=== PATIENT | male | born 1930 | race Caucasian/White ===

== ENCOUNTER 2018-07-13 12:36 | Inpatient (IN) ==
--- NOTE | 2018-07-13 13:11 | ED ---
HPI General Chief Complaint: Fall Stated Complaint: Fall Time Seen by Provider: 07/13/18 12:59 Source: patient Mode of arrival: EMS Limitations: no limitations History of Present Illness HPI Narrative: 87-year-old male with a history of CAD on Plavix, HTN, and essential tremor presents to the emergency department for evaluation of epistaxis after a fall that occurred just prior to arrival. He states that he was at the [facility] when his foot got caught and he fell onto his right knee, right hand, and nose. He denies loss of consciousness, headache, neck pain, back pain. He says that he is here in the emergency department because he was unable to control the nosebleed at the [facility]. He states that this point, the bleeding is controlled and would like to go home. He says his right fifth finger was angulated but he was able to reduce his finger on his own. He denies pain to his right knee but upon quick evaluation, the right knee is swollen and he states he may have fallen on his knee as well. 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 MD complaint: Reports fall Onset (ago): minute(s) Fall from: standing Fall witnessed: yes, by bystander Place fall occurred: other ([place] [facility]) Loss of consciousness: none Prolonged down time: no Symptoms prior to fall: Reports none Context: Reports tripped/slipped Related Data Home Medications Medication Instructions Recorded Confirmed aspirin [Aspirin Low Dose] 81 mg PO DAILY 07/13/18 07/13/18 atorvastatin 40 mg PO DAILY 07/13/18 07/13/18 baclofen 10 mg PO DAILY 07/13/18 07/13/18 carvedilol 3.125 mg PO BID 07/13/18 07/13/18 cinnamon bark [Cinnamon] 500 mg PO DAILY 07/13/18 07/13/18 clopidogrel 75 mg PO DAILY 07/13/18 07/13/18 losartan 25 mg PO DAILY 07/13/18 07/13/18 nitroglycerin 0.4 mg SUBLINGUAL Q5-15M PRN 07/13/18 07/13/18 temazepam 30 mg PO HS 07/13/18 07/13/18 terazosin 4 mg PO HS 07/13/18 07/13/18 tizanidine 4 mg PO HS 07/13/18 07/13/18 Allergies Allergy/AdvReac Type Severity Reaction Status Date / Time No Known Allergies Allergy Verified 07/13/18 13:26 Review of Systems ROS: all other systems reviewed are negative PMFSH History History Provided By: Patient Medical History Medical History Hypertension (Acute) CAD (coronary artery disease) (Chronic) Surgical History Surgical History Hx of cardiac cath (Acute) Social History Social History Substance History: No History of Abuse Smoking Status: Never smoker How Often Do You Have a Drink Containing Alcohol: Monthly or less Recent Travel in [facility] within the Last 8 Weeks: No Recent Out of Country Travel within the Last 8 Weeks: No Exam Narrative Exam Narrative: GENERAL: Well-developed, well-nourished in no apparent distress , resting tremor present SKIN: Focused skin assessment warm/dry. HEAD: Normocephalic. nasal bridge- superficial laceration/ abrasion, bleeding controlled, mild ecchymosis immediately surrounding the area. EYES: Pupils equal and round. No scleral icterus. No injection or drainage. PERRLA ENT: No active nasal bleeding. Dried blood around left nare. Mucous membranes pink and moist. NECK: Trachea midline. No JVD. No midline TTP. CARDIOVASCULAR: Regular rate and rhythm. No murmur appreciated. RESPIRATORY: No accessory muscle use. Clear to auscultation. Breath sounds equal bilaterally. GASTROINTESTINAL: Abdomen soft, non-tender, nondistended. Hepatic and splenic margins not palpable. MUSCULOSKELETAL: No obvious deformities. No clubbing. No cyanosis. No edema. NEUROLOGICAL: Awake and alert. No obvious cranial nerve deficits. Motor grossly within normal limits. Normal speech. Resting tremor present that ceases with intention. PSYCHIATRIC: Appropriate mood and affect; insight and judgment normal. Course Initial Documented Vital Signs Temperature 98.2 F 07/13/18 13:01 Pulse Rate 96 H 07/13/18 13:01 Respiratory Rate 18 07/13/18 13:01 Pulse Oximetry 99 07/13/18 13:01 Last Documented Vital Signs Temperature 98.2 F 07/13/18 13:01 Pulse Rate 108 H 07/13/18 20:08 Respiratory Rate 16 07/13/18 20:08 Blood Pressure 163/74 H 07/13/18 20:08 Pulse Oximetry 98 07/13/18 20:08 Medical Decision Making MDM Narrative Medical decision making narrative: 87-year-old male with a history of CAD on Plavix CKD III, and essential tremor presents to the emergency department via [facility] for evaluation of a bloody nose after mechanical fall that occurred just prior to arrival. He states he had images of his nose and finger but wanted to come in today for evaluation of uncontrolled epistaxis. He denies loss consciousness or headache. Denies weakness. Patient stated "he lost a lot of blood". Ordered labs for evaluation in addition to imaging studies. Patient required a dose of Ativan and Versed to reduce his tremors. Once the medication was effective, obtain CT head which demonstrated a large subdural hematoma. Placed call to neurosurgery. Labs appear stable. Chronic CKD III appears stable. CBC stable. Coags within normal limits. I discussed the findings with the patient and he had no additional complaints or concerns. @1815 I called his son who is listed on his NOK. No answer and unable to leave a message. Vital signs remain stable. BP 160/82, HR 80-90 BPM, SaO2 96%. @[address] Rodriguez who recommended admission to document preparation specialist vs trauma. No new orders for now. I spoke with Dr. Kothari who agreed to the admission. Medical Screen Exam Complete: Yes Emergency Medical Condition: Yes Differential Diagnosis Differential Diagnosis: nasal bone fracture, epistaxis, right knee fracture, right 5th finger fracture Medical Records Medical records reviewed: Yes I reviewed the patient's medical records. Pt last visit here was in 2015 for STEMI Lab Data Result diagrams: 07/13/18 13:27 07/13/18 13:27 Lab Results 07/13/18 07/13/18 07/13/18 Range/Units 13:27 13:27 13:27 WBC 10.7 (4.0-11.0) th/mm3 RBC 4.17 L (4.50-5.90) mil/mm3 Hgb 14.5 (13.0-17.0) gm/dL Hct 43.7 (39.0-51.0) % MCV 104.8 H (80.0-100.0) fL MCH 34.9 H (27.0-34.0) pg MCHC 33.3 (32.0-36.0) % RDW 14.9 (11.6-17.2) % Plt Count 173 (150-450) th/mm3 MPV 7.2 (7.0-11.0) fL Neut % (Auto) 72.4 H (16.0-70.0) % Lymph % (Auto) 18.5 (9.0-44.0) % [place] % (Auto) 6.4 (0.0-8.0) % Eos % (Auto) 2.4 (0.0-4.0) % Baso % (Auto) 0.3 (0.0-2.0) % Neut # (Auto) 7.7 (1.8-7.7) th/mm3 Lymph # (Auto) 2.0 (1.0-4.8) th/mm3 [place] # (Auto) 0.7 (0.0-0.9) th/mm3 Eos # (Auto) 0.3 (0.0-0.4) th/mm3 Baso # (Auto) 0.0 (0.0-0.2) th/mm3 WBC Differential . Differential Comment Auto diff final PT 11.2 (9.8-11.6) sec INR 1.1 Ratio APTT 25.0 (24.3-30.1) sec Sodium 141 (136-145) meq/L Potassium 4.7 (3.5-5.1) meq/L Chloride 109 H (98-107) meq/L Carbon Dioxide 27.5 (21.0-32.0) meq/L Anion Gap 5 (5-15) meq/L BUN 30 H (7-18) mg/dL Creatinine 1.45 H (0.60-1.30) mg/dL Estimated GFR 46 L (>89) mL/min Random Glucose 118 H (74-106) mg/dL Calcium 8.7 (8.5-10.1) mg/dL Imaging Data Radiologist's impression: Cervical Spine CT 07/13/18 13:08 CONCLUSION: 1. No acute fracture. 2. Mild grade 1 anterior spondylolisthesis of C4 on C5 of approximately 3 mm. 3. Degenerative disc and degenerative joint changes. Face CT 07/13/18 13:08 CONCLUSION: 1. Negative for facial bone fracture 2. Large parafalcine subdural hematoma described on CT scan of the head. 3. Subacute right subdural hematoma. Head CT 07/13/18 13:08 CONCLUSION: 1. Large acute parafalcine subdural hematoma 2. Subacute 5 mm right subdural hematoma. 3. Marked central and cortical atrophy. . Hand X-Ray 07/13/18 13:11 CONCLUSION: 1. Soft tissue swelling over the fifth digit with no acute fracture or malalignment. 2. Osteopenia and osteoarthritic change. Knee X-Ray 07/13/18 13:11 CONCLUSION: Soft tissue swelling with no acute fracture or malalignment. Discharge Plan Discharge Disposition Patient Disposition: 30 Still Patient Discharge Condition Condition: Stable Discharge Details Diagnosis: Acute subdural hematoma, Contusion of knee, right, Contusion of finger, right, Contusion of face Physicians Team ED Provider: Rodney Martel ED Midlevel Provider: Bindu Ely Primary Care Provider: Primary Care Blanca Hale Attending Provider: Sil Turner Status ED Status: Admitted Patient
--- NOTE | 2018-07-13 14:09 | XR ---
EXAM DATE: 07/13/2018 1:48 PM EDT AGE/SEX: 87 years / Male INDICATIONS: Right anterior knee pain after fall. CLINICAL DATA: This is the patient's initial encounter. Patient reports that signs and symptoms have been present for 1 day and indicates a pain score of 2/10. MEDICAL/SURGICAL HISTORY: None. None. COMPARISON: No prior exams available for comparison. FINDINGS: Bony structures are intact and in normal alignment. Joints are intact without dislocation or signifi cant arthropathy. Osseous density is normal. There is soft tissue swelling over the patella. No radi opaque foreign bodies seen. There are vascular calcifications. CONCLUSION: Soft tissue swelling with no acute fracture or malalignment. Electronically signed by: Jan Cadet MD 07/13/2018 2:08 PM EDT
--- NOTE | 2018-07-13 14:10 | XR ---
EXAM DATE: 07/13/2018 1:49 PM EDT AGE/SEX: 87 years / Male INDICATIONS: Right hand, 5th digit pain after fall. CLINICAL DATA: This is the patient's initial encounter. Patient reports that signs and symptoms have been present for 1 day and indicates a pain score of 9/10. MEDICAL/SURGICAL HISTORY: None. None. COMPARISON: No prior exams available for comparison. FINDINGS: Multiple views of the hand were obtained and demonstrate diffuse osteopenia. There are degenerative j oint changes present with sclerosis and joint space narrowing. There is no acute fracture or malalign ment. There is soft tissue swelling along the proximal fifth digit. CONCLUSION: 1. Soft tissue swelling over the fifth digit with no acute fracture or malalignment. 2. Osteopenia and osteoarthritic change. Electronically signed by: Jan Cadet MD 07/13/2018 2:09 PM EDT
[2018-07-13] MEDS ORDERED: Acetaminophen 325 MG Tablet PO ONE (14:14)
[2018-07-13 15:29] LABS: Baso % (Auto) 0.3 % (0.0-2.0); Eos # (Auto) 0.3 th/mm3 (0.0-0.4); Eos % (Auto) 2.4 % (0.0-4.0); Hematocrit 43.7 % (39.0-51.0); Hemoglobin 14.5 gm/dL (13.0-17.0); Lymph % (Auto) 18.5 % (9.0-44.0); Mean Corpuscular HGB Conc 33.3 % (32.0-36.0); Mean Corpuscular Hemoglobin 34.9 pg (27.0-34.0); Mean Corpuscular Volume 104.8 fL (80.0-100.0); Mean Platelet Volume 7.2 fL (7.0-11.0); Mono # (Auto) 0.7 th/mm3 (0.0-0.9); Mono % (Auto) 6.4 % (0.0-8.0); Neut # (Auto) 7.7 th/mm3 (1.8-7.7); Neut % (Auto) 72.4 % (16.0-70.0); Platelet Count 173 th/mm3 (150-450); Red Blood Count 4.17 mil/mm3 (4.50-5.90); Red Cell Distribution Width 14.9 % (11.6-17.2); White Blood Count 10.7 th/mm3 (4.0-11.0)
--- NOTE | 2018-07-13 15:44 | CT ---
EXAM DATE: 07/13/2018 3:40 PM EDT AGE/SEX: 87 years / Male INDICATIONS: Slip and fall. Hit nose on the ground. CLINICAL DATA: This is the patient's initial encounter. Patient reports that signs and symptoms have been present for 1 day and indicates a pain score of 0/10. MEDICAL/SURGICAL HISTORY: . Unobtainable. . Unobtainable. RADIATION DOSE: 66.34 CTDI (mGy) COMPARISON: No prior exams available for comparison. TECHNIQUE: CT of the head without contrast. Using automated exposure control and adjustment of the mA and/or kV according to patient size, radiation dose was kept as low as reasonably achievable to ob tain optimal diagnostic quality images. DICOM format image data is available electronically for revi ew and comparison. FINDINGS: There is a large parafalcine subdural hematoma causing effacement of the central cortical sulci. This measures 1.8 cm in its largest dimension. Blood is seen layering along the right tentorium. This is associated with moderate central and cortical atrophy. In addition there is a small subacute subdural hematoma layering over the right convexity causing minimal mass effect. Posterior fossa is unremarkable. Review of bone windows reveals no evidence for a fracture. CONCLUSION: 1. Large acute parafalcine subdural hematoma 2. Subacute 5 mm right subdural hematoma. 3. Marked central and cortical atrophy. . Electronically signed by: Jose Ferrell MD 07/13/2018 3:43 PM EDT
[2018-07-13 15:49] LABS: INR 1.1 Ratio; Prothrombin Time 11.2 sec (9.8-11.6)
--- NOTE | 2018-07-13 15:56 | CT ---
EXAM DATE: 07/13/2018 3:53 PM EDT AGE/SEX: 87 years / Male INDICATIONS: Slip and fall. Hit nose on ground. CLINICAL DATA: This is the patient's initial encounter. Patient reports that signs and symptoms have been present for 1 day and indicates a pain score of 0/10. MEDICAL/SURGICAL HISTORY: . Unobtainable. . Unobtainable. RADIATION DOSE: 21.96 CTDI (mGy) COMPARISON: No prior exams available for comparison. TECHNIQUE: Contiguous images in the axial and coronal planes were obtained using helical multirow de tector technique. Using automated exposure control and adjustment of the mA and/or kV according to p atient size, radiation dose was kept as low as reasonably achievable to obtain optimal diagnostic arturo lity images. DICOM format image data is available electronically for review and comparison. FINDINGS: Again seen is a large parafalcine subdural hematoma is smaller right subacute subdural hematoma. There is soft tissue swelling over the frontal bone bilaterally. Fracture is not appreciated. CONCLUSION: 1. Negative for facial bone fracture 2. Large parafalcine subdural hematoma described on CT scan of the head. 3. Subacute right subdural hematoma. Electronically signed by: Jose Ferrell MD 07/13/2018 3:55 PM EDT
--- NOTE | 2018-07-13 15:56 | CT ---
EXAM DATE: 07/13/2018 3:52 PM EDT AGE/SEX: 87 years / Male INDICATIONS: Slip and fall. Hit nose on ground. CLINICAL DATA: This is the patient's initial encounter. Patient reports that signs and symptoms have been present for 1 day and indicates a pain score of 0/10. MEDICAL/SURGICAL HISTORY: . Unobtainable. . Unobtainable. RADIATION DOSE: 21.10 CTDI (mGy) COMPARISON: No prior exams available for comparison. TECHNIQUE: Contiguous axial images were obtained using helical multirow detector technique. The vol umetric data was post-processed with multiplanar reconstruction in oblique axial, sagittal, and coron al planes. Using automated exposure control and adjustment of the mA and/or kV according to patient s ize, radiation dose was kept as low as reasonably achievable to obtain optimal diagnostic quality florencia ges. DICOM format image data is available electronically for review and comparison. FINDINGS: Vertebrae: Normal vertebral body height. Discs: Degenerative disc changes are present with mild disc space narrowing and hypertrophic change. Alignment: There is a mild grade 1 anterior spondylolisthesis of C4 on C5 approximately 3 mm. The axial images demonstrate that the vertebral bodies and posterior elements are intact with no evid ence of fracture. Extensive degenerative changes are noted involving the facet joints. Prevertebral s oft tissues are within normal limits. No disc protrusion is identified. CONCLUSION: 1. No acute fracture. 2. Mild grade 1 anterior spondylolisthesis of C4 on C5 of approximately 3 mm. 3. Degenerative disc and degenerative joint changes. Electronically signed by: Jan Cadet MD 07/13/2018 3:55 PM EDT
[2018-07-13 15:58] LABS: Calcium 8.7 mg/dL (8.5-10.1); Carbon Dioxide 27.5 meq/L (21.0-32.0); Potassium 4.7 meq/L (3.5-5.1)
[2018-07-13] MEDS ORDERED: Nitroglycerin SL (Override) 0.4 MG Tab SL PRN (19:39)
[2018-07-13] MEDS ORDERED: Aluminum/Magnesium/Simethacone Susp 30 ML UDC PO PRN (19:42)
[2018-07-13] MEDS ORDERED: Magnesium Sulfate Inj 2 GM in Sodium Chlor 0.9% Inj 96 ML IV.SIG PRN (19:42)
[2018-07-13] MEDS ORDERED: Bisacodyl 10 MG Supp RECTAL PRN (19:42)
[2018-07-13] MEDS ORDERED: Labetalol HCl Inj 100 MG/20 ML Vial IV.PUSH PRN (19:42)
[2018-07-13] MEDS ORDERED: Potassium Chlor 20 mEq Premix 20 MEQ/100 ML PIGGYBACK IV.SIG PRN (19:42)
[2018-07-13] MEDS ORDERED: Calcium Gluconate Inj 1 GM in Sodium Chlor 0.9% Inj 100 ML IV.SIG PRN (19:42)
--- NOTE | 2018-07-13 19:54 | P.CONNS ---
History of Present Illness Service: Neurosurgery Consult date: 07/13/18 Requesting Physician: Sil Turner (Trauma surgery) Reason for Consult: Acute subdural hemorrhage Primary Care Provider: No Primary Care Physician History of Present Illness: 87-year-old male who was at the [place] [facility] to get a new eyeglasses this afternoon when he tripped and fell and hit his head although denies loss of consciousness. He is on chronic aspirin and Plavix therapy for history of coronary stents and had bleeding from his nose which prompted him to come to the emergency room. CT scan of the head obtained reveals an acute interhemispheric subdural hemorrhage extending from the frontal to the occipital aspect with a maximal thickness about 17 mm. There is also a small right convexity subacute subdural hemorrhage measuring about 5 mm in thickness. No cervical spine fractures and relates chronic history of neck pain which is not new. Denies any numbness or paresthesias in the upper lower extremities. Denies any nausea or vomiting. [facility] - History History Provided By: Patient - Medical History Medical History: Medical History (Last Updated 07/13/18 @ 19:48 by Gold Rodriguez MD) Hypertension CAD (coronary artery disease) - Surgical History Surgical History: Surgical History (Last Updated 07/13/18 @ 19:48 by Gold Rodriguez MD) Hx of cardiac cath - Tobacco History Smoking Status: Never smoker - Alcohol History How Often Do You Have a Drink Containing Alcohol: Monthly or less - Substance Use History Substance History: No History of Abuse - Travel History Recent Travel in the [place] Within the Last 8 Weeks: No Recent Travel Out of the Country Within the Last 8 Weeks: No - Immunization History Tetanus Immunization: <5 Years Medications and Allergies Allergies Allergy/AdvReac Type Severity Reaction Status Date / Time No Known Allergies Allergy Verified 07/13/18 13:26 Home Medications Medication Instructions Recorded Confirmed Type aspirin [Aspirin Low Dose] 81 mg PO DAILY 07/13/18 07/13/18 History atorvastatin 40 mg PO DAILY 07/13/18 07/13/18 History baclofen 10 mg PO DAILY 07/13/18 07/13/18 History carvedilol 3.125 mg PO BID 07/13/18 07/13/18 History cinnamon bark [Cinnamon] 500 mg PO DAILY 07/13/18 07/13/18 History clopidogrel 75 mg PO DAILY 07/13/18 07/13/18 History losartan 25 mg PO DAILY 07/13/18 07/13/18 History nitroglycerin 0.4 mg SUBLINGUAL Q5-15M PRN 07/13/18 07/13/18 History temazepam 30 mg PO HS 07/13/18 07/13/18 History terazosin 4 mg PO HS 07/13/18 07/13/18 History tizanidine 4 mg PO HS 07/13/18 07/13/18 History Exam Vital signs: Vital Signs 07/13/18 13:01 07/13/18 13:06 07/13/18 15:00 Temperature 98.2 F Pulse Rate 96 H 58 L 98 H Respiratory Rate 18 28 H 29 H Blood Pressure 168/71 H 178/86 H Pulse Oximetry 99 98 100 07/13/18 15:44 07/13/18 16:05 07/13/18 17:00 Temperature Pulse Rate 96 H 100 H Respiratory Rate 19 23 24 Blood Pressure 160/82 H 162/79 H Pulse Oximetry 96 100 07/13/18 18:00 07/13/18 19:00 Temperature Pulse Rate 100 H 104 H Respiratory Rate 21 16 Blood Pressure 169/79 H 177/86 H Pulse Oximetry 97 98 - Constitutional no acute distress - Routine HEENT Exam Head: Present: abrasion, laceration, facial swelling Eye: Present: EOMI, PERRL ENT: Present: mucous membranes moist, oropharynx clear, nares patent, external ear normal - Routine Neck Exam Present: supple, full ROM - Routine Respiratory Exam Present: CTA bilaterally - Routine Cardiovascular Exam Present: RRR, S1, S2 - Routine Abdominal Exam Present: soft, normoactive bowel sounds - Routine Extremities Exam Present: full ROM, pulses intact - Routine Skin Exam Present: ecchymosis - Routine Neurological Exam Present: oriented X3, CN II-XII intact, plantar reflex, moving all extremities, normal speech - Detailed Neurological Exam: Coma Scale Eye Opening: Spontaneous Verbal Response: Oriented Motor Response: [place] commands [place] Coma Scale Total: 15 - Routine Psychiatric Exam Present: normal affect, normal thought process, cooperative, good insight, good judgment Results - Laboratory Findings CBC and BMP: 07/13/18 13:27 07/13/18 13:27 Abnormal lab findings: Abnormal Labs 07/13/18 07/13/18 13:27 13:27 RBC 4.17 L MCV 104.8 H MCH 34.9 H Neut % (Auto) 72.4 H Chloride 109 H BUN 30 H Creatinine 1.45 H Estimated GFR 46 L Random Glucose 118 H - Diagnostic Findings Additional findings: Impressions Cervical Spine CT 07/13/18 13:08 CONCLUSION: 1. No acute fracture. 2. Mild grade 1 anterior spondylolisthesis of C4 on C5 of approximately 3 mm. 3. Degenerative disc and degenerative joint changes. Face CT 07/13/18 13:08 CONCLUSION: 1. Negative for facial bone fracture 2. Large parafalcine subdural hematoma described on CT scan of the head. 3. Subacute right subdural hematoma. Head CT 07/13/18 13:08 CONCLUSION: 1. Large acute parafalcine subdural hematoma 2. Subacute 5 mm right subdural hematoma. 3. Marked central and cortical atrophy. . Hand X-Ray 07/13/18 13:11 CONCLUSION: 1. Soft tissue swelling over the fifth digit with no acute fracture or malalignment. 2. Osteopenia and osteoarthritic change. Knee X-Ray 07/13/18 13:11 CONCLUSION: Soft tissue swelling with no acute fracture or malalignment. Assessment and Plan - Assessment (1) Acute subdural hematoma Code(s): S06.5X9A - Traumatic subdural hemorrhage with loss of consciousness of unspecified duration, initial encounter Status: Acute (2) Hypertension Code(s): I10 - Essential (primary) hypertension Status: Chronic - Plan 87-year-old gentleman with an acute interhemispheric subdural hemorrhage which extends into the right tentorium with a subacute small right convexity subdural hemorrhage. 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 He is on aspirin and Plavix therapy and increasing the risk for bleeding. His hypertension will be regulated and he will be monitored closely in the surgical intensive care unit. Follow-up CT scan of the head tomorrow morning to rule out any progression of these subdural hemorrhages. Gastrointestinal stress ulcer prophylaxis and mechanical DVT prophylaxis. Increase diet and activity status as tolerated with physical therapy safety evaluation. (2) Hypertension Qualifiers: Hypertension type: essential hypertension Qualified Code(s): I10 - Essential (primary) hypertension
[2018-07-13] MEDS ORDERED: Docusate Sodium 100 MG Capsule PO SCH (21:00)
[2018-07-13] MEDS ORDERED: Senna/Docusate Sodium 8.6/50 MG Tablet PO SCH (21:00)
--- NOTE | 2018-07-13 21:16 | P.HPCC ---
History of Present Illness Primary Care Physician: No Primary Care Physician History of Present Illness: 87y.o male with with history of CAD,tremor ,chronic back and neck pain-tripped and fell,sustained a TBI -a large parafalcine SDH,GCS 15,HD normal,neuro intact, no headache Inpatient Certification: I certify that the inpatient services were ordered in accordance with Medicare regulations governing the order. This includes certification that hospital inpatient services are reasonable and necessary and in the case of services not specified as inpatient-only under 42 CFR 419.22(n), that they are appropriately provided as inpatient services in accordance to with the 2-midnight benchmark under 43 CFR 412.3(e) Estimated Total Length of Stay (Days): 5 Plans for Post Hospital Care: Home Review of Systems All other systems reviewed negative except as stated in HPI [facility] - History History Provided By: Patient - Medical History Medical History: Medical History (Last Updated 07/13/18 @ 19:48 by Gold Rodriguez MD) Hypertension CAD (coronary artery disease) - Surgical History Surgical History: Surgical History (Last Updated 07/13/18 @ 19:48 by Gold Rodriguez MD) Hx of cardiac cath - Tobacco History Smoking Status: Never smoker - Alcohol History How Often Do You Have a Drink Containing Alcohol: Monthly or less - Substance Use History Substance History: No History of Abuse - Travel History Recent Travel in the [place] Within the Last 8 Weeks: No Recent Travel Out of the Country Within the Last 8 Weeks: No - Immunization History Tetanus Immunization: <5 Years Medications and Allergies Active Medications: Active Medications Atorvastatin Calcium (Lipitor) 40 mg PO DAILY SRIDHAR Bacitracin (Baciguent Oint) 1 applicatio TOPICAL BID [facility]AR Baclofen (Lioresal) 10 mg PO DAILY [facility] Carvedilol (Coreg) 3.125 mg PO BID SRIDHAR Chlorhexidine Gluconate (Chlorhexidine 2% Cloth) 3 pack TOPICAL DAILY@0400 SRID[facility]AR Stop: 07/19/18 03:59 Chlorhexidine Gluconate (Chlorhexidine 2% Cloth) 3 pack TOPICAL DAILY@0400 PRN PRN Reason: Extra cloth needed Stop: 07/19/18 03:59 Docusate Sodium (Colace) 100 mg PO BID SRIDHAR Calcium Gluconate 1 gm/ Sodium (Chloride) 110 mls @ 110 mls/hr IV.SIG UNSCH PRN PRN Reason: SEE LABEL COMMENTS Magnesium Sulfate 2 gm/ Sodium (Chloride) 100 mls @ 100 mls/hr IV.SIG UNSCH PRN PRN Reason: MAGNESIUM LESS THAN 2 Potassium Chloride (Kcl 20 Meq Premix Inj) 20 meq in 100 mls @ 50 mls/hr IV.SIG UNSCH PRN PRN Reason: POTASSIUM LESS THAN 4 Sodium Chloride (Ns Inj) 1,000 mls @ 75 mls/hr IV.CONT .[id number] SRIDHAR Acetaminophen (Ofirmev Inj) 1,000 mg in 100 mls @ 400 mls/hr IV.SIG Q6H PRN PRN Reason: PAIN SCALE 1 TO 10 Levetiracetam 500 mg/ Sodium (Chloride) 105 mls @ 400 mls/hr IV.SIG Q12H SRIDHAR Losartan Potassium (Cozaar) 25 mg PO DAILY SRIDHAR Morphine Sulfate (Morphine Inj) 2 mg IV.PUSH Q3H PRN PRN Reason: Break through pain Nitroglycerin (Nitrostat Sl (Override)) 0.4 mg SL Q5M PRN PRN Reason: Chest Pain Ondansetron HCl (Zofran Inj) 4 mg IV.PUSH Q6H PRN PRN Reason: NAUSEA OR VOMITING Ondansetron HCl (Zofran Inj) 4 mg IV.PUSH Q6H PRN PRN Reason: NAUSEA OR VOMITING Pantoprazole Sodium (Protonix) 40 mg PO DAILY [facility] Sennosides (Senokot) 17.2 mg PO Q12H PRN PRN Reason: Moderate Constipation Terazosin HCl (Hytrin) 4 mg PO HS [facility]ID[facility]AR Tizanidine HCl (Zanaflex) 4 mg PO HS [facility] Allergies Allergy/AdvReac Type Severity Reaction Status Date / Time No Known Allergies Allergy Verified 07/13/18 13:26 Home Medications Medication Instructions Recorded Confirmed Type aspirin [Aspirin Low Dose] 81 mg PO DAILY 07/13/18 07/13/18 History atorvastatin 40 mg PO DAILY 07/13/18 07/13/18 History baclofen 10 mg PO DAILY 07/13/18 07/13/18 History carvedilol 3.125 mg PO BID 07/13/18 07/13/18 History cinnamon bark [Cinnamon] 500 mg PO DAILY 07/13/18 07/13/18 History clopidogrel 75 mg PO DAILY 07/13/18 07/13/18 History losartan 25 mg PO DAILY 07/13/18 07/13/18 History nitroglycerin 0.4 mg SUBLINGUAL Q5-15M PRN 07/13/18 07/13/18 History temazepam 30 mg PO HS 07/13/18 07/13/18 History terazosin 4 mg PO HS 07/13/18 07/13/18 History tizanidine 4 mg PO HS 07/13/18 07/13/18 History Results - Labs CBC & Chem 7: 07/13/18 13:27 07/13/18 13:27 Labs: Short CBC 07/13/18 Range/Units 13:27 WBC 10.7 (4.0-11.0) th/mm3 Hgb 14.5 (13.0-17.0) gm/dL Hct 43.7 (39.0-51.0) % Plt Count 173 (150-450) th/mm3 BMP 07/13/18 13:27 Sodium 141 Potassium 4.7 Chloride 109 H Carbon Dioxide 27.5 BUN 30 H Creatinine 1.45 H Calcium 8.7 - Imaging Impressions Cervical Spine CT 07/13/18 13:08 CONCLUSION: 1. No acute fracture. 2. Mild grade 1 anterior spondylolisthesis of C4 on C5 of approximately 3 mm. 3. Degenerative disc and degenerative joint changes. Face CT 07/13/18 13:08 CONCLUSION: 1. Negative for facial bone fracture 2. Large parafalcine subdural hematoma described on CT scan of the head. 3. Subacute right subdural hematoma. Head CT 07/13/18 13:08 CONCLUSION: 1. Large acute parafalcine subdural hematoma 2. Subacute 5 mm right subdural hematoma. 3. Marked central and cortical atrophy. . Hand X-Ray 07/13/18 13:11 CONCLUSION: 1. Soft tissue swelling over the fifth digit with no acute fracture or malalignment. 2. Osteopenia and osteoarthritic change. Knee X-Ray 07/13/18 13:11 CONCLUSION: Soft tissue swelling with no acute fracture or malalignment. Exam Vital signs: Vital Signs 07/13/18 13:01 07/13/18 13:06 07/13/18 15:00 Temperature 98.2 F Pulse Rate 96 H 58 L 98 H Respiratory Rate 18 28 H 29 H Blood Pressure 168/71 H 178/86 H Pulse Oximetry 99 98 100 07/13/18 15:44 07/13/18 16:05 07/13/18 17:00 Temperature Pulse Rate 96 H 100 H Respiratory Rate 19 23 24 Blood Pressure 160/82 H 162/79 H Pulse Oximetry 96 100 07/13/18 18:00 07/13/18 19:00 07/13/18 20:08 Temperature Pulse Rate 100 H 104 H 108 H Respiratory Rate 21 16 16 Blood Pressure 169/79 H 177/86 H 163/74 H Pulse Oximetry 97 98 98 - Constitutional no acute distress, average body habitus, cooperative - Routine HEENT Exam Head: Present: normocephalic (abrasion face) Eye: Present: EOMI, PERRL ENT: Present: mucous membranes moist, oropharynx clear - Routine Neck Exam Present: supple, full ROM, trachea midline - Routine Respiratory Exam Present: CTA bilaterally - Routine Cardiovascular Exam Present: RRR - Routine Abdominal Exam Present: soft, normoactive bowel sounds - Routine Extremities Exam Present: full ROM, pulses intact, normal capillary refill - Routine Neurological Exam Present: alert, oriented X3, normal speech, tremors Caprini VTE Risk Assessment Caprini VTE Risk Assessment: Moderate/High Risk (score >= 2) (trauma) VTE Pharmacological Exception Reason: High risk for bleeding Caprini Risk Assessment Model: Point Value = 1 Point Value = 2 Point Value = 3 Point Value = 5 Age 41-60 Minor surgery BMI > 25 kg/m2 Swollen legs Varicose veins or History of unexplained or recurrent spontaneous Oral contraceptives or hormone replacement Sepsis (< 1 month) Serious lung disease, including pneumonia (< 1 month) Abnormal pulmonary function Acute myocardial infarction Congestive heart failure (< 1 month) History of inflammatory bowel disease Medical patient at bed rest Age 61-74 Arthroscopic surgery Major open surgery (> 45 min) Laparoscopic surgery (> 45 min) Malignancy Confined to bed (> 72 hours) Immobilizing plaster cast Central venous access Age >= 75 History of VTE Family history of VTE Factor V Leiden Prothrombin [id number] Lupus anticoagulant Anticardiolipin antibodies Elevated serum homocysteine Heparin-induced thrombocytopenia Other congenital or acquired thrombophilia Stroke (< 1 month) Elective arthroplasty Hip, pelvis, or leg fracture Acute spinal cord injury (< 1 month) Prophylaxis Regimen: Total Risk Factor Score Risk Level Prophylaxis Regimen 0-1 Low Early ambulation 2 Moderate Order ONE of the following: *Sequential Compression Device (SCD) *Heparin 5000 units SQ BID 3-4 Higher Order ONE of the following medications: *Heparin 5000 units SQ TID *Enoxaparin/Lovenox 40 mg SQ daily (WT < 150 kg, CrCl > 30 mL/min) *Enoxaparin/Lovenox 30 mg SQ daily (WT < 150 kg, CrCl > 10-29 mL/min) *Enoxaparin/Lovenox 30 mg SQ BID (WT < 150 kg, CrCl > 30 mL/min) AND/OR *Sequential Compression Device (SCD) 5 or more Highest Order ONE of the following medications: *Heparin 5000 units SQ TID (Preferred with Epidurals) *Enoxaparin/Lovenox 40 mg SQ daily (WT < 150 kg, CrCl > 30 mL/min) *Enoxaparin/Lovenox 30 mg SQ daily (WT < 150 kg, CrCl > 10-29 mL/min) *Enoxaparin/Lovenox 30 mg SQ BID (WT < 150 kg, CrCl > 30 mL/min) AND *Sequential Compression Device (SCD) Assessment and Plan - Assessment and Plan Plan: large parafalcine SDH GCS 15 admit ISC neuro checks pain control keep SBP< [address] head dw NS hold plavix
[2018-07-13] MEDS: Morphine Sulfate Inj 2 MG/ML Vial IV.PUSH PRN (21:18)
[2018-07-13] MEDS: Sod Chloride 0.9% Inj 1,000 ML IV.CONT SCH (21:18)
[2018-07-14] MEDS: Morphine Sulfate Inj 2 MG/ML Vial IV.PUSH PRN (00:48)
[2018-07-14] MEDS ORDERED: Chlorhexidine Gluconate 2% 1 Pack (2 Cloths) TOPICAL PRN (04:00)
[2018-07-14] MEDS: Chlorhexidine Gluconate 2% 1 Pack (2 Cloths) TOPICAL SCH (04:54)
[2018-07-14] MEDS ORDERED: Sodium Chloride 0.9% 2 ML Flush PRN IV.FLUSH (06:11)
[2018-07-14 07:38] LABS: Baso % (Auto) 0.3 % (0.0-2.0); Eos # (Auto) 0.2 th/mm3 (0.0-0.4); Hematocrit 38.6 % (39.0-51.0); INR 1.2 Ratio; Lymph # (Auto) 1.5 th/mm3 (1.0-4.8); Lymph % (Auto) 16.7 % (9.0-44.0); Mean Corpuscular HGB Conc 33.8 % (32.0-36.0); Mean Corpuscular Hemoglobin 34.6 pg (27.0-34.0); Mean Corpuscular Volume 102.4 fL (80.0-100.0); Mean Platelet Volume 6.9 fL (7.0-11.0); Mono # (Auto) 0.8 th/mm3 (0.0-0.9); Mono % (Auto) 8.9 % (0.0-8.0); Neut # (Auto) 6.5 th/mm3 (1.8-7.7); Neut % (Auto) 72.1 % (16.0-70.0); Platelet Count 155 th/mm3 (150-450); Prothrombin Time 12.4 sec (9.8-11.6); Red Blood Count 3.77 mil/mm3 (4.50-5.90); Red Cell Distribution Width 14.5 % (11.6-17.2)
[2018-07-14 08:04] LABS: Calcium 8.1 mg/dL (8.5-10.1); Magnesium 1.7 mg/dL (1.5-2.5); Potassium 4.1 meq/L (3.5-5.1)
[2018-07-14] MEDS: Baclofen 10 MG Tablet PO SCH (08:27)
[2018-07-14] MEDS: Senna/Docusate Sodium 8.6/50 MG Tablet PO SCH ×2 (08:27→20:05)
[2018-07-14] MEDS: Sodium Chloride 0.9% 2 ML Flush BID IV.FLUSH SCH ×2 (08:28→20:05)
--- NOTE | 2018-07-14 09:29 | P.PNNS ---
Subjective Interval history: Pt awake and alert. Denies headache. No n/v. Complains of chronic neck pain. No paresthesias in extremities. <Vignesh Miller - Last Filed: 07/14/18 09:23> Physical Exam Vital signs: Vital Signs 07/13/18 13:01 07/13/18 13:06 07/13/18 15:00 Temperature 98.2 F Pulse Rate 96 H 58 L 98 H Respiratory Rate 18 28 H 29 H Blood Pressure 168/71 H 178/86 H Pulse Oximetry 99 98 100 07/13/18 15:44 07/13/18 16:05 07/13/18 17:00 Temperature Pulse Rate 96 H 100 H Respiratory Rate 19 23 24 Blood Pressure 160/82 H 162/79 H Pulse Oximetry 96 100 07/13/18 18:00 07/13/18 19:00 07/13/18 20:08 Temperature Pulse Rate 100 H 104 H 108 H Respiratory Rate 21 16 16 Blood Pressure 169/79 H 177/86 H 163/74 H Pulse Oximetry 97 98 98 07/13/18 21:07 07/13/18 21:58 07/13/18 21:59 Temperature Pulse Rate 105 H 97 H 110 H Respiratory Rate 18 24 Blood Pressure 166/78 H 174/83 H Pulse Oximetry 07/13/18 22:00 07/13/18 22:02 07/13/18 23:00 Temperature Pulse Rate 107 H 112 H 95 H Respiratory Rate 27 H 36 H 25 H Blood Pressure 149/93 H 153/73 H Pulse Oximetry 97 97 96 07/14/18 00:00 07/14/18 00:04 07/14/18 01:00 Temperature Pulse Rate 79 90 85 Respiratory Rate 17 21 15 Blood Pressure 138/119 H 149/67 H 141/67 H Pulse Oximetry 95 97 94 L 07/14/18 02:00 07/14/18 03:00 07/14/18 03:01 Temperature 98.1 F Pulse Rate 80 95 H 95 H Respiratory Rate 31 H 34 H 29 H Blood Pressure 148/68 H 185/87 H 177/84 H Pulse Oximetry 95 97 97 07/14/18 04:00 07/14/18 05:00 07/14/18 06:00 Temperature 98.2 F Pulse Rate 76 90 88 Respiratory Rate 16 32 H 24 Blood Pressure 145/65 H 179/81 H 172/80 H Pulse Oximetry 96 98 95 Intake & Output 07/13/18 07/14/18 07/14/18 18:59 06:59 18:59 Intake Total 205 / 205 105 / 105 Output Total 150 / 150 Balance 55 / 55 105 / 105 Weight 74.2 kg Intake: IV 105 / 105 Ofirmev Inj 1,000 mg In 100 ml 100 / 100 @ 400 mls/hr IV.SIG Q6H PRN Rx# :[id number] Keppra Inj 500 MG In NS Inj 100 105 / 105 105 / 105 ML @ 400 mls/hr IV.SIG Q12H SRIDHAR Rx#:[id number] Output: Urine 150 / 150 Other: Weight On Admission 74.2 kg - Constitutional no acute distress - Routine HEENT Exam Head: Absent: atraumatic (Mild bruise on chin and slight on nose.) Eye: Present: PERRL (3mm bilaterally reactive bilaterally.). Absent: conjunctival icterus, periorbital ecchymosis - Routine Respiratory Exam Present: CTA bilaterally. Absent: respiratory distress, rhonchi, wheezes - Routine Cardiovascular Exam Present: RRR, S1, S2. Absent: murmur - Routine Abdominal Exam Present: soft, normoactive bowel sounds. Absent: distended, firm - Routine Extremities Exam Comments: Right 5th finger. - Routine Skin Exam Present: ecchymosis (Right 5th finger.). Absent: cyanosis, erythema - Routine Neurological Exam Present: alert, moving all extremities, normal speech. Absent: sensory deficit , motor deficit, altered mental status, facial asymmetry - Routine Psychiatric Exam Present: normal affect, cooperative. Absent: anxious, agitated <Vignesh Miller - Last Filed: 07/14/18 09:23> Vital signs: Vital Signs 07/13/18 13:01 07/13/18 13:06 07/13/18 15:00 Temperature 98.2 F Pulse Rate 96 H 58 L 98 H Respiratory Rate 18 28 H 29 H Blood Pressure 168/71 H 178/86 H Pulse Oximetry 99 98 100 07/13/18 15:44 07/13/18 16:05 07/13/18 17:00 Temperature Pulse Rate 96 H 100 H Respiratory Rate 19 23 24 Blood Pressure 160/82 H 162/79 H Pulse Oximetry 96 100 07/13/18 18:00 07/13/18 19:00 07/13/18 20:08 Temperature Pulse Rate 100 H 104 H 108 H Respiratory Rate 21 16 16 Blood Pressure 169/79 H 177/86 H 163/74 H Pulse Oximetry 97 98 98 07/13/18 21:07 07/13/18 21:58 07/13/18 21:59 Temperature Pulse Rate 105 H 97 H 110 H Respiratory Rate 18 24 Blood Pressure 166/78 H 174/83 H Pulse Oximetry 07/13/18 22:00 07/13/18 22:02 07/13/18 23:00 Temperature Pulse Rate 107 H 112 H 95 H Respiratory Rate 27 H 36 H 25 H Blood Pressure 149/93 H 153/73 H Pulse Oximetry 97 97 96 07/14/18 00:00 07/14/18 00:04 07/14/18 01:00 Temperature Pulse Rate 79 90 85 Respiratory Rate 17 21 15 Blood Pressure 138/119 H 149/67 H 141/67 H Pulse Oximetry 95 97 94 L 07/14/18 02:00 07/14/18 03:00 07/14/18 03:01 Temperature 98.1 F Pulse Rate 80 95 H 95 H Respiratory Rate 31 H 34 H 29 H Blood Pressure 148/68 H 185/87 H 177/84 H Pulse Oximetry 95 97 97 07/14/18 04:00 07/14/18 05:00 07/14/18 06:00 Temperature 98.2 F Pulse Rate 76 90 88 Respiratory Rate 16 32 H 24 Blood Pressure 145/65 H 179/81 H 172/80 H Pulse Oximetry 96 98 95 Intake & Output 07/13/18 07/14/18 07/14/18 18:59 06:59 18:59 Intake Total 205 / 205 105 / 105 Output Total 150 / 150 Balance 55 / 55 105 / 105 Weight 74.2 kg Intake: IV 205 / 205 105 / 105 Ofirmev Inj 1,000 mg In 100 ml 100 / 100 @ 400 mls/hr IV.SIG Q6H PRN Rx# :[id number] Keppra Inj 500 MG In NS Inj 100 105 / 105 105 / 105 ML @ 400 mls/hr IV.SIG Q12H SRIDHAR Rx#:[id number] Output: Urine 150 / 150 Other: Weight On Admission 74.2 kg - Additional findings Additional findings: Impressions Cervical Spine CT 07/13/18 13:08 CONCLUSION: 1. No acute fracture. 2. Mild grade 1 anterior spondylolisthesis of C4 on C5 of approximately 3 mm. 3. Degenerative disc and degenerative joint changes. Face CT 07/13/18 13:08 CONCLUSION: 1. Negative for facial bone fracture 2. Large parafalcine subdural hematoma described on CT scan of the head. 3. Subacute right subdural hematoma. Head CT 07/13/18 13:08 CONCLUSION: 1. Large acute parafalcine subdural hematoma 2. Subacute 5 mm right subdural hematoma. 3. Marked central and cortical atrophy. . Hand X-Ray 07/13/18 13:11 CONCLUSION: 1. Soft tissue swelling over the fifth digit with no acute fracture or malalignment. 2. Osteopenia and osteoarthritic change. Knee X-Ray 07/13/18 13:11 CONCLUSION: Soft tissue swelling with no acute fracture or malalignment. Head CT 07/14/18 08:00 CONCLUSION: 1. Right parafalcine subdural hemorrhage not definitely changed measuring 18 mm in dimension. 2. Minimal subarachnoid hemorrhage in the left parafalcine region. . <Gold Rodriguez - Last Filed: 07/14/18 11:34> Assessment and Plan - Assessment (1) Contusion of knee, right Code(s): S80.01XA - Contusion of right knee, initial encounter Status: Acute Qualifiers: Encounter type: initial encounter Qualified Code(s): S80.01XA - Contusion of right knee, initial encounter (2) Contusion of finger, right Code(s): S60.00XA - Contusion of unspecified finger without damage to nail, initial encounter Status: Acute Qualifiers: Encounter type: initial encounter Finger: little finger Damage to nail status: without damage Qualified Code(s): S60.051A - Contusion of right little finger without damage to nail, initial encounter (3) Acute subdural hematoma Code(s): S06.5X9A - Traumatic subdural hemorrhage with loss of consciousness of unspecified duration, initial encounter Status: Acute (4) Contusion of face Code(s): S00.83XA - Contusion of other part of head, initial encounter Status : Acute Qualifiers: Encounter type: initial encounter Qualified Code(s): S00.83XA - Contusion of other part of head, initial encounter (5) Hypertension Code(s): I10 - Essential (primary) hypertension Status: Chronic Qualifiers: Hypertension type: essential hypertension Qualified Code(s): I10 - Essential (primary) hypertension - Plan 87-year-old gentleman with an acute interhemispheric subdural hemorrhage which extends into the right tentorium with a subacute small right convexity subdural hemorrhage. 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 He is on aspirin and Plavix therapy and increasing the risk for bleeding. P: Continue to monitor closely in the surgical intensive care unit. Follow-up CT scan of the head ordered for this morning to rule out any progression of these subdural hemorrhages. Continue with gastrointestinal stress ulcer prophylaxis Continue with mechanical DVT prophylaxis. Increase activity status as tolerated with physical therapy safety evaluation. Discussed with RN. <Vignesh Miller - Last Filed: 07/14/18 09:23> - Assessment (1) Acute subdural hematoma Code(s): S06.5X9A - Traumatic subdural hemorrhage with loss of consciousness of unspecified duration, initial encounter Status: Acute (2) Hypertension Code(s): I10 - Essential (primary) hypertension Status: Chronic Qualifiers: Hypertension type: essential hypertension Qualified Code(s): I10 - Essential (primary) hypertension - Attending Attestation The exam, history, and the medical decision-making described in the above note were completed with the assistance of the mid-level provider. I reviewed and agree with the findings presented. I attest that I had a [id number] encounter with the patient on the same day, and personally performed and documented my assessment and findings in the medical record. Stable follow-up CT scan of the head and neurologic examination. Increase diet and activity status as tolerated. Transfer to floor once hypertension is regulated. <Gold Rodriguez - Last Filed: 07/14/18 11:34>
--- NOTE | 2018-07-14 10:09 | CT ---
EXAM DATE: 07/14/2018 10:03 AM EDT AGE/SEX: 87 years / Male INDICATIONS: Follow up intracerbral hemorrhage. CLINICAL DATA: This is the patient's subsequent encounter. Patient reports that signs and symptoms h ave been present for 2 days and indicates a pain score of Nonresponsive. MEDICAL/SURGICAL HISTORY: Hypertension. . Cardiac cath. RADIATION DOSE: 67.23 CTDI (mGy) [place] [facility] [place]13/[place]. . TECHNIQUE: CT of the head without contrast. Using automated exposure control and adjustment of the mA and/or kV according to patient size, radiation dose was kept as low as reasonably achievable to ob tain optimal diagnostic quality images. DICOM format image data is available electronically for revi ew and comparison. FINDINGS: Cerebrum: Large left parafalcine subdural hemorrhage again seen slightly changed in morphology but o therwise unchanged. This measures 18 mm in short axis is also some subarachnoid hemorrhage in the rig ht parafalcine region. The ventricles are normal for age. No evidence of midline shift, mass lesion, . No acute infarction. No extraaxial fluid collections are seen. Posterior Fossa: The cerebellum and brainstem are intact. The 4th ventricle is midline. The cerebe llopontine angle is unremarkable. Extracranial: The visualized portion of the orbits is intact. Skull: The calvaria is intact. No evidence of skull fracture. CONCLUSION: 1. Right parafalcine subdural hemorrhage not definitely changed measuring 18 mm in dimension. 2. Minimal subarachnoid hemorrhage in the left parafalcine region. . Electronically signed by: Vignesh Shepherd MD 07/14/2018 10:08 AM EDT
--- NOTE | 2018-07-14 12:02 | P.NPEVAL ---
Patient History - Record/History Review Reason for Referral: The patient is a 87 year old unknown handed male status post traumatic brain injury secondary to a fall sustained on 07/13/2018. This patient has a prior history of CAD and tremor. Head CT showed large parafalcine SDH with marked cortical and central atrophy. He is referred for baseline neurobehavioral status examination per trauma protocol to assess cognitive, behavioral and emotional aspects of the injury and to provide treatment recommendations. [facility] - History History Provided By: Patient - Medical History Medical History: Medical History (Last Reviewed 07/14/18 @ 09:09 by Fitz Hoover) Hypertension CAD (coronary artery disease) - Surgical History Surgical History: Surgical History (Last Reviewed 07/14/18 @ 09:09 by Fitz Hoover) Hx of cardiac cath - Tobacco History Second Hand Smoke Exposure: No Smoking Status: Never smoker - Alcohol History How Often Do You Have a Drink Containing Alcohol: Monthly or less - Substance Use History Substance History: No History of Abuse - Travel History Recent Travel in the [place] Within the Last 8 Weeks: No Recent Travel Out of the Country Within the Last 8 Weeks: No - Immunization History Tetanus Immunization: <5 Years Hx Influenza Vaccine This Season: Yes Medications Active Medications Albuterol (Duoneb Neb (Prn)) 1 ampul NEB Q2HR NEB PRN PRN Reason: SHORTNESS OF BREATH Atorvastatin Calcium (Lipitor) 40 mg PO DAILY [facility] Last Admin: 07/14/18 08:26 Dose: 40 mg Bacitracin (Baciguent Oint) 1 applicatio TOPICAL BID [facility] Last Admin: 07/14/18 08:27 Dose: 1 applicatio Baclofen (Lioresal) 10 mg PO DAILY [facility] Last Admin: 07/14/18 08:27 Dose: 10 mg Carvedilol (Coreg) 3.125 mg PO BID [facility] Last Admin: 07/14/18 08:27 Dose: 3.125 mg Chlorhexidine Gluconate (Chlorhexidine 2% Cloth) 3 pack TOPICAL DAILY@0400 [facility] Stop: 07/19/18 03:59 Last Admin: 07/14/18 04:54 Dose: 3 pack Chlorhexidine Gluconate (Chlorhexidine 2% Cloth) 3 pack TOPICAL DAILY@0400 PRN PRN Reason: Extra cloth needed Stop: 07/19/18 03:59 Calcium Gluconate 1 gm/ Sodium (Chloride) 110 mls @ 110 mls/hr IV.SIG UNSCH PRN PRN Reason: SEE LABEL COMMENTS Magnesium Sulfate 2 gm/ Sodium (Chloride) 100 mls @ 100 mls/hr IV.SIG UNSCH PRN PRN Reason: MAGNESIUM LESS THAN 2 Potassium Chloride (Kcl 20 Meq Premix Inj) 20 meq in 100 mls @ 50 mls/hr IV.SIG UNSCH PRN PRN Reason: POTASSIUM LESS THAN 4 Sodium Chloride (Ns Inj) 1,000 mls @ 75 mls/hr IV.CONT .[id number] [facility] Last Admin: 07/13/18 21:18 Dose: 75 mls/hr Acetaminophen (Ofirmev Inj) 1,000 mg in 100 mls @ 400 mls/hr IV.SIG Q6H PRN PRN Reason: PAIN SCALE 1 TO 10 Last Infusion: 07/14/18 03:29 Dose: Infused Levetiracetam 500 mg/ Sodium (Chloride) 105 mls @ 400 mls/hr IV.SIG Q12H [facility] Last Infusion: 07/14/18 08:49 Dose: Infused Losartan Potassium (Cozaar) 25 mg PO DAILY [facility] Last Admin: 07/14/18 08:27 Dose: 25 mg Morphine Sulfate (Morphine Inj) 2 mg IV.PUSH Q3H PRN PRN Reason: Break through pain Last Admin: 07/14/18 00:48 Dose: 2 mg Nitroglycerin (Nitrostat Sl (Override)) 0.4 mg SL Q5M PRN PRN Reason: Chest Pain Ondansetron HCl (Zofran Inj) 4 mg IV.PUSH Q6H PRN PRN Reason: NAUSEA OR VOMITING Pantoprazole Sodium (Protonix) 40 mg PO DAILY [facility] Last Admin: 07/14/18 08:26 Dose: 40 mg Senna/Docusate Sodium (Janett-Colace) 1 tab PO BID [facility] Last Admin: 07/14/18 08:27 Dose: 1 tab Sennosides (Senokot) 17.2 mg PO Q12H PRN PRN Reason: Moderate Constipation Sodium Chloride (Ns Flush) 2 ml IV.FLUSH BID [facility] Last Admin: 07/14/18 08:28 Dose: 2 ml Sodium Chloride (Ns Flush) 2 ml IV.FLUSH PRN PRN PRN Reason: FLUSH AFTER USING IV ACCESS Terazosin HCl (Hytrin) 4 mg PO HS [facility] Last Admin: 07/13/18 21:14 Dose: 4 mg Tizanidine HCl (Zanaflex) 4 mg PO [facility] Last Admin: 07/13/18 21:14 Dose: 4 mg Mental Status Assessment - Mental Status Orientation: oriented to: Self, disoriented to: Place, Time, Situation Mental Status: Variable: Language/interactions, Attention, Impaired: Thought processing Absent: Hallucinations, Delusions Adjustment/Coping Assessment - Adjustment/Coping Adjustment/Coping: Moderate: Awareness, Insight - Observation In terms of emotional functioning, the patient demonstrated challenges. This patient demonstrated no signs of agitation, impulsivity or disinhibition, nor was there remarkable evidence of a formal thought disorder or psychosis. There was no evidence of depression or anxiety. Thought content was free from suicidal, homicidal or paranoid ideation, and thought processes were logical but bradyphrenic. The patients mood was apathetic, and his affect was flat. The patient appears to possess questionable insight and awareness into their situation and within the limits of this brief evaluation, limited judgment. - Goals/Team Members LTG Status: Deferred STG Status: Deferred Team Members: Neuropsychologist Behavior - Behavior Treatment Engagement: Minimal - Observation Behaviorally, the patient demonstrated no signs of agitation, impulsivity or disinhibition. There was no remarkable evidence of a formal thought disorder or psychosis. - Goals LTG Status: Deferred STG Status: Deferred - Team Members Team Members: Neuropsychologist Diagnosis/Discharge Plan - Diagnosis (1) Major neurocognitive disorder as late effect of traumatic brain injury with behavioral disturbance Status: Acute Impression: 87 year old male s/p TBI 2T fall on 07/13/2018 with underlying cortical and central brain atrophy. [facility] Level: Level V Maximizing Acute Care Outcome: It is recommended that the patient be monitored for emergent behavioral impulsivity as the medical condition evolves. This patients neuropathological challenges may limit rehabilitation potential going forward, and these challenges will require specialized therapeutic skills to maximize outcome. Additionally, the patients family is experiencing ongoing issues of adjustment given the traumatic nature of the injury, and they may benefit from ongoing psychological assistance. At this point in the recovery process, the patient does not have cognitive capacity as the patient is unable to understand a situation and its likely consequences, nor is the patient able to manipulate information rationally. Cognitive capacity will be assessed throughout the recovery process. - Discharge Planning Anticipated Problems: Ongoing areas of concern will include behavioral impulsivity, lack of insight and judgment, which is expected to improve with time and treatment. Treatment Plan: This clinician will continue to follow with you throughout the course of this patients critical care treatment, and I will be available to meet with the patients family/support system to facilitate their understanding and the ongoing care of their family member. The goals of neuropsychological intervention shall be both educational and supportive to the family/support system as is deemed clinically appropriate. Thank you for the opportunity to assist in this patients care. Maikol Clancy, Ph.D., ABPP Board Certified in Clinical Neuropsychology [place] [employer] [place] Licensed Psychologist #[id number]
[2018-07-14] MEDS: Sod Chloride 0.9% Inj 1,000 ML IV.CONT SCH (12:33)
--- NOTE | 2018-07-14 12:47 | P.PNCC ---
Subjective 24 Hour Review/Hospital Course: 07/14 Patient admitted with large subdural hematoma With a GCS of 15 ,baseline tremors Patient remained stable-with GCS [address] scan is stable We will start ambulating patient with physical therapy continue Keppra, resume home meds Continue to hold aspirin and Plavix Objective Vital Signs / I&O: Vital Signs 07/13/18 13:01 07/13/18 13:06 07/13/18 15:00 Temperature 98.2 F Pulse Rate 96 H 58 L 98 H Respiratory Rate 18 28 H 29 H Blood Pressure 168/71 H 178/86 H Pulse Oximetry 99 98 100 07/13/18 15:44 07/13/18 16:05 07/13/18 17:00 Temperature Pulse Rate 96 H 100 H Respiratory Rate 19 23 24 Blood Pressure 160/82 H 162/79 H Pulse Oximetry 96 100 07/13/18 18:00 07/13/18 19:00 07/13/18 20:08 Temperature Pulse Rate 100 H 104 H 108 H Respiratory Rate 21 16 16 Blood Pressure 169/79 H 177/86 H 163/74 H Pulse Oximetry 97 98 98 07/13/18 21:07 07/13/18 21:58 07/13/18 21:59 Temperature Pulse Rate 105 H 97 H 110 H Respiratory Rate 18 24 Blood Pressure 166/78 H 174/83 H Pulse Oximetry 07/13/18 22:00 07/13/18 22:02 07/13/18 23:00 Temperature Pulse Rate 107 H 112 H 95 H Respiratory Rate 27 H 36 H 25 H Blood Pressure 149/93 H 153/73 H Pulse Oximetry 97 97 96 07/14/18 00:00 07/14/18 00:04 07/14/18 01:00 Temperature Pulse Rate 79 90 85 Respiratory Rate 17 21 15 Blood Pressure 138/119 H 149/67 H 141/67 H Pulse Oximetry 95 97 94 L 07/14/18 02:00 07/14/18 03:00 07/14/18 03:01 Temperature 98.1 F Pulse Rate 80 95 H 95 H Respiratory Rate 31 H 34 H 29 H Blood Pressure 148/68 H 185/87 H 177/84 H Pulse Oximetry 95 97 97 07/14/18 04:00 07/14/18 05:00 07/14/18 06:00 Temperature 98.2 F Pulse Rate 76 90 88 Respiratory Rate 16 32 H 24 Blood Pressure 145/65 H 179/81 H 172/80 H Pulse Oximetry 96 98 95 Intake & Output 07/13/18 07/14/18 07/14/18 18:59 06:59 18:59 Intake Total 205 / 205 1105 / 1105 Output Total 150 / 150 Balance 55 / 55 1105 / 1105 Weight 74.2 kg Intake: IV 205 / 205 1105 / 1105 NS Inj 1,000 ML @ 75 mls/hr IV. 1000 / 1000 CONT .[id number] [facility] Rx#:[id number] Ofirmev Inj 1,000 mg In 100 ml 100 / 100 @ 400 mls/hr IV.SIG Q6H PRN Rx# :[id number] Keppra Inj 500 MG In NS Inj 100 105 / 105 105 / 105 ML @ 400 mls/hr IV.SIG Q12H [facility] Rx#:[id number] Output: Urine 150 / 150 Other: Weight On Admission 74.2 kg Result Diagrams: 07/14/18 07:07 07/14/18 07:07 Imaging: Impressions Cervical Spine CT 07/13/18 13:08 CONCLUSION: 1. No acute fracture. 2. Mild grade 1 anterior spondylolisthesis of C4 on C5 of approximately 3 mm. 3. Degenerative disc and degenerative joint changes. Face CT 07/13/18 13:08 CONCLUSION: 1. Negative for facial bone fracture 2. Large parafalcine subdural hematoma described on CT scan of the head. 3. Subacute right subdural hematoma. Head CT 07/13/18 13:08 CONCLUSION: 1. Large acute parafalcine subdural hematoma 2. Subacute 5 mm right subdural hematoma. 3. Marked central and cortical atrophy. . Hand X-Ray 07/13/18 13:11 CONCLUSION: 1. Soft tissue swelling over the fifth digit with no acute fracture or malalignment. 2. Osteopenia and osteoarthritic change. Knee X-Ray 07/13/18 13:11 CONCLUSION: Soft tissue swelling with no acute fracture or malalignment. Head CT 07/14/18 08:00 CONCLUSION: 1. Right parafalcine subdural hemorrhage not definitely changed measuring 18 mm in dimension. 2. Minimal subarachnoid hemorrhage in the left parafalcine region. . - Exam [employer] ADMINISTRATOR: g Coma score is 15, tremors which are baseline Hemodynamic/Cardiac: Hemodynamically stable Pulmonary/Respiratory: Breath sounds clear bilateral Abdomen/GI Nutrition: Abdomen soft tolerating clear liquid diet Renal/I&O: 1.28 BUN 27 Assessment and Plan Plan: Continue to monitor patient another 2448 hrs. in the ICU Continue Keppra Keep on clear liquids diet today Resume home meds-with the exception of Plavix
[2018-07-14] MEDS ORDERED: hydrALAZINE HCl Inj 20 MG/ML Vial IV.PUSH PRN (13:46)
[2018-07-14] MEDS: niCARdipine Inj 25 MG in Sodium Chlor 0.9% Inj 240 ML IV.CONT PRN ×2 (15:52→20:20)
[2018-07-15] MEDS: Sod Chloride 0.9% Inj 1,000 ML IV.CONT SCH (00:42)
[2018-07-15] MEDS: Chlorhexidine Gluconate 2% 1 Pack (2 Cloths) TOPICAL SCH (03:53)
[2018-07-15 06:01] LABS: Baso % (Auto) 0.1 % (0.0-2.0); Eos # (Auto) 0.1 th/mm3 (0.0-0.4); Eos % (Auto) 0.7 % (0.0-4.0); Hematocrit 37.1 % (39.0-51.0); Hemoglobin 12.3 gm/dL (13.0-17.0); Lymph # (Auto) 1.3 th/mm3 (1.0-4.8); Lymph % (Auto) 11.1 % (9.0-44.0); Mean Corpuscular HGB Conc 33.2 % (32.0-36.0); Mean Corpuscular Hemoglobin 34.2 pg (27.0-34.0); Mean Corpuscular Volume 102.9 fL (80.0-100.0); Mean Platelet Volume 7.3 fL (7.0-11.0); Mono # (Auto) 0.9 th/mm3 (0.0-0.9); Mono % (Auto) 7.6 % (0.0-8.0); Neut # (Auto) 9.8 th/mm3 (1.8-7.7); Neut % (Auto) 80.5 % (16.0-70.0); Platelet Count 172 th/mm3 (150-450); Red Blood Count 3.61 mil/mm3 (4.50-5.90); Red Cell Distribution Width 14.9 % (11.6-17.2); White Blood Count 12.2 th/mm3 (4.0-11.0)
[2018-07-15 06:20] LABS: Calcium 8.1 mg/dL (8.5-10.1); Carbon Dioxide 22.2 meq/L (21.0-32.0); Potassium 3.9 meq/L (3.5-5.1)
--- NOTE | 2018-07-15 08:32 | P.PNNPSY ---
- Behavior Intact: Impulsive/agitated - Cognitive Mild: Cognitive, Attention/concentration, Confused/orientation, Insight/ awareness, Judgment/problem solving, Memory - Progress Notes/Response to Treatment Contents of Sessions: Adjustment, Level of consciousness Time with Patient: 30 minutes Premorbid Psychological Status: Premorbid Cognitive, Emotional and Behavioral Status: Deferred. 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 The patient has no prior psychiatric difficulties, as described above. Substance abuse history is unremarkable. Behavioral Reactions of Patient and Family/Support System: Stable. The patients family is experiencing ongoing issues of adjustment given the nature of the injury, and this aspect of recovery will require ongoing monitoring. Emotional/Behavioral Status of Patient and Family/Support System: Stable. Pertinent issues, if appropriate to this patients clinical care, are described in detail above. Maximizing Acute Care Outcome: It is recommended that the patient be monitored for emergent behavioral impulsivity as the medical condition evolves. This patients neuropathological challenges may limit rehabilitation potential going forward, and these challenges will require specialized therapeutic skills to maximize outcome. Additionally, the patients family is experiencing ongoing issues of adjustment given the traumatic nature of the injury, and they may benefit from ongoing psychological assistance. At this point in the recovery process, the patient does not have cognitive capacity as the patient is unable to understand a situation and its likely consequences, nor is the patient able to manipulate information rationally. Cognitive capacity will be assessed throughout the recovery process. Anticipated Problems: Ongoing areas of concern will include behavioral impulsivity, lack of insight and judgment, which is expected to improve with time and treatment. Treatment Plan: This clinician will continue to follow with you throughout the course of this patients critical care treatment, and I will be available to meet with the patients family/support system to facilitate their understanding and the ongoing care of their family member. The goals of neuropsychological intervention shall be both educational and supportive to the family/support system as is deemed clinically appropriate. [place] COG Scale: Level Disinhibition Score: 14.00 Aggression Score: 14.00 Lability Score: 14.00 Agitated Behavior Total Score: 14 Impression: 87 year old male s/p TBI 2T fall on 07/13/2018 with underlying cortical and central brain atrophy. Progress Note Narrative: PTD 2. The patient is neurobehaviorally stable. No issues of agitation/ restlessness, with ABS of 14 (14,14,14). He is [place] . Still somewhat confused, not entirely oriented to time or date. I will follow. - Diagnosis (1) Major neurocognitive disorder as late effect of traumatic brain injury with behavioral disturbance Status: Acute
[2018-07-15] MEDS: Baclofen 10 MG Tablet PO SCH (08:41)
[2018-07-15] MEDS: Senna/Docusate Sodium 8.6/50 MG Tablet PO SCH ×2 (08:41→21:20)
[2018-07-15] MEDS: levETIRAcetam 500 MG Tablet PO SCH ×2 (08:41→21:20)
[2018-07-15] MEDS: Sodium Chloride 0.9% 2 ML Flush BID IV.FLUSH SCH ×2 (08:42→21:20)
--- NOTE | 2018-07-15 11:05 | P.PNNS ---
Subjective Interval history: Less able to move left leg this morning, More weakness of left arm (pronator drift) Physical Exam Vital signs: Vital Signs 07/14/18 11:18 07/14/18 12:00 07/14/18 12:04 Temperature Pulse Rate 82 89 95 H Respiratory Rate 31 H 32 H 50 H Blood Pressure 182/114 H 188/86 H 185/89 H Pulse Oximetry 96 94 L 95 07/14/18 13:00 07/14/18 13:15 07/14/18 14:00 Temperature Pulse Rate 74 87 85 Respiratory Rate 18 49 H 35 H Blood Pressure 183/118 H 177/89 H 190/88 H Pulse Oximetry 96 95 96 07/14/18 14:02 07/14/18 14:06 07/14/18 15:00 Temperature Pulse Rate 85 85 91 H Respiratory Rate 32 H 34 H 30 H Blood Pressure 181/84 H 178/85 H 208/88 H Pulse Oximetry 95 95 96 07/14/18 15:01 07/14/18 16:00 07/14/18 16:17 Temperature 97.5 F L Pulse Rate 95 H 89 94 H Respiratory Rate 47 H 31 H 24 Blood Pressure 197/86 H 174/89 H 152/67 H Pulse Oximetry 96 97 94 L 07/14/18 16:32 07/14/18 16:47 07/14/18 17:00 Temperature Pulse Rate 105 H 104 H 102 H Respiratory Rate 43 H 37 H 26 H Blood Pressure 173/74 H 163/72 H Pulse Oximetry 95 94 L 95 07/14/18 17:02 07/14/18 17:17 07/14/18 17:31 Temperature Pulse Rate 102 H 87 97 H Respiratory Rate 28 H 18 29 H Blood Pressure 154/69 H 145/66 H 153/65 H Pulse Oximetry 95 96 94 L 07/14/18 17:47 07/14/18 18:00 07/14/18 18:02 Temperature Pulse Rate 83 95 H 82 Respiratory Rate 16 26 H 17 Blood Pressure 134/59 L 144/67 H Pulse Oximetry 95 95 93 L 07/14/18 18:17 07/14/18 20:00 07/14/18 22:00 Temperature 98.1 F Pulse Rate 81 102 H 61 Respiratory Rate 16 19 14 Blood Pressure 137/64 137/61 83/52 L Pulse Oximetry 94 L 94 L 93 L 07/15/18 00:00 07/15/18 02:00 07/15/18 03:50 Temperature 97.4 F L Pulse Rate 77 84 95 H Respiratory Rate 16 20 22 Blood Pressure 111/54 L 123/59 L 130/59 L Pulse Oximetry 94 L 95 95 07/15/18 05:32 07/15/18 05:47 07/15/18 06:00 Temperature Pulse Rate 82 100 H Respiratory Rate 22 38 H Blood Pressure 143/67 H 140/70 141/64 H Pulse Oximetry 95 94 L 07/15/18 06:02 07/15/18 06:17 07/15/18 06:19 Temperature Pulse Rate 99 H 92 H 100 H Respiratory Rate 28 H 27 H 44 H Blood Pressure 146/67 H 156/73 H 150/68 H Pulse Oximetry 94 L 95 95 07/15/18 06:31 07/15/18 06:47 07/15/18 07:00 Temperature Pulse Rate 101 H 84 99 H Respiratory Rate 29 H 23 32 H Blood Pressure 141/64 H 140/65 Pulse Oximetry 95 94 L 95 07/15/18 07:01 07/15/18 07:17 07/15/18 07:31 Temperature Pulse Rate 91 H 100 H 86 Respiratory Rate 22 23 19 Blood Pressure 148/69 H 137/63 140/73 Pulse Oximetry 94 L 95 94 L 07/15/18 07:47 07/15/18 08:00 07/15/18 08:02 Temperature 97.8 F Pulse Rate 107 H 110 H 108 H Respiratory Rate 38 H 43 H 41 H Blood Pressure 146/74 H 137/65 Pulse Oximetry 95 95 95 07/15/18 08:17 07/15/18 08:31 07/15/18 08:47 Temperature Pulse Rate 97 H 100 H 108 H Respiratory Rate 21 26 H 44 H Blood Pressure 135/69 138/64 158/70 H Pulse Oximetry 94 L 94 L 95 07/15/18 09:00 07/15/18 09:02 07/15/18 09:17 Temperature Pulse Rate 104 H 104 H 105 H Respiratory Rate 28 H 38 H 32 H Blood Pressure 152/72 H 143/68 H Pulse Oximetry 96 95 94 L 07/15/18 09:32 07/15/18 09:47 07/15/18 10:00 Temperature Pulse Rate 101 H 98 H 96 H Respiratory Rate 29 H 34 H 48 H Blood Pressure 151/74 H 148/73 H Pulse Oximetry 94 L 95 94 L 07/15/18 10:02 07/15/18 10:06 07/15/18 10:17 Temperature Pulse Rate 95 H 97 H Respiratory Rate 38 H 34 H Blood Pressure 146/68 H 161/77 H Pulse Oximetry 94 L 95 07/15/18 10:32 07/15/18 10:47 Temperature Pulse Rate 96 H 74 Respiratory Rate 29 H 19 Blood Pressure 144/65 H 125/57 L Pulse Oximetry 96 97 Intake & Output 07/14/18 07/15/18 07/15/18 18:59 06:59 18:59 Intake Total 1205 / 1205 1355 / 1355 562.5 / 562.5 Output Total 450 / 450 500 / 500 Balance 755 / 755 855 / 855 562.5 / 562.5 Weight 87 kg Intake: IV 1205 / 1205 1355 / 1355 562.5 / 562.5 NS Inj 1,000 ML @ 75 mls/hr IV. 1000 / 1000 1000 / 1000 562.5 / 562.5 CONT .[id number] [facility] Rx#:[id number] Cardene Inj 25 MG In NS Inj 240 250 / 250 ML @ 5 MG/HR 50 mls/hr IV.CONT TITRATE PRN Rx#:[id number] Ofirmev Inj 1,000 mg In 100 ml 100 / 100 @ 400 mls/hr IV.SIG Q6H PRN Rx# :[id number] Keppra Inj 500 MG In NS Inj 100 105 / 105 105 / 105 ML @ 400 mls/hr IV.SIG Q12H [facility] Rx#:[id number] Output: Urine 100 / 100 Urine Amount (Catheter) 350 / 350 500 / 500 Condom 350 / 350 500 / 500 Other: # Voids 3 Date of Last Bowel Movement 07/13/18 07/13/18 Narrative: A&O x 3 CN II-XII intact (no facial droop) Motor 5/5 RUE and RLE. LUE 4/5 with drift. LLE 0/5 Intact sensation throughout - Urinary Catheter Management Condom Cath placed during this visit: yes Reason for continuing: Not indwelling catheter Insertion date: 07/13/18 Assessment and Plan - Assessment (1) Acute subdural hematoma Code(s): S06.5X9A - Traumatic subdural hemorrhage with loss of consciousness of unspecified duration, initial encounter Status: Acute (2) Hypertension Code(s): I10 - Essential (primary) hypertension Status: Chronic Qualifiers: Hypertension type: essential hypertension Qualified Code(s): I10 - Essential (primary) hypertension - Plan 87-year-old gentleman with an acute interhemispheric subdural hemorrhage admitted 07/14/18 which extends into the right tentorium with a subacute small right convexity subdural hemorrhage. 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 He is on aspirin and Plavix therapy and increasing the risk for bleeding. P: Repeat CT this AM. Even if there is expansion, this would require a craniotomy and in this age, would not be recommended. Would recommend continue neuro checks. Continue Keppra.. could consider an EEG. Continue PT and mobilize activity as tolerated (will not be able to bear weight left leg). Increase activity status as tolerated with physical therapy safety evaluation. Continue with gastrointestinal stress ulcer prophylaxis Continue with mechanical DVT prophylaxis. Discussed with RN and Trauma team.
--- NOTE | 2018-07-15 12:59 | CT ---
EXAM DATE: 07/15/2018 12:02 PM EDT AGE/SEX: 87 years / Male INDICATIONS: Intercerebral Hemorrhage CLINICAL DATA: This is the patient's subsequent encounter. Patient reports that signs and symptoms h ave been present for 1 week and indicates a pain score of 0/10. MEDICAL/SURGICAL HISTORY: Carcinoma, colon. Hypertension. Myocardial infarction. Coronary artery disease, chronic renal disease . Cardiac cath RADIATION DOSE: 76.78 CTDI (mGy) COMPARISON: [facility] – [place], [place] HEAD W/O CONTRAST, 07/14/2018. . TECHNIQUE: CT of the head without contrast. Using automated exposure control and adjustment of the mA and/or kV according to patient size, radiation dose was kept as low as reasonably achievable to ob tain optimal diagnostic quality images. DICOM format image data is available electronically for revi ew and comparison. FINDINGS: Continued evolution of a large left parafalcine subdural hematoma currently measuring 17 mm compared to 18 mm on prior exam. There is also minimal subarachnoid hemorrhage near vertex. No intercurrent he morrhage. No significant midline shift. Ventricles are stable in size without evidence for hydrocepha juan jose. Fonseca-white matter differentiation is maintained. Brainstem and cerebellum are intact grossly. Re mainder of the exam is unchanged. CONCLUSION: 1. Evolving right parafalcine subdural hematoma measuring 17 mm in comparison to 18 mm on prior exam . 2. Minimal subarachnoid hemorrhage near the vertex on the left. 3. No new intercurrent hemorrhage, hydrocephalus, or midline shift. . Electronically signed by: Lance Gerber MD 07/15/2018 12:58 PM EDT
--- NOTE | 2018-07-15 14:58 | P.PNCC ---
Subjective 24 Hour Review/Hospital Course: 07/14 Patient admitted with large subdural hematoma With a GCS of 15 ,baseline tremors Patient remained stable-with GCS [address] scan is stable We will start ambulating patient with physical therapy continue Keppra, resume home meds Continue to hold aspirin and Plavix 07/15/2018 Patient is awake alert and oriented Slight weakness in the left leg which is new Repeat CT scan of the brain shows evolving right parafalcine hemorrhage in the area of sagittal sinus Patient has essential tremor and in addition above-noted weakness of the leg Considered CT scan does not reveal any new abnormalities just evolving lesions patient can be discharged to rehab anytime for further care Patient will require at least short-term rehab considering his precarious status and underlying comorbidities Objective Vital Signs / I&O: Vital Signs 07/14/18 15:00 07/14/18 15:01 07/14/18 16:00 Temperature 97.5 F L Pulse Rate 91 H 95 H 89 Respiratory Rate 30 H 47 H 31 H Blood Pressure 208/88 H 197/86 H 174/89 H Pulse Oximetry 96 96 97 07/14/18 16:17 07/14/18 16:32 07/14/18 16:47 Temperature Pulse Rate 94 H 105 H 104 H Respiratory Rate 24 43 H 37 H Blood Pressure 152/67 H 173/74 H 163/72 H Pulse Oximetry 94 L 95 94 L 07/14/18 17:00 07/14/18 17:02 07/14/18 17:17 Temperature Pulse Rate 102 H 102 H 87 Respiratory Rate 26 H 28 H 18 Blood Pressure 154/69 H 145/66 H Pulse Oximetry 95 95 96 07/14/18 17:31 07/14/18 17:47 07/14/18 18:00 Temperature Pulse Rate 97 H 83 95 H Respiratory Rate 29 H 16 26 H Blood Pressure 153/65 H 134/59 L Pulse Oximetry 94 L 95 95 07/14/18 18:02 07/14/18 18:17 07/14/18 20:00 Temperature 98.1 F Pulse Rate 82 81 102 H Respiratory Rate 17 16 19 Blood Pressure 144/67 H 137/64 137/61 Pulse Oximetry 93 L 94 L 94 L 07/14/18 22:00 07/15/18 00:00 07/15/18 02:00 Temperature 97.4 F L Pulse Rate 61 77 84 Respiratory Rate 14 16 20 Blood Pressure 83/52 L 111/54 L 123/59 L Pulse Oximetry 93 L 94 L 95 07/15/18 03:50 07/15/18 05:32 07/15/18 05:47 Temperature Pulse Rate 95 H 82 Respiratory Rate 22 22 Blood Pressure 130/59 L 143/67 H 140/70 Pulse Oximetry 95 95 07/15/18 06:00 07/15/18 06:02 07/15/18 06:17 Temperature Pulse Rate 100 H 99 H 92 H Respiratory Rate 38 H 28 H 27 H Blood Pressure 141/64 H 146/67 H 156/73 H Pulse Oximetry 94 L 94 L 95 07/15/18 06:19 07/15/18 06:31 07/15/18 06:47 Temperature Pulse Rate 100 H 101 H 84 Respiratory Rate 44 H 29 H 23 Blood Pressure 150/68 H 141/64 H 140/65 Pulse Oximetry 95 95 94 L 07/15/18 07:00 07/15/18 07:01 07/15/18 07:17 Temperature Pulse Rate 99 H 91 H 100 H Respiratory Rate 32 H 22 23 Blood Pressure 148/69 H 137/63 Pulse Oximetry 95 94 L 95 07/15/18 07:31 07/15/18 07:47 07/15/18 08:00 Temperature 97.8 F Pulse Rate 86 107 H 110 H Respiratory Rate 19 38 H 43 H Blood Pressure 140/73 146/74 H Pulse Oximetry 94 L 95 95 07/15/18 08:02 07/15/18 08:17 07/15/18 08:31 Temperature Pulse Rate 108 H 97 H 100 H Respiratory Rate 41 H 21 26 H Blood Pressure 137/65 135/69 138/64 Pulse Oximetry 95 94 L 94 L 07/15/18 08:47 07/15/18 09:00 07/15/18 09:02 Temperature Pulse Rate 108 H 104 H 104 H Respiratory Rate 44 H 28 H 38 H Blood Pressure 158/70 H 152/72 H Pulse Oximetry 95 96 95 07/15/18 09:17 07/15/18 09:32 07/15/18 09:47 Temperature Pulse Rate 105 H 101 H 98 H Respiratory Rate 32 H 29 H 34 H Blood Pressure 143/68 H 151/74 H 148/73 H Pulse Oximetry 94 L 94 L 95 07/15/18 10:00 07/15/18 10:02 07/15/18 10:06 Temperature Pulse Rate 96 H 95 H 97 H Respiratory Rate 48 H 38 H 34 H Blood Pressure 146/68 H Pulse Oximetry 94 L 94 L 95 07/15/18 10:17 07/15/18 10:32 07/15/18 10:47 Temperature Pulse Rate 96 H 74 Respiratory Rate 29 H 19 Blood Pressure 161/77 H 144/65 H 125/57 L Pulse Oximetry 96 97 07/15/18 11:00 07/15/18 11:02 07/15/18 11:17 Temperature Pulse Rate 71 70 73 Respiratory Rate 19 20 23 Blood Pressure 138/65 133/61 Pulse Oximetry 98 98 97 07/15/18 11:32 07/15/18 11:46 07/15/18 12:00 Temperature 97.5 F L Pulse Rate 81 87 89 Respiratory Rate 22 24 31 H Blood Pressure 151/72 H 154/75 H Pulse Oximetry 96 95 96 07/15/18 12:01 07/15/18 12:16 07/15/18 12:31 Temperature Pulse Rate 87 89 88 Respiratory Rate 31 H 34 H 28 H Blood Pressure 153/78 H 163/81 H 150/79 H Pulse Oximetry 95 95 95 07/15/18 12:46 07/15/18 13:00 07/15/18 13:01 Temperature Pulse Rate 103 H 74 73 Respiratory Rate 45 H 23 20 Blood Pressure 156/84 H 150/71 H Pulse Oximetry 95 96 95 07/15/18 13:17 07/15/18 13:31 07/15/18 13:46 Temperature Pulse Rate 77 90 77 Respiratory Rate 23 28 H 20 Blood Pressure 156/74 H 158/79 H 151/70 H Pulse Oximetry 95 95 95 07/15/18 14:00 07/15/18 14:01 07/15/18 14:17 Temperature 97.5 F L Pulse Rate 82 77 77 Respiratory Rate 19 21 23 Blood Pressure 142/64 H 146/66 H Pulse Oximetry 96 96 95 07/15/18 14:31 07/15/18 14:33 Temperature Pulse Rate 73 74 Respiratory Rate 19 20 Blood Pressure 143/103 H 156/65 H Pulse Oximetry 96 96 Intake & Output 07/14/18 07/15/18 07/15/18 18:59 06:59 18:59 Intake Total 1205 / 1205 1355 / 1355 562.5 / 562.5 Output Total 450 / 450 500 / 500 Balance 755 / 755 855 / 855 562.5 / 562.5 Weight 87 kg Intake: IV 1205 / 1205 1355 / 1355 562.5 / 562.5 NS Inj 1,000 ML @ 75 mls/hr IV. 1000 / 1000 1000 / 1000 562.5 / 562.5 CONT .[id number] [facility] Rx#:[id number] Cardene Inj 25 MG In NS Inj 240 250 / 250 ML @ 5 MG/HR 50 mls/hr IV.CONT TITRATE PRN Rx#:[id number] Ofirmev Inj 1,000 mg In 100 ml 100 / 100 @ 400 mls/hr IV.SIG Q6H PRN Rx# :[id number] Keppra Inj 500 MG In NS Inj 100 105 / 105 105 / 105 ML @ 400 mls/hr IV.SIG Q12H [facility] Rx#:[id number] Output: Urine 100 / 100 Urine Amount (Catheter) 350 / 350 500 / 500 Condom 350 / 350 500 / 500 Other: # Voids 3 Date of Last Bowel Movement 07/13/18 07/13/18 Result Diagrams: 07/15/18 05:02 07/15/18 05:02 Imaging: Impressions Head CT 07/15/18 00:00 CONCLUSION: 1. Evolving right parafalcine subdural hematoma measuring 17 mm in comparison to 18 mm on prior exam. 2. Minimal subarachnoid hemorrhage near the vertex on the left. 3. No new intercurrent hemorrhage, hydrocephalus, or midline shift. . Disinhibition Score: 14.00 Aggression Score: 14.00 Lability Score: 14.00 Agitated Behavior Total Score: 14 Assessment and Plan Plan: Continue to monitor patient another 2448 hrs. in the ICU Continue Keppra Keep on clear liquids diet today Resume home meds-with the exception of Plavix
--- NOTE | 2018-07-15 19:10 | P.CONREH ---
History of Present Illness Service: Physical medicine and rehabilitation Consult date: 07/15/18 Reason for Consult: Comprehensive rehabilitation evaluation Primary Care Provider: No Primary Care Physician History of Present Illness: Kenneth Devlin is an 87-year-old male admitted to [facility] 07/13/18 after a fall at the [facility]. [place] Coma Scale was 15. Head CT 07/13/18 showed: large acute parafalcine subdural hematoma, subacute 5 mm right subdural hematoma and marked central and cortical atrophy. Neurosurgery consultation was obtained and treatment was nonsurgical. Most recent head CT 07/15/18 showed evolving right parafalcine subdural hematoma 17 mm in comparison to 18 mm on previous scan, minimal subarachnoid hemorrhage near the vertex on the left. Keppra has been started for seizure prophylaxis. Plavix has been held. Review of Systems other (Limited due to medical/neurological status) Eyes: Denies change in vision Ears, Nose, Mouth, and Throat: Denies difficulty swallowing Cardiovascular: Denies chest pain Respiratory: Denies shortness of breath Gastrointestinal: Denies abdominal pain Genitourinary: Reports other (Calixto in place) Musculoskeletal: Reports neck pain Neurologic: Reports weakness (Left upper and lower extremity) PMFSH - History History Provided By: Patient - Medical History Medical History: Medical History (Last Reviewed 07/17/18 @ 09:01 by Micaela Rivero MD) Actinic keratosis BPH (benign prostatic hyperplasia) Basal cell carcinoma of face Carcinoma of colon Chronic kidney disease, stage 3 Hyperlipemia Hypertension Insomnia Myocardial infarct, old Tremor CAD (coronary artery disease) - Surgical History Surgical History: Surgical History (Last Reviewed 07/17/18 @ 09:01 by Micaela Rivero MD) Hx of cardiac cath - Social History I have reviewed the patient's Social History: Yes - Tobacco History Second Hand Smoke Exposure: No Smoking Status: Never smoker - Alcohol History How Often Do You Have a Drink Containing Alcohol: Monthly or less - Substance Use History Substance History: No History of Abuse - Travel History Recent Travel in the [place] Within the Last 8 Weeks: No Recent Travel Out of the Country Within the Last 8 Weeks: No - Immunization History Tetanus Immunization: <5 Years Hx Influenza Vaccine This Season: Yes Medications and Allergies Active Medications: Active Medications Albuterol (Duoneb Neb (Prn)) 1 ampul NEB Q2HR NEB PRN PRN Reason: SHORTNESS OF BREATH Atorvastatin Calcium (Lipitor) 40 mg PO DAILY [facility] Last Admin: 07/15/18 08:41 Dose: 40 mg Bacitracin (Baciguent Oint) 1 applicatio TOPICAL BID [facility] Last Admin: 07/15/18 08:42 Dose: 1 applicatio Baclofen (Lioresal) 10 mg PO DAILY [facility] Last Admin: 07/15/18 08:41 Dose: 10 mg Carvedilol (Coreg) 3.125 mg PO BID [facility] Last Admin: 07/15/18 08:42 Dose: 3.125 mg Chlorhexidine Gluconate (Chlorhexidine 2% Cloth) 3 pack TOPICAL DAILY@0400 [facility] Stop: 07/19/18 03:59 Last Admin: 07/15/18 03:53 Dose: 3 pack Chlorhexidine Gluconate (Chlorhexidine 2% Cloth) 3 pack TOPICAL DAILY@0400 PRN PRN Reason: Extra cloth needed Stop: 07/19/18 03:59 Calcium Gluconate 1 gm/ Sodium (Chloride) 110 mls @ 110 mls/hr IV.SIG UNSCH PRN PRN Reason: SEE LABEL COMMENTS Magnesium Sulfate 2 gm/ Sodium (Chloride) 100 mls @ 100 mls/hr IV.SIG UNSCH PRN PRN Reason: MAGNESIUM LESS THAN 2 Potassium Chloride (Kcl 20 Meq Premix Inj) 20 meq in 100 mls @ 50 mls/hr IV.SIG UNSCH PRN PRN Reason: POTASSIUM LESS THAN 4 Acetaminophen (Ofirmev Inj) 1,000 mg in 100 mls @ 400 mls/hr IV.SIG Q6H PRN PRN Reason: PAIN SCALE 1 TO 10 Last Infusion: 07/15/18 16:35 Dose: Infused Nicardipine HCl 25 mg/ Sodium (Chloride) 250 mls @ 50 mls/hr IV.CONT TITRATE PRN; Protocol PRN Reason: Per Protocol Last Titration: 07/14/18 21:15 Dose: 0 mg/hr, 0 mls/hr Levetiracetam (Keppra) 500 mg PO BID [facility] Last Admin: 07/15/18 08:41 Dose: 500 mg Losartan Potassium (Cozaar) 25 mg PO DAILY [facility] Last Admin: 07/15/18 08:42 Dose: 25 mg Morphine Sulfate (Morphine Inj) 2 mg IV.PUSH Q3H PRN PRN Reason: Break through pain Last Admin: 07/14/18 00:48 Dose: 2 mg Nitroglycerin (Nitrostat Sl (Override)) 0.4 mg SL Q5M PRN PRN Reason: Chest Pain Ondansetron HCl (Zofran Inj) 4 mg IV.PUSH Q6H PRN PRN Reason: NAUSEA OR VOMITING Pantoprazole Sodium (Protonix) 40 mg PO DAILY [facility] Last Admin: 07/15/18 08:41 Dose: 40 mg Senna/Docusate Sodium (Janett-Colace) 1 tab PO BID [facility] Last Admin: 07/15/18 08:41 Dose: 1 tab Sennosides (Senokot) 17.2 mg PO Q12H PRN PRN Reason: Moderate Constipation Sodium Chloride (Ns Flush) 2 ml IV.FLUSH BID [facility] Last Admin: 07/15/18 08:42 Dose: 2 ml Sodium Chloride (Ns Flush) 2 ml IV.FLUSH PRN PRN PRN Reason: FLUSH AFTER USING IV ACCESS Terazosin HCl (Hytrin) 4 mg PO [facility] Last Admin: 07/14/18 20:04 Dose: 4 mg Tizanidine HCl (Zanaflex) 4 mg PO [facility] Last Admin: 07/14/18 20:04 Dose: 4 mg Allergies Allergy/AdvReac Type Severity Reaction Status Date / Time No Known Allergies Allergy Verified 07/13/18 13:26 Home Medications Medication Instructions Recorded Confirmed Type aspirin [Aspirin Low Dose] 81 mg PO DAILY 07/13/18 07/13/18 History atorvastatin 40 mg PO DAILY 07/13/18 07/13/18 History baclofen 10 mg PO DAILY 07/13/18 07/13/18 History carvedilol 3.125 mg PO BID 07/13/18 07/13/18 History cinnamon bark [Cinnamon] 500 mg PO DAILY 07/13/18 07/13/18 History clopidogrel 75 mg PO DAILY 07/13/18 07/13/18 History losartan 25 mg PO DAILY 07/13/18 07/13/18 History nitroglycerin 0.4 mg SUBLINGUAL Q5-15M PRN 07/13/18 07/13/18 History temazepam 30 mg PO HS 07/13/18 07/13/18 History terazosin 4 mg PO HS 07/13/18 07/13/18 History tizanidine 4 mg PO HS 07/13/18 07/13/18 History Exam - Physical Examination Vital Signs / I&O: Vital Signs 07/14/18 20:00 07/14/18 22:00 07/15/18 00:00 Temperature 98.1 F 97.4 F L Pulse Rate 102 H 61 77 Respiratory Rate 19 14 16 Blood Pressure 137/61 83/52 L 111/54 L Pulse Oximetry 94 L 93 L 94 L 07/15/18 02:00 07/15/18 03:50 07/15/18 05:32 Temperature Pulse Rate 84 95 H Respiratory Rate 20 22 Blood Pressure 123/59 L 130/59 L 143/67 H Pulse Oximetry 95 95 07/15/18 05:47 07/15/18 06:00 07/15/18 06:02 Temperature Pulse Rate 82 100 H 99 H Respiratory Rate 22 38 H 28 H Blood Pressure 140/70 141/64 H 146/67 H Pulse Oximetry 95 94 L 94 L 07/15/18 06:17 07/15/18 06:19 07/15/18 06:31 Temperature Pulse Rate 92 H 100 H 101 H Respiratory Rate 27 H 44 H 29 H Blood Pressure 156/73 H 150/68 H 141/64 H Pulse Oximetry 95 95 95 07/15/18 06:47 07/15/18 07:00 07/15/18 07:01 Temperature Pulse Rate 84 99 H 91 H Respiratory Rate 23 32 H 22 Blood Pressure 140/65 148/69 H Pulse Oximetry 94 L 95 94 L 07/15/18 07:17 07/15/18 07:31 07/15/18 07:47 Temperature Pulse Rate 100 H 86 107 H Respiratory Rate 23 19 38 H Blood Pressure 137/63 140/73 146/74 H Pulse Oximetry 95 94 L 95 07/15/18 08:00 07/15/18 08:02 07/15/18 08:17 Temperature 97.8 F Pulse Rate 110 H 108 H 97 H Respiratory Rate 43 H 41 H 21 Blood Pressure 137/65 135/69 Pulse Oximetry 95 95 94 L 07/15/18 08:31 07/15/18 08:47 07/15/18 09:00 Temperature Pulse Rate 100 H 108 H 104 H Respiratory Rate 26 H 44 H 28 H Blood Pressure 138/64 158/70 H Pulse Oximetry 94 L 95 96 07/15/18 09:02 07/15/18 09:17 07/15/18 09:32 Temperature Pulse Rate 104 H 105 H 101 H Respiratory Rate 38 H 32 H 29 H Blood Pressure 152/72 H 143/68 H 151/74 H Pulse Oximetry 95 94 L 94 L 07/15/18 09:47 07/15/18 10:00 07/15/18 10:02 Temperature Pulse Rate 98 H 96 H 95 H Respiratory Rate 34 H 48 H 38 H Blood Pressure 148/73 H 146/68 H Pulse Oximetry 95 94 L 94 L 07/15/18 10:06 07/15/18 10:17 07/15/18 10:32 Temperature Pulse Rate 97 H 96 H Respiratory Rate 34 H 29 H Blood Pressure 161/77 H 144/65 H Pulse Oximetry 95 96 07/15/18 10:47 07/15/18 11:00 07/15/18 11:02 Temperature Pulse Rate 74 71 70 Respiratory Rate 19 19 20 Blood Pressure 125/57 L 138/65 Pulse Oximetry 97 98 98 07/15/18 11:17 07/15/18 11:32 07/15/18 11:46 Temperature Pulse Rate 73 81 87 Respiratory Rate 23 22 24 Blood Pressure 133/61 151/72 H 154/75 H Pulse Oximetry 97 96 95 07/15/18 12:00 07/15/18 12:01 07/15/18 12:16 Temperature 97.5 F L Pulse Rate 89 87 89 Respiratory Rate 31 H 31 H 34 H Blood Pressure 153/78 H 163/81 H Pulse Oximetry 96 95 95 07/15/18 12:31 07/15/18 12:46 07/15/18 13:00 Temperature Pulse Rate 88 103 H 74 Respiratory Rate 28 H 45 H 23 Blood Pressure 150/79 H 156/84 H Pulse Oximetry 95 95 96 07/15/18 13:01 07/15/18 13:17 07/15/18 13:31 Temperature Pulse Rate 73 77 90 Respiratory Rate 20 23 28 H Blood Pressure 150/71 H 156/74 H 158/79 H Pulse Oximetry 95 95 95 07/15/18 13:46 07/15/18 14:00 07/15/18 14:01 Temperature 97.5 F L Pulse Rate 77 82 77 Respiratory Rate 20 19 21 Blood Pressure 151/70 H 142/64 H Pulse Oximetry 95 96 96 07/15/18 14:17 07/15/18 14:31 07/15/18 14:33 Temperature Pulse Rate 77 73 74 Respiratory Rate 23 19 20 Blood Pressure 146/66 H 143/103 H 156/65 H Pulse Oximetry 95 96 96 07/15/18 14:46 07/15/18 15:00 07/15/18 15:01 Temperature Pulse Rate 74 88 89 Respiratory Rate 20 24 32 H Blood Pressure 142/65 H 165/73 H Pulse Oximetry 96 95 96 07/15/18 15:17 07/15/18 15:31 07/15/18 15:46 Temperature Pulse Rate 90 72 75 Respiratory Rate 38 H 19 21 Blood Pressure 166/79 H 153/71 H 162/72 H Pulse Oximetry 95 96 97 07/15/18 16:00 07/15/18 16:01 07/15/18 16:17 Temperature 97.9 F Pulse Rate 74 72 92 H Respiratory Rate 19 19 30 H Blood Pressure 148/72 H 165/74 H Pulse Oximetry 96 97 96 07/15/18 16:31 07/15/18 16:46 07/15/18 17:00 Temperature Pulse Rate 90 92 H 95 H Respiratory Rate 33 H 35 H 33 H Blood Pressure 169/79 H 176/79 H Pulse Oximetry 95 95 94 L 07/15/18 17:01 07/15/18 17:17 07/15/18 17:31 Temperature Pulse Rate 93 H 94 H 73 Respiratory Rate 36 H 32 H 19 Blood Pressure 167/71 H 177/81 H 154/70 H Pulse Oximetry 94 L 95 94 L 07/15/18 17:46 07/15/18 17:49 07/15/18 18:00 Temperature 98.0 F Pulse Rate 89 88 82 Respiratory Rate 34 H 28 H 24 Blood Pressure 150/104 H 166/73 H Pulse Oximetry 95 94 L 94 L 07/15/18 18:02 07/15/18 18:17 Temperature Pulse Rate 82 63 Respiratory Rate 32 H 18 Blood Pressure 162/66 H 142/63 H Pulse Oximetry 96 97 Intake & Output 07/15/18 07/15/18 07/16/18 06:59 18:59 06:59 Intake Total 1355 / 1355 902.5 / 902.5 Output Total 500 / 500 400 / 400 Balance 855 / 855 502.5 / 502.5 Weight 87 kg Intake: IV 1355 / 1355 662.5 / 662.5 NS Inj 1,000 ML @ 75 mls/hr IV. 1000 / 1000 562.5 / 562.5 CONT .[id number] [facility] Rx#:[id number] Cardene Inj 25 MG In NS Inj 240 250 / 250 ML @ 5 MG/HR 50 mls/hr IV.CONT TITRATE PRN Rx#:[id number] Ofirmev Inj 1,000 mg In 100 ml 100 / 100 @ 400 mls/hr IV.SIG Q6H PRN Rx# :[id number] Keppra Inj 500 MG In NS Inj 100 105 / 105 ML @ 400 mls/hr IV.SIG Q12H [facility] Rx#:[id number] Oral 240 / 240 Output: Urine Amount (Catheter) 500 / 500 400 / 400 Condom 500 / 500 400 / 400 Other: Date of Last Bowel Movement 07/13/18 07/13/18 Intake & Output 07/13/18 07/14/18 07/15/18 07/16/18 06:59 06:59 06:59 06:59 Intake Total 205 / 205 2560 / 2560 902.5 / 902.5 Output Total 150 / 150 950 / 950 400 / 400 Balance 55 / 55 1610 / 1610 502.5 / 502.5 Weight 74.2 kg 87 kg General: No acute distress Respiratory: Lungs CTA, BS equal, Symmetrical expansion, Coarse breath sounds Gastrointestinal: Positive bowel sounds, Non-tender Date of Last Bowel Movement: 07/13/18 Cardiovascular: Normal rate, Regular rhythm Musculoskeletal: Swelling (None in the distal lower extremities) Psychiatric: Cooperative - Neurologic Orientation: oriented to: Self, Situation Neurologic: Speech (Fluent with decreased intelligibility) Motor: Right Upper Extremity (Grossly 5/5), Left Upper Extremity (Grossly 3/5), Right Lower Extremity (Grossly 5/5), Left Lower Extremity (Grossly 1-2/5) Spasticity: None noted Sensory: Difficult to assess but appears to be grossly intact DTRs: Normal (1+ throughout) Clonus: Negative Results - Labs CBC & Chem 7: 07/16/18 05:19 07/16/18 05:19 Labs: Laboratory Results - last 24 hr 07/14/18 07/15/18 07/15/18 13:20 05:02 05:02 WBC 12.2 H RBC 3.61 L Hgb 12.3 L Hct 37.1 L MCV 102.9 H MCH 34.2 H MCHC 33.2 RDW 14.9 Plt Count 172 MPV 7.3 Neut % (Auto) 80.5 H Lymph % (Auto) 11.1 [place] % (Auto) 7.6 Eos % (Auto) 0.7 Baso % (Auto) 0.1 Neut # (Auto) 9.8 H Lymph # (Auto) 1.3 [place] # (Auto) 0.9 Eos # (Auto) 0.1 Baso # (Auto) 0.0 WBC Differential . Differential Comment Auto diff final Sodium 144 Potassium 3.9 Chloride 112 H Carbon Dioxide 22.2 Anion Gap 10 BUN 24 H Creatinine 1.22 Estimated GFR 56 L Random Glucose 106 Calcium 8.1 L Nasal Screen MRSA (PCR) Not detected - Imaging Impressions Head CT 07/15/18 00:00 CONCLUSION: 1. Evolving right parafalcine subdural hematoma measuring 17 mm in comparison to 18 mm on prior exam. 2. Minimal subarachnoid hemorrhage near the vertex on the left. 3. No new intercurrent hemorrhage, hydrocephalus, or midline shift. . Assessment and Plan (1) Acute subdural hematoma Status: Acute Code(s): S06.5X9A - Traumatic subdural hemorrhage with loss of consciousness of unspecified duration, initial encounter - Plan Assessment: 1.Fall at the [facility] 07/13/18 with traumatic brain injury including: large acute parafalcine subdural hematoma, subacute 5 mm right subdural hematoma 2. History of coronary artery disease status post cath/stent placement prior to fall taking aspirin and Plavix. Plavix has been held. 3. History of tremor 4. Chronic neck and back pain 5. Hypertension 6. BPH Recommendations: 1. PT addressing mobility and mod assist for transfers. Continue to mobilize as tolerated 2. Fall precautions 3. ST evaluated swallow and nectar thick liquids 4. OT for ADL's 5. Anticipate that patient will need ongoing rehabilitation at discharge. Will follow in conjunction with case management level of care; inpatient versus SNF. 6. Will follow while hospitalized and at discharge Thank you for this consult.
[2018-07-16] MEDS: Morphine Sulfate Inj 2 MG/ML Vial IV.PUSH PRN (04:21)
[2018-07-16] MEDS: Chlorhexidine Gluconate 2% 1 Pack (2 Cloths) TOPICAL SCH (05:31)
[2018-07-16 05:41] LABS: Baso % (Auto) 0.3 % (0.0-2.0); Eos # (Auto) 0.1 th/mm3 (0.0-0.4); Eos % (Auto) 1.2 % (0.0-4.0); Hematocrit 37.5 % (39.0-51.0); Hemoglobin 12.5 gm/dL (13.0-17.0); Lymph # (Auto) 1.7 th/mm3 (1.0-4.8); Lymph % (Auto) 14.8 % (9.0-44.0); Mean Corpuscular HGB Conc 33.4 % (32.0-36.0); Mean Corpuscular Hemoglobin 34.5 pg (27.0-34.0); Mean Corpuscular Volume 103.3 fL (80.0-100.0); Mean Platelet Volume 6.9 fL (7.0-11.0); Mono # (Auto) 0.9 th/mm3 (0.0-0.9); Mono % (Auto) 8.3 % (0.0-8.0); Neut # (Auto) 8.6 th/mm3 (1.8-7.7); Neut % (Auto) 75.4 % (16.0-70.0); Platelet Count 176 th/mm3 (150-450); Red Blood Count 3.63 mil/mm3 (4.50-5.90); Red Cell Distribution Width 15.2 % (11.6-17.2); White Blood Count 11.4 th/mm3 (4.0-11.0)
[2018-07-16 05:55] LABS: Calcium 8.3 mg/dL (8.5-10.1); Carbon Dioxide 21.5 meq/L (21.0-32.0); Potassium 4.3 meq/L (3.5-5.1)
[2018-07-16] MEDS: Baclofen 10 MG Tablet PO SCH (08:41)
[2018-07-16] MEDS: levETIRAcetam 500 MG Tablet PO SCH ×2 (08:42→20:30)
[2018-07-16] MEDS: Senna/Docusate Sodium 8.6/50 MG Tablet PO SCH ×2 (08:42→20:30)
--- NOTE | 2018-07-16 09:36 | P.PNNS ---
Subjective Interval history: Patient admitted after trauma with thick interhemispheric subdural hemorrhage. Yesterday p.m., had a decline with 0/5 left lower extremity motor function and a left drift. Dr. Hernandez obtained a repeat CT, which was stable. This morning, he had a focal episode of significant right arm shaking, much worse than his usual tremor. Dr. Hernandez gave Ativan, and this resolved. His leg is also improved now, back to a fairly symmetric motor exam. Started on Keppra. Physical Exam Vital signs: Vital Signs 07/15/18 09:47 07/15/18 10:00 07/15/18 10:02 Temperature Pulse Rate 98 H 96 H 95 H Respiratory Rate 34 H 48 H 38 H Blood Pressure 148/73 H 146/68 H Pulse Oximetry 95 94 L 94 L 07/15/18 10:06 07/15/18 10:17 07/15/18 10:32 Temperature Pulse Rate 97 H 96 H Respiratory Rate 34 H 29 H Blood Pressure 161/77 H 144/65 H Pulse Oximetry 95 96 07/15/18 10:47 07/15/18 11:00 07/15/18 11:02 Temperature Pulse Rate 74 71 70 Respiratory Rate 19 19 20 Blood Pressure 125/57 L 138/65 Pulse Oximetry 97 98 98 07/15/18 11:17 07/15/18 11:32 07/15/18 11:46 Temperature Pulse Rate 73 81 87 Respiratory Rate 23 22 24 Blood Pressure 133/61 151/72 H 154/75 H Pulse Oximetry 97 96 95 07/15/18 12:00 07/15/18 12:01 07/15/18 12:16 Temperature 97.5 F L Pulse Rate 89 87 89 Respiratory Rate 31 H 31 H 34 H Blood Pressure 153/78 H 163/81 H Pulse Oximetry 96 95 95 07/15/18 12:31 07/15/18 12:46 07/15/18 13:00 Temperature Pulse Rate 88 103 H 74 Respiratory Rate 28 H 45 H 23 Blood Pressure 150/79 H 156/84 H Pulse Oximetry 95 95 96 07/15/18 13:01 07/15/18 13:17 07/15/18 13:31 Temperature Pulse Rate 73 77 90 Respiratory Rate 20 23 28 H Blood Pressure 150/71 H 156/74 H 158/79 H Pulse Oximetry 95 95 95 07/15/18 13:46 11/02/18 14:00 07/15/18 14:01 Temperature 97.5 F L Pulse Rate 77 82 77 Respiratory Rate 20 19 21 Blood Pressure 151/70 H 142/64 H Pulse Oximetry 95 96 96 07/15/18 14:17 07/15/18 14:31 07/15/18 14:33 Temperature Pulse Rate 77 73 74 Respiratory Rate 23 19 20 Blood Pressure 146/66 H 143/103 H 156/65 H Pulse Oximetry 95 96 96 07/15/18 14:46 07/15/18 15:00 07/15/18 15:01 Temperature Pulse Rate 74 88 89 Respiratory Rate 20 24 32 H Blood Pressure 142/65 H 165/73 H Pulse Oximetry 96 95 96 07/15/18 15:17 07/15/18 15:31 07/15/18 15:46 Temperature Pulse Rate 90 72 75 Respiratory Rate 38 H 19 21 Blood Pressure 166/79 H 153/71 H 162/72 H Pulse Oximetry 95 96 97 07/15/18 16:00 07/15/18 16:01 07/15/18 16:17 Temperature 97.9 F Pulse Rate 74 72 92 H Respiratory Rate 19 19 30 H Blood Pressure 148/72 H 165/74 H Pulse Oximetry 96 97 96 07/15/18 16:31 07/15/18 16:46 07/15/18 17:00 Temperature Pulse Rate 90 92 H 95 H Respiratory Rate 33 H 35 H 33 H Blood Pressure 169/79 H 176/79 H Pulse Oximetry 95 95 94 L 07/15/18 17:01 07/15/18 17:17 07/15/18 17:31 Temperature Pulse Rate 93 H 94 H 73 Respiratory Rate 36 H 32 H 19 Blood Pressure 167/71 H 177/81 H 154/70 H Pulse Oximetry 94 L 95 94 L 07/15/18 17:46 07/15/18 17:49 07/15/18 18:00 Temperature 98.0 F Pulse Rate 89 88 82 Respiratory Rate 34 H 28 H 24 Blood Pressure 150/104 H 166/73 H Pulse Oximetry 95 94 L 94 L 07/15/18 18:02 07/15/18 18:17 07/15/18 20:00 Temperature 97.8 F Pulse Rate 82 63 66 Respiratory Rate 32 H 18 19 Blood Pressure 162/66 H 142/63 H 176/72 H Pulse Oximetry 96 97 96 07/15/18 22:00 07/16/18 00:00 07/16/18 02:00 Temperature 97.9 F Pulse Rate 89 57 L 64 Respiratory Rate 19 20 19 Blood Pressure 143/66 H 120/62 119/59 L Pulse Oximetry 93 L 98 98 07/16/18 04:00 07/16/18 04:23 07/16/18 05:48 Temperature 97.9 F Pulse Rate 88 Respiratory Rate 25 H 23 23 Blood Pressure 163/119 H Pulse Oximetry 96 07/16/18 06:00 Temperature Pulse Rate 86 Respiratory Rate 18 Blood Pressure 157/74 H Pulse Oximetry 96 Intake & Output 07/15/18 07/16/18 07/16/18 18:59 06:59 18:59 Intake Total 902.5 / 902.5 100 / 100 Output Total 400 / 400 400 / 400 Balance 502.5 / 502.5 -400 / -400 100 / 100 Weight 85.4 kg Intake: IV 662.5 / 662.5 100 / 100 NS Inj 1,000 ML @ 75 mls/hr IV. 562.5 / 562.5 CONT .[id number] SRIDHAR Rx#:[id number] Ofirmev Inj 1,000 mg In 100 ml 100 / 100 100 / 100 @ 400 mls/hr IV.SIG Q6H PRN Rx# :[id number] Oral 240 / 240 Output: Urine 400 / 400 Urine Amount (Catheter) 400 / 400 Condom 400 / 400 Other: # Voids 1 Date of Last Bowel Movement 07/13/18 07/13/18 - Routine Neurological Exam Sleeping, awakens to voice. Answers questions appropriately. Pupils are equal. Face is grossly symmetric, accounting for signs of trauma. Follows commands briskly x4, antigravity throughout. Left leg not notably weaker than right leg this morning. - Urinary Catheter Management Condom Cath placed during this visit: yes Reason for continuing: Not indwelling catheter Insertion date: 07/13/18 Assessment and Plan - Assessment (1) Acute subdural hematoma Code(s): S06.5X9A - Traumatic subdural hemorrhage with loss of consciousness of unspecified duration, initial encounter Status: Acute (2) Hypertension Code(s): I10 - Essential (primary) hypertension Status: Chronic Qualifiers: Hypertension type: essential hypertension Qualified Code(s): I10 - Essential (primary) hypertension - Plan 87-year-old gentleman with an acute interhemispheric subdural hemorrhage admitted 07/14/18 which extends into the right tentorium with a subacute small right convexity subdural hemorrhage. 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 He is on aspirin and Plavix therapy and increasing the risk for bleeding. P: Repeat CT was stable. Given his age and interhemispheric location, surgery unlikely to be a treatment option for him. Continue frequent neuro checks Continue Keppra; given episode of focal shaking that responded to Ativan this morning, will place neurology consult for possible focal seizures Consider EEG if recommended by neurology Continue PT and mobilize activity as tolerated (will not be able to bear weight left leg). Increase activity status as tolerated with physical therapy safety evaluation. Continue with gastrointestinal stress ulcer prophylaxis Continue with mechanical DVT prophylaxis.
--- NOTE | 2018-07-16 12:30 | MB ---
cc: Kinjal Ruiz MD DATE: 07/16/2018 REASON FOR CONSULTATION: Possible seizure. HISTORY OF PRESENT ILLNESS: The 87-year-old man with a history of heart disease, head tremor, chronic back/neck pain. Apparently he tripped and fell and sustained a traumatic brain injury with a large parafalcine subdural hematoma, was brought in to the hospital. He was seen by neurosurgery as well as the muffle worker. Apparently, he had decline in his left leg strength from 0/5 and the left-sided drift. He had a repeat CT, which was stable. He had a focal shaking of the right arm, more than his usual. He was given some Ativan and it resolved, his leg strength now is back to normal and he is awake. He was started on Keppra. PHYSICAL EXAMINATION: VITAL SIGNS: His temperature is 97.9, pulse 88, respiratory rate 25, blood pressure 126/59. NEUROLOGIC: He is awake and alert. Speech is intact. His pupils are reactive. He does have head titubation, is appropriate. Motor chaudhari, seems to move everything equally antigravity. DTRs are brisk. No significant new weakness in the left leg. Toes withdraws. Gait is withheld. LABORATORY DATA: At this time, reviewed. IMAGING: His CT shows the right parafalcine subdural minimal subarachnoid near the vertex on the left, but nothing new. IMPRESSION: Status post seizure, most likely. Recommend continuing Keppra 500 mg b.i.d. check an EEG, maintain seizure precautions. Continue to monitor neuro status and have physical therapy assess and possibly will need a rehab admission as well at some point. Continue current care. Kinjal Ruiz MD DF/ , 11:15 AM , 11:20 AM
--- NOTE | 2018-07-16 13:14 | P.PNCC ---
Subjective 24 Hour Review/Hospital Course: 07/14 Patient admitted with large subdural hematoma With a GCS of 15 ,baseline tremors Patient remained stable-with GCS [address] scan is stable We will start ambulating patient with physical therapy continue Keppra, resume home meds Continue to hold aspirin and Plavix 07/15/2018 Patient is awake alert and oriented Slight weakness in the left leg which is new Repeat CT scan of the brain shows evolving right parafalcine hemorrhage in the area of sagittal sinus Patient has essential tremor and in addition above-noted weakness of the leg Considered CT scan does not reveal any new abnormalities just evolving lesions patient can be discharged to rehab anytime for further care Patient will require at least short-term rehab considering his precarious status and underlying comorbidities 07/16/2018 Patient with a right subdural parafalcine hemorrhage and contusion He is awake alert oriented and slightly confused from time to time Left leg weakness has improved and patient is now moving his left leg without difficulty Repeat CT scan did not reveal any additional abnormalities Hemodynamically stable Bilateral good breath sounds with good cough and pulmonary expansion Abdomen is soft patient is tolerating diet well Rehab evaluation by Dr. Arroyo is greatly appreciated Patient will transfer to rehab when bed available Objective Vital Signs / I&O: Vital Signs 07/15/18 13:17 07/15/18 13:31 07/15/18 13:46 Temperature Pulse Rate 77 90 77 Respiratory Rate 23 28 H 20 Blood Pressure 156/74 H 158/79 H 151/70 H Pulse Oximetry 95 95 95 07/15/18 14:00 07/15/18 14:01 07/15/18 14:17 Temperature 97.5 F L Pulse Rate 82 77 77 Respiratory Rate 19 21 23 Blood Pressure 142/64 H 146/66 H Pulse Oximetry 96 96 95 07/15/18 14:31 07/15/18 14:33 07/15/18 14:46 Temperature Pulse Rate 73 74 74 Respiratory Rate 19 20 20 Blood Pressure 143/103 H 156/65 H 142/65 H Pulse Oximetry 96 96 96 07/15/18 15:00 07/15/18 15:01 07/15/18 15:17 Temperature Pulse Rate 88 89 90 Respiratory Rate 24 32 H 38 H Blood Pressure 165/73 H 166/79 H Pulse Oximetry 95 96 95 07/15/18 15:31 07/15/18 15:46 07/15/18 16:00 Temperature 97.9 F Pulse Rate 72 75 74 Respiratory Rate 19 21 19 Blood Pressure 153/71 H 162/72 H Pulse Oximetry 96 97 96 07/15/18 16:01 07/15/18 16:17 07/15/18 16:31 Temperature Pulse Rate 72 92 H 90 Respiratory Rate 19 30 H 33 H Blood Pressure 148/72 H 165/74 H 169/79 H Pulse Oximetry 97 96 95 07/15/18 16:46 07/15/18 17:00 07/15/18 17:01 Temperature Pulse Rate 92 H 95 H 93 H Respiratory Rate 35 H 33 H 36 H Blood Pressure 176/79 H 167/71 H Pulse Oximetry 95 94 L 94 L 07/15/18 17:17 07/15/18 17:31 07/15/18 17:46 Temperature Pulse Rate 94 H 73 89 Respiratory Rate 32 H 19 34 H Blood Pressure 177/81 H 154/70 H 150/104 H Pulse Oximetry 95 94 L 95 07/15/18 17:49 07/15/18 18:00 07/15/18 18:02 Temperature 98.0 F Pulse Rate 88 82 82 Respiratory Rate 28 H 24 32 H Blood Pressure 166/73 H 162/66 H Pulse Oximetry 94 L 94 L 96 07/15/18 18:17 07/15/18 20:00 07/15/18 22:00 Temperature 97.8 F Pulse Rate 63 66 89 Respiratory Rate 18 19 19 Blood Pressure 142/63 H 176/72 H 143/66 H Pulse Oximetry 97 96 93 L 07/16/18 00:00 07/16/18 02:00 07/16/18 04:00 Temperature 97.9 F 97.9 F Pulse Rate 57 L 64 88 Respiratory Rate 20 19 25 H Blood Pressure 120/62 119/59 L 163/119 H Pulse Oximetry 98 98 96 07/16/18 04:23 07/16/18 05:48 07/16/18 06:00 Temperature Pulse Rate 86 Respiratory Rate 23 23 18 Blood Pressure 157/74 H Pulse Oximetry 96 07/16/18 07:00 07/16/18 08:00 07/16/18 09:00 Temperature Pulse Rate 69 76 96 H Respiratory Rate 18 21 30 H Blood Pressure 131/64 147/69 H 164/73 H Pulse Oximetry 96 97 97 07/16/18 10:00 07/16/18 11:00 07/16/18 12:00 Temperature Pulse Rate 88 70 77 Respiratory Rate 25 H 20 22 Blood Pressure 126/59 L 137/67 151/80 H Pulse Oximetry 97 97 97 Intake & Output 07/15/18 07/16/18 07/16/18 18:59 06:59 18:59 Intake Total 902.5 / 902.5 100 / 100 Output Total 400 / 400 400 / 400 Balance 502.5 / 502.5 -400 / -400 100 / 100 Weight 85.4 kg Intake: IV 662.5 / 662.5 100 / 100 NS Inj 1,000 ML @ 75 mls/hr IV. 562.5 / 562.5 CONT .[id number] SRIDHAR Rx#:[id number] Ofirmev Inj 1,000 mg In 100 ml 100 / 100 100 / 100 @ 400 mls/hr IV.SIG Q6H PRN Rx# :[id number] Oral 240 / 240 Output: Urine 400 / 400 Urine Amount (Catheter) 400 / 400 Condom 400 / 400 Other: # Voids 1 Date of Last Bowel Movement 07/13/18 07/13/18 07/13/18 Result Diagrams: 07/16/18 05:19 07/16/18 05:19 Disinhibition Score: 14.00 Aggression Score: 14.00 Lability Score: 14.00 Agitated Behavior Total Score: 14 Assessment and Plan Plan: Continue to monitor patient another 2448 hrs. in the ICU Continue Keppra Keep on clear liquids diet today Resume home meds-with the exception of Plavix
[2018-07-16] MEDS: Sodium Chloride 0.9% 2 ML Flush BID IV.FLUSH SCH ×2 (15:30→20:30)
[2018-07-17] MEDS: Chlorhexidine Gluconate 2% 1 Pack (2 Cloths) TOPICAL SCH (04:31)
[2018-07-17] MEDS: Morphine Sulfate Inj 2 MG/ML Vial IV.PUSH PRN (06:30)
[2018-07-17 09:34] LABS: Baso % (Auto) 0.4 % (0.0-2.0); Eos # (Auto) 0.4 th/mm3 (0.0-0.4); Eos % (Auto) 3.6 % (0.0-4.0); Hematocrit 36.1 % (39.0-51.0); Hemoglobin 12.6 gm/dL (13.0-17.0); Lymph # (Auto) 1.5 th/mm3 (1.0-4.8); Lymph % (Auto) 15.3 % (9.0-44.0); Mean Corpuscular Hemoglobin 35.5 pg (27.0-34.0); Mean Corpuscular Volume 101.6 fL (80.0-100.0); Mean Platelet Volume 6.7 fL (7.0-11.0); Mono # (Auto) 0.9 th/mm3 (0.0-0.9); Mono % (Auto) 8.7 % (0.0-8.0); Neut # (Auto) 7.1 th/mm3 (1.8-7.7); Platelet Count 185 th/mm3 (150-450); Red Blood Count 3.55 mil/mm3 (4.50-5.90); Red Cell Distribution Width 14.9 % (11.6-17.2); White Blood Count 9.9 th/mm3 (4.0-11.0)
[2018-07-17] MEDS: levETIRAcetam 500 MG Tablet PO SCH ×2 (09:34→22:24)
[2018-07-17] MEDS: Baclofen 10 MG Tablet PO SCH (09:34)
[2018-07-17] MEDS: Senna/Docusate Sodium 8.6/50 MG Tablet PO SCH ×2 (09:34→22:30)
[2018-07-17] MEDS: Sodium Chloride 0.9% 2 ML Flush BID IV.FLUSH SCH ×2 (09:35→22:26)
--- NOTE | 2018-07-17 10:01 | P.PNNS ---
Subjective Interval history: No acute issues overnight. Moved to the floor. Has had not had any recurrent shaking concerning for focal seizure. I spoke to neurology yesterday, he underwent EEG but results are pending. Remains on Keppra. This morning, says he is doing well, denies much pain. Does have a mild headache, as expected. Physical Exam Vital signs: Vital Signs 07/16/18 11:00 07/16/18 12:00 07/16/18 13:00 Temperature 98.7 F Pulse Rate 70 77 78 Respiratory Rate 20 22 26 H Blood Pressure 137/67 151/80 H 168/81 H Pulse Oximetry 97 97 97 07/16/18 14:00 07/16/18 15:00 07/16/18 16:00 Temperature 97 F L Pulse Rate 73 77 Respiratory Rate 21 16 Blood Pressure 141/65 H 154/72 H 165/77 H Pulse Oximetry 97 95 98 07/16/18 20:00 07/17/18 00:00 07/17/18 04:00 Temperature 97.4 F L 97.2 F L 97.5 F L Pulse Rate 90 80 71 Respiratory Rate 18 18 18 Blood Pressure 165/74 H 161/71 H 162/73 H Pulse Oximetry 95 98 95 07/17/18 08:00 07/17/18 09:35 Temperature 97.9 F Pulse Rate 78 Respiratory Rate 20 18 Blood Pressure 177/84 H Pulse Oximetry 95 Intake & Output 07/16/18 07/17/18 07/17/18 19:59 06:59 18:59 Intake Total Output Total Balance Weight Intake: IV Cardene Inj 25 MG In NS Inj 240 ML @ 5 MG/HR 50 mls/hr IV.CONT TITRATE PRN Rx#:[id number] Ofirmev Inj 1,000 mg In 100 ml @ 400 mls/hr IV.SIG Q6H PRN Rx# :[id number] Oral Output: Urine Amount (Catheter) Condom Other: # Voids Date of Last Bowel Movement 07/13/18 - Routine Neurological Exam Alert, conversant. Speech is fluent. Face symmetric. Strength at least 4/5 throughout, nonfocal in nature, reduced symmetrically I suspect due to his age. - Urinary Catheter Management Condom Cath placed during this visit: yes Reason for continuing: Not indwelling catheter Insertion date: 07/13/18 Assessment and Plan - Assessment (1) Acute subdural hematoma Code(s): S06.5X9A - Traumatic subdural hemorrhage with loss of consciousness of unspecified duration, initial encounter Status: Acute (2) Hypertension Code(s): I10 - Essential (primary) hypertension Status: Chronic Qualifiers: Hypertension type: essential hypertension Qualified Code(s): I10 - Essential (primary) hypertension - Plan 87-year-old gentleman with an acute interhemispheric subdural hemorrhage admitted 07/14/18 which extends into the right tentorium with a subacute small right convexity subdural hemorrhage. 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 He is on aspirin and Plavix therapy and increasing the risk for bleeding. P: Repeat CT on 07/16 was stable. Given his age and interhemispheric location, surgery unlikely to be a treatment option for him. Continue frequent neuro checks Continue Keppra; given episode of focal shaking that responded to Ativan this morning, neurology consult was placed. Patient states he had his EEG test yesterday, results pending. We will follow-up their recommendations. Continue PT and mobilize activity as tolerated (will not be able to bear weight left leg). Increase activity status as tolerated with physical therapy safety evaluation. Continue with gastrointestinal stress ulcer prophylaxis Continue with mechanical DVT prophylaxis.
[2018-07-17 10:10] LABS: Calcium 8.5 mg/dL (8.5-10.1); Carbon Dioxide 24.9 meq/L (21.0-32.0); Potassium 4.2 meq/L (3.5-5.1)
--- NOTE | 2018-07-17 12:47 | MG ---
cc: Kinjal Ruiz MD AGE: [id number] years old. EEG NUMBER: [id number] ROOM NUMBER: [id number] With oxygen on board and photic stimulation. Awake, drowsy, asleep, confused, repetitive questioning. CT shows right parafalcine subdural hematoma, possible seizure. Keppra started. DESCRIPTION OF RECORD: The patient has an overall background of 6-7 Hz, consistent with what looks like a theta frequency. Some artifact, the patient's snoring, but no correlation with any epileptiform features. Tends to wake up in between falling asleep. He is in a state of awake-asleep. No appreciable epileptiform features. Photic stimulation with a driving response and more artifact. OVERALL IMPRESSION: Mild slowing of the background consistent with encephalopathy. No appreciable epileptiform features. MD TERESA Tapia/jesús , 12:14 PM , 12:17 PM
--- NOTE | 2018-07-17 16:02 | P.PN ---
Subjective Interval history: Awake and alert Denies pain, BADILLO equally Physical Exam Vital signs: Vital Signs 07/16/18 20:00 07/17/18 00:00 07/17/18 04:00 Temperature 97.4 F L 97.2 F L 97.5 F L Pulse Rate 90 80 71 Respiratory Rate 18 18 18 Blood Pressure 165/74 H 161/71 H 162/73 H Pulse Oximetry 95 98 95 07/17/18 08:00 07/17/18 09:35 07/17/18 12:00 Temperature 97.9 F 97.7 F Pulse Rate 78 77 Respiratory Rate 20 18 20 Blood Pressure 177/84 H 159/77 H Pulse Oximetry 95 94 L Intake & Output 07/16/18 07/17/18 07/17/18 19:59 06:59 18:59 Intake Total Output Total Balance Weight Intake: IV Cardene Inj 25 MG In NS Inj 240 ML @ 5 MG/HR 50 mls/hr IV.CONT TITRATE PRN Rx#:[id number] Ofirmev Inj 1,000 mg In 100 ml @ 400 mls/hr IV.SIG Q6H PRN Rx# :[id number] Oral Output: Urine Amount (Catheter) Condom Other: # Voids Date of Last Bowel Movement 07/13/18 Narrative: GENERAL: 87 year old well developed male sitting up in bed. SKIN: Warm and dry. Midline chin ecchymosis noted. CARDIOVASCULAR: Regular rate and rhythm. RESPIRATORY: Lungs clear and diminished to auscultation bilaterally. GASTROINTESTINAL: Abdomen soft, non-tender, nondistended. + BS. MUSCULOSKELETAL: Extremities without cyanosis or edema. MAEW, + perfused NEUROLOGICAL: Alert and calm. Speech clear. Essential tremor noted. - Urinary Catheter Management Condom Cath placed during this visit: yes Reason for continuing: Not indwelling catheter Insertion date: 07/13/18 Results - Labs CBC & Chem 7: 07/17/18 09:05 07/17/18 09:05 Laboratory Results - last 24 hr 07/17/18 07/17/18 09:05 09:05 WBC 9.9 RBC 3.55 L Hgb 12.6 L Hct 36.1 L MCV 101.6 H MCH 35.5 H MCHC 35.0 RDW 14.9 Plt Count 185 MPV 6.7 L Neut % (Auto) 72.0 H Lymph % (Auto) 15.3 [place] % (Auto) 8.7 H Eos % (Auto) 3.6 Baso % (Auto) 0.4 Neut # (Auto) 7.1 Lymph # (Auto) 1.5 [place] # (Auto) 0.9 Eos # (Auto) 0.4 Baso # (Auto) 0.0 WBC Differential . Differential Comment Auto diff final Sodium 141 Potassium 4.2 Chloride 108 H Carbon Dioxide 24.9 Anion Gap 8 BUN 30 H Creatinine 1.51 H Estimated GFR 44 L Random Glucose 101 Calcium 8.5 Assessment and Plan - Plan [facility]: Tripped and fell striking his head. No LOC. On Plavix and had uncontrolled epistaxis. INJURIES: RIGHT SDH (5mm) SAH PMHx: HTN, HLD, CAD, STEMI, essential tremor, CKD RIGHT SDH, SAH, ?seizure Neurosurgery consulted Supportive care 07/14: Head CT- R SDH unchanged, minimal left SAH 07/15: Unable to move left leg 07/15: Repeat Head CT- stable Continue Keppra Neurology consulted for questionable seizure activity 07/17: EEG- no epileptic forms Serial neuro checks Avoid secondary head injury Postconcussive education Plan of care discussed with patient and RN at bedside. Collaborating Trauma surgeon agrees with plan. Case management consulted to assist with discharge planning. Plan to DC To rehab tomorrow.
[2018-07-18] MEDS: Chlorhexidine Gluconate 2% 1 Pack (2 Cloths) TOPICAL SCH (04:21)
[2018-07-18] MEDS: Baclofen 10 MG Tablet PO SCH (08:10)
[2018-07-18] MEDS: Senna/Docusate Sodium 8.6/50 MG Tablet PO SCH ×2 (08:12→20:57)
[2018-07-18] MEDS: levETIRAcetam 500 MG Tablet PO SCH ×2 (08:13→20:57)
[2018-07-18] MEDS: Sodium Chloride 0.9% 2 ML Flush BID IV.FLUSH SCH ×2 (08:18→20:57)
--- NOTE | 2018-07-18 08:35 | P.PNNPSY ---
- Behavior Intact: Impulsive/agitated - Cognitive Mild: Cognitive, Attention/concentration, Confused/orientation, Insight/ awareness, Judgment/problem solving, Memory - Progress Notes/Response to Treatment Contents of Sessions: Adjustment, Level of consciousness Time with Patient: 15 minutes Premorbid Psychological Status: Premorbid Cognitive, Emotional and Behavioral Status: Deferred. 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 The patient has no prior psychiatric difficulties, as described above. Substance abuse history is unremarkable. Behavioral Reactions of Patient and Family/Support System: Stable. The patients family is experiencing ongoing issues of adjustment given the nature of the injury, and this aspect of recovery will require ongoing monitoring. Emotional/Behavioral Status of Patient and Family/Support System: Stable. Pertinent issues, if appropriate to this patients clinical care, are described in detail above. Maximizing Acute Care Outcome: It is recommended that the patient be monitored for emergent behavioral impulsivity as the medical condition evolves. This patients neuropathological challenges may limit rehabilitation potential going forward, and these challenges will require specialized therapeutic skills to maximize outcome. Additionally, the patients family is experiencing ongoing issues of adjustment given the traumatic nature of the injury, and they may benefit from ongoing psychological assistance. At this point in the recovery process, the patient does not have cognitive capacity as the patient is unable to understand a situation and its likely consequences, nor is the patient able to manipulate information rationally. Cognitive capacity will be assessed throughout the recovery process. Anticipated Problems: Ongoing areas of concern will include behavioral impulsivity, lack of insight and judgment, which is expected to improve with time and treatment. Treatment Plan: This clinician will continue to follow with you throughout the course of this patients critical care treatment, and I will be available to meet with the patients family/support system to facilitate their understanding and the ongoing care of their family member. The goals of neuropsychological intervention shall be both educational and supportive to the family/support system as is deemed clinically appropriate. [place] COG Scale: Level VII Disinhibition Score: 14.00 Aggression Score: 14.00 Lability Score: 14.00 Agitated Behavior Total Score: 14 Impression: 87 year old male s/p TBI 2T fall on 07/13/2018 with underlying cortical and central brain atrophy. Progress Note Narrative: PTD 5. Neurobehaviorally improving. F/U EEG was wnl. He is at least [place] , rated as VII. I will follow. - Diagnosis (1) Major neurocognitive disorder as late effect of traumatic brain injury with behavioral disturbance Status: Acute
--- NOTE | 2018-07-18 11:32 | P.DS ---
<Nestor Chavez M - Last Filed: 07/18/18 11:27> Date of admission: 07/13/18 18:50 Primary care physician: No Primary Care Physician Brief History from admission: S/P Fall DS: Diagnosis - Discharge Diagnosis (1) Acute subdural hematoma Status: Acute (2) Contusion of face Status: Acute (3) Major neurocognitive disorder as late effect of traumatic brain injury with behavioral disturbance Status: Acute DS: Summary Hospital Course: [place]: Tripped and fell striking his head. No LOC. On Plavix and had uncontrolled epistaxis. INJURIES: RIGHT SDH (5mm) SAH PMHx: HTN, HLD, CAD, STEMI, essential tremor, CKD RIGHT SDH, SAH, ?seizure Neurosurgery consulted, F/U outpatient Supportive care 07/14: Head CT- R SDH unchanged, minimal left SAH 07/15: Unable to move left leg 07/15: Repeat Head CT- stable Continue Keppra Neurology consulted for questionable seizure activity, F/U outpatient 07/17: EEG- no epileptic forms Stable neuro checks Avoid secondary head injury Postconcussive education Hold Plavix and ASA until cleared by NS F/U with PCP in 1 week Plan of care discussed with patient at bedside. Collaborating Trauma surgeon agrees with plan. Case management consulted to assist with discharge planning. Patient is clear from trauma surgery standpoint to safely discharge to SNF. - Time Spent with Patient Total time spent providing and/or coordinating discharge services: Greater than 30 minutes Exam Vital signs: Vital Signs 07/17/18 12:00 07/17/18 16:00 07/17/18 22:20 Temperature 97.7 F 98 F 98.2 F Pulse Rate 77 78 91 H Respiratory Rate 20 20 20 Blood Pressure 159/77 H 129/67 158/74 H Pulse Oximetry 94 L 96 95 07/18/18 00:00 07/18/18 02:03 07/18/18 04:30 Temperature 97.7 F Pulse Rate 78 Respiratory Rate 16 18 16 Blood Pressure 146/72 H Pulse Oximetry 96 07/18/18 08:00 Temperature 98.2 F Pulse Rate 89 Respiratory Rate 20 Blood Pressure 172/81 H Pulse Oximetry 95 Intake & Output 07/17/18 07/18/18 07/18/18 18:59 06:59 18:59 Intake Total 480 / 480 100 / 100 Output Total 850 / 850 850 / 850 Balance -370 / -370 100 / 100 -850 / -850 Intake: IV 100 / 100 Ofirmev Inj 1,000 mg In 100 ml 100 / 100 @ 400 mls/hr IV.SIG Q6H PRN Rx# :[id number] Oral 480 / 480 Output: Urine Amount (Catheter) 850 / 850 850 / 850 Condom 850 / 850 850 / 850 Other: Date of Last Bowel Movement 07/13/18 07/18/18 07/18/18 # Bowel Movements 2 Narrative: GENERAL: 87 year old well developed male lying in bed in no acute distress. SKIN: Warm and dry. Midline chin ecchymosis noted. CARDIOVASCULAR: Regular rate and rhythm. RESPIRATORY: Lungs clear and diminished to auscultation bilaterally. GASTROINTESTINAL: Abdomen soft, non-tender, nondistended. + BS. MUSCULOSKELETAL: Extremities without cyanosis or edema. MAEW, + perfused NEUROLOGICAL: Alert and calm. Speech clear. Essential tremor noted. Results Procedures completed during hospitalization: . - Impressions ITS Impressions Cervical Spine CT 07/13/18 13:08 CONCLUSION: 1. No acute fracture. 2. Mild grade 1 anterior spondylolisthesis of C4 on C5 of approximately 3 mm. 3. Degenerative disc and degenerative joint changes. Face CT 07/13/18 13:08 CONCLUSION: 1. Negative for facial bone fracture 2. Large parafalcine subdural hematoma described on CT scan of the head. 3. Subacute right subdural hematoma. Hand X-Ray 07/13/18 13:11 CONCLUSION: 1. Soft tissue swelling over the fifth digit with no acute fracture or malalignment. 2. Osteopenia and osteoarthritic change. Knee X-Ray 07/13/18 13:11 CONCLUSION: Soft tissue swelling with no acute fracture or malalignment. Head CT 07/15/18 00:00 CONCLUSION: 1. Evolving right parafalcine subdural hematoma measuring 17 mm in comparison to 18 mm on prior exam. 2. Minimal subarachnoid hemorrhage near the vertex on the left. 3. No new intercurrent hemorrhage, hydrocephalus, or midline shift. . <Ovi Thomas - Last Filed: 07/19/18 08:56> Date of admission: 07/13/18 18:50 Primary care physician: No Primary Care Physician DS: Summary - Time Spent with Patient Total time spent providing and/or coordinating discharge services: Exam Vital signs: Vital Signs 07/17/18 22:20 07/18/18 00:00 07/18/18 02:03 Temperature 98.2 F 97.7 F Pulse Rate 91 H 78 Respiratory Rate 20 16 18 Blood Pressure 158/74 H 146/72 H Pulse Oximetry 95 96 07/18/18 04:30 07/18/18 08:00 07/18/18 12:00 Temperature 98.2 F 97.7 F Pulse Rate 89 80 Respiratory Rate 16 20 20 Blood Pressure 172/81 H 144/63 H Pulse Oximetry 95 95 07/18/18 16:00 Temperature 97.7 F Pulse Rate 77 Respiratory Rate 20 Blood Pressure 165/74 H Pulse Oximetry 95 Intake & Output 07/17/18 07/18/18 07/18/18 18:59 06:59 18:59 Intake Total 480 / 480 100 / 100 Output Total 850 / 850 850 / 850 Balance -370 / -370 100 / 100 -850 / -850 Intake: IV 100 / 100 Ofirmev Inj 1,000 mg In 100 ml 100 / 100 @ 400 mls/hr IV.SIG Q6H PRN Rx# :[id number] Oral 480 / 480 Output: Urine Amount (Catheter) 850 / 850 850 / 850 Condom 850 / 850 850 / 850 Other: Date of Last Bowel Movement 07/13/18 07/18/18 07/18/18 # Bowel Movements 2 Results - Impressions ITS Impressions Cervical Spine CT 07/13/18 13:08 CONCLUSION: 1. No acute fracture. 2. Mild grade 1 anterior spondylolisthesis of C4 on C5 of approximately 3 mm. 3. Degenerative disc and degenerative joint changes. Face CT 07/13/18 13:08 CONCLUSION: 1. Negative for facial bone fracture 2. Large parafalcine subdural hematoma described on CT scan of the head. 3. Subacute right subdural hematoma. Hand X-Ray 07/13/18 13:11 CONCLUSION: 1. Soft tissue swelling over the fifth digit with no acute fracture or malalignment. 2. Osteopenia and osteoarthritic change. Knee X-Ray 07/13/18 13:11 CONCLUSION: Soft tissue swelling with no acute fracture or malalignment. Head CT 07/15/18 00:00 CONCLUSION: 1. Evolving right parafalcine subdural hematoma measuring 17 mm in comparison to 18 mm on prior exam. 2. Minimal subarachnoid hemorrhage near the vertex on the left. 3. No new intercurrent hemorrhage, hydrocephalus, or midline shift. . - Additional Comments The exam, history, and the medical decision-making described in the above note were completed with the assistance of the mid-level provider. I reviewed and agree with the findings presented. I attest that I had a [id number] encounter with the patient on the same day, and personally performed and documented my assessment and findings in the medical record. Discharge Plan - Discharge Order Discharge Orders: Discharge Order (Routine); Ordered 07/18/18 Ordered By: Nestor Cahvez - Physicians Team Primary Care Provider: Primary Care Blanca Hale Attending Provider: Sil Turner Other Providers: Gold Rodriguez MD ; Joaquin Krause MD ; Ovi Thomas MD ; [employer] [facility] ; Kings Gupta MD ; Tracy Beaver ARNP ; Rob Leonardo MD ; Sil Turner MD ; Nestor Chavez ARNP ; Juan Crowe MD ; Maikol Clancy, PhD ; Micaela Rivero MD ; Kinjal Ruiz MD ; [facility]
--- NOTE | 2018-07-18 17:31 | P.PNNS ---
Subjective Interval history: pt seen this morning during rounds, eating his breakfast appears comfortable, nursing reports no seizures overnight, no neuro changes Physical Exam Vital signs: Vital Signs 07/17/18 22:20 07/18/18 00:00 07/18/18 02:03 Temperature 98.2 F 97.7 F Pulse Rate 91 H 78 Respiratory Rate 20 16 18 Blood Pressure 158/74 H 146/72 H Pulse Oximetry 95 96 07/18/18 04:30 07/18/18 08:00 07/18/18 12:00 Temperature 98.2 F 97.7 F Pulse Rate 89 80 Respiratory Rate 16 20 20 Blood Pressure 172/81 H 144/63 H Pulse Oximetry 95 95 07/18/18 16:00 Temperature 97.7 F Pulse Rate 77 Respiratory Rate 20 Blood Pressure 165/74 H Pulse Oximetry 95 Intake & Output 07/17/18 07/18/18 07/18/18 18:59 06:59 18:59 Intake Total 480 / 480 100 / 100 Output Total 850 / 850 850 / 850 Balance -370 / -370 100 / 100 -850 / -850 Intake: IV 100 / 100 Ofirmev Inj 1,000 mg In 100 ml 100 / 100 @ 400 mls/hr IV.SIG Q6H PRN Rx# :[id number] Oral 480 / 480 Output: Urine Amount (Catheter) 850 / 850 850 / 850 Condom 850 / 850 850 / 850 Other: Date of Last Bowel Movement 07/13/18 07/18/18 07/18/18 # Bowel Movements 2 Narrative: Alert, conversant. Speech is fluent. feeding himself breakfast Face symmetric. Strength at least 4/5 throughout, nonfocal in nature - Urinary Catheter Management Condom Cath placed during this visit: yes Reason for continuing: Not indwelling catheter Insertion date: 07/13/18 Assessment and Plan - Plan 87-year-old gentleman with an acute interhemispheric subdural hemorrhage admitted 07/14/18 which extends into the right tentorium with a subacute small right convexity subdural hemorrhage. 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 He is on aspirin and Plavix therapy and increasing the risk for bleeding. P: Repeat CT on 07/16 was stable. Given his age and interhemispheric location, surgery unlikely to be a treatment option for him. Continue frequent neuro checks Continue Keppra; given episode of focal shaking that responded to Ativan this morning, neurology consult was placed. Patient states he had his EEG test yesterday, results pending. We will follow-up their recommendations. Continue PT and mobilize activity as tolerated (will not be able to bear weight left leg). Increase activity status as tolerated with physical therapy safety evaluation. Continue with gastrointestinal stress ulcer prophylaxis Continue with mechanical DVT prophylaxis.
--- NOTE | 2018-07-18 19:06 | XR ---
EXAM DATE: 07/18/2018 6:50 PM EST AGE/SEX: 87 years / Male INDICATIONS: Left elbow swelling, inflammation. Denies injury CLINICAL DATA: This is the patient's initial encounter. Patient reports that signs and symptoms have been present for 4 - 6 days and indicates a pain score of 0/10. MEDICAL/SURGICAL HISTORY: . Carcinoma, colon. Hypertension. Myocardial infarction. Coronary art grzegorz disease, chronic renal disease . . Cardiac cath COMPARISON: No prior exams available for comparison. FINDINGS: There is diffuse soft tissue swelling and subcutaneous edema of the left elbow but especially anterio rly and laterally. No radiopaque foreign bodies seen. Bones are intact and normally aligned. No perce ptible joint effusion. CONCLUSION: Nonspecific soft tissue swelling. No radiopaque foreign body or acute bony abnormality. Electronically signed by: Anthony Guajardo MD 07/18/2018 7:05 PM EST
[2018-07-18] MEDS: Temazepam 15 MG Capsule PO SCH (20:57)
--- NOTE | 2018-07-18 21:30 | US ---
EXAM DATE: 07/18/2018 9:22 PM EST AGE/SEX: 87 years / Male INDICATIONS: Left arm swelling. CLINICAL DATA: This is the patient's initial encounter. Patient reports that signs and symptoms have been present for 2 days and indicates a pain score of 4/10. MEDICAL/SURGICAL HISTORY: Hypertension. Actinic Keratosis. Basal cell carcinoma of face. BPH. C AD. Colon cancer. CKD 3. Myocardial infarct. Tremor. . Cardiac Cath. COMPARISON: No prior exams available for comparison. FINDINGS: The left cephalic vein is thrombosed distally. Other venous tributaries of the left upper extremity, including the left internal jugular vein, are patent. Other: None. CONCLUSION: Thrombosis distally of the left cephalic vein. Electronically signed by: Anthony Guajardo MD 07/18/2018 9:29 PM EST
--- NOTE | 2018-07-19 09:05 | P.PNNS ---
Subjective Interval history: Doing well. Strength improving left arm and leg (may have been related to Ativan) though EEG spot negative for seizures on Tuesday 07/17 (or 07/16). Physical Exam Vital signs: Vital Signs 07/18/18 12:00 07/18/18 16:00 07/18/18 20:00 Temperature 97.7 F 97.7 F 98.3 F Pulse Rate 80 77 93 H Respiratory Rate 20 20 16 Blood Pressure 144/63 H 165/74 H 159/74 H Pulse Oximetry 95 95 95 07/19/18 00:00 07/19/18 00:48 07/19/18 04:00 Temperature 98.0 F 98.0 F Pulse Rate 100 H 95 H Respiratory Rate 16 18 16 Blood Pressure 104/54 L 159/70 H Pulse Oximetry 93 L 96 Intake & Output 07/18/18 07/19/18 07/19/18 18:59 06:59 18:59 Intake Total 360 / 360 100 / 100 Output Total 850 / 850 1200 / 1200 Balance -490 / -490 -1100 / -1100 Weight 72.8 kg Intake: IV 100 / 100 Ofirmev Inj 1,000 mg In 100 ml 100 / 100 @ 400 mls/hr IV.SIG Q6H PRN Rx# :[id number] Oral 360 / 360 Output: Urine 1200 / 1200 Urine Amount (Catheter) 850 / 850 Condom 850 / 850 Other: Date of Last Bowel Movement 07/18/18 07/18/18 Narrative: Alert, conversant. Speech is fluent. feeding himself breakfast Face symmetric. Right side strength 5/5 Left side arm 4+/5 and leg 4+/5, improved from prior. - Urinary Catheter Management Condom Cath placed during this visit: yes Reason for continuing: Not indwelling catheter Insertion date: 07/13/18 Assessment and Plan - Assessment (1) Acute subdural hematoma Code(s): S06.5X9A - Traumatic subdural hemorrhage with loss of consciousness of unspecified duration, initial encounter Status: Acute (2) Hypertension Code(s): I10 - Essential (primary) hypertension Status: Chronic Qualifiers: Hypertension type: essential hypertension Qualified Code(s): I10 - Essential (primary) hypertension - Plan 87-year-old gentleman with an acute interhemispheric subdural hemorrhage admitted 07/14/18 which extends into the right tentorium with a subacute small right convexity subdural hemorrhage. 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 He is on aspirin and Plavix therapy and increasing the risk for bleeding. P: Repeat CT on 07/16 was stable. Given his age and interhemispheric location, surgery unlikely to be a treatment option for him. Continue Keppra; given episode of focal shaking that responded to Ativan 07/16, EEG negatve. Continue PT and mobilize activity as tolerated (will not be able to bear weight left leg). Increase activity status as tolerated with physical therapy safety evaluation. Continue with gastrointestinal stress ulcer prophylaxis Continue with mechanical DVT prophylaxis. Ok for d/c to rehab. If his left arm starts to shake again, consider Ativan. Will need follow-up CT in 2-4 weeks with Neurosurgery clinic appointment (Michael ). UTI check today with UA and consider starting Cipro x 3d for burning on voiding.
[2018-07-19] MEDS: Baclofen 10 MG Tablet PO SCH (09:12)
[2018-07-19] MEDS: levETIRAcetam 500 MG Tablet PO SCH ×2 (09:12→20:03)
[2018-07-19] MEDS: Senna/Docusate Sodium 8.6/50 MG Tablet PO SCH ×2 (09:12→20:03)
[2018-07-19] MEDS: Sodium Chloride 0.9% 2 ML Flush BID IV.FLUSH SCH ×2 (09:14→20:04)
--- NOTE | 2018-07-19 10:50 | P.PN ---
Subjective Interval history: Trauma PTD: 6 Patient sitting up in bed. No distress noted. "I had some trouble down below." RN reports patient complaint of burning during urination. Physical Exam Vital signs: Vital Signs 07/18/18 12:00 07/18/18 16:00 07/18/18 20:00 Temperature 97.7 F 97.7 F 98.3 F Pulse Rate 80 77 93 H Respiratory Rate 20 20 16 Blood Pressure 144/63 H 165/74 H 159/74 H Pulse Oximetry 95 95 95 07/19/18 00:00 07/19/18 00:48 07/19/18 04:00 Temperature 98.0 F 98.0 F Pulse Rate 100 H 95 H Respiratory Rate 16 18 16 Blood Pressure 104/54 L 159/70 H Pulse Oximetry 93 L 96 07/19/18 08:00 Temperature 97.7 F Pulse Rate 90 Respiratory Rate 17 Blood Pressure 163/81 H Pulse Oximetry 95 Intake & Output 07/18/18 07/19/18 07/19/18 18:59 06:59 18:59 Intake Total 360 / 360 100 / 100 Output Total 850 / 850 1200 / 1200 Balance -490 / -490 -1100 / -1100 Weight 72.8 kg Intake: IV 100 / 100 Ofirmev Inj 1,000 mg In 100 ml 100 / 100 @ 400 mls/hr IV.SIG Q6H PRN Rx# :[id number] Oral 360 / 360 Output: Urine 1200 / 1200 Urine Amount (Catheter) 850 / 850 Condom 850 / 850 Other: Date of Last Bowel Movement 07/18/18 07/18/18 07/18/18 Narrative: GENERAL: This is a 87-year-old male sitting up in bed. No distress noted. SKIN: Warm and dry. Ecchymosis noted to chin. HEAD: Atraumatic. Normocephalic. EYES: PERRLA ENT: No nasal bleeding or discharge. Mucous membranes pink and moist. NECK: Trachea midline. No JVD. CARDIOVASCULAR: Regular rate and rhythm. RESPIRATORY: No accessory muscle use. Lungs are clear to auscultation. Breath sounds equal bilaterally. No distress or dyspnea. GASTROINTESTINAL: BS + x 4 quads. Abdomen soft, non-tender, nondistended. MUSCULOSKELETAL: Extremities without cyanosis, or edema. + peripheral pulses x 4 extremities. Warm with good capillary refill and sensation. MAEW. NEUROLOGICAL: Awake and alert. Normal speech and pattern. - Urinary Catheter Management Condom Cath placed during this visit: yes Reason for continuing: Not indwelling catheter Insertion date: 07/13/18 Results - Labs CBC & Chem 7: 07/17/18 09:05 07/17/18 09:05 - Imaging Impressions Elbow X-Ray 07/18/18 00:00 CONCLUSION: Nonspecific soft tissue swelling. No radiopaque foreign body or acute bony abnormality. Venous Doppler Study 07/18/18 00:00 CONCLUSION: Thrombosis distally of the left cephalic vein. Assessment and Plan - Assessment (1) Contusion of knee, right Code(s): S80.01XA - Contusion of right knee, initial encounter Status: Acute (2) Contusion of finger, right Code(s): S60.00XA - Contusion of unspecified finger without damage to nail, initial encounter Status: Acute (3) Acute subdural hematoma Code(s): S06.5X9A - Traumatic subdural hemorrhage with loss of consciousness of unspecified duration, initial encounter Status: Acute (4) Contusion of face Code(s): S00.83XA - Contusion of other part of head, initial encounter Status : Acute (5) Major neurocognitive disorder as late effect of traumatic brain injury with behavioral disturbance Code(s): S06.9X9S - Unspecified intracranial injury with loss of consciousness of unspecified duration, sequela; F02.81 - Dementia in other diseases classified elsewhere with behavioral disturbance Status: Acute - Plan [place]: This is an 87-year old male who sustained a fall. He tripped and fell striking his head. No LOC. He is on Plavix and had uncontrolled epistaxis. 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 HLD. CAD. STEMI. Essential tremor. CKD Procedures: Consults: Neurosurgery. Neurology. Rehab medicine. Neuropsych. Case management. Diet: Cardiac diet -mechanical soft with thin liquids. Tolerating po diet. Encourage good po intake with each meal. (ST following. Pulmonary: Encourage good pulmonary toileting. IS at bedside and pt encouraged to use. Rationale for use explained to patient, and verbalized understanding. Duo nebs as needed PAIN Management: IV Ofirmev. Morphine 2 mg q 3h. Zanaflex HS (home med). Baclofen (home med). Activity: OOB. PT and OT ordered. GI prophylaxis: PO Protonix Bowel regimen: Janett-colace. Lactulose. Senna PRN. LBM: 07/18 DVT prophylaxis: Mechanical VTE with SCDs. Chemical management contraindicated at this time due to SDH/SAH. DC Planning: Case management consulted for assistance with final discharge disposition. Patient is clear from a trauma surgery standpoint to discharge to SNF. Active discharge in place. Family is looking into local options. Emotional support provided to patient at bedside and plan of care discussed. Discussed with RN at bedside. Discussed pt condition and plan of care with collaborating trauma surgeon. Patient is hemodynamically stable and being managed on the med/surg floor. The trauma team will round each day, and evaluate plan of care on a daily basis. 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 Minimal SAH. 07/15: Unable to move LEFT leg 07/14: CT brain- R SDH unchanged, minimal left SAH Continue Keppra 500 mg BID Neurology consulted and assisting in management and care - for questionable seizure activity F/U outpatient Serial neuro checks Avoid secondary head injury Postconcussive education Speech therapy consulted Pain management Encourage out of bed PT and OT ordered Bowel regimen Mechanical DVT prophylaxis Neuro psych consulted and assisting in management and care Hold Plavix and ASA until cleared by NS DC to SNF/rehab Left upper extremity swelling Supportive care Pain management Elevate 07/18: Venous US - LEFT distal cephalic vein thrombosis Monitor closely - superficial - Encourage out of bed PT and OT ordered Continue mechanical DVT prophylaxis Resume Plavix/aspirin once cleared by neurosurgery Difficulty with urination Burning with urination Supportive care Straight cath every 6 hours as needed Encourage p.o. intake Obtain urine culture HTN HLD CAD Hx: STEMI Vital signs every 4 hours and as needed Cardiac diet Resume home medications Coreg 3.125mg BID. Cozaar 25mg QD. Lipitor - Attending Attestation The exam, history, and the medical decision-making described in the above note were completed with the assistance of the mid-level provider. I reviewed and agree with the findings presented. I attest that I had a [id number] encounter with the patient on the same day, and personally performed and documented my assessment and findings in the medical record. (1) Contusion of knee, right Qualifiers: Encounter type: initial encounter Qualified Code(s): S80.01XA - Contusion of right knee, initial encounter (2) Contusion of finger, right Qualifiers: Encounter type: initial encounter Finger: little finger Damage to nail status: without damage Qualified Code(s): S60.051A - Contusion of right little finger without damage to nail, initial encounter (4) Contusion of face Qualifiers: Encounter type: initial encounter Qualified Code(s): S00.83XA - Contusion of other part of head, initial encounter
[2018-07-19 11:35] LABS: Bilirubin,Urine Negative (Negative); Clarity,Urine Hazy (Clear); Color,Urine Yellow (Yellw/Straw); Glucose,Urine (UA) Negative (Negative); Leukocyte Esterase,Urine Trace (Negative); Mucus,Urine Few /lpf (Occasional); Nitrite,Urine Negative (Negative); Specific Gravity,Urine 1.014 (1.002-1.035); Squamous Epithelial Cell,Urine <1 /hpf (0-5)
[2018-07-19] MEDS: Temazepam 15 MG Capsule PO SCH (20:03)
[2018-07-20] MEDS: Baclofen 10 MG Tablet PO SCH (09:30)
[2018-07-20] MEDS: levETIRAcetam 500 MG Tablet PO SCH ×2 (09:31→21:07)
[2018-07-20] MEDS: Senna/Docusate Sodium 8.6/50 MG Tablet PO SCH ×2 (09:32→21:22)
[2018-07-20] MEDS: Sodium Chloride 0.9% 2 ML Flush BID IV.FLUSH SCH ×2 (09:32→21:22)
--- NOTE | 2018-07-20 10:30 | P.PNNS ---
Subjective Interval history: Doing well . Still difficulty voiding with burning. Some pain left foot today which is new. Would like something stronger than tylenol. Physical Exam Vital signs: Vital Signs 07/19/18 12:30 07/19/18 15:18 07/19/18 15:49 Temperature 97.1 F L 97.4 F L Pulse Rate 82 78 Respiratory Rate 17 16 Blood Pressure 159/69 H 112/56 L Pulse Oximetry 98 96 07/19/18 19:56 07/20/18 00:00 07/20/18 00:14 Temperature 98.6 F 98.0 F Pulse Rate 93 H 76 Respiratory Rate 18 19 18 Blood Pressure 165/82 H 146/66 H Pulse Oximetry 95 95 07/20/18 04:00 07/20/18 08:00 Temperature 98.0 F 98.3 F Pulse Rate 92 H 94 H Respiratory Rate 21 18 Blood Pressure 141/66 H 171/78 H Pulse Oximetry 98 94 L Intake & Output 07/19/18 07/20/18 07/20/18 18:59 06:59 18:59 Intake Total 100 / 100 100 / 100 Output Total 200 / 200 725 / 725 Balance -100 / -100 -625 / -625 Weight 72.6 kg Intake: IV 100 / 100 100 / 100 Ofirmev Inj 1,000 mg In 100 ml 100 / 100 100 / 100 @ 400 mls/hr IV.SIG Q6H PRN Rx# :[id number] Output: Urine 200 / 200 Urine Amount (Catheter) 725 / 725 Straight 725 / 725 Other: # Incontinent Voids 3 Date of Last Bowel Movement 07/19/18 07/20/18 Narrative: A&O x 3 CN II - 12 intact Motor 5/5 UE and RLE LLE 4/5 per baseline Left foot some redness on top of foot, ?morgan's sign - Urinary Catheter Management Condom Cath placed during this visit: yes Reason for continuing: Not indwelling catheter Insertion date: 07/13/18 Straight Cath placed during this visit: no Assessment and Plan - Assessment (1) Acute subdural hematoma Code(s): S06.5X9A - Traumatic subdural hemorrhage with loss of consciousness of unspecified duration, initial encounter Status: Acute (2) Hypertension Code(s): I10 - Essential (primary) hypertension Status: Chronic Qualifiers: Hypertension type: essential hypertension Qualified Code(s): I10 - Essential (primary) hypertension - Plan 87-year-old gentleman with an acute interhemispheric subdural hemorrhage admitted 07/14/18 which extends into the right tentorium with a subacute small right convexity subdural hemorrhage. 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 He is on aspirin and Plavix therapy and increasing the risk for bleeding. P: Repeat CT on 07/16 was stable. Given his age and interhemispheric location, surgery unlikely to be a treatment option for him. Continue Keppra; given episode of focal shaking that responded to Ativan 07/16, EEG negatve. Continue PT and mobilize activity as tolerated (will not be able to bear weight left leg). Increase activity status as tolerated with physical therapy safety evaluation. Continue with gastrointestinal stress ulcer prophylaxis Continue with mechanical DVT prophylaxis. 07/20 Start Cipro today x 3days Repeat BUN/CR daily DVT scan of left lower extremity Tramadol for pain.
--- NOTE | 2018-07-20 11:17 | P.PN ---
Subjective Interval history: Trauma PTD: 7 Patient sitting up in bed. No distress noted. Patient continuing with urinary retention, and difficulty voiding. Physical Exam Vital signs: Vital Signs 07/19/18 12:30 07/19/18 15:18 07/19/18 15:49 Temperature 97.1 F L 97.4 F L Pulse Rate 82 78 Respiratory Rate 17 16 Blood Pressure 159/69 H 112/56 L Pulse Oximetry 98 96 07/19/18 19:56 07/20/18 00:00 07/20/18 00:14 Temperature 98.6 F 98.0 F Pulse Rate 93 H 76 Respiratory Rate 18 19 18 Blood Pressure 165/82 H 146/66 H Pulse Oximetry 95 95 07/20/18 04:00 07/20/18 08:00 Temperature 98.0 F 98.3 F Pulse Rate 92 H 94 H Respiratory Rate 21 18 Blood Pressure 141/66 H 171/78 H Pulse Oximetry 98 94 L Intake & Output 07/19/18 07/20/18 07/20/18 18:59 06:59 18:59 Intake Total 100 / 100 100 / 100 Output Total 200 / 200 725 / 725 Balance -100 / -100 -625 / -625 Weight 72.6 kg Intake: IV 100 / 100 100 / 100 Ofirmev Inj 1,000 mg In 100 ml 100 / 100 100 / 100 @ 400 mls/hr IV.SIG Q6H PRN Rx# :[id number] Output: Urine 200 / 200 Urine Amount (Catheter) 725 / 725 Straight 725 / 725 Other: # Incontinent Voids 3 Date of Last Bowel Movement 07/19/18 07/20/18 07/20/18 Narrative: GENERAL: This is a 87-year-old male sitting up in bed. No distress noted. SKIN: Warm and dry. Ecchymosis noted to chin. HEAD: Atraumatic. Normocephalic. EYES: PERRLA ENT: No nasal bleeding or discharge. Mucous membranes pink and moist. NECK: Trachea midline. No JVD. CARDIOVASCULAR: Regular rate and rhythm. RESPIRATORY: No accessory muscle use. Lungs are clear to auscultation. Breath sounds equal bilaterally. No distress or dyspnea. GASTROINTESTINAL: BS + x 4 quads. Abdomen soft, non-tender, nondistended. MUSCULOSKELETAL: Extremities without cyanosis, or edema. Swelling noted to left leg. + peripheral pulses x 4 extremities. Warm with good capillary refill and sensation. Decreased mobility to left leg. NEUROLOGICAL: Awake and alert. Normal speech and pattern. - Urinary Catheter Management Condom Cath placed during this visit: yes Reason for continuing: Not indwelling catheter Insertion date: 07/13/18 Straight Cath placed during this visit: yes Reason for continuing: Acute urinary retention Insertion date: 07/20/18 Insertion time: 11:00 Indwelling Urethral Catheter Cath placed during this visit: yes Reason for continuing: Acute urinary retention Insertion date: 07/20/18 Insertion time: 11:00 Results - Labs CBC & Chem 7: 07/17/18 09:05 07/20/18 11:03 Laboratory Results - last 24 hr 07/19/18 Unknown Urine Color Yellow Urine Clarity Hazy H Urine pH 5.0 Ur Specific Purdys 1.014 Urine Protein Negative Urine Glucose (UA) Negative Urine Ketones Negative Urine Occult Blood Small H Urine Nitrate Negative Urine Bilirubin Negative Urine Urobilinogen Less than 2 Ur Leukocyte Esterase Trace H Urine RBC 12 H Urine WBC 14 H Ur Squamous Epith Cells <1 Urine Mucus Few H Micro UA Comment Culture indicated Ur Microscopic Review Not Reportable Urine Culture Comments Culture indicated - Procedures . Assessment and Plan - Assessment (1) Contusion of knee, right Code(s): S80.01XA - Contusion of right knee, initial encounter Status: Acute (2) Contusion of finger, right Code(s): S60.00XA - Contusion of unspecified finger without damage to nail, initial encounter Status: Acute (3) Acute subdural hematoma Code(s): S06.5X9A - Traumatic subdural hemorrhage with loss of consciousness of unspecified duration, initial encounter Status: Acute (4) Contusion of face Code(s): S00.83XA - Contusion of other part of head, initial encounter Status : Acute (5) Major neurocognitive disorder as late effect of traumatic brain injury with behavioral disturbance Code(s): S06.9X9S - Unspecified intracranial injury with loss of consciousness of unspecified duration, sequela; F02.81 - Dementia in other diseases classified elsewhere with behavioral disturbance Status: Acute - Plan [place]: This is an 87-year old male who sustained a fall. He tripped and fell striking his head. No LOC. He is on Plavix and had uncontrolled epistaxis. 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 HLD. CAD. STEMI. Essential tremor. CKD Procedures: Consults: Neurosurgery. Neurology. Rehab medicine. Neuropsych. Case management. Diet: Cardiac diet -mechanical soft with thin liquids. Tolerating po diet. Encourage good po intake with each meal. (ST following. Pulmonary: Encourage good pulmonary toileting. IS at bedside and pt encouraged to use. Rationale for use explained to patient, and verbalized understanding. Duo nebs as needed PAIN Management: IV Ofirmev. Added tramadol 50 mg q 6h. Morphine 2 mg q 3h. Zanaflex HS (home med). Baclofen (home med). Activity: OOB. PT and OT ordered. GI prophylaxis: PO Protonix Bowel regimen: Janett-colace. Lactulose. Senna PRN. LBM: 07/20. Continuing episodes of urinary retention and difficulty voiding. Patient required frequent bladder scanning, with straight cath every [address] Calixto catheter. DVT prophylaxis: Mechanical VTE with SCDs. Chemical management contraindicated at this time due to SDH/SAH. DC Planning: Case management consulted for assistance with final discharge disposition. Patient is clear from a trauma surgery standpoint to discharge to SNF. Active discharge in place. Having difficulty obtaining a [facility] facility [facility]. Trying to get in touch with family for other options for discharge SNF facility Emotional support provided to patient at bedside and plan of care discussed. Discussed with RN at bedside. Discussed pt condition and plan of care with collaborating trauma surgeon. Patient is hemodynamically stable and being managed on the med/surg floor. The trauma team will round each day, and evaluate plan of care on a daily basis. 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 Minimal SAH. 07/15: Unable to move LEFT leg 07/14: CT brain- R SDH unchanged, minimal left SAH Continue Keppra 500 mg BID Neurology consulted and assisting in management and care - for questionable seizure activity F/U outpatient Serial neuro checks Avoid secondary head injury Postconcussive education Speech therapy consulted Pain management Encourage out of bed PT and OT ordered Bowel regimen Mechanical DVT prophylaxis Neuro psych consulted and assisting in management and care Hold Plavix and ASA until cleared by NS DC to SNF/rehab Left upper extremity swelling Left lower extremity swelling Will obtain venous Doppler of bilateral lower extremities today Supportive care Pain management Elevate 07/18: Venous US - LEFT distal cephalic vein thrombosis Monitor closely - superficial - Encourage out of bed PT and OT ordered Continue mechanical DVT prophylaxis Resume Plavix/aspirin once cleared by neurosurgery Difficulty with urination Burning with urination Supportive care Bladder scan as needed Place urinary catheter Encourage p.o. intake Awaiting urinary culture result Patient started on Cipro x 3 days HTN HLD CAD Hx: STEMI Vital signs every 4 hours and as needed Cardiac diet Resume home medications Coreg 3.125mg BID. Cozaar 25mg QD. Lipitor - Attending Attestation The exam, history, and the medical decision-making described in the above note were completed with the assistance of the mid-level provider. I reviewed and agree with the findings presented. I attest that I had a [id number] encounter with the patient on the same day, and personally performed and documented my assessment and findings in the medical record. (1) Contusion of knee, right Qualifiers: Encounter type: initial encounter Qualified Code(s): S80.01XA - Contusion of right knee, initial encounter (2) Contusion of finger, right Qualifiers: Encounter type: initial encounter Finger: little finger Damage to nail status: without damage Qualified Code(s): S60.051A - Contusion of right little finger without damage to nail, initial encounter (4) Contusion of face Qualifiers: Encounter type: initial encounter Qualified Code(s): S00.83XA - Contusion of other part of head, initial encounter
[2018-07-20 12:12] LABS: Calcium 8.4 mg/dL (8.5-10.1); Carbon Dioxide 24.2 meq/L (21.0-32.0); Potassium 4.3 meq/L (3.5-5.1)
[2018-07-20] MEDS: Ciprofloxacin 250 MG Tablet PO SCH ×2 (12:36→21:07)
--- NOTE | 2018-07-20 20:00 | US ---
EXAM DATE: 07/20/2018 7:56 PM EST AGE/SEX: 87 years / Male INDICATIONS: Bilateral leg swelling. CLINICAL DATA: This is the patient's initial encounter. Patient reports that signs and symptoms have been present for 2 days and indicates a pain score of 3/10. MEDICAL/SURGICAL HISTORY: Hypertension. Carcinoma, basal cell. Carcinoma, colon. Actinic ker atosis. BPH. CAD. CKD 3. Hyperlipidemia. Insomnia. Myocardial infarct. . Cardiac cath. COMPARISON: No prior exams available for comparison. TECHNIQUE: Venous ultrasound of both lower extremities was performed from the inguinal ligament to t he proximal calf. Real-time, color Doppler and spectral tracing, compression and augmentation techni ques were used. FINDINGS: Right Leg: At the level of the distal leg/ankle is thrombosis of the right posterior tibial vein. Ot her venous tributaries of the right lower extremity are patent. Left Leg: Normal compression of the deep venous system from the inguinal region to the proximal calf . No echogenic clot is seen. Normal response of the venous system to augmentation and respiration. Other: None. CONCLUSION: 1. Distal thrombosis of the right posterior tibial vein. Other right lower extremity venous tributar ies are patent. 2. No venous thrombosis on the left. Electronically signed by: Anthony Guajardo MD 07/20/2018 7:58 PM EST
[2018-07-20] MEDS: Temazepam 15 MG Capsule PO SCH (21:07)
[2018-07-21] MEDS: Senna/Docusate Sodium 8.6/50 MG Tablet PO SCH ×2 (08:30→20:48)
[2018-07-21] MEDS: Ciprofloxacin 250 MG Tablet PO SCH ×2 (08:30→20:48)
[2018-07-21] MEDS: Sodium Chloride 0.9% 2 ML Flush BID IV.FLUSH SCH ×2 (08:31→20:50)
[2018-07-21] MEDS: levETIRAcetam 500 MG Tablet PO SCH ×2 (08:31→20:49)
[2018-07-21] MEDS: Baclofen 10 MG Tablet PO SCH (08:31)
--- NOTE | 2018-07-21 11:01 | P.PN ---
Subjective Interval history: Trauma PTD: 8 Patient OOB and sitting in a chair eating breakfast. No distress noted. Patient states, "I am so-so." Patient states, "no one wants me." As he has not been accepted to rehab by a facility yet. Patient complains of left ankle pain with any attempts at ambulation. Physical Exam Vital signs: Vital Signs 07/20/18 11:56 07/20/18 20:00 07/21/18 00:00 Temperature 98.1 F 97.3 F L 99.1 F Pulse Rate 88 90 74 Respiratory Rate 18 22 19 Blood Pressure 149/75 H 150/67 H 121/58 L Pulse Oximetry 96 91 L 07/21/18 04:07 07/21/18 08:00 Temperature 98.1 F 98.1 F Pulse Rate 71 81 Respiratory Rate 16 18 Blood Pressure 136/80 163/79 H Pulse Oximetry 94 L 95 Intake & Output 07/20/18 07/21/18 07/21/18 18:59 06:59 18:59 Intake Total 1600 / 1600 Output Total 1400 / 1400 1000 / 1000 Balance 200 / 200 -1000 / -1000 Weight 72.6 kg Intake: Oral 1600 / 1600 Output: Urine Amount (Catheter) 1400 / 1400 1000 / 1000 Indwelling Urethral Catheter 1400 / 1400 1000 / 1000 Other: Date of Last Bowel Movement 07/20/18 07/20/18 07/21/18 # Incontinent Bowel Movements 3 Narrative: GENERAL: This is a 87-year-old male OOB in a recliner chair. No distress noted. SKIN: Warm and dry. Ecchymosis noted to chin. HEAD: Atraumatic. Normocephalic. EYES: PERRLA ENT: No nasal bleeding or discharge. Mucous membranes pink and moist. NECK: Trachea midline. No JVD. CARDIOVASCULAR: Regular rate and rhythm. RESPIRATORY: No accessory muscle use. Lungs are clear to auscultation. Breath sounds equal bilaterally. No distress or dyspnea. GASTROINTESTINAL: BS + x 4 quads. Abdomen soft, non-tender, nondistended. MUSCULOSKELETAL: Extremities without cyanosis, or edema. Swelling noted to left leg. + peripheral pulses x 4 extremities. Warm with good capillary refill and sensation. Decreased mobility to left leg. NEUROLOGICAL: Awake and alert. Normal speech and pattern. - Urinary Catheter Management Condom Cath placed during this visit: yes Reason for continuing: Not indwelling catheter Insertion date: 07/13/18 Straight Cath placed during this visit: yes Reason for continuing: Acute urinary retention Insertion date: 07/20/18 Insertion time: 11:00 Indwelling Urethral Catheter Cath placed during this visit: yes Reason for continuing: Acute urinary retention Insertion date: 07/20/18 Insertion time: 11:00 Results - Labs CBC & Chem 7: 07/22/18 01:40 07/22/18 01:40 Laboratory Results - last 24 hr 07/20/18 11:03 Sodium 139 Potassium 4.3 Chloride 105 Carbon Dioxide 24.2 Anion Gap 10 BUN 40 H Creatinine 1.96 H Estimated GFR 33 L Random Glucose 202 H Calcium 8.4 L Microbiology 07/19/18 Unknown Clean Catch Urine Urine Culture - Final 50-100,000 cfu/mL mixed howard (probable contaminants) - Imaging Impressions Venous Doppler Study 07/20/18 12:28 CONCLUSION: 1. Distal thrombosis of the right posterior tibial vein. Other right lower extremity venous tributaries are patent. 2. No venous thrombosis on the left. - Procedures . Assessment and Plan - Assessment (1) Contusion of knee, right Code(s): S80.01XA - Contusion of right knee, initial encounter Status: Acute (2) Contusion of finger, right Code(s): S60.00XA - Contusion of unspecified finger without damage to nail, initial encounter Status: Acute (3) Acute subdural hematoma Code(s): S06.5X9A - Traumatic subdural hemorrhage with loss of consciousness of unspecified duration, initial encounter Status: Acute (4) Contusion of face Code(s): S00.83XA - Contusion of other part of head, initial encounter Status : Acute (5) Major neurocognitive disorder as late effect of traumatic brain injury with behavioral disturbance Code(s): S06.9X9S - Unspecified intracranial injury with loss of consciousness of unspecified duration, sequela; F02.81 - Dementia in other diseases classified elsewhere with behavioral disturbance Status: Acute - Plan [facility]: This is an 87-year old male who sustained a fall. He tripped and fell striking his head. No LOC. He is on Plavix and had uncontrolled epistaxis. 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 HLD. CAD. STEMI. Essential tremor. CKD Procedures: Consults: Neurosurgery. Neurology. Rehab medicine. Neuropsych. Case management. Patient complains of right ankle pain with ambulation. Will obtain dedicated x- ray for further evaluation. Diet: Cardiac diet -mechanical soft with thin liquids. Tolerating po diet. Encourage good po intake with each meal. (ST following.) Pulmonary: Encourage good pulmonary toileting. IS at bedside and pt encouraged to use. Rationale for use explained to patient, and verbalized understanding. Duo nebs as needed PAIN Management: IV Ofirmev. Tramadol 50 mg q 6h. Morphine 2 mg q 3h. Zanaflex HS (home med). Baclofen (home med). Activity: OOB. PT and OT ordered. GI prophylaxis: PO Protonix Bowel regimen: Janett-colace. Lactulose. Senna PRN. LBM: 07/20. Continuing episodes of urinary retention and difficulty voiding. Patient required frequent bladder scanning, with straight cath every [address] Calixto catheter. DVT prophylaxis: Mechanical VTE with SCDs. Chemical management with Lovenox 30 mg BID. DC Planning: Case management consulted for assistance with final discharge disposition. Patient is clear from a trauma surgery standpoint to discharge to SNF. Active discharge in place. Having difficulty obtaining a [facility] facility upon discharge. [facility] has denied the patient admission, along with [facility] has declined the patient admission. We will continue quest for an accepting SNF. Emotional support provided to patient at bedside and plan of care discussed. Discussed with RN at bedside. Discussed pt condition and plan of care with collaborating trauma surgeon. Patient is hemodynamically stable and being managed on the med/surg floor. The trauma team will round each day, and evaluate plan of care on a daily basis. 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 Minimal SAH. 07/15: Unable to move LEFT leg 07/14: CT brain- R SDH unchanged, minimal left SAH Continue Keppra 500 mg BID - Neurology consulted and assisting in management and care - for questionable seizure activity F/U outpatient Serial neuro checks Avoid secondary head injury Postconcussive education Speech therapy consulted Pain management Encourage out of bed PT and OT ordered Bowel regimen Mechanical DVT prophylaxis , and Lovenox Neuro psych consulted and assisting in management and care Hold Plavix and ASA until cleared by NS DC to SNF/rehab once secured excepting facility Left upper extremity swelling Left lower extremity swelling Left ankle pain Will obtain dedicated x-ray to left ankle due to pain with ambulation Supportive care Pain management Elevate 07/20: Venous US BILAT legs - RIGHT - distal thrombus posterior tibial vein. LEFT - NEG 07/18: Venous US - LEFT distal cephalic vein thrombosis Monitor closely - superficial - Encourage out of bed PT and OT ordered Continue mechanical DVT prophylaxis Lovenox for DVT prophylaxis Resume Plavix/aspirin once cleared by neurosurgery Difficulty with urination Burning with urination Supportive care Bladder scan as needed Place urinary catheter Encourage p.o. intake 07/19: Urine -probable contaminant We will continue Cipro x 3 days -then DC HTN HLD CAD Hx: STEMI Vital signs every 4 hours and as needed Cardiac diet Resume home medications Coreg 3.125mg BID. Cozaar 25mg QD. Lipitor - Attending Attestation The exam, history, and the medical decision-making described in the above note were completed with the assistance of the mid-level provider. I reviewed and agree with the findings presented. I attest that I had a [id number] encounter with the patient on the same day, and personally performed my assessment and findings in the medical record. (1) Contusion of knee, right Qualifiers: Encounter type: initial encounter Qualified Code(s): S80.01XA - Contusion of right knee, initial encounter (2) Contusion of finger, right Qualifiers: Encounter type: initial encounter Finger: little finger Damage to nail status: without damage Qualified Code(s): S60.051A - Contusion of right little finger without damage to nail, initial encounter (4) Contusion of face Qualifiers: Encounter type: initial encounter Qualified Code(s): S00.83XA - Contusion of other part of head, initial encounter
--- NOTE | 2018-07-21 15:12 | XR ---
EXAM DATE: 07/21/2018 2:57 PM EST AGE/SEX: 87 years / Male INDICATIONS: Pain left ankle, denies injuryunable to bear weight CLINICAL DATA: This is the patient's initial encounter. Patient reports that signs and symptoms have been present for 4 - 6 days and indicates a pain score of 10/10. MEDICAL/SURGICAL HISTORY: . Hypertension. Carcinoma, basal cell. Carcinoma, colon. Actinic ker atosis. BPH. CAD. CKD 3. Hyperlipidemia. Insomnia. Myocardial infarct. . . Cardiac cath. COMPARISON: No prior exams available for comparison. FINDINGS: 3 views of left ankle. Prominent medial and lateral soft tissue swelling. Bone alignment within [facility] l limits. No evidence of fracture. CONCLUSION: No evidence of fracture. Electronically signed by: Wolf Mendez MD 07/21/2018 3:11 PM EST
--- NOTE | 2018-07-21 18:28 | P.PNNS ---
Subjective Interval history: Pt complains of left foot pain since his fall. No headaches, nausea or vomiting. Pt eating dinner. He denies any leg pain, chest pain or sob. <Vignesh Miller - Last Filed: 07/21/18 18:18> Physical Exam Vital signs: Vital Signs 07/20/18 20:00 07/21/18 00:00 07/21/18 04:07 Temperature 97.3 F L 99.1 F 98.1 F Pulse Rate 90 74 71 Respiratory Rate 22 19 16 Blood Pressure 150/67 H 121/58 L 136/80 Pulse Oximetry 96 91 L 94 L 07/21/18 08:00 07/21/18 12:00 07/21/18 16:00 Temperature 98.1 F 98.1 F 98.2 F Pulse Rate 81 91 H 86 Respiratory Rate 18 18 Blood Pressure 163/79 H 125/83 126/66 Pulse Oximetry 95 96 96 Intake & Output 07/20/18 07/21/18 07/21/18 18:59 06:59 18:59 Intake Total 1600 / 1600 Output Total 1400 / 1400 1000 / 1000 500 / 500 Balance 200 / 200 -1000 / -1000 -500 / -500 Weight 72.6 kg Intake: Oral 1600 / 1600 Output: Urine 500 / 500 Urine Amount (Catheter) 1400 / 1400 1000 / 1000 Indwelling Urethral Catheter 1400 / 1400 1000 / 1000 Other: Date of Last Bowel Movement 07/20/18 07/20/18 07/21/18 # Bowel Movements 1 # Incontinent Bowel Movements 3 - Constitutional no acute distress - Routine HEENT Exam Head: Present: normocephalic. Absent: atraumatic (ecchymosis chin area.) Eye: Present: PERRL. Absent: conjunctival icterus - Routine Neck Exam Present: trachea midline - Routine Respiratory Exam Present: CTA bilaterally. Absent: rhonchi, wheezes - Routine Cardiovascular Exam Present: RRR, S1, S2. Absent: murmur - Routine Abdominal Exam Present: soft, normoactive bowel sounds - Routine Skin Exam Present: ecchymosis (chin.). Absent: cyanosis, erythema (No calf erythema or tenderness.) - Routine Neurological Exam Present: alert, motor deficit (He has some difficulty dorsiflexing the left ankle secondary to pain.) - Urinary Catheter Management Condom Cath placed during this visit: yes Reason for continuing: Not indwelling catheter Insertion date: 07/13/18 Straight Cath placed during this visit: yes Reason for continuing: Acute urinary retention Insertion date: 07/20/18 Insertion time: 11:00 Indwelling Urethral Catheter Cath placed during this visit: yes Reason for continuing: Acute urinary retention Insertion date: 07/20/18 Insertion time: 11:00 <Vignesh Miller - Last Filed: 07/21/18 18:18> Vital signs: Vital Signs 07/20/18 20:00 07/21/18 00:00 07/21/18 04:07 Temperature 97.3 F L 99.1 F 98.1 F Pulse Rate 90 74 71 Respiratory Rate 22 19 16 Blood Pressure 150/67 H 121/58 L 136/80 Pulse Oximetry 96 91 L 94 L 07/21/18 08:00 07/21/18 12:00 07/21/18 16:00 Temperature 98.1 F 98.1 F 98.2 F Pulse Rate 81 91 H 86 Respiratory Rate 18 18 18 Blood Pressure 163/79 H 125/83 126/66 Pulse Oximetry 95 96 96 Intake & Output 07/21/18 07/21/18 07/22/18 06:59 18:59 06:59 Output Total 1000 / 1000 500 / 500 Balance -1000 / -1000 -500 / -500 Weight 72.6 kg Output: Urine 500 / 500 Urine Amount (Catheter) 1000 / 1000 Indwelling Urethral Catheter 1000 / 1000 Other: Date of Last Bowel Movement 07/20/18 07/21/18 # Bowel Movements 1 Narrative: GENERAL: This is a 87-year-old male OOB in a recliner chair. No distress noted. SKIN: Warm and dry. Ecchymosis noted to chin. HEAD: Atraumatic. Normocephalic. EYES: PERRLA ENT: No nasal bleeding or discharge. Mucous membranes pink and moist. NECK: Trachea midline. No JVD. CARDIOVASCULAR: Regular rate and rhythm. RESPIRATORY: No accessory muscle use. Lungs are clear to auscultation. Breath sounds equal bilaterally. No distress or dyspnea. GASTROINTESTINAL: BS + x 4 quads. Abdomen soft, non-tender, nondistended. MUSCULOSKELETAL: Extremities without cyanosis, or edema. Swelling noted to left leg. + peripheral pulses x 4 extremities. Warm with good capillary refill and sensation. Decreased mobility to left leg. NEUROLOGICAL: Awake and alert. LLE 4/5 per baseline. Normal speech and mental status - Urinary Catheter Management Condom Cath placed during this visit: no Straight Cath placed during this visit: no Indwelling Urethral Catheter Cath placed during this visit: no <Michael Patelo - Last Filed: 07/21/18 19:17> Assessment and Plan - Assessment (1) Contusion of knee, right Code(s): S80.01XA - Contusion of right knee, initial encounter Status: Acute Qualifiers: Encounter type: initial encounter Qualified Code(s): S80.01XA - Contusion of right knee, initial encounter (2) Contusion of finger, right Code(s): S60.00XA - Contusion of unspecified finger without damage to nail, initial encounter Status: Acute Qualifiers: Encounter type: initial encounter Finger: little finger Damage to nail status: without damage Qualified Code(s): S60.051A - Contusion of right little finger without damage to nail, initial encounter (3) Acute subdural hematoma Code(s): S06.5X9A - Traumatic subdural hemorrhage with loss of consciousness of unspecified duration, initial encounter Status: Acute (4) Contusion of face Code(s): S00.83XA - Contusion of other part of head, initial encounter Status : Acute Qualifiers: Encounter type: initial encounter Qualified Code(s): S00.83XA - Contusion of other part of head, initial encounter (5) Hypertension Code(s): I10 - Essential (primary) hypertension Status: Chronic Qualifiers: Hypertension type: essential hypertension Qualified Code(s): I10 - Essential (primary) hypertension - Plan 87-year-old gentleman with an acute interhemispheric subdural hemorrhage admitted 07/14/18 which extends into the right tentorium with a subacute small right convexity subdural hemorrhage. 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 He is on aspirin and Plavix therapy and increasing the risk for bleeding. P: Repeat CT on 07/16 was stable. Given his age and interhemispheric location, surgery unlikely to be a treatment option for him. Continue Keppra; given episode of focal shaking that responded to Ativan 07/16, EEG negatve. Increase activity status as tolerated with physical therapy safety evaluation. Continue with gastrointestinal stress ulcer prophylaxis Continue with mechanical DVT prophylaxis. 07/20 Continue with lovenox. Pt cannot have full anticoagulation given his SDH. Tramadol for pain. <Vignesh Miller - Last Filed: 07/21/18 18:18> - Assessment (1) Contusion of knee, right Code(s): S80.01XA - Contusion of right knee, initial encounter Status: Acute Qualifiers: Encounter type: initial encounter Qualified Code(s): S80.01XA - Contusion of right knee, initial encounter (2) Contusion of finger, right Code(s): S60.00XA - Contusion of unspecified finger without damage to nail, initial encounter Status: Acute Qualifiers: Encounter type: initial encounter Finger: little finger Damage to nail status: without damage Qualified Code(s): S60.051A - Contusion of right little finger without damage to nail, initial encounter (3) Acute subdural hematoma Code(s): S06.5X9A - Traumatic subdural hemorrhage with loss of consciousness of unspecified duration, initial encounter Status: Acute (4) Contusion of face Code(s): S00.83XA - Contusion of other part of head, initial encounter Status : Acute Qualifiers: Encounter type: initial encounter Qualified Code(s): S00.83XA - Contusion of other part of head, initial encounter (5) Hypertension Code(s): I10 - Essential (primary) hypertension Status: Chronic Qualifiers: Hypertension type: essential hypertension Qualified Code(s): I10 - Essential (primary) hypertension - Plan Neuro: Continue neuro checks in a serial fashion. Stable SDH Lovenox. Hold full anticoagulation due to SDH Pulmonary: aggressive pulmonary toilette, nasotracheal suction, and breathing treatments with nebulizers. Daily PT and OT Renal: Continue to monitor closely urine output, BUN and creatinine Endocrine: Continue to Monitor serial Acu checks and SSI as needed in detail ID continue to monitor for signs of infection Continue Protonix for stress ulcer prophylaxis Continue [place] hose and SCD's for DVT prophylaxis Further recommendations will be provided depending on the patient's clinical evaluation and follow up studies. The exam, history, and the medical decision-making described in the above note were completed with the assistance of the mid-level provider. I reviewed and agree with the findings presented. I attest that I had a [id number] encounter with the patient on the same day, and personally performed and documented my assessment and findings in the medical record. <Gianni Patel - Last Filed: 07/21/18 19:17>
[2018-07-21] MEDS: Temazepam 15 MG Capsule PO SCH (20:49)
[2018-07-21] MEDS: Enoxaparin Inj 30 MG/0.3 ML Syringe SQ SCH (20:49)
[2018-07-22] MEDS ORDERED: Naloxone Inj 0.4 MG/ML Vial ONE (00:06)
[2018-07-22 00:45] LABS: ABG Base Excess 1.3 mmol/L (-2-2); ABG PCO2 36 mmHg (38-42); ABG PO2 118 mmHg (61-120)
--- NOTE | 2018-07-22 01:04 | CT ---
EXAM DATE: 07/22/2018 12:49 AM EST AGE/SEX: 87 years / Male INDICATIONS: Altered mental status history of bleed CLINICAL DATA: This is the patient's initial encounter. Patient reports that signs and symptoms have been present for 1 day and indicates a pain score of Nonresponsive. MEDICAL/SURGICAL HISTORY: Cardiovascular disease. Hypertension. None. RADIATION DOSE: 64.63 CTDI (mGy) COMPARISON: [facility] – [place], CT HEAD W/O CONTRAST, 07/15/2018. . TECHNIQUE: CT of the head without contrast. Using automated exposure control and adjustment of the mA and/or kV according to patient size, radiation dose was kept as low as reasonably achievable to ob tain optimal diagnostic quality images. DICOM format image data is available electronically for revi ew and comparison. FINDINGS: Since the previous examination there has been no significant change. Again seen is a subacute subdur al hematoma tracking along the falx and of over the right parietal lobe at the vertex. Maximum thickn ess is along the falx measuring 13 mm which is less pronounced from the prior study. There has been m aturation of the hemorrhage. Mild edema involving the parietal lobes bilaterally most pronounced near the vertices. Trace subarachnoid hemorrhage involving the left parafalcine parietal lobe near the ve rtex. Underlying atrophy and chronic small vessel ischemic change again noted. Ventriculomegaly is st able and likely relating to the degree of atrophy. No new source of hemorrhage observed. No midline s hift. No acute infarction. CONCLUSION: 1. Stable continued maturation of subdural and small volume subarachnoid hemorrhage. . Electronically signed by: Jr Euceda MD 07/22/2018 1:03 AM EST
--- NOTE | 2018-07-22 01:22 | P.PNADD ---
Addendum to Inpatient Note Reason for Addendum: Additional Documentation Additional information: Rafael note S: Called for Halicat at 0015. Nursing staff reports that patient is currently admitted for subdural hematoma and is currently awaiting placement. They report earlier in the day he was alert and oriented x3. There is been a sudden change in mental status and he is currently unresponsive. They report the last medications given were bacitracin, carvedilol, temazepam. They report he responds slowly to sternal rub. Report he has not been opening his eyes. O: RR 18 BP 95/54 P 63 BG 181 GENERAL: Laying in bed, resting comfortably SKIN: Warm and dry. HEAD: Normocephalic. EYES: No scleral icterus. No injection or drainage. PERRLA NECK: Supple, trachea midline. No JVD or lymphadenopathy. CARDIOVASCULAR: Regular rate and rhythm without murmurs, gallops, or rubs. RESPIRATORY: Breath sounds equal bilaterally. No accessory muscle use. No snoring respirations, maintaining airway. GASTROINTESTINAL: Abdomen soft, non-tender, nondistended. MUSCULOSKELETAL: No cyanosis, or edema. BACK: Nontender without obvious deformity. No CVA tenderness. NEURO: Eye-opening to pain, no verbal response, withdrawal from pain A/P 87-year-old male with recent history of subdural hematoma and subarachnoid hemorrhage with sudden decrease in mental status following medication administration. -Stat CT -ABG without grossly significant abnormality -Follow-up CBC, CMP -Flumazenil -1 L bolus -EKG -Consider transfer to critical care with worsening or persistent symptoms Nursing staff reports they have been in contact with his primary team who recommended that they stop all narcotics and get a stat CT. Currently agree with current plan.
[2018-07-22] MEDS ORDERED: Sod Chloride 0.9% Inj 1,000 ML IV.SIG SCH (01:30)
[2018-07-22] MEDS ORDERED: Naloxone Inj 0.4 MG/ML Vial IV.PUSH ONE (01:45)
[2018-07-22 01:56] LABS: Baso % (Auto) 0.4 % (0.0-2.0); Eos # (Auto) 0.1 th/mm3 (0.0-0.4); Eos % (Auto) 1.1 % (0.0-4.0); Hematocrit 31.9 % (39.0-51.0); Hemoglobin 11.2 gm/dL (13.0-17.0); Lymph # (Auto) 1.2 th/mm3 (1.0-4.8); Lymph % (Auto) 9.6 % (9.0-44.0); Mean Corpuscular HGB Conc 35.1 % (32.0-36.0); Mean Corpuscular Hemoglobin 35.3 pg (27.0-34.0); Mean Corpuscular Volume 100.7 fL (80.0-100.0); Mono # (Auto) 1.1 th/mm3 (0.0-0.9); Neut # (Auto) 9.8 th/mm3 (1.8-7.7); Neut % (Auto) 79.9 % (16.0-70.0); Platelet Count 195 th/mm3 (150-450); Red Blood Count 3.17 mil/mm3 (4.50-5.90); Red Cell Distribution Width 14.6 % (11.6-17.2); White Blood Count 12.3 th/mm3 (4.0-11.0)
[2018-07-22] MEDS ORDERED: Sodium Chlor 0.9% Inj 500 ML IV.CONT ONE (02:00)
[2018-07-22 02:19] LABS: Albumin 2.2 g/dL (3.4-5.0); Anion Gap 7 meq/L (5-15); Aspartate Aminotransferase 14 U/L (15-37); Blood Urea Nitrogen 41 mg/dL (7-18); Chloride 104 meq/L (98-107); Glomerular Filtration Rate 38 mL/min (>89); Glucose,Random 173 mg/dL (74-106); Potassium 4.3 meq/L (3.5-5.1); Sodium 139 meq/L (136-145)
[2018-07-22 02:22] LABS: Alanine Aminotransferase 22 U/L (12-78); Alkaline Phosphatase 49 U/L (45-117); Total Protein 5.4 g/dL (6.4-8.2)
--- NOTE | 2018-07-22 09:52 | P.PNNS ---
Subjective Interval history: HALICAT last night midnight, got temazepam prior and flumazenil reversed back to baseline. interval head CT showing resolving subdural hematomas He is awake and alert this morning, eating breakfast. Physical Exam Vital signs: Vital Signs 07/21/18 12:00 07/21/18 16:00 07/21/18 20:00 Temperature 98.1 F 98.2 F 97.9 F Pulse Rate 91 H 86 97 H Respiratory Rate 18 18 20 Blood Pressure 125/83 126/66 156/73 H Pulse Oximetry 96 96 94 L 07/22/18 00:00 07/22/18 01:02 07/22/18 01:18 Temperature 98.3 F Pulse Rate 63 65 Respiratory Rate 19 16 Blood Pressure 95/54 L 115/56 L Pulse Oximetry 98 94 L 07/22/18 04:00 07/22/18 08:00 Temperature 98.5 F 98.0 F Pulse Rate 82 78 Respiratory Rate 18 16 Blood Pressure 136/66 116/69 Pulse Oximetry 95 96 Intake & Output 07/21/18 07/22/18 07/22/18 18:59 06:59 18:59 Intake Total 500 / 500 Output Total 500 / 500 700 / 700 Balance -500 / -500 -200 / -200 Weight 72.5 kg Intake: IV 500 / 500 NS Inj 500 ML @ As Directed IV. 500 / 500 CONT BOLUS ONE Rx#:[id number] Output: Urine 500 / 500 700 / 700 Other: Date of Last Bowel Movement 07/21/18 07/21/18 # Bowel Movements 1 Narrative: A&O x 3 CN II-XII intact Motor 5/5 BUE and RLE. LLE 4+/5 Sensation intact - Urinary Catheter Management Condom Cath placed during this visit: yes Reason for continuing: Not indwelling catheter Insertion date: 07/13/18 Straight Cath placed during this visit: yes Reason for continuing: Acute urinary retention Insertion date: 07/20/18 Insertion time: 11:00 Indwelling Urethral Catheter Cath placed during this visit: yes Reason for continuing: Acute urinary retention Insertion date: 07/20/18 Insertion time: 11:00 Assessment and Plan - Assessment (1) Contusion of knee, right Code(s): S80.01XA - Contusion of right knee, initial encounter Status: Acute Qualifiers: Encounter type: initial encounter Qualified Code(s): S80.01XA - Contusion of right knee, initial encounter (2) Contusion of finger, right Code(s): S60.00XA - Contusion of unspecified finger without damage to nail, initial encounter Status: Acute Qualifiers: Encounter type: initial encounter Finger: little finger Damage to nail status: without damage Qualified Code(s): S60.051A - Contusion of right little finger without damage to nail, initial encounter (3) Acute subdural hematoma Code(s): S06.5X9A - Traumatic subdural hemorrhage with loss of consciousness of unspecified duration, initial encounter Status: Acute (4) Contusion of face Code(s): S00.83XA - Contusion of other part of head, initial encounter Status : Acute Qualifiers: Encounter type: initial encounter Qualified Code(s): S00.83XA - Contusion of other part of head, initial encounter (5) Hypertension Code(s): I10 - Essential (primary) hypertension Status: Chronic Qualifiers: Hypertension type: essential hypertension Qualified Code(s): I10 - Essential (primary) hypertension - Plan 87yoM admitted 07/13/18 with acute SDH parafalcine due to fall, no ASA/Plavix. 07/15 Intermittent left leg weakness early in hospital course and left arm shaking, resolved with one dose of ativan EEG negative 07/21- overnight HALICAT likely due to temazepam and reversed with flumazenil. Many sedative meds held Repeat CT showing improvement in SDH Rehab/discharge planning. Continue PT/OT Pain left foot unclear origin, DVT scans negative.
[2018-07-22] MEDS: Baclofen 10 MG Tablet PO SCH (10:15)
[2018-07-22] MEDS: levETIRAcetam 500 MG Tablet PO SCH ×2 (10:15→22:20)
[2018-07-22] MEDS: Senna/Docusate Sodium 8.6/50 MG Tablet PO SCH ×2 (10:15→22:21)
[2018-07-22] MEDS: Ciprofloxacin 250 MG Tablet PO SCH ×2 (10:15→22:20)
[2018-07-22] MEDS: Enoxaparin Inj 30 MG/0.3 ML Syringe SQ SCH ×2 (10:23→22:19)
[2018-07-22] MEDS: Sodium Chloride 0.9% 2 ML Flush BID IV.FLUSH SCH ×2 (10:25→22:20)
--- NOTE | 2018-07-22 11:44 | P.PN ---
Subjective Interval history: Trauma PTD: 9 Patient OOB and sitting in a recliner chair. No distress noted. Patient states, "I slept good last night." A & O x3. Patient states, "my foot still hurts -my ankle." "It is almost broken." Physical Exam Vital signs: Vital Signs 07/21/18 12:00 07/21/18 16:00 07/21/18 20:00 Temperature 98.1 F 98.2 F 97.9 F Pulse Rate 91 H 86 97 H Respiratory Rate 18 18 20 Blood Pressure 125/83 126/66 156/73 H Pulse Oximetry 96 96 94 L 07/22/18 00:00 07/22/18 01:02 07/22/18 01:18 Temperature 98.3 F Pulse Rate 63 65 Respiratory Rate 19 16 Blood Pressure 95/54 L 115/56 L Pulse Oximetry 98 94 L 07/22/18 04:00 07/22/18 08:00 Temperature 98.5 F 98.0 F Pulse Rate 82 78 Respiratory Rate 18 16 Blood Pressure 136/66 116/69 Pulse Oximetry 95 96 Intake & Output 07/21/18 07/22/18 07/22/18 18:59 06:59 18:59 Intake Total 500 / 500 Output Total 500 / 500 700 / 700 Balance -500 / -500 -200 / -200 Weight 72.5 kg Intake: IV 500 / 500 NS Inj 500 ML @ As Directed IV. 500 / 500 CONT BOLUS ONE Rx#:[id number] Output: Urine 500 / 500 700 / 700 Other: Date of Last Bowel Movement 07/21/18 07/21/18 # Bowel Movements 1 Narrative: GENERAL: This is a 87-year-old male OOB in a recliner chair. No distress noted. SKIN: Warm and dry. Ecchymosis noted to chin. HEAD: Atraumatic. Normocephalic. EYES: PERRLA ENT: No nasal bleeding or discharge. Mucous membranes pink and moist. NECK: Trachea midline. No JVD. CARDIOVASCULAR: Regular rate and rhythm. RESPIRATORY: No accessory muscle use. Lungs are clear to auscultation. Breath sounds equal bilaterally. No distress or dyspnea. GASTROINTESTINAL: BS + x 4 quads. Abdomen soft, non-tender, nondistended. MUSCULOSKELETAL: Extremities without cyanosis, or edema. Swelling noted to left ankle. + peripheral pulses x 4 extremities. Warm with good capillary refill and sensation. Patient is able to bend and flex left ankle without difficulty. NEUROLOGICAL: Awake and alert. Back to baseline. Normal speech and pattern. - Urinary Catheter Management Condom Cath placed during this visit: yes Reason for continuing: Not indwelling catheter Insertion date: 07/13/18 Straight Cath placed during this visit: yes Reason for continuing: Acute urinary retention Insertion date: 07/20/18 Insertion time: 11:00 Indwelling Urethral Catheter Cath placed during this visit: yes Reason for continuing: Acute urinary retention Insertion date: 07/20/18 Insertion time: 11:00 Results - Labs CBC & Chem 7: 07/22/18 01:40 07/22/18 01:40 Laboratory Results - last 24 hr 07/22/18 07/22/18 07/22/18 00:07 00:25 01:40 WBC RBC Hgb Hct MCV MCH MCHC RDW Plt Count MPV Neut % (Auto) Lymph % (Auto) Burt % (Auto) Eos % (Auto) Baso % (Auto) Neut # (Auto) Lymph # (Auto) Burt # (Auto) Eos # (Auto) Baso # (Auto) WBC Differential Differential Comment Puncture Site Right radial Patient Temperature 98.6 O2 Saturation 96 ABG pH 7.46 H ABG pCO2 36 L ABG pO2 118 ABG HCO3 25 ABG O2 Content 18.6 ABG Base Excess 1.3 ABG Methemoglobin 1.0 Stephen Test Present Hemoglobin 13.6 Carboxyhemoglobin 1.2 O2 Delivery Device Nasal cannula Liter Flow 3.00 Critical Value No Sodium 139 Potassium 4.3 Chloride 104 Carbon Dioxide 28.0 Anion Gap 7 BUN 41 H Creatinine 1.70 H Estimated GFR 38 L POC Glucose 180 H Random Glucose 173 H Calcium 8.0 L Total Bilirubin 0.4 AST 14 L ALT 22 Alkaline Phosphatase 49 Total Protein 5.4 L Albumin 2.2 L 07/22/18 01:40 WBC 12.3 H RBC 3.17 L Hgb 11.2 L Hct 31.9 L MCV 100.7 H MCH 35.3 H MCHC 35.1 RDW 14.6 Plt Count 195 MPV 7.0 Neut % (Auto) 79.9 H Lymph % (Auto) 9.6 Burt % (Auto) 9.0 H Eos % (Auto) 1.1 Baso % (Auto) 0.4 Neut # (Auto) 9.8 H Lymph # (Auto) 1.2 Burt # (Auto) 1.1 H Eos # (Auto) 0.1 Baso # (Auto) 0.0 WBC Differential . Differential Comment Auto diff final Puncture Site Patient Temperature O2 Saturation ABG pH ABG pCO2 ABG pO2 ABG HCO3 ABG O2 Content ABG Base Excess ABG Methemoglobin Stephen Test Hemoglobin Carboxyhemoglobin O2 Delivery Device Liter Flow Critical Value Sodium Potassium Chloride Carbon Dioxide Anion Gap BUN Creatinine Estimated GFR POC Glucose Random Glucose Calcium Total Bilirubin AST ALT Alkaline Phosphatase Total Protein Albumin - Imaging Impressions Ankle X-Ray 07/21/18 00:00 CONCLUSION: No evidence of fracture. Head CT 07/22/18 00:26 CONCLUSION: 1. Stable continued maturation of subdural and small volume subarachnoid hemorrhage. . - Procedures . Assessment and Plan - Assessment (1) Contusion of knee, right Code(s): S80.01XA - Contusion of right knee, initial encounter Status: Acute (2) Contusion of finger, right Code(s): S60.00XA - Contusion of unspecified finger without damage to nail, initial encounter Status: Acute (3) Acute subdural hematoma Code(s): S06.5X9A - Traumatic subdural hemorrhage with loss of consciousness of unspecified duration, initial encounter Status: Acute (4) Contusion of face Code(s): S00.83XA - Contusion of other part of head, initial encounter Status : Acute (5) Major neurocognitive disorder as late effect of traumatic brain injury with behavioral disturbance Code(s): S06.9X9S - Unspecified intracranial injury with loss of consciousness of unspecified duration, sequela; F02.81 - Dementia in other diseases classified elsewhere with behavioral disturbance Status: Acute - Plan [place]: This is an 87-year old male who sustained a fall. He tripped and fell striking his head. No LOC. He is on Plavix and had uncontrolled epistaxis. 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 HLD. CAD. STEMI. Essential tremor. CKD Procedures: Consults: Neurosurgery. Neurology. Rehab medicine. Neuropsych. Case management. Patient was a HALICAT overnight due to to unresponsiveness and hypotension. Patient had received previously received 30 mg of Restoril for sleep. Stat CT brain -shows stable SDH and SAH. Romazicon x1 dose given and patient returned to baseline. Unresponsiveness most likely due to overmedication with Restoril. Patient continues to complain of LEFT ankle pain with ambulation. Left ankle x- ray negative for fracture. Left ankle remains quite swollen. Patient still has mobility and can flex and bend. Will obtain MRI left ankle to further evaluate pain, swelling, and difficulty with ambulation. Diet: Cardiac diet -mechanical soft with thin liquids. Tolerating po diet. Encourage good po intake with each meal. (ST following.) Pulmonary: Encourage good pulmonary toileting. IS at bedside and pt encouraged to use. Rationale for use explained to patient, and verbalized understanding. Duo nebs as needed PAIN Management: IV Ofirmev. Tramadol 50 mg q 6h (HOLD). Morphine 2 mg q 3h ( HOLD). Zanaflex HS (home med). Baclofen (home med). Restoril DC'd. Activity: OOB. PT and OT ordered. GI prophylaxis: PO Protonix Bowel regimen: Janett-colace. Lactulose. Senna PRN. LBM: 07/21. Episodes of urinary retention and difficulty voiding. Patient required frequent bladder scanning, with straight cath every 6 hours. Maintain Calixto catheter. DVT prophylaxis: Mechanical VTE with SCDs. Chemical management with Lovenox 30 mg BID. DC Planning: Case management consulted for assistance with final discharge disposition. Patient is clear from a trauma surgery standpoint to discharge to SNF. Active discharge in place. Insurance denied patient a [facility] admission. [id number] completed, however the denial remained. Patient has been declined from [facility]. We will continue quest for an accepting SNF. Portals open for [facility], and [facility] and rehab. Emotional support provided to patient at bedside and plan of care discussed. Discussed with RN at bedside. Discussed pt condition and plan of care with collaborating trauma surgeon. Patient is hemodynamically stable and being managed on the med/surg floor. The trauma team will round each day, and evaluate plan of care on a daily basis. 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 Minimal SAH. 07/15: Unable to move LEFT leg 07/14: CT brain- R SDH unchanged, minimal left SAH Lety cat overnight due to unresponsiveness Patient had received Restoril 30 mg for sleep 07/22 CT brain -stable SDH and SAH. Romazicon x1 dose Patient returned to baseline Restoril DC'd Continue Keppra 500 mg BID - Neurology consulted and assisting in management and care - for questionable seizure activity F/U outpatient Serial neuro checks Avoid secondary head injury Postconcussive education Speech therapy consulted Pain management Encourage out of bed PT and OT ordered Bowel regimen Mechanical DVT prophylaxis , and Lovenox Neuro psych consulted and assisting in management and care Hold Plavix and ASA until cleared by NS DC to SNF/rehab once secured excepting facility Left upper extremity swelling Left lower extremity swelling Left ankle pain Left ankle x-ray negative for fracture Continued pain and swelling We will obtain MRI left ankle for further evaluation Pain management Elevate 07/20: Venous US BILAT legs - RIGHT - distal thrombus posterior tibial vein. LEFT - NEG 07/18: Venous US - LEFT distal cephalic vein thrombosis Monitor closely - superficial - Encourage out of bed PT and OT ordered Continue mechanical DVT prophylaxis Lovenox for DVT prophylaxis Resume Plavix/aspirin once cleared by neurosurgery Difficulty with urination Burning with urination Supportive care Bladder scan as needed Place urinary catheter Encourage p.o. intake 07/19: Urine -probable contaminant We will continue Cipro x 3 days -then DC HTN HLD CAD Hx: STEMI Vital signs every 4 hours and as needed Cardiac diet Resume home medications Coreg 3.125mg BID. Cozaar 25mg QD. Lipitor - Attending Attestation The exam, history, and the medical decision-making described in the above note were completed with the assistance of the mid-level provider. I reviewed and agree with the findings presented. I attest that I had a [id number] encounter with the patient on the same day, and personally performed and documented my assessment and findings in the medical record. (1) Contusion of knee, right Qualifiers: Encounter type: initial encounter Qualified Code(s): S80.01XA - Contusion of right knee, initial encounter (2) Contusion of finger, right Qualifiers: Encounter type: initial encounter Finger: little finger Damage to nail status: without damage Qualified Code(s): S60.051A - Contusion of right little finger without damage to nail, initial encounter (4) Contusion of face Qualifiers: Encounter type: initial encounter Qualified Code(s): S00.83XA - Contusion of other part of head, initial encounter
--- NOTE | 2018-07-22 18:07 | MR ---
EXAM DATE: 07/22/2018 5:00 PM EST AGE/SEX: 87 years / Male INDICATIONS: . Pain and swelling for more then one week. CLINICAL DATA: This is the patient's initial encounter. Patient reports that signs and symptoms have been present for 1 week and indicates a pain score of 7/10. MEDICAL/SURGICAL HISTORY: Hypertension. Cardiovascular disease. Myocardial infarction. Caroti d stent. Colon sx. COMPARISON: [facility], ANKLE COMPLETE LEFT MIN 3V, 07/21/2018. . TECHNIQUE: Multiplanar, multisequence MRI examination was performed without contrast. FINDINGS: There is diffuse soft tissue edema without anything organized or drainable. Cutaneous tissu es are severely swollen. No fracture, subluxation or evidence of osteomyelitis. There is mild ankle, subtalar and calcaneocuboid osteoarthritis. Focally more advanced moderate to severe osteoarthritis s een in the medial corner region of the tibiotalar joint. Ligaments are intact. Mild thickening of Achilles and a small enthesophyte at the insertion. Small heel spur and mild thickening proximally of the plantar fascia. There is mild distal and insertional tendinosis of tibialis posterior tendon. A type I accessory herminia cular is present. Laterally, there is mild tendinosis and tenosynovitis of peroneus brevis and longus. CONCLUSION: 1. Nonspecific soft tissue edema and marked subcutaneous swelling. No abscess. 2. No fracture, subluxation or evidence of osteomyelitis. 3. Mild Achilles and tibialis posterior tendinosis without tear. 4. Mild tendinosis and tenosynovitis of peroneus brevis and longus. 5. Mild plantar fasciitis. 6. Mild osteoarthritis. Electronically signed by: Anthony Guajardo MD 07/22/2018 6:05 PM EST
[2018-07-22] MEDS: Acetaminophen 325 MG Tablet PO PRN (22:40)
--- NOTE | 2018-07-23 07:46 | P.PN ---
Subjective Interval history: Trauma PTD: 10 Patient sitting up in bed. No distress noted. Patient states, "I am okay." No acute events overnight. Physical Exam Vital signs: Vital Signs 07/22/18 08:00 07/22/18 12:00 07/22/18 19:59 Temperature 98.0 F 98.3 F Pulse Rate 78 81 88 Respiratory Rate 16 14 Blood Pressure 116/69 128/61 Pulse Oximetry 96 95 07/22/18 20:00 07/23/18 00:00 07/23/18 04:00 Temperature 98.0 F 97.2 F L 97.1 F L Pulse Rate 85 84 80 Respiratory Rate 18 18 Blood Pressure 167/70 H 149/67 H 164/74 H Pulse Oximetry 98 93 L 95 Intake & Output 07/22/18 07/23/18 07/23/18 18:59 06:59 18:59 Intake Total 220 / 220 Output Total 1600 / 1600 Balance -1380 / -1380 Weight 81.2 kg Intake: Oral 220 / 220 Output: Urine 1150 / 1150 Urine Amount (Catheter) 450 / 450 Indwelling Urethral Catheter 450 / 450 Other: Date of Last Bowel Movement 07/22/18 07/22/18 Narrative: GENERAL: This is a 87-year-old male sitting up in bed. No distress noted. SKIN: Warm and dry. Ecchymosis noted to chin. HEAD: Atraumatic. Normocephalic. EYES: PERRLA ENT: No nasal bleeding or discharge. Mucous membranes pink and moist. NECK: Trachea midline. No JVD. CARDIOVASCULAR: Regular rate and rhythm. RESPIRATORY: No accessory muscle use. Lungs are clear to auscultation. Breath sounds equal bilaterally. No distress or dyspnea. GASTROINTESTINAL: BS + x 4 quads. Abdomen soft, non-tender, nondistended. MUSCULOSKELETAL: Extremities without cyanosis, or edema. Swelling noted to left ankle/top of foot. + peripheral pulses x 4 extremities. Warm with good capillary refill and sensation. Patient is able to bend and flex left ankle without difficulty. NEUROLOGICAL: Awake and alert. Back to baseline. Normal speech and pattern. - Urinary Catheter Management Condom Cath placed during this visit: yes Reason for continuing: Not indwelling catheter Insertion date: 07/13/18 Straight Cath placed during this visit: yes Reason for continuing: Acute urinary retention Insertion date: 07/20/18 Insertion time: 11:00 Indwelling Urethral Catheter Cath placed during this visit: yes Reason for continuing: Acute urinary retention Insertion date: 07/20/18 Insertion time: 11:00 Results - Labs CBC & Chem 7: 07/22/18 01:40 07/22/18 01:40 - Imaging Impressions Ankle MRI 07/22/18 00:00 CONCLUSION: 1. Nonspecific soft tissue edema and marked subcutaneous swelling. No abscess. 2. No fracture, subluxation or evidence of osteomyelitis. 3. Mild Achilles and tibialis posterior tendinosis without tear. 4. Mild tendinosis and tenosynovitis of peroneus brevis and longus. 5. Mild plantar fasciitis. 6. Mild osteoarthritis. - Procedures . Assessment and Plan - Assessment (1) Contusion of knee, right Code(s): S80.01XA - Contusion of right knee, initial encounter Status: Acute (2) Contusion of finger, right Code(s): S60.00XA - Contusion of unspecified finger without damage to nail, initial encounter Status: Acute (3) Acute subdural hematoma Code(s): S06.5X9A - Traumatic subdural hemorrhage with loss of consciousness of unspecified duration, initial encounter Status: Acute (4) Contusion of face Code(s): S00.83XA - Contusion of other part of head, initial encounter Status : Acute (5) Major neurocognitive disorder as late effect of traumatic brain injury with behavioral disturbance Code(s): S06.9X9S - Unspecified intracranial injury with loss of consciousness of unspecified duration, sequela; F02.81 - Dementia in other diseases classified elsewhere with behavioral disturbance Status: Acute - Plan [place]: This is an 87-year old male who sustained a fall. He tripped and fell striking his head. No LOC. He is on Plavix and had uncontrolled epistaxis. 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 HLD. CAD. STEMI. Essential tremor. CKD Procedures: Consults: Neurosurgery. Neurology. Rehab medicine. Neuropsych. Case management. Patient continues to complain of LEFT ankle pain with ambulation. Left ankle x- ray negative for fracture. Left ankle remains quite swollen. Patient still has mobility and can flex and bend. MRI left ankle negative for fracture, just display soft tissue swelling. Continue to monitor closely Diet: Cardiac diet -mechanical soft with thin liquids. Tolerating po diet. Encourage good po intake with each meal. (ST following.) Pulmonary: Encourage good pulmonary toileting. IS at bedside and pt encouraged to use. Rationale for use explained to patient, and verbalized understanding. Duo nebs as needed PAIN Management: Tylenol p.o. for pain. Tramadol 50 mg q 6h (HOLD). Morphine 2 mg q 3h (HOLD). Zanaflex HS (home med). Baclofen (home med). Restoril DC'd. Activity: OOB. PT and OT ordered. GI prophylaxis: PO Protonix Bowel regimen: Janett-colace. Lactulose. Senna PRN. LBM: 07/22. Maintain Calixto catheter due to retention. Begin Flomax. DVT prophylaxis: Mechanical VTE with SCDs. Chemical management with Lovenox 30 mg BID. DC Planning: Case management consulted for assistance with final discharge disposition. Patient is clear from a trauma surgery standpoint to discharge to SNF. Active discharge in place. Insurance denied patient a [facility] admission. [id number] completed, however the denial remained. Patient has been declined from [facility]. We will continue quest for an accepting SNF. Portals open for [facility], and [facility] and rehab. Emotional support provided to patient at bedside and plan of care discussed. Discussed with RN at bedside. Discussed pt condition and plan of care with collaborating trauma surgeon. Patient is hemodynamically stable and being managed on the med/surg floor. The trauma team will round each day, and evaluate plan of care on a daily basis. 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 Minimal SAH. 07/15: Unable to move LEFT leg 07/14: CT brain- R SDH unchanged, minimal left SAH 07/22: Halicat overnight due to unresponsiveness. Patient had received Restoril 30 mg for sleep. Romazicon x1 dose. Patient returned to baseline 07/22 CT brain -stable SDH and SAH. Continue Keppra 500 mg BID - Neurology consulted and assisting in management and care - for questionable seizure activity F/U outpatient Serial neuro checks Avoid secondary head injury Postconcussive education Speech therapy consulted Pain management Encourage out of bed PT and OT ordered Bowel regimen Mechanical DVT prophylaxis , and Lovenox Neuro psych consulted and assisting in management and care Hold Plavix and ASA until cleared by NS DC to SNF/rehab once secured excepting facility Left upper extremity swelling Left lower extremity swelling Left ankle pain 07/21: Left ankle x-ray negative for fracture Continued pain and swelling 07/22: MRI left ankle -negative for fracture, shows soft tissue swelling Pain management Elevate 07/20: Venous US BILAT legs - RIGHT - distal thrombus posterior tibial vein. LEFT - NEG 07/18: Venous US - LEFT distal cephalic vein thrombosis Monitor closely - superficial - Encourage out of bed PT and OT ordered Continue mechanical DVT prophylaxis Lovenox for DVT prophylaxis Resume Plavix/aspirin once cleared by neurosurgery Difficulty with urination Burning with urination Supportive care Bladder scan as needed Maintain urinary catheter Begin Flomax Encourage p.o. intake 07/19: Urine -probable contaminant We will continue Cipro x 3 days -then DC HTN HLD CAD Hx: STEMI Vital signs every 4 hours and as needed Cardiac diet Resume home medications Coreg 3.125mg BID. Cozaar 25mg QD. Lipitor - Attending Attestation The exam, history, and the medical decision-making described in the above note were completed with the assistance of the mid-level provider. I reviewed and agree with the findings presented. I attest that I had a [id number] encounter with the patient on the same day, and personally performed and documented my assessment and findings in the medical record. Patient s/p Fall, hx tremor Acute pain controlled Injuries stable per NS Exam: Alert, Oriented, GCS 15, OOB with staff Continue treatment, supportive care, cognition d/w patient at bedside plan of care and DC plan (1) Contusion of knee, right Qualifiers: Encounter type: initial encounter Qualified Code(s): S80.01XA - Contusion of right knee, initial encounter (2) Contusion of finger, right Qualifiers: Encounter type: initial encounter Finger: little finger Damage to nail status: without damage Qualified Code(s): S60.051A - Contusion of right little finger without damage to nail, initial encounter (4) Contusion of face Qualifiers: Encounter type: initial encounter Qualified Code(s): S00.83XA - Contusion of other part of head, initial encounter
[2018-07-23] MEDS: Baclofen 10 MG Tablet PO SCH (09:45)
[2018-07-23] MEDS: Sodium Chloride 0.9% 2 ML Flush BID IV.FLUSH SCH ×2 (09:45→20:34)
[2018-07-23] MEDS: Senna/Docusate Sodium 8.6/50 MG Tablet PO SCH ×2 (09:45→20:34)
[2018-07-23] MEDS: Enoxaparin Inj 30 MG/0.3 ML Syringe SQ SCH ×2 (09:45→20:34)
[2018-07-23] MEDS: levETIRAcetam 500 MG Tablet PO SCH ×2 (09:45→20:33)
[2018-07-23] MEDS: Ciprofloxacin 250 MG Tablet PO SCH (09:45)
--- NOTE | 2018-07-23 11:10 | P.PNNS ---
Subjective Interval history: Stable, still with left dorsum of foot pain and redness Physical Exam Vital signs: Vital Signs 07/22/18 12:00 07/22/18 19:59 07/22/18 20:00 Temperature 98.3 F 98.0 F Pulse Rate 81 88 85 Respiratory Rate 14 18 Blood Pressure 128/61 167/70 H Pulse Oximetry 95 98 07/23/18 00:00 07/23/18 04:00 07/23/18 07:44 Temperature 97.2 F L 97.1 F L Pulse Rate 84 80 74 Respiratory Rate 18 18 Blood Pressure 149/67 H 164/74 H Pulse Oximetry 93 L 95 07/23/18 08:00 Temperature 98.0 F Pulse Rate 74 Respiratory Rate 20 Blood Pressure 165/75 H Pulse Oximetry 96 Intake & Output 07/22/18 07/23/18 07/23/18 18:59 06:59 18:59 Intake Total 220 / 220 Output Total 1600 / 1600 Balance -1380 / -1380 Weight 81.2 kg Intake: Oral 220 / 220 Output: Urine 1150 / 1150 Urine Amount (Catheter) 450 / 450 Indwelling Urethral Catheter 450 / 450 Other: Date of Last Bowel Movement 07/22/18 07/22/18 Narrative: A&O x 3 CN intact Motor 5/5 UE/LE (LLE ~4+) swelling left dorsum of foot, redness - Urinary Catheter Management Condom Cath placed during this visit: yes Reason for continuing: Not indwelling catheter Insertion date: 07/13/18 Straight Cath placed during this visit: yes Reason for continuing: Acute urinary retention Insertion date: 07/20/18 Insertion time: 11:00 Indwelling Urethral Catheter Cath placed during this visit: yes Reason for continuing: Acute urinary retention Insertion date: 07/20/18 Insertion time: 11:00 Assessment and Plan - Assessment (1) Contusion of knee, right Code(s): S80.01XA - Contusion of right knee, initial encounter Status: Acute Qualifiers: Encounter type: initial encounter Qualified Code(s): S80.01XA - Contusion of right knee, initial encounter (2) Contusion of finger, right Code(s): S60.00XA - Contusion of unspecified finger without damage to nail, initial encounter Status: Acute Qualifiers: Encounter type: initial encounter Finger: little finger Damage to nail status: without damage Qualified Code(s): S60.051A - Contusion of right little finger without damage to nail, initial encounter (3) Acute subdural hematoma Code(s): S06.5X9A - Traumatic subdural hemorrhage with loss of consciousness of unspecified duration, initial encounter Status: Acute (4) Contusion of face Code(s): S00.83XA - Contusion of other part of head, initial encounter Status : Acute Qualifiers: Encounter type: initial encounter Qualified Code(s): S00.83XA - Contusion of other part of head, initial encounter (5) Hypertension Code(s): I10 - Essential (primary) hypertension Status: Chronic Qualifiers: Hypertension type: essential hypertension Qualified Code(s): I10 - Essential (primary) hypertension - Plan 87yoM admitted 07/13/18 with acute SDH parafalcine due to fall, no ASA/Plavix. 11/ Intermittent left leg weakness early in hospital course and left arm shaking, resolved with one dose of ativan EEG negative 07/21- overnight HALICAT likely due to temazepam and reversed with flumazenil. Many sedative meds held Repeat CT showing improvement in SDH 07/23 Rehab/discharge planning. Continue PT/OT Pain left foot unclear origin, DVT scans negative.
[2018-07-24] MEDS: Acetaminophen 325 MG Tablet PO PRN (06:00)
--- NOTE | 2018-07-24 08:18 | P.PN ---
Subjective Interval history: Trauma PTD: 11 Patient sitting up in bed, eating morning meal. No distress noted. No acute events overnight. Patient states, "I am not doing too good. I cannot find my bowl to put my cereal in." Minimal complaints today. Still sore/swelling to left ankle. Physical Exam Vital signs: Vital Signs 07/23/18 12:00 07/23/18 16:00 07/23/18 20:00 Temperature 97.8 F 97.8 F 97.8 F Pulse Rate 77 80 84 Respiratory Rate 20 20 20 Blood Pressure 162/77 H 149/67 H 161/72 H Pulse Oximetry 98 99 96 07/24/18 00:00 07/24/18 00:52 07/24/18 04:00 Temperature 98.6 F 97.3 F L Pulse Rate 84 80 Respiratory Rate 20 16 20 Blood Pressure 152/71 H 175/80 H Pulse Oximetry 94 L 94 L Intake & Output 07/23/18 07/24/18 07/24/18 18:59 06:59 18:59 Intake Total 480 / 480 Output Total 2150 / 2150 1100 / 1100 Balance -1670 / -1670 -1100 / -1100 Weight 73.7 kg Intake: Oral 480 / 480 Output: Urine 1150 / 1150 1100 / 1100 Urine Amount (Catheter) 1000 / 1000 Indwelling Urethral Catheter 1000 / 1000 Other: # Voids 2 # Incontinent Voids 3 Date of Last Bowel Movement 07/22/18 07/23/18 # Bowel Movements 2 Narrative: GENERAL: This is a 87-year-old male sitting up in bed. No distress noted. SKIN: Warm and dry. Ecchymosis noted to chin. HEAD: Atraumatic. Normocephalic. EYES: PERRLA ENT: No nasal bleeding or discharge. Mucous membranes pink and moist. NECK: Trachea midline. No JVD. CARDIOVASCULAR: Regular rate and rhythm. RESPIRATORY: No accessory muscle use. Lungs are clear to auscultation. Breath sounds equal bilaterally. No distress or dyspnea. GASTROINTESTINAL: BS + x 4 quads. Abdomen soft, non-tender, nondistended. MUSCULOSKELETAL: Extremities without cyanosis, or edema. Swelling noted to left ankle/top of foot. + peripheral pulses x 4 extremities. Warm with good capillary refill and sensation. Patient is able to bend and flex left ankle without difficulty. NEUROLOGICAL: Awake and alert. Back to baseline. Normal speech and pattern. - Urinary Catheter Management Condom Cath placed during this visit: yes Reason for continuing: Not indwelling catheter Insertion date: 07/13/18 Straight Cath placed during this visit: yes Reason for continuing: Acute urinary retention Insertion date: 07/20/18 Insertion time: 11:00 Indwelling Urethral Catheter Cath placed during this visit: yes Reason for continuing: Acute urinary retention Insertion date: 07/20/18 Insertion time: 11:00 Results - Labs CBC & Chem 7: 07/22/18 01:40 07/22/18 01:40 - Procedures . Assessment and Plan - Assessment (1) Contusion of knee, right Code(s): S80.01XA - Contusion of right knee, initial encounter Status: Acute (2) Contusion of finger, right Code(s): S60.00XA - Contusion of unspecified finger without damage to nail, initial encounter Status: Acute (3) Acute subdural hematoma Code(s): S06.5X9A - Traumatic subdural hemorrhage with loss of consciousness of unspecified duration, initial encounter Status: Acute (4) Contusion of face Code(s): S00.83XA - Contusion of other part of head, initial encounter Status : Acute (5) Major neurocognitive disorder as late effect of traumatic brain injury with behavioral disturbance Code(s): S06.9X9S - Unspecified intracranial injury with loss of consciousness of unspecified duration, sequela; F02.81 - Dementia in other diseases classified elsewhere with behavioral disturbance Status: Acute - Plan KOI: This is an 87-year old male who sustained a fall. He tripped and fell striking his head. No LOC. He is on Plavix and had uncontrolled epistaxis. 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 HLD. CAD. STEMI. Essential tremor. CKD Procedures: Consults: Neurosurgery. Neurology. Rehab medicine. Neuropsych. Case management. Patient continues to complain of LEFT ankle pain with ambulation. Left ankle x- ray negative for fracture. Left ankle remains quite swollen. Patient still has mobility and can flex and bend. MRI left ankle negative for fracture, just display soft tissue swelling. Continue to monitor closely Diet: Cardiac diet -mechanical soft with thin liquids. Tolerating po diet. Encourage good po intake with each meal. (ST following.) Pulmonary: Encourage good pulmonary toileting. IS at bedside and pt encouraged to use. Rationale for use explained to patient, and verbalized understanding. Duo nebs as needed PAIN Management: Tylenol p.o. for pain. Tramadol 50 mg q 6h (HOLD). Morphine 2 mg q 3h (HOLD). Zanaflex HS (home med). Baclofen (home med). Restoril DC'd. Activity: OOB. PT and OT ordered. GI prophylaxis: PO Protonix Bowel regimen: Janett-colace. Lactulose. Senna PRN. LBM: 07/23. Maintain Calixto catheter due to retention. Flomax started. DVT prophylaxis: Mechanical VTE with SCDs. Chemical management with Lovenox 30 mg BID. DC Planning: Case management consulted for assistance with final discharge disposition. Patient is clear from a trauma surgery standpoint to discharge to SNF. Active discharge in place. Insurance denied patient a [place] admission. [id number] completed, however the denial remained. Patient has been declined from [facility]. We will continue quest for an accepting SNF. Portals open for [facility] and rehab. Emotional support provided to patient at bedside and plan of care discussed. Discussed with RN at bedside. Discussed pt condition and plan of care with collaborating trauma surgeon. Patient is hemodynamically stable and being managed on the med/surg floor. The trauma team will round each day, and evaluate plan of care on a daily basis. 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 Minimal SAH. 07/15: Unable to move LEFT leg 07/14: CT brain- R SDH unchanged, minimal left SAH 07/22: Halicat overnight due to unresponsiveness. Patient had received Restoril 30 mg for sleep. Romazicon x1 dose. Patient returned to baseline 07/22 CT brain -stable SDH and SAH. Continue Keppra 500 mg BID - Neurology consulted and assisting in management and care - for questionable seizure activity F/U outpatient Serial neuro checks Avoid secondary head injury Postconcussive education Speech therapy consulted Pain management Encourage out of bed PT and OT ordered Bowel regimen Lovenox and SCDs for DVT prophylaxis Neuro psych consulted and assisting in management and care Hold Plavix and ASA until cleared by NS -and especially due to frequent falls DC to SNF/rehab once secured excepting facility Left upper extremity swelling Left lower extremity swelling Left ankle pain 07/21: Left ankle x-ray negative for fracture Continued pain and swelling 07/22: MRI left ankle -negative for fracture, shows soft tissue swelling Pain management Elevate 07/20: Venous US BILAT legs - RIGHT - distal thrombus posterior tibial vein. LEFT - NEG 07/18: Venous US - LEFT distal cephalic vein thrombosis Monitor closely - superficial - Encourage out of bed PT and OT ordered Continue mechanical DVT prophylaxis Lovenox for DVT prophylaxis Resume Plavix/aspirin once cleared by neurosurgery Difficulty with urination Burning with urination Supportive care Bladder scan as needed Maintain urinary catheter Continue Flomax Encourage p.o. intake 07/19: Urine -probable contaminant We will continue Cipro x 3 days -then DC HTN HLD CAD Hx: STEMI Vital signs every 4 hours and as needed Cardiac diet Resume home medications Coreg 3.125mg BID. Cozaar 25mg QD. Lipitor (1) Contusion of knee, right Qualifiers: Encounter type: initial encounter Qualified Code(s): S80.01XA - Contusion of right knee, initial encounter (2) Contusion of finger, right Qualifiers: Encounter type: initial encounter Finger: little finger Damage to nail status: without damage Qualified Code(s): S60.051A - Contusion of right little finger without damage to nail, initial encounter (4) Contusion of face Qualifiers: Encounter type: initial encounter Qualified Code(s): S00.83XA - Contusion of other part of head, initial encounter
[2018-07-24] MEDS: Senna/Docusate Sodium 8.6/50 MG Tablet PO SCH ×2 (09:00→20:34)
[2018-07-24] MEDS: Baclofen 10 MG Tablet PO SCH (09:00)
[2018-07-24] MEDS: levETIRAcetam 500 MG Tablet PO SCH ×2 (09:00→20:33)
[2018-07-24] MEDS: Enoxaparin Inj 30 MG/0.3 ML Syringe SQ SCH ×2 (09:00→20:34)
[2018-07-24] MEDS: Sodium Chloride 0.9% 2 ML Flush BID IV.FLUSH SCH ×2 (15:58→20:34)
--- NOTE | 2018-07-25 08:06 | P.PN ---
Subjective Interval history: Trauma PTD: 12 Patient asleep in bed. Arouses easily to trauma team in room. No acute events overnight. No complaints offered. Physical Exam Vital signs: Vital Signs 07/24/18 12:00 07/24/18 16:00 07/24/18 20:00 Temperature 98.1 F 97.7 F 98.3 F Pulse Rate 75 81 95 H Respiratory Rate 20 20 20 Blood Pressure 172/74 H 175/81 H 169/79 H Pulse Oximetry 99 99 94 L 07/25/18 00:00 07/25/18 02:40 07/25/18 04:00 Temperature 97.4 F L 98.2 F Pulse Rate 70 87 Respiratory Rate 20 16 18 Blood Pressure 164/78 H 184/87 H Pulse Oximetry 95 93 L 07/25/18 04:19 Temperature Pulse Rate 83 Respiratory Rate Blood Pressure Pulse Oximetry Intake & Output 07/24/18 07/25/18 07/25/18 18:59 06:59 18:59 Output Total 150 / 150 900 / 900 Balance -150 / -150 -900 / -900 Weight 74 kg Output: Urine 150 / 150 900 / 900 Other: Date of Last Bowel Movement 07/24/18 07/23/18 # Bowel Movements 1 Narrative: GENERAL: This is a 87-year-old male sitting up in bed. No distress noted. SKIN: Warm and dry. Ecchymosis noted to chin. HEAD: Atraumatic. Normocephalic. EYES: PERRLA ENT: No nasal bleeding or discharge. Mucous membranes pink and moist. NECK: Trachea midline. No JVD. CARDIOVASCULAR: Regular rate and rhythm. RESPIRATORY: No accessory muscle use. Lungs are clear to auscultation. Breath sounds equal bilaterally. No distress or dyspnea. GASTROINTESTINAL: BS + x 4 quads. Abdomen soft, non-tender, nondistended. MUSCULOSKELETAL: Extremities without cyanosis, or edema. Swelling noted to left ankle/top of foot. + peripheral pulses x 4 extremities. Warm with good capillary refill and sensation. Patient is able to bend and flex left ankle without difficulty. NEUROLOGICAL: Awake and alert. Back to baseline. Normal speech and pattern. - Urinary Catheter Management Condom Cath placed during this visit: yes Reason for continuing: Not indwelling catheter Insertion date: 07/13/18 Straight Cath placed during this visit: yes Reason for continuing: Acute urinary retention Insertion date: 07/20/18 Insertion time: 11:00 Indwelling Urethral Catheter Cath placed during this visit: yes Reason for continuing: Acute urinary retention Insertion date: 07/20/18 Insertion time: 11:00 Results - Labs CBC & Chem 7: 07/22/18 01:40 07/22/18 01:40 - Procedures . Assessment and Plan - Assessment (1) Contusion of knee, right Code(s): S80.01XA - Contusion of right knee, initial encounter Status: Acute (2) Contusion of finger, right Code(s): S60.00XA - Contusion of unspecified finger without damage to nail, initial encounter Status: Acute (3) Acute subdural hematoma Code(s): S06.5X9A - Traumatic subdural hemorrhage with loss of consciousness of unspecified duration, initial encounter Status: Acute (4) Contusion of face Code(s): S00.83XA - Contusion of other part of head, initial encounter Status : Acute (5) Major neurocognitive disorder as late effect of traumatic brain injury with behavioral disturbance Code(s): S06.9X9S - Unspecified intracranial injury with loss of consciousness of unspecified duration, sequela; F02.81 - Dementia in other diseases classified elsewhere with behavioral disturbance Status: Acute - Plan DOUGLAS: This is an 87-year old male who sustained a fall. He tripped and fell striking his head. No LOC. He is on Plavix and had uncontrolled epistaxis. 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 HLD. CAD. STEMI. Essential tremor. CKD Procedures: Consults: Neurosurgery. Neurology. Hospitalist. Urology. Rehab medicine. Neuropsych. Case management. Diet: Cardiac diet -mechanical soft with thin liquids. Tolerating po diet. Encourage good po intake with each meal. (ST following.) Pulmonary: Encourage good pulmonary toileting. IS at bedside and pt encouraged to use. Rationale for use explained to patient, and verbalized understanding. Lance koenig as needed PAIN Management: Tylenol p.o. for pain. Tramadol 50 mg q 6h (HOLD). Morphine 2 mg q 3h (HOLD). Zanaflex HS (home med). Baclofen (home med). Activity: OOB. PT and OT ordered. GI prophylaxis: PO Protonix Bowel regimen: Janett-colace. Lactulose. Senna PRN. LBM: 07/25. Maintain Calixto catheter due to retention. Flomax started. Will obtain urology consult for further management and care of retention. DVT prophylaxis: Mechanical VTE with SCDs. Chemical management with Lovenox 30 mg BID. DC Planning: Case management consulted for assistance with final discharge disposition. Patient is clear from a trauma surgery standpoint to discharge to SNF. Active discharge in place. Insurance denied patient a [place] admission. [id number] completed, however the denial remained. Patient has been declined from [facility]. We will continue quest for an accepting SNF. Portals open for [facility] and rehab. Awaiting acceptance. Emotional support provided to patient at bedside and plan of care discussed. Discussed with RN at bedside. Discussed pt condition and plan of care with collaborating trauma surgeon. Patient is hemodynamically stable and being managed on the med/surg floor. The trauma team will round each day, and evaluate plan of care on a daily basis. 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 Minimal SAH. 07/15: Unable to move LEFT leg 07/14: CT brain- R SDH unchanged, minimal left SAH 07/22: Halicat overnight due to unresponsiveness. Patient had received Restoril 30 mg for sleep. Romazicon x1 dose. Patient returned to baseline 07/22 CT brain -stable SDH and SAH. Continue Keppra 500 mg BID - Neurology consulted and assisting in management and care - for questionable seizure activity F/U outpatient Serial neuro checks Avoid secondary head injury Postconcussive education Speech therapy consulted Pain management Encourage out of bed PT and OT ordered Bowel regimen Lovenox and SCDs for DVT prophylaxis Neuro psych consulted and assisting in management and care Hold Plavix and ASA until cleared by NS -and especially due to frequent falls DC to SNF/rehab once secured excepting facility Left upper extremity swelling Left lower extremity swelling Left ankle pain 07/21: Left ankle x-ray negative for fracture Continued pain and swelling 07/22: MRI left ankle -negative for fracture, shows soft tissue swelling Pain management Elevate 07/20: Venous US BILAT legs - RIGHT - distal thrombus posterior tibial vein. LEFT - NEG 07/18: Venous US - LEFT distal cephalic vein thrombosis Monitor closely - superficial - Encourage out of bed PT and OT ordered Continue mechanical DVT prophylaxis Lovenox for DVT prophylaxis Resume Plavix/aspirin once cleared by neurosurgery Difficulty with urination Burning with urination Retention Supportive care Bladder scan as needed Maintain urinary catheter Continue Flomax Encourage p.o. intake 07/19: Urine -probable contaminant We will continue Cipro x 3 days -then DC Will obtain urology consult for further management and direction HTN HLD CAD Hx: STEMI Hospitalist consult to assist with medical management Vital signs every 4 hours and as needed Cardiac diet Resume home medications Coreg 3.125mg BID. Cozaar 25mg QD. Lipitor (1) Contusion of knee, right Qualifiers: Encounter type: initial encounter Qualified Code(s): S80.01XA - Contusion of right knee, initial encounter (2) Contusion of finger, right Qualifiers: Encounter type: initial encounter Finger: little finger Damage to nail status: without damage Qualified Code(s): S60.051A - Contusion of right little finger without damage to nail, initial encounter (4) Contusion of face Qualifiers: Encounter type: initial encounter Qualified Code(s): S00.83XA - Contusion of other part of head, initial encounter
[2018-07-25] MEDS: Baclofen 10 MG Tablet PO SCH (09:03)
[2018-07-25] MEDS: Senna/Docusate Sodium 8.6/50 MG Tablet PO SCH ×2 (09:04→23:22)
[2018-07-25] MEDS: levETIRAcetam 500 MG Tablet PO SCH ×2 (09:04→20:54)
[2018-07-25] MEDS: Enoxaparin Inj 30 MG/0.3 ML Syringe SQ SCH ×2 (09:05→20:55)
[2018-07-25] MEDS: Sodium Chloride 0.9% 2 ML Flush BID IV.FLUSH SCH ×2 (10:47→20:55)
--- NOTE | 2018-07-25 13:35 | P.CONURO ---
History of Present Illness Service: Urology Consult date: 07/25/18 Requesting Physician: Tracy Beaver Reason for Consult: BPH/LUTS Primary Care Provider: No Primary Care Physician Chief Complaint: Difficulties voiding History of Present Illness: This is an 87-year old male who sustained a fall. He tripped and fell striking his head. No LOC. He is on Plavix and had uncontrolled epistaxis. INJURIES: RIGHT SDH (5mm) SAH Grade 1 anterior spondylolisthesis of C4 on C5 RIGHT knee contusion RIGHT hand contusion His PMHx: HTN. HLD. CAD. STEMI. Essential tremor. CKD His under care of medical and neuro team Urology consulted for difficulties to void. He was with denney and str cath before. On flomax now. It looks like that pt was seen once by Dr Donato in April for abnormal Sonogram findings of bladder stone vs bladder mass but had never f/u after for recommended cysto. Currently pt has denney catheter since 07/20/18. As per pt he denies any issues to void prior to admission. He states that unable to ambulate normally due to his other spine and LE issues that is why unable to empty bladder well. Review of Systems All other systems reviewed negative except as stated in HPI PMFSH - History History Provided By: Patient - Medical History Medical History: Medical History (Last Reviewed 07/21/18 @ 08:28 by Carla Esquivel [employer], [employer]) Actinic keratosis BPH (benign prostatic hyperplasia) Basal cell carcinoma of face Carcinoma of colon Chronic kidney disease, stage 3 Hyperlipemia Hypertension Insomnia Myocardial infarct, old Tremor CAD (coronary artery disease) - Surgical History Surgical History: Surgical History (Last Reviewed 07/20/18 @ 14:27 by Lilian Allen) Hx of cardiac cath - Tobacco History Second Hand Smoke Exposure: No Smoking Status: Never smoker - Alcohol History How Often Do You Have a Drink Containing Alcohol: Monthly or less - Substance Use History Substance History: No History of Abuse - Travel History Recent Travel in the [place] Within the Last 8 Weeks: No Recent Travel Out of the Country Within the Last 8 Weeks: No - Immunization History Tetanus Immunization: <5 Years Hx Influenza Vaccine This Season: Yes Medications and Allergies Active Medications: Active Medications Acetaminophen (Tylenol) 650 mg PO Q6H PRN PRN Reason: PAIN SCALE 1-10 Last Admin: 07/24/18 06:00 Dose: 650 mg Albuterol (Duoneb Neb (Prn)) 1 ampul NEB Q2HR NEB PRN PRN Reason: SHORTNESS OF BREATH Atorvastatin Calcium (Lipitor) 40 mg PO DAILY [facility] Last Admin: 07/25/18 09:04 Dose: 40 mg Bacitracin (Baciguent Oint) 1 applicatio TOPICAL BID [facility] Last Admin: 07/25/18 10:46 Dose: 1 applicatio Baclofen (Lioresal) 10 mg PO DAILY [facility] Last Admin: 07/25/18 09:03 Dose: 10 mg Carvedilol (Coreg) 3.125 mg PO BID [facility] Last Admin: 07/25/18 09:04 Dose: 3.125 mg Enoxaparin Sodium (Lovenox Inj) 30 mg SQ Q12HR [facility] Last Admin: 07/25/18 09:05 Dose: 30 mg Flumazenil (Romazecon Inj) 0.2 mg IV.PUSH Q1M PRN PRN Reason: OVERSEDATION Last Admin: 07/22/18 01:27 Dose: 0.2 mg Calcium Gluconate 1 gm/ Sodium (Chloride) 110 mls @ 110 mls/hr IV.SIG UNSCH PRN PRN Reason: SEE LABEL COMMENTS Magnesium Sulfate 2 gm/ Sodium (Chloride) 100 mls @ 100 mls/hr IV.SIG UNSCH PRN PRN Reason: MAGNESIUM LESS THAN 2 Potassium Chloride (Kcl 20 Meq Premix Inj) 20 meq in 100 mls @ 50 mls/hr IV.SIG UNSCH PRN PRN Reason: POTASSIUM LESS THAN 4 Lactulose (Lactulose Liq) 30 ml PO DAILY [facility] Last Admin: 07/25/18 10:47 Dose: Not Given Levetiracetam (Keppra) 500 mg PO BID [facility] Last Admin: 07/25/18 09:04 Dose: 500 mg Losartan Potassium (Cozaar) 25 mg PO DAILY [facility] Last Admin: 07/25/18 09:04 Dose: 25 mg Morphine Sulfate (Morphine Inj) 2 mg IV.PUSH Q3H PRN PRN Reason: Break through pain Last Admin: 07/17/18 06:30 Dose: 2 mg Nitroglycerin (Nitrostat Sl (Override)) 0.4 mg SL Q5M PRN PRN Reason: Chest Pain Ondansetron HCl (Zofran Inj) 4 mg IV.PUSH Q6H PRN PRN Reason: NAUSEA OR VOMITING Pantoprazole Sodium (Protonix) 40 mg PO DAILY [facility] Last Admin: 07/25/18 09:03 Dose: 40 mg Senna/Docusate Sodium (Janett-Colace) 1 tab PO BID [facility] Last Admin: 07/25/18 09:04 Dose: 1 tab Sennosides (Senokot) 17.2 mg PO Q12H PRN PRN Reason: Moderate Constipation Sodium Chloride (Ns Flush) 2 ml IV.FLUSH BID [facility] Last Admin: 07/25/18 10:47 Dose: 2 ml Sodium Chloride (Ns Flush) 2 ml IV.FLUSH PRN PRN PRN Reason: FLUSH AFTER USING IV ACCESS Tamsulosin HCl (Flomax) 0.4 mg PO DAILY [facility] Last Admin: 07/25/18 09:04 Dose: 0.4 mg Tizanidine HCl (Zanaflex) 4 mg PO HS [facility] Last Admin: 07/24/18 20:33 Dose: 4 mg Tramadol HCl (Ultram) 50 mg PO Q6H PRN PRN Reason: PAIN SCALE 1 TO 10 Last Admin: 07/20/18 12:36 Dose: 50 mg Allergies Allergy/AdvReac Type Severity Reaction Status Date / Time No Known Allergies Allergy Verified 07/13/18 13:26 Home Medications Medication Instructions Recorded Confirmed Type aspirin [Aspirin Low Dose] 81 mg PO DAILY 07/13/18 07/13/18 History atorvastatin 40 mg PO DAILY 07/13/18 07/13/18 History baclofen 10 mg PO DAILY 07/13/18 07/13/18 History carvedilol 3.125 mg PO BID 07/13/18 07/13/18 History cinnamon bark [Cinnamon] 500 mg PO DAILY 07/13/18 07/13/18 History clopidogrel 75 mg PO DAILY 07/13/18 07/13/18 History losartan 25 mg PO DAILY 07/13/18 07/13/18 History nitroglycerin 0.4 mg SUBLINGUAL Q5-15M PRN 07/13/18 07/13/18 History temazepam 30 mg PO HS 07/13/18 07/13/18 History terazosin 4 mg PO HS 07/13/18 07/13/18 History tizanidine 4 mg PO HS 07/13/18 07/13/18 History Physical Exam Vital Signs - 24 hr 07/24/18 16:00 07/24/18 20:00 07/25/18 00:00 Temperature 97.7 F 98.3 F 97.4 F L Pulse Rate 81 95 H 70 Respiratory Rate 20 20 20 Blood Pressure 175/81 H 169/79 H 164/78 H Pulse Oximetry 99 94 L 95 07/25/18 02:40 07/25/18 04:00 07/25/18 04:19 Temperature 98.2 F Pulse Rate 87 83 Respiratory Rate 16 18 Blood Pressure 184/87 H Pulse Oximetry 93 L 07/25/18 08:00 07/25/18 09:05 07/25/18 12:00 Temperature 98.0 F 97.1 F L Pulse Rate 84 82 Respiratory Rate 18 18 19 Blood Pressure 173/86 H 155/81 H Pulse Oximetry 96 94 L Physical Exam: GENERAL: This is a well-nourished, well-developed patient, in no apparent distress. HEAD: Atraumatic. CARDIOVASCULAR: Regular rate and rhythm without murmurs, gallops, or rubs. RESPIRATORY: Clear to auscultation. Breath sounds equal bilaterally. No wheezes , rales, or rhonchi. GASTROINTESTINAL: Abdomen soft, non-tender, nondistended. GENITOURINARY: No CVAT MUSCULOSKELETAL: Left LE edema/swelling NEUROLOGICAL: Awake and alert. Result Diagrams: 07/22/18 01:40 07/22/18 01:40 Imaging: ITS Impressions Cervical Spine CT 07/13/18 13:08 CONCLUSION: 1. No acute fracture. 2. Mild grade 1 anterior spondylolisthesis of C4 on C5 of approximately 3 mm. 3. Degenerative disc and degenerative joint changes. Face CT 07/13/18 13:08 CONCLUSION: 1. Negative for facial bone fracture 2. Large parafalcine subdural hematoma described on CT scan of the head. 3. Subacute right subdural hematoma. Hand X-Ray 07/13/18 13:11 CONCLUSION: 1. Soft tissue swelling over the fifth digit with no acute fracture or malalignment. 2. Osteopenia and osteoarthritic change. Knee X-Ray 07/13/18 13:11 CONCLUSION: Soft tissue swelling with no acute fracture or malalignment. Elbow X-Ray 07/18/18 00:00 CONCLUSION: Nonspecific soft tissue swelling. No radiopaque foreign body or acute bony abnormality. Venous Doppler Study 07/20/18 12:28 CONCLUSION: 1. Distal thrombosis of the right posterior tibial vein. Other right lower extremity venous tributaries are patent. 2. No venous thrombosis on the left. Ankle X-Ray 07/21/18 00:00 CONCLUSION: No evidence of fracture. Ankle MRI 07/22/18 00:00 CONCLUSION: 1. Nonspecific soft tissue edema and marked subcutaneous swelling. No abscess. 2. No fracture, subluxation or evidence of osteomyelitis. 3. Mild Achilles and tibialis posterior tendinosis without tear. 4. Mild tendinosis and tenosynovitis of peroneus brevis and longus. 5. Mild plantar fasciitis. 6. Mild osteoarthritis. Head CT 07/22/18 00:26 CONCLUSION: 1. Stable continued maturation of subdural and small volume subarachnoid hemorrhage. . Assessment and Plan - Plan [id number].[id number] m with other history as per HPI - No acute intervention needed - Continue care as per Neuro and primary teams - Flomax daily - Renal/bladder US to evaluate for bladder stones - Keep denney in until pt is more mobile, then he can have a voiding trial. Denney needs to be changed [id number] Pt will need to see Dr Donato as an outpt to plan cystoscopy as was recommended before Discussed Condition With: Dr Cas AVELAR attending and pt's RN
--- NOTE | 2018-07-25 15:43 | P.CON ---
History of Present Illness Service: Hospitalist Consult date: 07/25/18 Requesting Physician: Tracy Beaver Reason for Consult: Assist with ongoing medical management Primary Care Provider: No Primary Care Physician Chief Complaint: Difficulties voiding History of Present Illness: This is a 87-year-old male with past medical history significant for coronary artery disease status post FL in 2016 status post cardiac stents x2, head tremor , chronic neck and back pain who tripped and fell while at the [facility] clinic sustaining traumatic brain injury. Patient was on chronic aspirin and Plavix therapy. Patient had significant epistaxis which prompted him to come into the emergency room. CT scan of the head revealed a large acute parafalcine subdural hematoma and subacute 5 mm right subdural hematoma. His aspirin and Plavix were held. Patient was seen in consultation by neurosurgery. Follow-up CT was stable. Patient was managed conservatively. He developed focal shaking of the right arm concerning for seizure activity was seen in consultation by neurology. He was started on Keppra. EEG did not show any epileptiform features. Patient's recovery has been hindered by significant weakness in the left lower extremity which is new since the accident. Ultrasound Doppler left upper extremity revealed thrombosis distally left cephalic vein. Ultrasound Doppler of the right tibial distal thrombosis of the right posterior tibial vein. Patient also developed difficulty with urination Calixto catheter placed. He was seen in consultation by urology who recommended continuation of catheter and follow-up bladder ultrasound. Patient [facility] however due to his issues with ongoing urinary retention and poorly controlled blood pressure. Hospitalist services have been consulted to assist with ongoing medical management. Patient seen and examined. Patient denies any headache, dizziness, lightheadedness or vision changes. Denies any chest pain or shortness of breath. Denies any nausea, vomiting or abdominal pain. He does report significant left leg weakness. He reports pain in the left leg. His son is at the bedside and assist with history. Review of Systems All other systems reviewed negative except as stated in HPI PMFSH - History History Provided By: Patient - Medical History Medical History: Medical History (Last Reviewed 07/25/18 @ 15:42 by Flakita Field) Actinic keratosis BPH (benign prostatic hyperplasia) Basal cell carcinoma of face Carcinoma of colon Chronic kidney disease, stage 3 Hyperlipemia Hypertension Insomnia Myocardial infarct, old Tremor CAD (coronary artery disease) - Surgical History Surgical History: Surgical History (Last Reviewed 07/25/18 @ 15:42 by Flakita Field) Hx of cardiac cath - Family History Family History: Family History (Last Updated 07/25/18 @ 15:42 by Flakita Field) Other No pertinent family history - Social History I have reviewed the patient's Social History: Yes - Tobacco History Second Hand Smoke Exposure: No Smoking Status: Never smoker - Alcohol History How Often Do You Have a Drink Containing Alcohol: Monthly or less - Substance Use History Substance History: No History of Abuse - Travel History Recent Travel in the [place] Within the Last 8 Weeks: No Recent Travel Out of the Country Within the Last 8 Weeks: No - Immunization History Tetanus Immunization: <5 Years Hx Influenza Vaccine This Season: Yes Medications and Allergies Active Medications: Active Medications Acetaminophen (Tylenol) 650 mg PO Q6H PRN PRN Reason: PAIN SCALE 1-10 Last Admin: 07/24/18 06:00 Dose: 650 mg Albuterol (Duoneb Neb (Prn)) 1 ampul NEB Q2HR NEB PRN PRN Reason: SHORTNESS OF BREATH Atorvastatin Calcium (Lipitor) 40 mg PO DAILY [facility] Last Admin: 07/25/18 09:04 Dose: 40 mg Bacitracin (Baciguent Oint) 1 applicatio TOPICAL BID [facility] Last Admin: 07/25/18 10:46 Dose: 1 applicatio Baclofen (Lioresal) 10 mg PO DAILY [facility] Last Admin: 07/25/18 09:03 Dose: 10 mg Carvedilol (Coreg) 3.125 mg PO BID [facility] Last Admin: 07/25/18 09:04 Dose: 3.125 mg Enoxaparin Sodium (Lovenox Inj) 30 mg SQ Q12HR [facility] Last Admin: 07/25/18 09:05 Dose: 30 mg Flumazenil (Romazecon Inj) 0.2 mg IV.PUSH Q1M PRN PRN Reason: OVERSEDATION Last Admin: 07/22/18 01:27 Dose: 0.2 mg Calcium Gluconate 1 gm/ Sodium (Chloride) 110 mls @ 110 mls/hr IV.SIG UNSCH PRN PRN Reason: SEE LABEL COMMENTS Magnesium Sulfate 2 gm/ Sodium (Chloride) 100 mls @ 100 mls/hr IV.SIG UNSCH PRN PRN Reason: MAGNESIUM LESS THAN 2 Potassium Chloride (Kcl 20 Meq Premix Inj) 20 meq in 100 mls @ 50 mls/hr IV.SIG UNSCH PRN PRN Reason: POTASSIUM LESS THAN 4 Lactulose (Lactulose Liq) 30 ml PO DAILY [facility] Last Admin: 07/25/18 10:47 Dose: Not Given Levetiracetam (Keppra) 500 mg PO BID [facility] Last Admin: 07/25/18 09:04 Dose: 500 mg Losartan Potassium (Cozaar) 25 mg PO DAILY [facility] Last Admin: 07/25/18 09:04 Dose: 25 mg Morphine Sulfate (Morphine Inj) 2 mg IV.PUSH Q3H PRN PRN Reason: Break through pain Last Admin: 07/17/18 06:30 Dose: 2 mg Nitroglycerin (Nitrostat Sl (Override)) 0.4 mg SL Q5M PRN PRN Reason: Chest Pain Ondansetron HCl (Zofran Inj) 4 mg IV.PUSH Q6H PRN PRN Reason: NAUSEA OR VOMITING Pantoprazole Sodium (Protonix) 40 mg PO DAILY [facility] Last Admin: 07/25/18 09:03 Dose: 40 mg Senna/Docusate Sodium (Janett-Colace) 1 tab PO BID [facility] Last Admin: 07/25/18 09:04 Dose: 1 tab Sennosides (Senokot) 17.2 mg PO Q12H PRN PRN Reason: Moderate Constipation Sodium Chloride (Ns Flush) 2 ml IV.FLUSH BID [facility] Last Admin: 07/25/18 10:47 Dose: 2 ml Sodium Chloride (Ns Flush) 2 ml IV.FLUSH PRN PRN PRN Reason: FLUSH AFTER USING IV ACCESS Tamsulosin HCl (Flomax) 0.4 mg PO DAILY [facility] Last Admin: 07/25/18 09:04 Dose: 0.4 mg Tizanidine HCl (Zanaflex) 4 mg PO HS [facility] Last Admin: 07/24/18 20:33 Dose: 4 mg Tramadol HCl (Ultram) 50 mg PO Q6H PRN PRN Reason: PAIN SCALE 1 TO 10 Last Admin: 07/20/18 12:36 Dose: 50 mg Allergies Allergy/AdvReac Type Severity Reaction Status Date / Time No Known Allergies Allergy Verified 07/13/18 13:26 Home Medications Medication Instructions Recorded Confirmed Type aspirin [Aspirin Low Dose] 81 mg PO DAILY 07/13/18 07/13/18 History atorvastatin 40 mg PO DAILY 07/13/18 07/13/18 History baclofen 10 mg PO DAILY 07/13/18 07/13/18 History carvedilol 3.125 mg PO BID 07/13/18 07/13/18 History cinnamon bark [Cinnamon] 500 mg PO DAILY 07/13/18 07/13/18 History clopidogrel 75 mg PO DAILY 07/13/18 07/13/18 History losartan 25 mg PO DAILY 07/13/18 07/13/18 History nitroglycerin 0.4 mg SUBLINGUAL Q5-15M PRN 07/13/18 07/13/18 History temazepam 30 mg PO HS 07/13/18 07/13/18 History terazosin 4 mg PO HS 07/13/18 07/13/18 History tizanidine 4 mg PO HS 07/13/18 07/13/18 History Physical Exam Vital signs: Vital Signs 07/24/18 16:00 07/24/18 20:00 07/25/18 00:00 Temperature 97.7 F 98.3 F 97.4 F L Pulse Rate 81 95 H 70 Respiratory Rate 20 20 20 Blood Pressure 175/81 H 169/79 H 164/78 H Pulse Oximetry 99 94 L 95 07/25/18 02:40 07/25/18 04:00 07/25/18 04:19 Temperature 98.2 F Pulse Rate 87 83 Respiratory Rate 16 18 Blood Pressure 184/87 H Pulse Oximetry 93 L 07/25/18 08:00 07/25/18 09:05 07/25/18 12:00 Temperature 98.0 F 97.1 F L Pulse Rate 84 82 Respiratory Rate 18 18 19 Blood Pressure 173/86 H 155/81 H Pulse Oximetry 96 94 L Intake & Output 07/24/18 07/25/18 07/25/18 18:59 06:59 18:59 Output Total 150 / 150 900 / 900 Balance -150 / -150 -900 / -900 Weight 74 kg Output: Urine 150 / 150 900 / 900 Other: Date of Last Bowel Movement 07/24/18 07/23/18 07/23/18 # Bowel Movements 1 Narrative: GENERAL: Elderly male patient, no acute distress. Awake and alert. Son is at the bedside. Noted to have mild head tremor. SKIN: Warm and dry. HEAD: Atraumatic. Normocephalic. EYES: Pupils equal and round. No scleral icterus. No injection or drainage. ENT: No nasal bleeding or discharge. Mucous membranes pink and moist. NECK: Trachea midline. CARDIOVASCULAR: Regular rate and rhythm. RESPIRATORY: No accessory muscle use. Clear to auscultation. Breath sounds equal bilaterally. GASTROINTESTINAL: Abdomen soft, non-tender, nondistended. +BS. MUSCULOSKELETAL: Extremities without clubbing or cyanosis. +1+ pitting edema LLE. No obvious deformities. NEUROLOGICAL: Awake and alert. No obvious cranial nerve deficits. Weakness noted in left lower extremity. Normal speech. PSYCHIATRIC: Appropriate mood and affect; insight and judgment normal. - Urinary Catheter Management Condom Cath placed during this visit: yes Reason for continuing: Not indwelling catheter Insertion date: 07/13/18 Straight Cath placed during this visit: yes Reason for continuing: Acute urinary retention Insertion date: 07/20/18 Insertion time: 11:00 Indwelling Urethral Catheter Cath placed during this visit: yes Reason for continuing: Acute urinary retention Insertion date: 07/20/18 Insertion time: 11:00 Results - Labs CBC & Chem 7: 07/22/18 01:40 07/22/18 01:40 Assessment and Plan - Plan 87-year-old male who suffered a traumatic brain injury status post a fall resulting in subdural hematoma: Recent fall resulting in TBI Right SDH SAH -Admitted to trauma service -Patient followed by neurosurgery, nonoperative management. Follow up Head CTs have been stable. Patient's Plavix and aspirin on hold. -neuro checks -Continue with PT/OT -fall precautions -Plan for patient to be discharged to SNF facility by primary team Possible seizure activity Patient had a episode of unresponsiveness and increased shaking after receiving Restoril for sleep -Neurology following, started on Keppra 500mg BID -Seizure precautions RLE DVT Doppler ultrasound revealed distal thrombosis posterior tibial vein right leg -Discussed with neurosurgery, patient cannot be fully anticoagulated due to subdural hematoma. Per NS, okay for low-dose subcu Lovenox. -Discussed IVC filter placement at the bedside with patient and son, they are agreeable -Hematology consulted, appreciate assistance Urinary retention -Calixto catheter in place since 07/20. Started on Flomax. -Patient evaluated by Urology. It looks like that pt was seen once by Dr Donato in April for abnormal Sonogram findings of bladder stone vs bladder mass but had never f/u after for recommended cysto. -Per Urology, continue Calixto catheter and Flomax. Plan to DC Calixto once patient more mobile. Calixto needs to be changed every 4 weeks. Patient will need to follow-up with Dr. Donato as outpatient for cystoscopy -follow up on renal US ordered Hypertension, poorly controlled -continue on Cozaar 25 mg daily -Increase dose of Coreg to 6.25mg BID -Clonidine prn with parameters -Continue to monitor BP and adjust treatment accordingly. BP control essential given patient's recent TBI and resultant SDH/SAH ROSA on CKD, stage 3 Suspect secondary to episode of urinary retention Kidney function appears to be improving since Calixto catheter placed -Avoid nephrotoxic agents -Continue to monitor kidney function as indicated DVT prophylaxis -Lovenox sq Thank you very kindly for this consultation. We will continue to follow patient along with you. Code Status: Full Discussed Condition With: patient, nursing staff, Dr. Jason
--- NOTE | 2018-07-25 20:32 | MB ---
cc: Aurelia Mast MD, Shannon PA DATE: 07/25/2018 REFERRING PHYSICIAN: YVONNE Benavides CHIEF COMPLAINT: YVONNE Benavides, requested a consultation for Mr. Devlin regarding left upper extremity deep vein thrombosis and right lower extremity deep vein thrombosis complicating subdural hematoma and arachnoid hemorrhage. 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 He was at the [facility] when he fell onto his right knee, right hand and nose. He was unable to control his nosebleeds. Imaging study of the cervical spine showed no acute fracture. There were some degenerative disk changes. CT of the face was negative for facial bone fractures. However, there was a large parafalcine subdural hematoma and a subacute right subdural hematoma, which was better seen on CT scan of the head on 07/13/2018. There was a large parafalcine subdural hematoma causing effacement of the central cortical sulci. This measured 1.8 cm. In addition, there was a small subacute subdural hematoma layering over the right cortex causing minimal mass effect. He was seen in consultation by Dr. Gold Rodriguez. He had a traumatic subdural hemorrhage complicating his use of aspirin and Plavix therapy. His blood pressure was monitored in the surgical intensive care unit. Followup CT scans were performed. GI prophylaxis was administered. No platelets were transfused. Followup CT of the head from 07/14/2018 showed the right parafalcine subdural hematoma without change. There was minimal subarachnoid hemorrhage in the left parafalcine region. He was seen by a neuropsychologist. He has behavioral impulsivity, lack of insight and judgment. He is expected to improve in time. He was seen by speech therapy, physical therapy. Additional followup CT of the head on 07/15/2018 showed evolving right parafalcine subdural hematoma measuring 17 mm in comparison to 18 mm. There was minimal subarachnoid hemorrhage near the vertex on the left. There was no new intercurrent hemorrhage. His course was complicated by shaking of the right arm. This was more than usual. He was thought to have seizures and was placed on Keppra. He was seen in consultation by Dr. Ruiz. EEG showed mild slowing of the background consistent with encephalopathy. There were no epileptiform features. His shaking responded to Ativan. He was continued on Keppra. He was on GI prophylaxis and deep venous thrombosis prophylaxis, mechanical. On 07/18/2018, a venous Doppler ultrasound was performed that showed thrombosis distally of the left cephalic vein in the left upper extremity. On 07/20/2018, Doppler ultrasound of bilateral lower extremities was performed. There was distal thrombosis of the right posterior tibial vein. The other right lower extremity venous tributaries were patent. There was no venous thrombosis on the left. CT scan of the head from 07/22/2018 showed stable maturation of subdural and small volume subarachnoid hemorrhage. He has been tolerating enoxaparin started on 07/21/2018. He is on 30 mg subcutaneously q.12 hours. Hematology/oncology is consulted for a gentleman with competing needs. He has a resolving subdural hematoma and subarachnoid hemorrhage. In the meantime, he has developed left upper extremity and right lower extremity deep vein thromboses. He has tolerated the low molecular weight heparin over the last several days. The neurosurgery consultation suggests that he would be unable to tolerate full dose anticoagulant therapy. For this reason, hematology/oncology is consulted. There is consideration and discussion about filter placement. PAST MEDICAL HISTORY: Actinic keratosis, benign prostatic hypertrophy, basal cell cancer of the face, carcinoma of the colon, chronic kidney disease, hyperlipidemia, hypertension, insomnia, previous history of myocardial infarct, tremor, coronary artery disease, seizures, subdural and subarachnoid hemorrhage. PAST SURGICAL HISTORY: Cardiac catheterization. FAMILY HISTORY: No significant family history of bleeding disorders. SOCIAL HISTORY: He is a never smoker. He drinks alcohol, less than 1 drink a month. He denies any illicit drug use. ALLERGIES: NO KNOWN DRUG ALLERGIES. CURRENT MEDICATIONS: Include: 1. Acetaminophen. 2. Lipitor. 3. Baclofen. 4. Enoxaparin. 5. Romazicon. 6. Keppra. 7. Cozaar. 8. Morphine p.r.n. 9. Protonix. 10. Janett-Colace. 11. Flomax. 12. Zanaflex. 13. Ultram. PHYSICAL EXAMINATION: VITAL SIGNS: Temperature 97.7, heart rate 91, respiratory rate 18, blood pressure 156/58, saturation 96%. GENERAL: Mr. Devlin is an 87-year-old elderly man who looks his stated age. HEENT: His pupils are round and reactive. Oropharynx is dry. NEUROLOGIC: He is awake, alert, conversing. He is appropriate. He seems to be nodding or shaking his head. He has a good grasp. LUNGS: Clear anteriorly. CARDIOVASCULAR: Reveals a normal rate and rhythm. ABDOMEN: Mildly distended. His Calixto catheter was in place. Distention decreased after release of his Calixto catheter. EXTREMITIES: Lower extremities with no edema. He has left upper extremity swelling. LABORATORY DATA: Significant for a macrocytic anemia with a hemoglobin of 11.2, MCV 100.7, white blood cell count 12.3, platelet count 195. Chemistry: BUN 41, creatinine 1.7, glucose 173, calcium 8.0. ASSESSMENT AND PLAN: Mr. Devlin is an 87-year-old man with multiple medical problems described above. He fell at the [facility] and came in to [facility] after head trauma and suffering from a subdural hematoma and some subarachnoid hemorrhage on 07/13/2018. He has had stability of the subdural hematoma and subarachnoid hemorrhage with last CT on 07/15/2018. He has developed complications of seizures. He was diagnosed with left a upper extremity deep vein thrombosis. He was monitored expectantly in light of his subdural hematoma. However, on 07/20/2018, he was also found to have a distal thrombosis of the right posterior tibial vein. He is asymptomatic from the deep vein thromboses. He was started on low molecular weight heparin the following day. A followup CT scan on 07/22/2018 showed stability of his subdural hematoma and subarachnoid hemorrhage. He has had no clinical decline. I recommend for the team to continue his low molecular weight heparin at present at a prophylactic dose of 30 mg subcutaneous q.12 hours. I recommend continuing the dose. He is at low risk for venous thromboembolism from a [id number] clot and an upper extremity deep vein thrombosis. We will monitor with repeat ultrasounds that the clots are stable and have had no progression. We will monitor on clinical grounds. Ultrasound can be repeated. I recommend deferring placement of inferior vena cava filter. There is no clear progression of his central nervous system bleed on the prophylactic dose of the low molecular weight heparin. There is also no progression of his deep vein thromboses on the prophylactic dose of the low molecular weight heparin. I will follow through with the neurosurgeon and plan to repeat a CT of the head for stability. He is being monitored on clinical grounds by the neuropsychologist. He is on seizure precautions. His questions were answered to his satisfaction. He is more comfortable after his Calixto was released. His care was discussed with his nurse. MD MEGHAN Tafoya/aroldo , 06:56 PM , 07:12 PM
[2018-07-26] MEDS: Acetaminophen 325 MG Tablet PO PRN ×3 (08:32→22:22)
[2018-07-26] MEDS: Senna/Docusate Sodium 8.6/50 MG Tablet PO SCH ×2 (08:33→20:54)
[2018-07-26] MEDS: Baclofen 10 MG Tablet PO SCH (08:34)
[2018-07-26] MEDS: levETIRAcetam 500 MG Tablet PO SCH ×2 (08:34→20:54)
[2018-07-26] MEDS: hydrALAZINE 25 MG Tablet PO SCH ×2 (08:54→14:52)
[2018-07-26] MEDS: Enoxaparin Inj 30 MG/0.3 ML Syringe SQ SCH ×2 (08:55→20:56)
[2018-07-26] MEDS: Sodium Chloride 0.9% 2 ML Flush BID IV.FLUSH SCH ×2 (08:55→20:57)
--- NOTE | 2018-07-26 12:23 | US ---
EXAM DATE: 07/26/2018 12:13 PM EST AGE/SEX: 87 years / Male INDICATIONS: Difficulty voiding. CLINICAL DATA: This is the patient's initial encounter. Patient reports that signs and symptoms have been present for 1 day and indicates a pain score of 0/10. MEDICAL/SURGICAL HISTORY: Hypertension. BPH. CAD. Colon cancer. CKD stage 3. Hyperlipidemia. My ocardial infarct. Tremors. Plavix therapy. Calixto catheter. . Cardiac cath. COMPARISON: [facility], US KIDNEY, BILATERAL, 04/12/2018. . MEASUREMENTS: Right Kidney:__10.9 x 7.7 x 6.7 cm Left Kidney:__13.3 x 5.8 x 4.3 cm FINDINGS: Multiple bilateral renal cysts are again noted and stable. The largest cyst on the right measures 7.2 x 5.8 x 6.3 cm. The largest cyst on the left measures 3.0 x 3.9 x 3.3 cm. There is an echogenic focu s within the mid pole on the right measuring 18 mm consistent with nonobstructing calculus. No hydron ephrosis is noted. A Calixto catheter is noted within the nondistended urinary bladder. There is a very large shadowing echogenic focus within the urinary bladder measuring 3.1 x 2.3 x 3.0 cm consistent w ith bladder stone or calcified mass which is similar in appearance to the previous examination. The p rostate gland is enlarged and measures 5.9 x 4.2 x 5.9 cm. CONCLUSION: 1. Large stable shadowing echogenic focus within the urinary bladder measuring 3.1 x 2.3 x 3.0 cm co nsistent with bladder calculus or calcified mass. 2. Stable multiple bilateral renal cysts. 3. 18 mm nonobstructing mid pole right renal calculus 4. Enlarged prostate. Electronically signed by: Jae Li MD 07/26/2018 12:21 PM EST
--- NOTE | 2018-07-26 13:21 | P.PNONC ---
Subjective Interval history: Pt eating lunch, in no acute distress. No complaints at this time. Denies pain, denies bleeding, denies sob. Objective Vital Signs/Intake & Output: Vital Signs 07/25/18 16:00 07/25/18 20:00 07/26/18 00:00 Temperature 97.7 F 98.2 F 98.2 F Pulse Rate 91 H 92 H 79 Respiratory Rate 18 20 18 Blood Pressure 156/58 H 159/73 H 154/79 H Pulse Oximetry 96 95 95 07/26/18 04:00 07/26/18 08:00 Temperature 98.0 F 97.8 F Pulse Rate 84 80 Respiratory Rate 18 18 Blood Pressure 178/77 H 180/87 H Pulse Oximetry 94 L 95 Intake & Output 07/25/18 07/26/18 07/26/18 18:59 06:59 18:59 Intake Total 720 / 720 Output Total 1250 / 1250 400 / 400 Balance -530 / -530 -400 / -400 Intake: Oral 720 / 720 Output: Urine 1250 / 1250 400 / 400 Other: Date of Last Bowel Movement 07/25/18 # Bowel Movements 1 Result Diagrams: 07/22/18 01:40 07/22/18 01:40 Imaging Studies: Impressions Abdomen/Bladder Ultrasound 07/26/18 13:31 CONCLUSION: 1. Large stable shadowing echogenic focus within the urinary bladder measuring 3.1 x 2.3 x 3.0 cm consistent with bladder calculus or calcified mass. 2. Stable multiple bilateral renal cysts. 3. 18 mm nonobstructing mid pole right renal calculus 4. Enlarged prostate. Medications: Active Medications Generic Name Dose Route Start Last Admin Trade Name Naseemq PRN Reason Stop Dose Admin Acetaminophen 650 mg 07/22/18 09:25 07/26/18 08:32 Tylenol PO 650 mg Q6H PRN Administration PAIN SCALE 1-10 Atorvastatin Calcium 40 mg 07/14/18 09:00 07/26/18 08:34 Lipitor PO 40 mg DAILY SRIDHAR Administration Bacitracin 1 applicatio 07/13/18 21:00 07/26/18 08:55 Baciguent Oint TOPICAL 1 applicatio BID SRIDHAR Administration Baclofen 10 mg 07/14/18 09:00 07/26/18 08:34 Lioresal PO 10 mg DAILY SRIDHAR Administration Carvedilol 6.25 mg 07/25/18 17:13 07/26/18 08:34 Coreg PO 6.25 mg BID SRIDHAR Administration Enoxaparin Sodium 30 mg 07/21/18 21:00 07/26/18 08:55 Lovenox Inj SQ 30 mg Q12HR SRIDHAR Administration Flumazenil 0.2 mg 07/22/18 01:08 07/22/18 01:27 Romazecon Inj IV.PUSH 0.2 mg Q1M PRN Administration OVERSEDATION Hydralazine HCl 25 mg 07/26/18 09:00 07/26/18 08:54 Apresoline PO 25 mg TID SRIDHAR Administration Lactulose 30 ml 07/17/18 13:00 07/26/18 08:55 Lactulose Liq PO Not Given DAILY [facility] Levetiracetam 500 mg 07/15/18 09:00 07/26/18 08:34 Keppra PO 500 mg BID SRIDHAR Administration Losartan Potassium 25 mg 07/14/18 09:00 07/26/18 08:33 Cozaar PO 25 mg DAILY SRIDHAR Administration Morphine Sulfate 2 mg 07/13/18 20:49 07/17/18 06:30 Morphine Inj IV.PUSH 2 mg Q3H PRN Administration Break through pain Pantoprazole Sodium 40 mg 07/14/18 09:00 07/26/18 08:33 Protonix PO 40 mg DAILY SRIDHAR Administration Senna/Docusate Sodium 1 tab 07/14/18 09:00 07/26/18 08:33 Janett-Colace PO 1 tab BID SRIDHAR Administration Sodium Chloride 2 ml 07/14/18 09:00 07/26/18 08:55 Ns Flush IV.FLUSH 2 ml BID SRIDHAR Administration Tamsulosin HCl 0.4 mg 07/23/18 12:30 07/26/18 08:32 Flomax PO 0.4 mg DAILY SRIDHAR Administration Tizanidine HCl 4 mg 07/13/18 21:00 07/25/18 20:54 Zanaflex PO 4 mg HS SRIDHAR Administration Tramadol HCl 50 mg 07/20/18 11:00 07/20/18 12:36 Ultram PO 50 mg Q6H PRN Administration PAIN SCALE 1 TO 10 Objective Remarks: GENERAL: Elderly male patient, in no acute distress. SKIN: Warm and dry. HEAD: Normocephalic. EYES: No scleral icterus. No injection or drainage. NECK: Supple, trachea midline. CARDIOVASCULAR: Distant s1/s2. RESPIRATORY: Distant breath sounds. No accessory muscle use. GASTROINTESTINAL: Abdomen soft, non-tender, nondistended. EXTREMITIES: No cyanosis, or edema. MUSCULOSKELETAL: Decreased muscle tone. NEUROLOGICAL: Awake, alert. Feeding self. PSYCHIATRIC: Appropriate mood and affect. Assessment/Plan - Plan Dr. Longjeremiassallie is a pleasant gentleman currently hospitalized for subdural hematoma and subarachnoid hemorrhage after a fall on 07/13/2018. Hematology was consulted for recommendations in regards to IVC filter placement in a patient who has a left upper extremity DVT and a distal thrombosis of the right posterior tibial vein. Recommendations: 1. DVT, recommendations to continue low molecular weight heparin at 30 mg subcutaneously twice daily, as patient is tolerating this well. Repeat ultrasounds to make sure the clots are stable and have not progressed. 2. Trauma post fall, management per attending. 3. Continue supportive care. - Attending Statement The exam, history, and the medical decision-making described in the above note were completed with the assistance of the mid-level provider. I reviewed and agree with the findings presented. I attest that I had a [id number] encounter with the patient on the same day, and personally performed and documented my assessment and findings in the medical record. Sleeping in the evening but arousable. He has a good loss prevention auditor. Complains of pain in the left leg. Mild asymmetry left leg more prominent than the right. Left ankle swelling. CT of head shows improvement and evolution of the subdural and subarachnoid hemorrhages. No worsening from the prophylactic dose of the low molecular weight heparin. Continue to monitor the left leg swelling. May repeat ultrasound to rule out progression. Patient with clinical symptoms. Continue to monitor for bleeding.
--- NOTE | 2018-07-26 14:23 | CT ---
EXAM DATE: 07/26/2018 2:20 PM EST AGE/SEX: 87 years / Male INDICATIONS: Follow up hemorrhage. CLINICAL DATA: This is the patient's subsequent encounter. Patient reports that signs and symptoms h ave been present for 4 - 6 days and indicates a pain score of 2/10. MEDICAL/SURGICAL HISTORY: Carcinoma, basal cell. Carcinoma, colon. Hypertension. CAD, CT None. Cardiac cath RADIATION DOSE: 51.05 CTDI (mGy) COMPARISON: [facility] [place] HEAD W/O CONTRAST, 07/22/2018. . TECHNIQUE: CT of the head without contrast. Using automated exposure control and adjustment of the mA and/or kV according to patient size, radiation dose was kept as low as reasonably achievable to ob tain optimal diagnostic quality images. DICOM format image data is available electronically for revi ew and comparison. FINDINGS: The examination demonstrates acute hemorrhage layering along the right side of the interhemispheric f issure. This is compared directly to the prior of 07/22/2018. The overall amount of extra-axial hemorr jose daniel has decreased. No new areas of hemorrhage are identified. The remainder the examination demonstrates cortical atrophy. There is mild ventricular dilation in pr oportion to sulci atrophy. There is no significant midline shift. The appearance of the posterior fos sa is unremarkable. CONCLUSION: 1. Interval reduction in the overall amount of subdural hemorrhage layering along the interhemispher ic fissure. No new areas of hemorrhage are seen Electronically signed by: Juancho Ferrell MD 07/26/2018 2:22 PM EST
--- NOTE | 2018-07-26 15:01 | P.PNURO ---
Subjective Patient symptoms today: Pt has no new c/o. Pt's renal/bladder US reviewed. He has known bladder stone vs calcified mass as 4 mo/a. Denney is in place Objective Vital Signs: Vital Signs 07/25/18 16:00 07/25/18 20:00 07/26/18 00:00 Temperature 97.7 F 98.2 F 98.2 F Pulse Rate 91 H 92 H 79 Respiratory Rate 18 20 18 Blood Pressure 156/58 H 159/73 H 154/79 H Pulse Oximetry 96 95 95 07/26/18 04:00 07/26/18 08:00 07/26/18 12:00 Temperature 98.0 F 97.8 F 98 F Pulse Rate 84 80 75 Respiratory Rate 18 18 18 Blood Pressure 178/77 H 180/87 H 142/65 H Pulse Oximetry 94 L 95 94 L Intake & Output 07/25/18 07/26/18 07/26/18 18:59 06:59 18:59 Intake Total 720 / 720 Output Total 1250 / 1250 400 / 400 Balance -530 / -530 -400 / -400 Intake: Oral 720 / 720 Output: Urine 1250 / 1250 400 / 400 Other: Date of Last Bowel Movement 07/25/18 # Bowel Movements 1 Result Diagrams: 07/22/18 01:40 07/22/18 01:40 Imaging: Impressions Head CT 07/26/18 00:00 CONCLUSION: 1. Interval reduction in the overall amount of subdural hemorrhage layering along the interhemispheric fissure. No new areas of hemorrhage are seen Abdomen/Bladder Ultrasound 07/26/18 13:31 CONCLUSION: 1. Large stable shadowing echogenic focus within the urinary bladder measuring 3.1 x 2.3 x 3.0 cm consistent with bladder calculus or calcified mass. 2. Stable multiple bilateral renal cysts. 3. 18 mm nonobstructing mid pole right renal calculus 4. Enlarged prostate. Medications and IVs: Active Medications Generic Name Dose Route Start Last Admin Trade Name Freq PRN Reason Stop Dose Admin Acetaminophen 650 mg 07/22/18 09:25 07/26/18 14:53 Tylenol PO 650 mg Q6H PRN Administration PAIN SCALE 1-10 Albuterol 1 ampul 07/14/18 06:07 Duoneb Neb (Prn) NEB Q2HR NEB PRN SHORTNESS OF BREATH Atorvastatin Calcium 40 mg 07/14/18 09:00 07/26/18 08:34 Lipitor PO 40 mg DAILY [facility] Administration Bacitracin 1 applicatio 07/13/18 21:00 07/26/18 08:55 Baciguent Oint TOPICAL 1 applicatio BID SRIDHAR Administration Baclofen 10 mg 07/14/18 09:00 07/26/18 08:34 Lioresal PO 10 mg DAILY SRIDHAR Administration Carvedilol 6.25 mg 07/25/18 17:13 07/26/18 08:34 Coreg PO 6.25 mg BID [facility] Administration Clonidine HCl 0.1 mg 07/25/18 17:18 Catapres PO Q6H PRN SYS BP GREATER THAN 160 MMHG Enoxaparin Sodium 30 mg 07/21/18 21:00 07/26/18 08:55 Lovenox Inj SQ 30 mg Q12HR [facility] Administration Flumazenil 0.2 mg 07/22/18 01:08 07/22/18 01:27 Romazecon Inj IV.PUSH 0.2 mg Q1M PRN Administration OVERSEDATION Hydralazine HCl 25 mg 07/26/18 09:00 07/26/18 14:52 Apresoline PO 25 mg TID [facility] Administration Calcium Gluconate 1 gm/ Sodium 110 mls @ 110 mls/hr 07/13/18 19:42 Chloride IV.SIG UNSCH PRN SEE LABEL COMMENTS Magnesium Sulfate 2 gm/ Sodium 100 mls @ 100 mls/hr 07/13/18 19:42 Chloride IV.SIG UNSCH PRN MAGNESIUM LESS THAN 2 Potassium Chloride 20 meq in 100 mls @ 50 mls/hr 07/13/18 19:42 Kcl 20 Meq Premix Inj IV.SIG UNSCH PRN POTASSIUM LESS THAN 4 Lactulose 30 ml 07/17/18 13:00 07/26/18 08:55 Lactulose Liq PO Not Given DAILY [facility] Levetiracetam 500 mg 07/15/18 09:00 07/26/18 08:34 Keppra PO 500 mg BID [facility] Administration Losartan Potassium 25 mg 07/14/18 09:00 07/26/18 08:33 Cozaar PO 25 mg DAILY [facility] Administration Morphine Sulfate 2 mg 07/13/18 20:49 07/17/18 06:30 Morphine Inj IV.PUSH 2 mg Q3H PRN Administration Break through pain Nitroglycerin 0.4 mg 07/13/18 19:39 Nitrostat Sl (Override) SL Q5M PRN Chest Pain Ondansetron HCl 4 mg 07/13/18 20:49 Zofran Inj IV.PUSH Q6H PRN NAUSEA OR VOMITING Pantoprazole Sodium 40 mg 07/14/18 09:00 07/26/18 08:33 Protonix PO 40 mg DAILY [facility] Administration Senna/Docusate Sodium 1 tab 07/14/18 09:00 07/26/18 08:33 Janett-Colace PO 1 tab BID [facility] Administration Sennosides 17.2 mg 07/13/18 19:42 Senokot PO Q12H PRN Moderate Constipation Sodium Chloride 2 ml 07/14/18 09:00 07/26/18 08:55 Ns Flush IV.FLUSH 2 ml BID [facility]ID[facility]AR Administration Sodium Chloride 2 ml 07/14/18 06:11 Ns Flush IV.FLUSH PRN PRN FLUSH AFTER USING IV ACCESS Tamsulosin HCl 0.4 mg 07/23/18 12:30 07/26/18 08:32 Flomax PO 0.4 mg DAILY [facility] Administration Tizanidine HCl 4 mg 07/13/18 21:00 07/25/18 20:54 Zanaflex PO 4 mg HS [facility] Administration Tramadol HCl 50 mg 07/20/18 11:00 07/20/18 12:36 Ultram PO 50 mg Q6H PRN Administration PAIN SCALE 1 TO 10 Assessment and Plan - Plan [id number].o m with other history as per HPI - No acute intervention needed - Continue care as per Neuro and primary teams - Flomax daily - Renal/bladder US showed kidney stone and bladder stone vs bladder mass. BPH - Keep denney in until pt is more mobile, then he can have a voiding trial. Denney needs to be changed [id number] Pt will need to see Dr Donato as an outpt to plan cystoscopy as was recommended before
--- NOTE | 2018-07-26 15:21 | P.PN ---
Subjective Interval history: Follow up on patient with HTN, SDH, DVT. Patient resting comfortably. He does not voice any concerns or complaints at this time. DW nursing staff, no adverse events noted overnight. Physical Exam Vital signs: Vital Signs 07/25/18 16:00 07/25/18 20:00 07/26/18 00:00 Temperature 97.7 F 98.2 F 98.2 F Pulse Rate 91 H 92 H 79 Respiratory Rate Blood Pressure 156/58 H 159/73 H 154/79 H Pulse Oximetry 96 95 95 07/26/18 04:00 07/26/18 08:00 07/26/18 12:00 Temperature 98.0 F 97.8 F 98 F Pulse Rate 84 80 75 Respiratory Rate 18 Blood Pressure 178/77 H 180/87 H 142/65 H Pulse Oximetry 94 L 95 94 L Intake & Output 07/25/18 07/26/18 07/26/18 18:59 06:59 18:59 Intake Total 720 / 720 Output Total 1250 / 1250 400 / 400 Balance -530 / -530 -400 / -400 Intake: Oral 720 / 720 Output: Urine 1250 / 1250 400 / 400 Other: Date of Last Bowel Movement 07/25/18 # Bowel Movements 1 Narrative: GENERAL: Elderly male patient, no acute distress. Awake and alert. Noted to have mild head tremor. Appears comfortable. SKIN: Warm and dry. HEENT: Atraumatic. Normocephalic. Pupils equal and round. No scleral icterus. No injection or drainage. No nasal bleeding or discharge. Mucous membranes pink and moist. NECK: Trachea midline. CARDIOVASCULAR: Regular rate and rhythm. RESPIRATORY: No accessory muscle use. Clear to auscultation. Breath sounds equal bilaterally. GASTROINTESTINAL: Abdomen soft, non-tender, nondistended. +BS. MUSCULOSKELETAL: Extremities without clubbing or cyanosis. +1+ pitting edema LLE. No obvious deformities. NEUROLOGICAL: Awake and alert. No obvious cranial nerve deficits. Weakness noted in left lower extremity. Normal speech. PSYCHIATRIC: Appropriate mood and affect; insight and judgment normal. - Urinary Catheter Management Condom Cath placed during this visit: yes Reason for continuing: Not indwelling catheter Insertion date: 07/13/18 Straight Cath placed during this visit: yes Reason for continuing: Acute urinary retention Insertion date: 07/20/18 Insertion time: 11:00 Indwelling Urethral Catheter Cath placed during this visit: yes Reason for continuing: Chronic Urinary Retention Insertion date: 07/20/18 Insertion time: 11:00 Results - Labs CBC & Chem 7: 07/22/18 01:40 07/22/18 01:40 - Imaging Impressions Head CT 07/26/18 00:00 CONCLUSION: 1. Interval reduction in the overall amount of subdural hemorrhage layering along the interhemispheric fissure. No new areas of hemorrhage are seen Abdomen/Bladder Ultrasound 07/26/18 13:31 CONCLUSION: 1. Large stable shadowing echogenic focus within the urinary bladder measuring 3.1 x 2.3 x 3.0 cm consistent with bladder calculus or calcified mass. 2. Stable multiple bilateral renal cysts. 3. 18 mm nonobstructing mid pole right renal calculus 4. Enlarged prostate. - Procedures . Assessment and Plan - Plan 87-year-old male who suffered a traumatic brain injury status post a fall resulting in subdural hematoma: Recent fall resulting in TBI Right SDH SAH -Admitted to trauma service -Patient followed by neurosurgery, nonoperative management. Follow up Head CTs have been stable. Patient's Plavix and aspirin on hold. Repeat heat CT 07/26 shows interval reduction, no new areas of hemorrhage. -neuro checks -Continue with PT/OT -fall precautions -Plan for patient to be discharged to SNF facility by primary team Possible seizure activity Patient had a episode of unresponsiveness and increased shaking after receiving Restoril for sleep -Neurology following, started on Keppra 500mg BID, continue -Seizure precautions RLE DVT Doppler ultrasound revealed distal thrombosis posterior tibial vein right leg -Discussed with neurosurgery, patient cannot be fully anticoagulated due to subdural hematoma. Per NS, okay for low-dose subcu Lovenox which patient was started on following US results -Hematology following, appreciate assistance. Recs to continue LMWH at 30mg sq. Defer IVC filter placement. Plan for repeat US to ensure stability of clot. Urinary retention -Calixto catheter in place since 07/20. Started on Flomax. -renal US shows large echogenic focus c/w bladder calculus or calcified mass -Patient evaluated by Urology. It looks like that pt was seen once by Dr Donato in April for abnormal Sonogram findings of bladder stone vs bladder mass but had never f/u after for recommended cysto. -Per Urology, continue Calixto catheter and Flomax. Plan to DC Calixto once patient more mobile. Calixto needs to be changed every 4 weeks. Patient will need to follow-up with Dr. Donato as outpatient for cystoscopy Hypertension, poorly controlled 07/26 BP still elevated -continue on Cozaar 25 mg daily and Coreg 6.25mg BID -add Hydralazine 25mg po TID -Clonidine prn with parameters -Continue to monitor BP and adjust treatment accordingly. BP control essential given patient's recent TBI and resultant SDH/SAH ROSA on CKD, stage 3 Suspect secondary to episode of urinary retention Kidney function appears to be improving since Calixto catheter placed -Avoid nephrotoxic agents -Continue to monitor kidney function as indicated DVT prophylaxis -Lovenox sq Code Status: Full Discussed Condition With: patient, nursing staff, Dr. Jason Discharge Planning: discharge disposition per primary service
--- NOTE | 2018-07-26 18:00 | P.PN ---
Addendum entered and electronically signed by GARCIA Camarena 07/27/18 14:45: Physical exam: GENERAL: 87 year old well developed male sitting up in bed. SKIN: Warm and dry. Midline chin ecchymosis noted. CARDIOVASCULAR: Regular rate and rhythm. RESPIRATORY: Lungs clear to auscultation bilaterally. GASTROINTESTINAL: Abdomen soft, non-tender, nondistended. + BS. MUSCULOSKELETAL: Extremities without cyanosis +1 left foot/ankle edema noted. MAEW, + perfused NEUROLOGICAL: Alert and calm. Speech clear. Original Note: Subjective Interval history: Accepted at SNF today, clear for DC when arrangements made Neuro status unchanged Good UOP with Calixto Physical Exam Vital signs: Vital Signs 07/25/18 20:00 07/26/18 00:00 07/26/18 04:00 Temperature 98.2 F 98.2 F 98.0 F Pulse Rate 92 H 79 84 Respiratory Rate 20 18 18 Blood Pressure 159/73 H 154/79 H 178/77 H Pulse Oximetry 95 95 94 L 07/26/18 08:00 07/26/18 12:00 07/26/18 16:00 Temperature 97.8 F 98 F 97.1 F L Pulse Rate 80 75 74 Respiratory Rate 18 18 18 Blood Pressure 180/87 H 142/65 H 137/60 Pulse Oximetry 95 94 L 97 Intake & Output 07/25/18 07/26/18 07/26/18 18:59 06:59 18:59 Intake Total 720 / 720 Output Total 1250 / 1250 400 / 400 Balance -530 / -530 -400 / -400 Intake: Oral 720 / 720 Output: Urine 1250 / 1250 400 / 400 Other: Date of Last Bowel Movement 07/25/18 # Bowel Movements 1 - Urinary Catheter Management Condom Cath placed during this visit: yes Reason for continuing: Not indwelling catheter Insertion date: 07/13/18 Straight Cath placed during this visit: yes Reason for continuing: Acute urinary retention Insertion date: 07/20/18 Insertion time: 11:00 Indwelling Urethral Catheter Cath placed during this visit: yes Reason for continuing: Chronic Urinary Retention Insertion date: 07/20/18 Insertion time: 11:00 Results - Labs CBC & Chem 7: 07/22/18 01:40 07/22/18 01:40 - Imaging Impressions Head CT 07/26/18 00:00 CONCLUSION: 1. Interval reduction in the overall amount of subdural hemorrhage layering along the interhemispheric fissure. No new areas of hemorrhage are seen Abdomen/Bladder Ultrasound 07/26/18 13:31 CONCLUSION: 1. Large stable shadowing echogenic focus within the urinary bladder measuring 3.1 x 2.3 x 3.0 cm consistent with bladder calculus or calcified mass. 2. Stable multiple bilateral renal cysts. 3. 18 mm nonobstructing mid pole right renal calculus 4. Enlarged prostate. - Procedures . Assessment and Plan - Assessment (1) Contusion of knee, right Code(s): S80.01XA - Contusion of right knee, initial encounter Status: Acute (2) Contusion of finger, right Code(s): S60.00XA - Contusion of unspecified finger without damage to nail, initial encounter Status: Acute (3) Acute subdural hematoma Code(s): S06.5X9A - Traumatic subdural hemorrhage with loss of consciousness of unspecified duration, initial encounter Status: Acute (4) Contusion of face Code(s): S00.83XA - Contusion of other part of head, initial encounter Status : Acute (5) Major neurocognitive disorder as late effect of traumatic brain injury with behavioral disturbance Code(s): S06.9X9S - Unspecified intracranial injury with loss of consciousness of unspecified duration, sequela; F02.81 - Dementia in other diseases classified elsewhere with behavioral disturbance Status: Acute - Plan [place]: Tripped and fell striking his head. No LOC. On Plavix and had uncontrolled epistaxis. INJURIES: RIGHT SDH (5mm) SAH PMHx: HTN, HLD, CAD, STEMI, essential tremor, CKD RIGHT SDH, SAH, ?seizure Neurosurgery consulted Supportive care 07/14: Head CT- R SDH unchanged, minimal left SAH 07/15: Unable to move left leg 07/15: Repeat Head CT- stable Continue Keppra Neurology consulted for questionable seizure activity 07/17: EEG- no epileptic forms Serial neuro checks Avoid secondary head injury Postconcussive education RLE DVT 07/20: Doppler ultrasound revealed distal thrombosis posterior tibial vein right leg OK for Lovenox 30mg BID per NS Hematology consulted and deferred IVC filter placement Urinary retention, ROSA on CKD Supportive care Urology consulted Continue Calixto catheter and Flomax per Urology Creatinine improving Good UOP Follow-up with Dr. Donato as outpatient for cystoscopy Plan of care discussed with patient at bedside. Collaborating Trauma surgeon agrees with plan. Case management consulted to assist with discharge planning. Patient is clear from Trauma surgery standpoint to safely DC to SNF. - Attending Attestation The exam, history, and the medical decision-making described in the above note were completed with the assistance of the mid-level provider. I reviewed and agree with the findings presented. I attest that I had a [id number] encounter with the patient on the same day, and personally performed and documented my assessment and findings in the medical record. (1) Contusion of knee, right Qualifiers: Encounter type: initial encounter Qualified Code(s): S80.01XA - Contusion of right knee, initial encounter (2) Contusion of finger, right Qualifiers: Encounter type: initial encounter Finger: little finger Damage to nail status: without damage Qualified Code(s): S60.051A - Contusion of right little finger without damage to nail, initial encounter (4) Contusion of face Qualifiers: Encounter type: initial encounter Qualified Code(s): S00.83XA - Contusion of other part of head, initial encounter
--- NOTE | 2018-07-26 18:50 | P.PNNS ---
Subjective Interval history: Pt awake and alert. Doing well. No headache. No n/v. Follow up CT head shows improving sdh. <Vignesh Miller - Last Filed: 07/26/18 18:44> Physical Exam Vital signs: Vital Signs 07/25/18 20:00 07/26/18 00:00 07/26/18 04:00 Temperature 98.2 F 98.2 F 98.0 F Pulse Rate 92 H 79 84 Respiratory Rate 18 Blood Pressure 159/73 H 154/79 H 178/77 H Pulse Oximetry 95 95 94 L 07/26/18 08:00 07/26/18 12:00 07/26/18 16:00 Temperature 97.8 F 98 F 97.1 F L Pulse Rate 80 75 74 Respiratory Rate 18 Blood Pressure 180/87 H 142/65 H 137/60 Pulse Oximetry 95 94 L 97 Intake & Output 07/25/18 07/26/18 07/26/18 18:59 06:59 18:59 Intake Total 720 / 720 Output Total 1250 / 1250 400 / 400 1200 / 1200 Balance -530 / -530 -400 / -400 -1200 / -1200 Intake: Oral 720 / 720 Output: Urine 1250 / 1250 400 / 400 Urine Amount (Catheter) 1200 / 1200 Indwelling Urethral Catheter 1200 / 1200 Other: Date of Last Bowel Movement 07/25/18 # Bowel Movements 1 - Constitutional no acute distress - Routine HEENT Exam Head: Present: normocephalic Eye: Present: PERRL. Absent: conjunctival icterus - Routine Neck Exam Present: trachea midline - Routine Respiratory Exam Present: CTA bilaterally. Absent: respiratory distress, rhonchi, wheezes - Routine Cardiovascular Exam Present: RRR, S1, S2. Absent: murmur - Routine Abdominal Exam Present: soft, normoactive bowel sounds. Absent: distended, firm - Routine Skin Exam Absent: cyanosis, erythema - Routine Neurological Exam Present: alert, moving all extremities. Absent: sensory deficit, altered mental status - Detailed Neurological Exam: Coma Scale Eye Opening: Spontaneous Verbal Response: Confused (mild.) Motor Response: Obey commands Po Coma Scale Total: 14 - Routine Psychiatric Exam Present: normal affect, cooperative. Absent: anxious, agitated - Urinary Catheter Management Condom Cath placed during this visit: yes Reason for continuing: Not indwelling catheter Insertion date: 07/13/18 Straight Cath placed during this visit: yes Reason for continuing: Acute urinary retention Insertion date: 07/20/18 Insertion time: 11:00 Indwelling Urethral Catheter Cath placed during this visit: yes Reason for continuing: Chronic Urinary Retention Insertion date: 07/20/18 Insertion time: 11:00 <Vignesh Miller - Last Filed: 07/26/18 18:44> Vital signs: Vital Signs 07/26/18 12:00 07/26/18 16:00 07/26/18 20:00 Temperature 98 F 97.1 F L 98.3 F Pulse Rate 75 74 90 Respiratory Rate 18 18 18 Blood Pressure 142/65 H 137/60 155/74 H Pulse Oximetry 94 L 97 93 L 07/26/18 23:59 07/27/18 00:00 07/27/18 04:00 Temperature 97.6 F 98.2 F Pulse Rate 67 74 85 Respiratory Rate 18 18 Blood Pressure 113/59 L 171/75 H Pulse Oximetry 95 98 07/27/18 04:40 Temperature Pulse Rate 84 Respiratory Rate Blood Pressure Pulse Oximetry Intake & Output 07/26/18 07/27/18 07/27/18 18:59 06:59 18:59 Output Total 1200 / 1200 1250 / 1250 Balance -1200 / -1200 -1250 / -1250 Weight 73.5 kg Output: Urine 1250 / 1250 Urine Amount (Catheter) 1200 / 1200 Indwelling Urethral Catheter 1200 / 1200 - Urinary Catheter Management Condom Cath placed during this visit: no Straight Cath placed during this visit: no Indwelling Urethral Catheter Cath placed during this visit: no <Gold Rodriguez - Last Filed: 07/27/18 09:03> Assessment and Plan - Assessment (1) Contusion of knee, right Code(s): S80.01XA - Contusion of right knee, initial encounter Status: Acute Qualifiers: Encounter type: initial encounter Qualified Code(s): S80.01XA - Contusion of right knee, initial encounter (2) Contusion of finger, right Code(s): S60.00XA - Contusion of unspecified finger without damage to nail, initial encounter Status: Acute Qualifiers: Encounter type: initial encounter Finger: little finger Damage to nail status: without damage Qualified Code(s): S60.051A - Contusion of right little finger without damage to nail, initial encounter (3) Acute subdural hematoma Code(s): S06.5X9A - Traumatic subdural hemorrhage with loss of consciousness of unspecified duration, initial encounter Status: Acute (4) Contusion of face Code(s): S00.83XA - Contusion of other part of head, initial encounter Status : Acute Qualifiers: Encounter type: initial encounter Qualified Code(s): S00.83XA - Contusion of other part of head, initial encounter (5) Hypertension Code(s): I10 - Essential (primary) hypertension Status: Chronic Qualifiers: Hypertension type: essential hypertension Qualified Code(s): I10 - Essential (primary) hypertension - Plan 87yoM admitted 07/13/18 with acute SDH parafalcine due to fall, no ASA/Plavix. 07/15 Intermittent left leg weakness early in hospital course and left arm shaking, resolved with one dose of ativan EEG negative 07/21- overnight HALICAT likely due to temazepam and reversed with flumazenil. Many sedative meds held Repeat CT showing improvement in SDH 07/23 Rehab/discharge planning. Continue PT/OT Pain left foot unclear origin, 07/26 Pt had follow up CT head which shows improving subdural hemorrhage. I discussed with pt the option of full anticoagulation given his DVT in his RLE and LUE. Discussed the risk of increased bleed with anticoagulation. There is also a risk of worsening DVT and PE which was discussed with him. He states he would like me to discuss with his son and I called him twice at 6: 45pm and the phone rings without the ability to leave a message. I will try to call him tomorrow. <Vignesh Miller - Last Filed: 07/26/18 18:44> - Assessment (1) Acute subdural hematoma Code(s): S06.5X9A - Traumatic subdural hemorrhage with loss of consciousness of unspecified duration, initial encounter Status: Acute (2) Hypertension Code(s): I10 - Essential (primary) hypertension Status: Chronic Qualifiers: Hypertension type: essential hypertension Qualified Code(s): I10 - Essential (primary) hypertension - Attending Attestation Given stable neurologic condition and improved f/u head CT, he can be anticoagulated for his DVT's as long he is willing to accept the increased risk for intracranial rebleed and associated morbidity/mortality. <Gold Rodriguez - Last Filed: 07/27/18 09:03>
[2018-07-27] MEDS: Acetaminophen 325 MG Tablet PO PRN (07:48)
[2018-07-27] MEDS ORDERED: Carvedilol 12.5 MG Tablet PO SCH (08:15)
[2018-07-27] MEDS: hydrALAZINE 25 MG Tablet PO SCH ×3 (09:10→13:35)
[2018-07-27] MEDS: Baclofen 10 MG Tablet PO SCH (09:10)
[2018-07-27] MEDS: levETIRAcetam 500 MG Tablet PO SCH (09:11)
[2018-07-27] MEDS: Senna/Docusate Sodium 8.6/50 MG Tablet PO SCH (09:11)
[2018-07-27] MEDS: Enoxaparin Inj 30 MG/0.3 ML Syringe SQ SCH (09:13)
[2018-07-27] MEDS: Sodium Chloride 0.9% 2 ML Flush BID IV.FLUSH SCH (09:31)
[2018-07-27 09:50] VITALS: RESP 14
--- NOTE | 2018-07-27 10:43 | P.DS ---
Date of admission: 07/13/18 18:50 Primary care physician: No Primary Care Physician Brief History from admission: S/P Fall DS: Diagnosis - Discharge Diagnosis (1) Contusion of knee, right Status: Acute (2) Contusion of finger, right Status: Acute (3) Acute subdural hematoma Status: Acute (4) Contusion of face Status: Acute (5) Major neurocognitive disorder as late effect of traumatic brain injury with behavioral disturbance Status: Acute DS: Medications - Discharge Medications Prescriptions: acetaminophen [Tylenol] 650 mg PO Q6H PRN 7 Days cap PRN Reason: Pain tizanidine [Zanaflex] 4 mg PO HS #4 tab DS: Summary Hospital Course: [place]: Tripped and fell striking his head. No LOC. On Plavix and had uncontrolled epistaxis. INJURIES: RIGHT SDH (5mm) SAH PMHx: HTN, HLD, CAD, STEMI, essential tremor, CKD RIGHT SDH, SAH, ?seizure Neurosurgery consulted Supportive care 07/14: Head CT- R SDH unchanged, minimal left SAH 07/15: Unable to move left leg 07/15: Repeat Head CT- stable Continue Keppra Neurology consulted, F/U outpatient 07/17: EEG- no epileptic forms Stable neuro checks Avoid secondary head injury Postconcussive education RLE DVT 07/20: Doppler ultrasound revealed distal thrombosis posterior tibial vein right leg Continue Lovenox 30mg BID Hematology consulted and deferred IVC filter placement Urinary retention, ROSA on CKD Supportive care Urology consulted, F/U outpatient Continue Calixto catheter and Flomax per Urology Creatinine improving Good UOP Follow-up with Dr. Donato as outpatient for cystoscopy F/U with PCP in 1 week Plan of care discussed with patient at bedside. D/W CM. Collaborating Trauma surgeon agrees with plan. Case management consulted to assist with discharge planning. Patient is clear from Trauma surgery standpoint to safely DC to SNF. - Time Spent with Patient Total time spent providing and/or coordinating discharge services: Greater than 30 minutes Exam Vital signs: Vital Signs 07/26/18 12:00 07/26/18 16:00 07/26/18 20:00 Temperature 98 F 97.1 F L 98.3 F Pulse Rate 75 74 90 Respiratory Rate 18 18 18 Blood Pressure 142/65 H 137/60 155/74 H Pulse Oximetry 94 L 97 93 L 07/26/18 23:59 07/27/18 00:00 07/27/18 04:00 Temperature 97.6 F 98.2 F Pulse Rate 67 74 85 Respiratory Rate 18 18 Blood Pressure 113/59 L 171/75 H Pulse Oximetry 95 98 07/27/18 04:40 07/27/18 09:49 Temperature Pulse Rate 84 Respiratory Rate 14 Blood Pressure Pulse Oximetry Intake & Output 07/26/18 07/27/18 07/27/18 18:59 06:59 18:59 Output Total 1200 / 1200 1250 / 1250 Balance -1200 / -1200 -1250 / -1250 Weight 73.5 kg Output: Urine 1250 / 1250 Urine Amount (Catheter) 1200 / 1200 Indwelling Urethral Catheter 1200 / 1200 Narrative: GENERAL: 87 year old well developed male lying in bed in NAD. SKIN: Warm and dry. Midline chin ecchymosis noted. CARDIOVASCULAR: Regular rate and rhythm. RESPIRATORY: Lungs clear to auscultation bilaterally. GASTROINTESTINAL: Abdomen soft, non-tender, nondistended. + BS. MUSCULOSKELETAL: Extremities without cyanosis +1 left foot/ankle edema noted. MAEW, + perfused NEUROLOGICAL: Alert and calm. Speech clear. Essential tremor noted. Results Procedures completed during hospitalization: . - Impressions ITS Impressions Cervical Spine CT 07/13/18 13:08 CONCLUSION: 1. No acute fracture. 2. Mild grade 1 anterior spondylolisthesis of C4 on C5 of approximately 3 mm. 3. Degenerative disc and degenerative joint changes. Face CT 07/13/18 13:08 CONCLUSION: 1. Negative for facial bone fracture 2. Large parafalcine subdural hematoma described on CT scan of the head. 3. Subacute right subdural hematoma. Hand X-Ray 07/13/18 13:11 CONCLUSION: 1. Soft tissue swelling over the fifth digit with no acute fracture or malalignment. 2. Osteopenia and osteoarthritic change. Knee X-Ray 07/13/18 13:11 CONCLUSION: Soft tissue swelling with no acute fracture or malalignment. Elbow X-Ray 07/18/18 00:00 CONCLUSION: Nonspecific soft tissue swelling. No radiopaque foreign body or acute bony abnormality. Venous Doppler Study 07/20/18 12:28 CONCLUSION: 1. Distal thrombosis of the right posterior tibial vein. Other right lower extremity venous tributaries are patent. 2. No venous thrombosis on the left. Ankle X-Ray 07/21/18 00:00 CONCLUSION: No evidence of fracture. Ankle MRI 07/22/18 00:00 CONCLUSION: 1. Nonspecific soft tissue edema and marked subcutaneous swelling. No abscess. 2. No fracture, subluxation or evidence of osteomyelitis. 3. Mild Achilles and tibialis posterior tendinosis without tear. 4. Mild tendinosis and tenosynovitis of peroneus brevis and longus. 5. Mild plantar fasciitis. 6. Mild osteoarthritis. Head CT 07/26/18 00:00 CONCLUSION: 1. Interval reduction in the overall amount of subdural hemorrhage layering along the interhemispheric fissure. No new areas of hemorrhage are seen Abdomen/Bladder Ultrasound 07/26/18 13:31 CONCLUSION: 1. Large stable shadowing echogenic focus within the urinary bladder measuring 3.1 x 2.3 x 3.0 cm consistent with bladder calculus or calcified mass. 2. Stable multiple bilateral renal cysts. 3. 18 mm nonobstructing mid pole right renal calculus 4. Enlarged prostate. Discharge Plan - Discharge Disposition Patient Disposition: 03 Discharge to SNF - Discharge Condition Condition: Stable - Discharge Order Discharge Orders: Discharge Order (Routine); Ordered 07/18/18 Ordered By: Nestor Chavez - Discharge Details Anticipated Discharge Date: 07/19/18 - Physicians Team Primary Care Provider: Primary Care Blanca Hale Attending Provider: Sil Turner Other Providers: Gold Rodriguez MD ; Joaquin Krause MD ; Ovi Thomas MD ; [employer] [facility] ; Kings Gupta MD ; Tracy Beaver ARNP ; Rob Leonardo MD ; Sil Turner MD ; Nestor Chavez ARNP ; Juan Crowe MD ; Maikol Clancy, PhD ; Micaela Rivero MD ; Kinjal Ruiz MD ; [facility],Agency ; [facility] ; [facility],[place] ; Taylor Jason MD ; Deonte Cardozo MD ; Aurelia Mast MD ; [employer]
--- NOTE | 2018-07-27 11:22 | US ---
EXAM DATE: 07/27/2018 11:16 AM EST AGE/SEX: 87 years / Male INDICATIONS: Evaluate for progression of known deep vein thrombosis. CLINICAL DATA: This is the patient's subsequent encounter. Patient reports that signs and symptoms h ave been present for 1 week and indicates a pain score of 5/10. MEDICAL/SURGICAL HISTORY: Hypertension. Cardiovascular disease. Carcinoma, colon. BPH. [place] [address] [place] kidney disease - Stage III. Hyperlipidemia. Myocardial infarct. Tremors. Plavix therapy. DVT . . Cardiac catheterization. COMPARISON: [facility] [place], US VENOUS DOPPLER LEG BI, 07/20/2018. . TECHNIQUE: Venous ultrasound of both lower extremities was performed from the inguinal ligament to t he proximal calf. Real-time, color Doppler and spectral tracing, compression and augmentation techni ques were used. FINDINGS: There is no evidence of thrombus in the common femoral, superficial femoral or popliteal v eins. There again is some nonocclusive thrombus in the peroneal vein, unchanged from the seventh . N o masses are identified. CONCLUSION: 1. Stable small amount of thrombus within the peroneal vein in the upper calf. Electronically signed by: Rodney Drummond MD 07/27/2018 11:21 AM EST
--- NOTE | 2018-07-27 11:30 | US ---
EXAM DATE: 07/27/2018 11:21 AM EST AGE/SEX: 87 years / Male INDICATIONS: Check progression of known superficial thrombus. CLINICAL DATA: This is the patient's subsequent encounter. Patient reports that signs and symptoms h ave been present for 1 week and indicates a pain score of 5/10. MEDICAL/SURGICAL HISTORY: Hypertension. Carcinoma, colon. Cardiovascular disease. BPH. Screening Nurse [place] kidney disease - Stage III. Hyperlipidemia. Myocardial infarct. Tremors. Plavix therapy. DVT . . Cardiac catheterization. [place] [facility] [place]. . FINDINGS: Persistent occlusive thrombus in the left cephalic vein. Brachial vein and deep veins are patent. CONCLUSION: 1. Persistent occlusive thrombus left cephalic vein, stable from previous study Electronically signed by: Jose Ferrell MD 07/27/2018 11:28 AM EST
[2018-07-27 12:21] VITALS: BP 141/65; PULSE 77; TEMP 98.3; O2SAT 96
--- NOTE | 2018-07-27 15:17 | P.PN ---
Subjective Interval history: Patient seen and examined. Patient not voicing any acute concerns or complaints. Discussed with nursing staff, no adverse events noted overnight. Physical Exam Vital signs: Vital Signs 07/26/18 16:00 07/26/18 20:00 07/26/18 23:59 Temperature 97.1 F L 98.3 F Pulse Rate 74 90 67 Respiratory Rate 18 18 Blood Pressure 137/60 155/74 H Pulse Oximetry 97 93 L 07/27/18 00:00 07/27/18 04:00 07/27/18 04:40 Temperature 97.6 F 98.2 F Pulse Rate 74 85 84 Respiratory Rate 18 18 Blood Pressure 113/59 L 171/75 H Pulse Oximetry 95 98 07/27/18 08:00 07/27/18 09:49 Temperature 98.3 F Pulse Rate 77 Respiratory Rate 18 14 Blood Pressure 141/65 H Pulse Oximetry 96 Intake & Output 07/26/18 07/27/18 07/27/18 18:59 06:59 18:59 Output Total 1200 / 1200 1250 / 1250 Balance -1200 / -1200 -1250 / -1250 Weight 73.5 kg Output: Urine 1250 / 1250 Urine Amount (Catheter) 1200 / 1200 Indwelling Urethral Catheter 1200 / 1200 Other: Date of Last Bowel Movement 07/25/18 Narrative: GENERAL: Elderly male patient, no acute distress. Awake and alert. Appears comfortable lying in bed. SKIN: Warm and dry. HEENT: Atraumatic. Normocephalic. Pupils equal and round. No scleral icterus. No injection or drainage. No nasal bleeding or discharge. Mucous membranes pink and moist. NECK: Trachea midline. CARDIOVASCULAR: Regular rate and rhythm. RESPIRATORY: No accessory muscle use. Clear to auscultation. Breath sounds equal bilaterally. GASTROINTESTINAL: Abdomen soft, non-tender, nondistended. +BS. MUSCULOSKELETAL: Extremities without clubbing, cyanosis or edema. No obvious deformities. NEUROLOGICAL: Awake and alert. +essential tremor. No obvious cranial nerve deficits. Weakness noted in left lower extremity. Normal speech. PSYCHIATRIC: Appropriate mood and affect; insight and judgment normal. - Urinary Catheter Management Condom Cath placed during this visit: yes Reason for continuing: Not indwelling catheter Insertion date: 07/13/18 Straight Cath placed during this visit: yes Reason for continuing: Acute urinary retention Insertion date: 07/20/18 Insertion time: 11:00 Indwelling Urethral Catheter Cath placed during this visit: yes Reason for continuing: Chronic Urinary Retention Insertion date: 07/20/18 Insertion time: 11:00 Results - Labs CBC & Chem 7: 07/22/18 01:40 07/22/18 01:40 Laboratory Results - last 24 hr 07/27/18 11:38 POC Glucose 182 H - Imaging Impressions Venous Doppler Study 07/27/18 00:00 CONCLUSION: 1. Persistent occlusive thrombus left cephalic vein, stable from previous study Venous Doppler Study 07/27/18 00:00 CONCLUSION: 1. Stable small amount of thrombus within the peroneal vein in the upper calf. - Procedures . Assessment and Plan - Plan 87-year-old male who suffered a traumatic brain injury status post a fall resulting in subdural hematoma: Recent fall resulting in TBI Right SDH SAH -Admitted to trauma service -Patient followed by neurosurgery, nonoperative management. Follow up Head CTs have been stable. Patient's Plavix and aspirin on hold. Repeat heat CT 07/26 shows interval reduction, no new areas of hemorrhage. -neuro checks -Continue with PT/OT -fall precautions -Plan for patient to be discharged to SNF facility by primary team Possible seizure activity Patient had a episode of unresponsiveness and increased shaking after receiving Restoril for sleep -Neurology following, started on Keppra 500mg BID, continue -Seizure precautions RLE DVT Doppler ultrasound revealed distal thrombosis posterior tibial vein right leg -Discussed with neurosurgery, patient cannot be fully anticoagulated due to subdural hematoma. Per NS, okay for low-dose subcu Lovenox which patient was started on following US results -Hematology following, appreciate assistance. Recs to continue LMWH at 30mg sq. Defer IVC filter placement. Repeat ultrasound shows no evidence of clot. Urinary retention -Calixto catheter in place since 07/20. Started on Flomax. -renal US shows large echogenic focus c/w bladder calculus or calcified mass -Patient evaluated by Urology. It looks like that pt was seen once by Dr Donato in April for abnormal Sonogram findings of bladder stone vs bladder mass but had never f/u after for recommended cysto. -Per Urology, continue Calixto catheter and Flomax. Plan to DC Calixto once patient more mobile. Calixto needs to be changed every 4 weeks. Patient will need to follow-up with Dr. Donato as outpatient for cystoscopy Hypertension, poorly controlled BP slightly improved but not optimal -continue on Cozaar 25 mg daily and Hydralazine 25mg po TID -Increase Coreg 12.5 mg twice daily with hold parameters -Clonidine prn with parameters -Continue to monitor BP and adjust treatment accordingly. BP control essential given patient's recent TBI and resultant SDH/SAH ROSA on CKD, stage 3 Suspect secondary to episode of urinary retention Kidney function appears to be improving since Calixto catheter placed -Avoid nephrotoxic agents -Continue to monitor kidney function as indicated DVT prophylaxis -Lovenox sq Code Status: Full Discussed Condition With: patient, nursing staff Discharge Planning: discharge disposition per primary service
--- NOTE | 2018-07-27 17:50 | P.PNONC ---
Subjective Interval history: Patient seen earlier. Denies any pain in his legs. He feels some stiffness in his neck. He is lying on many pillows. Denies any bleeding. Objective Vital Signs/Intake & Output: Vital Signs 07/26/18 20:00 07/26/18 23:59 07/27/18 00:00 Temperature 98.3 F 97.6 F Pulse Rate 90 67 74 Respiratory Rate 18 18 Blood Pressure 155/74 H 113/59 L Pulse Oximetry 93 L 95 07/27/18 04:00 07/27/18 04:40 07/27/18 08:00 Temperature 98.2 F 98.3 F Pulse Rate 85 84 77 Respiratory Rate 18 18 Blood Pressure 171/75 H 141/65 H Pulse Oximetry 98 96 07/27/18 09:49 Temperature Pulse Rate Respiratory Rate 14 Blood Pressure Pulse Oximetry Intake & Output 07/26/18 07/27/18 07/27/18 18:59 06:59 18:59 Output Total 1200 / 1200 1250 / 1250 Balance -1200 / -1200 -1250 / -1250 Weight 73.5 kg Output: Urine 1250 / 1250 Urine Amount (Catheter) 1200 / 1200 Indwelling Urethral Catheter 1200 / 1200 Other: Date of Last Bowel Movement 07/25/18 Result Diagrams: 07/22/18 01:40 07/22/18 01:40 Laboratory Results: Laboratory Results - last 24 hr 07/27/18 11:38 POC Glucose 182 H Imaging Studies: Impressions Venous Doppler Study 07/27/18 00:00 CONCLUSION: 1. Persistent occlusive thrombus left cephalic vein, stable from previous study Venous Doppler Study 07/27/18 00:00 CONCLUSION: 1. Stable small amount of thrombus within the peroneal vein in the upper calf. Objective Remarks: GENERAL: Elderly cachectic man, well-developed patient. SKIN: Warm and dry. HEAD: Normocephalic. EYES: No scleral icterus. No injection or drainage. NECK: Supple, trachea midline. No JVD or lymphadenopathy. LYMPHATIC: No adenopathy. CARDIOVASCULAR: Regular rate and rhythm without murmurs. RESPIRATORY: Breath sounds equal bilaterally. No accessory muscle use. GASTROINTESTINAL: Abdomen soft, non-tender, nondistended. EXTREMITIES: No cyanosis, mild asymmetry left leg more prominent than the right. Left leg less swollen. MUSCULOSKELETAL: Adequate muscle tone. NEUROLOGICAL: No obvious focal deficit. Awake, alert. 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 Hematology was consulted for recommendations in regards to IVC filter placement in a patient who has a left upper extremity DVT and a distal thrombosis of the right posterior tibial vein. Recommendations: 1. Tolerating low molecular weight heparin at the dose of 30 mg twice a day. Repeat ultrasound shows small amount of thrombus in 1 of the below the knee veins. 2. Follow clinically. No [employer] bleed progression on current low molecular weight heparin dose. Discussed with neurosurgery okay to optimize the dose. Since he is responding without progression of disease on current dose of Lovenox , plan to continue current dose. 3. Continue supportive care.
== END 2018-07-27 15:56 ==
LOC: NEPE 12:36 → PHEDA 18:50 → NEDA 19:56 → N03 21:45 → N05 07-16 15:29
PROVIDERS: ADMIT Surgery Trauma Surgery; ATTEND Surgery Trauma Surgery

== ENCOUNTER 2018-07-30 08:03 | Inpatient (IN) ==
[2018-07-30] MEDS ORDERED: Azithromycin Inj 500 MG in Sodium Chlor 0.9% Inj 250 ML IV.SIG STA (08:07)
[2018-07-30] MEDS ORDERED: Acetaminophen 650 MG Supp RECTAL ONE (08:07)
[2018-07-30] MEDS ORDERED: Sod Chloride 0.9% Inj 700 ML IV.SIG SCH (08:15)
[2018-07-30] MEDS ORDERED: Sod Chloride 0.9% Inj 1,000 ML IV.SIG SCH ×2 (08:15)
--- NOTE | 2018-07-30 08:23 | ED ---
HPI General Chief Complaint: Altered Mental Status Stated Complaint: Medical Time Seen by Provider: 07/30/18 08:07 Source: patient, EMS and old records reviewed Mode of arrival: EMS Limitations: no limitations and altered mental status History of Present Illness HPI Narrative: 87-year-old male arrives by EMS from a rehabilitation facility. The patient was admitted here and had been discharged following a intracranial hemorrhage here with admission to the trauma surgery service. The patient was found to be febrile this morning with tachycardia and low O2 sat. 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 Oxygen improve the O2 sat. The patient does not provide history. Hx is obtained through EMS and per old records. Related Data Home Medications Medication Instructions Recorded Confirmed atorvastatin 40 mg PO DAILY 07/13/18 07/13/18 baclofen 10 mg PO DAILY 07/13/18 07/13/18 carvedilol 3.125 mg PO BID 07/13/18 07/13/18 cinnamon bark [Cinnamon] 500 mg PO DAILY 07/13/18 07/13/18 losartan 25 mg PO DAILY 07/13/18 07/13/18 terazosin 4 mg PO HS 07/13/18 07/13/18 tizanidine 4 mg PO HS 07/13/18 07/13/18 Previous Rx's Medication Instructions Recorded levetiracetam [Keppra] 500 mg PO BID tab 07/18/18 pantoprazole 40 mg PO DAILY tab 07/18/18 sennosides [Senna Lax] 17.2 mg PO Q12H PRN tab 07/18/18 bacitracin 1 applicatio TOPICAL BID g 07/22/18 enoxaparin [Lovenox] 30 mg SUBCUT Q12HR ml 07/22/18 hydralazine 25 mg PO TID tab 07/27/18 tamsulosin 0.4 mg PO DAILY cap 07/27/18 tizanidine [Zanaflex] 4 mg PO HS #4 tab 07/27/18 Allergies Allergy/AdvReac Type Severity Reaction Status Date / Time No Known Allergies Allergy Verified 07/13/18 13:26 Review of Systems ROS Unobtainable ROS Unobtainable: unobtainable due to mental condition and unobtainable due to mental status PMFSH Family History Family History Other No pertinent family history Social History Social History Substance History: Unable to Obtain Second Hand Smoke Exposure: No Smoking Status: Unknown if ever smoked How Often Do You Have a Drink Containing Alcohol: Unable to Obtain Recent Travel in [facility] within the Last 8 Weeks: No Recent Out of Country Travel within the Last 8 Weeks: No Exam Narrative Exam Narrative: GENERAL: 87-year-old male well-nourished well-developed, nonverbal, very faintly nods no when asked if he feels pain however is otherwise not interactive SKIN: Focused skin assessment warm/dry. HEAD: Atraumatic. Normocephalic. EYES: Pupils equal and round. No scleral icterus. No injection or drainage. ENT: No nasal bleeding or discharge. Mucous membranes dry. NECK: Trachea midline. No JVD. CARDIOVASCULAR: Rate approximately 110. Regular rhythm. RESPIRATORY: Coarse breath sounds bilaterally. Minimal tachypnea GASTROINTESTINAL: Abdomen soft, non-tender, nondistended. Hepatic and splenic margins not palpable. MUSCULOSKELETAL: No obvious deformities. No clubbing. No cyanosis. No edema. NEUROLOGICAL: The eyes are open. The patient is awake. There is a very minimal head nod with response to some questioning however the patient is not verbal. PSYCHIATRIC: Unable to assess. Course Initial Documented Vital Signs Pulse Rate 116 H 07/30/18 08:08 Respiratory Rate 40 H 07/30/18 08:08 Blood Pressure 102/51 L 07/30/18 08:08 Pulse Oximetry 96 07/30/18 08:08 Last Documented Vital Signs Temperature 102.6 F H 07/30/18 08:17 Pulse Rate 116 H 07/30/18 08:08 Respiratory Rate 40 H 07/30/18 08:08 Blood Pressure 102/51 L 07/30/18 08:08 Pulse Oximetry 98 07/30/18 08:12 Critical Care Time Critical Care Time: Yes Total Critical Care Time: 35 Attestation: Aggregate critical care time was 35 minutes. Time to perform other separately billable procedures was not included in the critical care time. My time did not include minutes spent treating any other patients simultaneously or on activities that did not directly contribute to the patient's treatment. The services I provided to this patient were to treat and/or prevent clinically significant deterioration that could result in: Septic shock, multiorgan dysfunction I provided critical care services requiring my management, as noted below: Chart data review, documentation time, medication orders and management, vital sign assessments/reviewing monitor data, ordering and reviewing lab tests, ordering and interpreting/reviewing x-rays and diagnostic studies, care of the patient and discussion of the patient with the admitting physicians. Medical Decision Making MDM Narrative Medical decision making narrative: White count is 20,000. Patient arrives febrile tachycardic and tachypneic. Cefepime, azithromycin and tobramycin started. 3 L crystalloid is transfused. Heart rate still about 110 with a blood pressure of about 110/80. Case discussed with construction superintendent Dr. Garvey for [facility] [place], who advises admission. CT head pending, CT ab/pelvis added on per request Dr Garvey. Medical Screen Exam Complete: Yes Emergency Medical Condition: Yes Differential Diagnosis Differential Diagnosis: Sepsis, septic shock, pneumonia, multiorgan dysfunction syndrome Lab Data Result diagrams: 07/30/18 08:05 07/30/18 08:05 Lab Results 07/30/18 07/30/18 07/30/18 Range/Units 08:05 08:05 08:14 WBC 20.5 H (4.0-11.0) th/mm3 RBC 3.68 L (4.50-5.90) mil/mm3 Hgb 12.6 L (13.0-17.0) gm/dL Hct 36.7 L (39.0-51.0) % MCV 99.8 (80.0-100.0) fL MCH 34.3 H (27.0-34.0) pg MCHC 34.4 (32.0-36.0) % RDW 14.4 (11.6-17.2) % Plt Count 306 D (150-450) th/mm3 MPV 7.1 (7.0-11.0) fL Prelim Diff (Auto) Slide review pending Neut % (Auto) 98.9 H (16.0-70.0) % Lymph % (Auto) 0.6 L (9.0-44.0) % Jasper % (Auto) 0.3 (0.0-8.0) % Eos % (Auto) 0.0 (0.0-4.0) % Baso % (Auto) 0.2 (0.0-2.0) % Neut # (Auto) 20.2 H (1.8-7.7) th/mm3 Lymph # (Auto) 0.1 L (1.0-4.8) th/mm3 Jasper # (Auto) 0.1 (0.0-0.9) th/mm3 Eos # (Auto) 0.0 (0.0-0.4) th/mm3 Baso # (Auto) 0.0 (0.0-0.2) th/mm3 WBC Differential Manual diff final Seg Neuts % (Manual) 80 H (16-70) % Band Neuts % (Manual) 17 H (0-6) % Lymphocytes % (Manual) 1 L (9-44) % Monocytes % (Manual) 1 (0-8) % Metamyelocytes % (Man) 1 (0-1) % Abs Neuts (Manual) 20.1 H (1.8-7.7) th/mm3 Differential Comment . Toxic Granulation 1+ H (None) Toxic Vacuolation Present H (None) Platelet Estimate Normal (Normal) Platelet Morphology Normal (Normal) Tito Cells 1+ H (None) Sodium 135 L (136-145) meq/L Potassium 4.6 (3.5-5.1) meq/L Chloride 103 (98-107) meq/L Carbon Dioxide 21.0 (21.0-32.0) meq/L Anion Gap 11 (5-15) meq/L BUN 46 H (7-18) mg/dL Creatinine 2.27 H (0.60-1.30) mg/dL Estimated GFR 27 L (>89) mL/min Random Glucose 169 H (74-106) mg/dL Lactic Acid 3.6 H (0.4-2.0) mmol/L Calcium 7.5 L (8.5-10.1) mg/dL Magnesium 1.6 (1.5-2.5) mg/dL Total Bilirubin 1.4 H (0.2-1.0) mg/dL AST 32 (15-37) U/L ALT 44 (12-78) U/L Alkaline Phosphatase 184 H (45-117) U/L Total Protein 5.4 L (6.4-8.2) g/dL Albumin 1.8 L (3.4-5.0) g/dL Discharge Plan Physicians Team ED Provider: Juancho Magaña Rxs /Orders / Referrals /Forms Prescriptions: No Action losartan 50 mg Tablet 25 mg PO DAILY RF: 0 atorvastatin 40 mg Tablet 40 mg PO DAILY RF: 0 tizanidine 4 mg Tablet 4 mg PO HS RF: 0 carvedilol 3.125 mg Tablet 3.125 mg PO BID RF: 0 terazosin 2 mg Capsule 4 mg PO HS RF: 0 baclofen 10 mg Tablet 10 mg PO DAILY RF: 0 cinnamon bark [Cinnamon] 500 mg Capsule 500 mg PO DAILY RF: 0 sennosides [Senna Lax] 8.6 mg Tablet 17.2 mg PO Q12H PRN (Reason: Moderate Constipation) RF: 0 levetiracetam [Keppra] 500 mg Tablet 500 mg PO BID RF: 0 pantoprazole 40 mg Tablet,Delayed Release (Dr/Ec) 40 mg PO DAILY RF: 0 bacitracin 500 unit/gram Ointment 1 applicatio Topical BID RF: 0 enoxaparin [Lovenox] 30 mg/0.3 mL Syringe 30 mg subcut Q12HR RF: 0 tizanidine [Zanaflex] 4 mg Tablet 4 mg PO HS Qty: 4 RF: 0 hydralazine 25 mg Tablet 25 mg PO TID RF: 0 tamsulosin 0.4 mg Capsule 0.4 mg PO DAILY RF: 0 Discharge Interventions Interventions: Vital Signs Last Done: 07/30/18 08:17 Status ED Status: With Doctor
[2018-07-30] MEDS ORDERED: SODIUM CHLOR 0.9% IV.SIG STA (08:32)
[2018-07-30] MEDS ORDERED: TOBRAMYCIN IV.SIG STA (08:32)
[2018-07-30 08:40] LABS: Baso % (Auto) 0.2 % (0.0-2.0); Hematocrit 36.7 % (39.0-51.0); Hemoglobin 12.6 gm/dL (13.0-17.0); Lymph # (Auto) 0.1 th/mm3 (1.0-4.8); Lymph % (Auto) 0.6 % (9.0-44.0); Mean Corpuscular HGB Conc 34.4 % (32.0-36.0); Mean Corpuscular Hemoglobin 34.3 pg (27.0-34.0); Mean Corpuscular Volume 99.8 fL (80.0-100.0); Mean Platelet Volume 7.1 fL (7.0-11.0); Mono # (Auto) 0.1 th/mm3 (0.0-0.9); Mono % (Auto) 0.3 % (0.0-8.0); Neut # (Auto) 20.2 th/mm3 (1.8-7.7); Neut % (Auto) 98.9 % (16.0-70.0); Platelet Count 306 th/mm3 (150-450); Red Blood Count 3.68 mil/mm3 (4.50-5.90); Red Cell Distribution Width 14.4 % (11.6-17.2); White Blood Count 20.5 th/mm3 (4.0-11.0)
[2018-07-30 08:57] LABS: Albumin 1.8 g/dL (3.4-5.0); Anion Gap 11 meq/L (5-15); Aspartate Aminotransferase 32 U/L (15-37); Blood Urea Nitrogen 46 mg/dL (7-18); Calcium 7.5 mg/dL (8.5-10.1); Chloride 103 meq/L (98-107); Glomerular Filtration Rate 27 mL/min (>89); Glucose,Random 169 mg/dL (74-106); Magnesium 1.6 mg/dL (1.5-2.5); Potassium 4.6 meq/L (3.5-5.1); Sodium 135 meq/L (136-145)
[2018-07-30 09:01] LABS: Alanine Aminotransferase 44 U/L (12-78); Alkaline Phosphatase 184 U/L (45-117); Total Protein 5.4 g/dL (6.4-8.2)
[2018-07-30 09:31] LABS: Lymphocytes 1 % (9-44); Metamyelocytes 1 % (0-1); Monocytes 1 % (0-8); Platelet Estimate Normal (Normal); Platelet Morphology Normal (Normal); Toxic Vacuolation Present
[2018-07-30 09:32] LABS: Burr Cells 1+; Toxic Granulation 1+
--- NOTE | 2018-07-30 10:05 | XR ---
EXAM DATE: 07/30/2018 9:51 AM EST AGE/SEX: 87 years / Male INDICATIONS: Fever and shortness of breath. CLINICAL DATA: This is the patient's initial encounter. Patient reports that signs and symptoms have been present for 1 day and indicates a pain score of Nonresponsive. MEDICAL/SURGICAL HISTORY: Hypertension. Carcinoma, colon. Cardiovascular disease. Chronic ki dney disease. Myocardial infarction. DVT. . Cardiac cath. COMPARISON: [facility] [place], 04/14/[place]. . FINDINGS: AP semiupright portable view of the chest demonstrate hypoinflation of the lungs. There is mild bronc hiectasis identified within the bilateral upper lobes. The lungs are otherwise clear. Heart size appe ars normal. Pulmonary vasculature appears normal. Osseous structures and straight degenerative change . CONCLUSION: Bronchiectasis and hypoinflation. No evidence of airspace consolidation. Electronically signed by: Agustina Luu MD 07/30/2018 10:04 AM EST
[2018-07-30] MEDS ORDERED: Dextrose 50% in Water 50 ML Vial IV.PUSH PRN (10:20)
[2018-07-30] MEDS ORDERED: Bisacodyl 10 MG Supp RECTAL PRN (10:21)
[2018-07-30] MEDS ORDERED: Vancomycin Consult Pharmacy OTHER ONE (10:24)
--- NOTE | 2018-07-30 10:33 | P.HPCC ---
History of Present Illness Service: Critical care medicine Primary Care Physician: Jose Beckett MD Chief Complaint: Acute febrile illness/shortness of breath History of Present Illness: 87-year-old male. Full code. Date of admission 07/30/2018. Past medical history includes actinic keratosis, basal carcinoma of the face, coronary disease status post stent to the RCA and left circumflex. Untreated coronary disease to the LAD. Chronic kidney disease stage IIIb, essential hypertension, hyperlipidemia and essential tremor. Patient was originally admitted to [place] of 09/12 status post fall with associated traumatic right subdural hematoma/left subarachnoid hemorrhage. He is evaluated at that time by Dr. Rodriguez. During his hospitalization, patient developed right below the knee deep venous thrombosis involving the posterior tibial vein/peroneal vein and a left cephalic superficial thrombosis. Patient was advised by hematology. Recommended no IVC filter. Patient was on enoxaparin 30 mg subcu twice daily without progression of the thrombus. He was discharged to rehabilitation on this medication. Also during his hospitalization,, patient also with urinary retention, renal stone involving the right kidney 18 mm non-obstructing and urethral stone. Was evaluated by urology who recommended continuous Calixto placement and outpatient follow-up with Dr. Valerio. Today, patient was at [facility]. Was noted to be altered with a fever of 103.4. Hypotensive. Transported to [facility] for further evaluation treatment. UA revealed positive leukocyte esterase likely infectious etiology. Chest x- ray revealed bronchiectasis bilaterally. Patient received cefepime, azithromycin and tobramycin. 3 L normal saline wide open. Creatinine was 2.27. Baseline appears to be around 1.2-1.5. Patient leukocytosis of 20,000. Altered. Brain CT revealed stable right subdural hematoma/left subarachnoid hemorrhage. CT abdomen/pelvis revealed right renal stone non obstructing and urethral stone. Upon arrival to floor, patient Inpatient Certification: I certify that the inpatient services were ordered in accordance with Medicare regulations governing the order. This includes certification that hospital inpatient services are reasonable and necessary and in the case of services not specified as inpatient-only under 42 CFR 419.22(n), that they are appropriately provided as inpatient services in accordance to with the 2-midnight benchmark under 43 CFR 412.3(e) Estimated Total Length of Stay (Days): 5 Plans for Post Hospital Care: Not yet determined Review of Systems unobtainable due to mental condition PMFSH - History History Provided By: Medical Record - Medical History Medical History: Medical History (Last Reviewed 07/30/18 @ 08:11 by Ann Metcalf) Actinic keratosis BPH (benign prostatic hyperplasia) Basal cell carcinoma of face Carcinoma of colon Chronic kidney disease, stage 3 Hyperlipemia Hypertension Insomnia Myocardial infarct, old Tremor CAD (coronary artery disease) - Surgical History Surgical History: Surgical History (Last Reviewed 07/30/18 @ 08:11 by Ann Metcalf) Hx of cardiac cath - Family History Family History: Family History (Last Updated 07/25/18 @ 15:42 by Flakita Field) Other No pertinent family history - Social History I have reviewed the patient's Social History: Yes - Tobacco History Second Hand Smoke Exposure: No Smoking Status: Unknown if ever smoked - Alcohol History How Often Do You Have a Drink Containing Alcohol: Unable to Obtain - Substance Use History Substance History: Unable to Obtain - Travel History Recent Travel in the [place] Within the Last 8 Weeks: No Recent Travel Out of the Country Within the Last 8 Weeks: No - Immunization History Tetanus Immunization: Unable to Assess Medications and Allergies Active Medications: Active Medications Acetaminophen (Tylenol) 650 mg PO Q6H PRN PRN Reason: PAIN 1-10 AND/OR FEVER >101F Al Hydroxide/Mg Hydroxide (Milk Of Magnesia Liq) 30 ml PO Q12H PRN PRN Reason: Mild Constipation Albuterol (Albuterol Neb (Josy)) 2.5 mg NEB Q2HR NEB PRN PRN Reason: SHORTNESS OF BREATH/WHEEZING Albuterol (Duoneb Neb (Prn)) 1 ampul NEB Q4HR NEB JOSY Bacitracin (Baciguent Oint) 1 applicatio TOPICAL BID JOSY Bisacodyl (Dulcolax Supp) 10 mg RECTAL DAILY PRN PRN Reason: SEVERE CONSITIPATION Chlorhexidine Gluconate (Chlorhexidine 2% Cloth) 3 pack TOPICAL DAILY@0400 JOSY Stop: 08/05/18 03:59 Chlorhexidine Gluconate (Chlorhexidine 2% Cloth) 3 pack TOPICAL DAILY@0400 PRN PRN Reason: Extra cloth needed Stop: 08/05/18 03:59 Dextrose (D50w Vial) 50 ml IV.PUSH UNSCH PRN PRN Reason: PER HYPOGLYCEMIA PROTOCOL Glucagon (Glucagon Inj) 1 mg OTHER PRN PRN PRN Reason: for Hypoglycemia Protocol Sodium Chloride (Ns Inj) 1,000 mls @ 0 mls/hr IV.SIG .Q0M JOSY Sodium Chloride (Ns Inj) 700 mls @ 0 mls/hr IV.SIG .Q0M JOSY Sodium Chloride (Ns Inj) 1,000 mls @ 0 mls/hr IV.SIG .Q0M JOSY Sodium Chloride (Ns Inj) 1,000 mls @ 84 mls/hr IV.CONT .[id number] JOSY Piperacillin/Tazobactam/Dextrose (Zosyn 3.375 Gm Premix) 50 mls @ 100 mls/hr IV.SIG Q6H JOSY Azithromycin 250 mg/ Sodium (Chloride) 250 mls @ 250 mls/hr IV.SIG Q24H JOSY Insulin Aspart (Novolog Insulin Correctional Sugar Inj) 0 unit SQ Q6HR JOSY; Protocol Lactulose (Lactulose Liq) 30 ml PO DAILY PRN PRN Reason: SEVERE CONSITIPATION Levetiracetam (Keppra) 500 mg PO BID [facility] Non-Formulary Medication (Terazosin [Terazosin]) 4 mg PO HS [facility] Ondansetron HCl (Zofran Inj) 4 mg IV.PUSH Q6H PRN PRN Reason: NAUSEA OR VOMITING Pantoprazole Sodium (Protonix Inj) 40 mg IV.PUSH DAILY [facility] Pharmacy Profile Note (Vancomycin Consult Pharmacy) 1 each OTHER ONCE ONE Stop: 07/30/18 10:25 Senna/Docusate Sodium (Janett-Colace) 1 tab PO BID [facility] Sennosides (Senokot) 17.2 mg PO Q12H PRN PRN Reason: Moderate Constipation Sodium Chloride (Ns Flush) 2 ml IV.FLUSH BID [facility] Sodium Chloride (Ns Flush) 2 ml IV.FLUSH PRN PRN PRN Reason: FLUSH AFTER USING IV ACCESS Tamsulosin HCl (Flomax) 0.4 mg PO DAILY [facility] Allergies Allergy/AdvReac Type Severity Reaction Status Date / Time No Known Allergies Allergy Verified 07/13/18 13:26 Home Medications Medication Instructions Recorded Confirmed Type atorvastatin 40 mg PO DAILY 07/13/18 07/30/18 History baclofen 10 mg PO DAILY 07/13/18 07/30/18 History carvedilol 3.125 mg PO BID 07/13/18 07/30/18 History cinnamon bark [Cinnamon] 500 mg PO DAILY 07/13/18 07/13/18 History losartan 25 mg PO DAILY 07/13/18 07/30/18 History terazosin 4 mg PO HS 07/13/18 07/30/18 History tizanidine 4 mg PO HS 07/13/18 07/30/18 History Results - Labs CBC & Chem 7: 07/30/18 08:05 07/30/18 08:05 Labs: Short CBC 07/30/18 Range/Units 08:05 WBC 20.5 H (4.0-11.0) th/mm3 Hgb 12.6 L (13.0-17.0) gm/dL Hct 36.7 L (39.0-51.0) % Plt Count 306 D (150-450) th/mm3 BMP 07/30/18 08:05 Sodium 135 L Potassium 4.6 Chloride 103 Carbon Dioxide 21.0 BUN 46 H Creatinine 2.27 H Calcium 7.5 L Liver Function 07/30/18 Range/Units 08:05 Total Bilirubin 1.4 H (0.2-1.0) mg/dL AST 32 (15-37) U/L ALT 44 (12-78) U/L Alkaline Phosphatase 184 H (45-117) U/L Albumin 1.8 L (3.4-5.0) g/dL - Imaging Impressions Chest X-Ray 07/30/18 08:07 CONCLUSION: Bronchiectasis and hypoinflation. No evidence of airspace consolidation. Exam Vital signs: Vital Signs 07/30/18 08:08 07/30/18 08:12 07/30/18 08:17 Temperature 102.6 F H Pulse Rate 116 H Respiratory Rate 40 H Blood Pressure 102/51 L Pulse Oximetry 96 98 07/30/18 10:22 Temperature 98.6 F Pulse Rate 108 H Respiratory Rate 30 H Blood Pressure 96/54 L Pulse Oximetry Intake & Output 07/29/18 07/30/18 07/30/18 18:59 06:59 18:59 Intake Total 100 / 100 Balance 100 / 100 Weight 70.307 kg Intake: IV 100 / 100 Maxipime Inj 2,000 MG In NS Inj 100 / 100 100 ML @ 200 mls/hr IV.SIG STAT STA Rx#:[id number] - Constitutional mild distress - Routine HEENT Exam Head: Present: normocephalic, atraumatic Eye: Present: EOMI, PERRL, normal accommodation ENT: Present: mucous membranes moist - Routine Neck Exam Present: supple, full ROM - Routine Chest/Breast/Axilla Exam Chest wall: Absent: tenderness Breast: Absent: tenderness Axillae: Absent: lymphadenopathy - Routine Respiratory Exam Present: respiratory distress, rhonchi. Absent: accessory muscle use, stridor - Routine Cardiovascular Exam Present: S1, S2, tachycardia. Absent: murmur - Routine Abdominal Exam Present: soft, normoactive bowel sounds - Routine Extremities Exam Absent: cyanosis, clubbing, edema - Routine Skin Exam Present: intact, dry, ecchymosis - Routine Neurological Exam Present: alert, CN II-XII intact, motor deficit. Absent: oriented X3, sensory deficit Unable to move left lower extremity Septic Shock Reassessment Septic shock perfusion: reassessment completed Caprini VTE Risk Assessment Caprini VTE Risk Assessment: Moderate/High Risk (score >= 2) Caprini Risk Assessment Model: Point Value = 1 Point Value = 2 Point Value = 3 Point Value = 5 Age 41-60 Minor surgery BMI > 25 kg/m2 Swollen legs Varicose veins or History of unexplained or recurrent spontaneous Oral contraceptives or hormone replacement Sepsis (< 1 month) Serious lung disease, including pneumonia (< 1 month) Abnormal pulmonary function Acute myocardial infarction Congestive heart failure (< 1 month) History of inflammatory bowel disease Medical patient at bed rest Age 61-74 Arthroscopic surgery Major open surgery (> 45 min) Laparoscopic surgery (> 45 min) Malignancy Confined to bed (> 72 hours) Immobilizing plaster cast Central venous access Age >= 75 History of VTE Family history of VTE Factor V Leiden Prothrombin [id number] Lupus anticoagulant Anticardiolipin antibodies Elevated serum homocysteine Heparin-induced thrombocytopenia Other congenital or acquired thrombophilia Stroke (< 1 month) Elective arthroplasty Hip, pelvis, or leg fracture Acute spinal cord injury (< 1 month) Prophylaxis Regimen: Total Risk Factor Score Risk Level Prophylaxis Regimen 0-1 Low Early ambulation 2 Moderate Order ONE of the following: *Sequential Compression Device (SCD) *Heparin 5000 units SQ BID 3-4 Higher Order ONE of the following medications: *Heparin 5000 units SQ TID *Enoxaparin/Lovenox 40 mg SQ daily (WT < 150 kg, CrCl > 30 mL/min) *Enoxaparin/Lovenox 30 mg SQ daily (WT < 150 kg, CrCl > 10-29 mL/min) *Enoxaparin/Lovenox 30 mg SQ BID (WT < 150 kg, CrCl > 30 mL/min) AND/OR *Sequential Compression Device (SCD) 5 or more Highest Order ONE of the following medications: *Heparin 5000 units SQ TID (Preferred with Epidurals) *Enoxaparin/Lovenox 40 mg SQ daily (WT < 150 kg, CrCl > 30 mL/min) *Enoxaparin/Lovenox 30 mg SQ daily (WT < 150 kg, CrCl > 10-29 mL/min) *Enoxaparin/Lovenox 30 mg SQ BID (WT < 150 kg, CrCl > 30 mL/min) AND *Sequential Compression Device (SCD) Assessment and Plan - Assessment and Plan Plan: Neuro/Psych: Traumatic brain injury with right subdural hematoma/left subarachnoid hemorrhage previous on prior admission History of essential tremor CT brain 07/30 revealed stable right subdural hematoma Holding baclofen 10 mg twice daily Acetaminophen 650 p.o. every 6 hours as needed fever/pain 1 through 10 Avoid sedatives CV: Severe sepsis likely secondary to urinary tract infection/healthcare associated pneumonia Coronary artery disease status post stent to the LAD/RCA 2015 History of inferior myocardial infarction Essential hypertension Hyperlipidemia Lactic acidosis EKG admission old inferior Q waves. Tachycardia. Normal TX/QRS and QT intervals. Troponin pending Her lactates until cleared. Currently 2.7 Holding atorvastatin 40 mg a day for dyslipidemia. Resume when clinically indicated Holding carvedilol 3.125 mg twice daily hydralazine 25 mg 3 times daily and losartan 50 mg daily for hypertension while on vasopressors. Resp: Acute respiratory insufficiency Nasal cannula to maintain saturations greater than equal to 92% Incentive spirometry while awake Albuterol/ipratropium aerosols every 4 hours with albuterol every 2 as needed dyspnea. Follow-up chest x-ray in 07/31 Chest x-ray admission revealed bronchiectasis bilaterally. CT emesis revealed tiny bilateral pleural effusions GI: Hypoalbuminemia/moderate protein calorie malnutrition Patient with currently n.p.o. Speech therapy to evaluate swallow Pantoprazole for GI prophylaxis Docusate/senna 1 tablet twice daily for bowel regimen CT abdomen/pelvis complete. Results pending. : Urethral stone Patient was been followed by Dr. Valerio for outpatient removal of Calixto. Endo: Sliding scale insulin Accu-Cheks with aspart insulin every 6 hours to maintain euglycemia Check TSH Renal: Acute kidney injury in the setting of chronic kidney disease stage IIIb No hydronephrosis on CT M/pelvis. Check urine eosinophils, sodium and creatinine Avoid nephrotoxic medication Monitor urine output Accurate I's and O's Heme: Basal cell carcinoma of the face Actinic keratosis Leukocytosis Monitor CBC daily. Follow trends. No indication for transfusion of blood products at this time. ID: Severe sepsis secondary to UTI present on admission/healthcare associated pneumonia Received cefepime, tobramycin and azithromycin ED. We will start on vancomycin/piperacillin/tazobactam azithromycin Blood cultures x2 pending. Influenza AB/B/Legionella pneumococcal urine antigens pending. Sputum pending UA pending Msk: Left lower extremity weakness secondary to traumatic brain injury PT evaluate and treat FEN: Hyponatremia Status post 3 L normal saline in ED. Replace electrolytes as clinically indicated Speech therapy evaluate and treat. Currently normal saline 84 cc an hour. Access -Left IJ CVL day 1 placed 07/30 Prophylaxis -GI - pantoprazole -DVT -SCDs to left lower extremity only. Enoxaparin. Critical care time 35 minutes on admission. Code Status: Full code Discussed Condition With: Tommie Cooper. Patient. Dr. Magaña/ED physician. Care plan discussed and all questions answered.
[2018-07-30] MEDS ORDERED: Vancomycin Consult Pharmacy OTHER PRN (10:55)
[2018-07-30 10:59] LABS: ABG Base Excess -3.6 mmol/L (-2-2); ABG PCO2 26 mmHg (38-42); ABG PO2 84 mmHg (61-120)
[2018-07-30 11:00] LABS: Bacteria,Urine Many /hpf; Bilirubin,Urine Negative (Negative); Clarity,Urine Cloudy (Clear); Color,Urine Red (Yellw/Straw); Glucose,Urine (UA) Negative (Negative); Leukocyte Esterase,Urine Large (Negative); Mucus,Urine Few /lpf (Occasional); Nitrite,Urine Negative (Negative); Specific Gravity,Urine 1.014 (1.002-1.035)
--- NOTE | 2018-07-30 11:19 | CT ---
EXAM DATE: 07/30/2018 10:07 AM EST AGE/SEX: 87 years / Male INDICATIONS: Altered mental status CLINICAL DATA: This is the patient's initial encounter. Patient reports that signs and symptoms have been present for 1 day and indicates a pain score of Nonresponsive. MEDICAL/SURGICAL HISTORY: Carcinoma, colon. Hypertension. Renal disease. None. RADIATION DOSE: 42.43 CTDI (mGy) COMPARISON: [facility] [place], CT HEAD W/O CONTRAST, 07/26/2018. [facility] [place], CT HEAD W/O CONTRAST, 07/22/2018. . TECHNIQUE: CT of the head without contrast. Using automated exposure control and adjustment of the mA and/or kV according to patient size, radiation dose was kept as low as reasonably achievable to ob tain optimal diagnostic quality images. DICOM format image data is available electronically for revi ew and comparison. FINDINGS: Cerebrum: Stable appearance of a right-sided subdural hemorrhage. Although unchanged from the exam o f July 26 this is substantially decreased in size as compared to the original exam of July 22, 2018. There is persistent mild mass effect upon the airway adjacent cortex. The cerebrum is otherwis e significant for extensive white matter atrophic changes, enlargement of the sulci and ventricles. Posterior Fossa: The cerebellum and brainstem are intact. The 4th ventricle is midline. The cerebe llopontine angle is unremarkable. Extracranial: The visualized portion of the orbits is intact. Skull: The calvaria is intact. No evidence of skull fracture. CONCLUSION: 1. Stable size of a right-sided subdural hematoma involving the right superior convexity. This is st able as compared to the exam of July 26 but decreased in size as compared to the exam of July 22. No new area of hemorrhage is seen. . Electronically signed by: Agustina Luu MD 07/30/2018 11:18 AM EST
[2018-07-30] MEDS ORDERED: Norepinephrine Inj 16 MG in Sodium Chlor 0.9% Inj 234 ML IV.CONT PRN (11:43)
[2018-07-30 12:02] LABS: ABG Base Excess -4.1 mmol/L (-2-2); ABG PCO2 26 mmHg (38-42); ABG PO2 81 mmHG (61-120)
--- NOTE | 2018-07-30 12:18 | P.PCN ---
Date of procedure: 07/30/18 Pre-op diagnosis: Acute respiratory failure/severe sepsis Post-op diagnosis: same Procedure: DATE: 07/30/2018 CENTRAL LINE PLACEMENT: Left internal jugular vein. Ultrasound-guided INDICATION: Central venous access CONSENT Informed consent for procedure was obtained from pallavi Cooper. DESCRIPTION OF THE PROCEDURE The patient was placed in supine position. The skin was cleansed with Chloraprep. Additional barrier precautions included large sterile drape, sterile gloves, sterile gown, face mask, and hat. 1 % lidocaine was used for local anesthesia. Under direct ultrasound guidance and on initial attempt, the vein was accessed with an introducer needle. The guide wire was advanced and the tract was dilated. Using Seldinger technique a 7 Upper Sor[place] 20 cm antimicrobial coated triple-lumen catheter was advanced to a depth of 20 centimeters. The guide wire was removed. All ports had good return of dark venous blood and flushed easily with saline. The central line was secured with 2.0 silk. A sterile dressing with antibiotic disc was applied. StatLock did not adhere to skin ESTIMATED BLOOD LOSS: Minimal COMPLICATIONS: No apparent complications. STAT chest x-ray pending at time of dictation
--- NOTE | 2018-07-30 12:28 | CT ---
EXAM DATE: 07/30/2018 10:15 AM EST AGE/SEX: 87 years / Male INDICATIONS: Fever, possible obstructing stone CLINICAL DATA: This is the patient's initial encounter. Patient reports that signs and symptoms have been present for 1 day and indicates a pain score of Nonresponsive. MEDICAL/SURGICAL HISTORY: Carcinoma, colon. Hypertension. Renal disease. None. RADIATION DOSE: 7.25 CTDI (mGy) COMPARISON: C, US KIDNEY/RENAL/BLADDER, 07/26/2018. [facility], US KIDNEY, BILATERAL, 04/12/2018. . TECHNIQUE: Multiple contiguous axial images were obtained through the abdomen. Images were obtained using multiple row detector helical technique. Using automated exposure control and adjustment of the mA and/or kV according to patient size, radiation dose was kept as low as reasonably achievable to o btain optimal diagnostic quality images. DICOM format image data is available electronically for rev iew and comparison. FINDINGS: Lower Lungs: The lungs demonstrate bilateral dependent atelectasis with a trace small right-sided ple ural effusion. The heart size appears grossly normal with severe coronary artery disease and a small pericardial effusion. Liver: The liver has a homogeneous density without space-occupying lesion. There is no dilation of th e biliary tree. Spleen: Homogeneous density without enlargement. Pancreas: Unremarkable without mass or calcification. Kidneys: The right kidney demonstrates multiple well-circumscribed simple appearing renal cysts with the largest involving the lower pole of the right kidney measuring 7 cm in greatest dimension. There is a large nonobstructing stone identified within the collecting system of the lower pole measuring 2.1 cm in size. There are smaller adjacent stones noted as well as small stones in the midpole. No ev idence of right-sided hydronephrosis, however, there is prominence of the proximal right ureter to th e level of the mid abdomen with the ureter measuring 1 cm anterior posterior. Just distal to this are a the ureter is significant for a soft tissue attenuation measuring 1.5 cm in the AP dimension and is concerning for a possible transitional cell carcinoma. There is a small stone identified within the proximal right ureter measuring 2 mm and a 7 mm stone identified within the distal two thirds of the right ureter. The left kidney also demonstrates multiple well-circumscribed simple appearing cysts wi th a small stone identified within the lower pole of the left kidney. No obstructing left-sided stone is visualized in the left ureter is mildly prominent within the distal one third to the level of the UVJ. Adrenal Glands: Unremarkable. Aorta: Extensive atherosclerosis without evidence of aneurysm. Bowel/Mesentery: The bowel loops are grossly unremarkable. The cecum and sigmoid colon have a normal configuration. Abdominal Wall: Intact. Retroperitoneum: No evidence of adenopathy in the retrocrural, para-aortic, or deep pelvic regions. Bladder: The bladder is greatly distended and there is a large irregular calcification identified wi thin the base of the bladder consistent with a large bladder stone measuring 3.6 cm in size. There is a Calixto catheter identified within the mid prostate with the balloon at the level of the dura month, . This should be deflated with the Calixto advanced into the bladder. Reproductive Organs: Prostatic hypertrophy is present. Inguinal: The inguinal region is unremarkable without evidence of adenopathy. Bony Structures: Degenerative changes without concerning lytic or blastic lesion. CONCLUSION: 1. The Calixto catheter is identified within the body of the prostate and the bladder is greatly diste nded. This should be advanced appropriately into the lumen of the bladder. There is a large bladder s tone present. 2. There is abnormal dilation of the right ureter with a concerning area of soft tissue attenuation identified within the mid right ureter concerning for a transitional cell carcinoma. 3. There are multiple stones identified within the lower pole of the right kidney with the largest s tone measuring just over 2 cm in size. There are small stones identified within the lumen of the prox imal one third and distal two thirds of the right ureter. Multiple well-circumscribed benign appearin g renal cysts. 4. The left kidney demonstrates multiple well-circumscribed benign appearing renal cyst and no evide nce of obstructing left-sided renal stone. The distal left ureter is mildly dilated which may reflect reflux from the distended bladder. Electronically signed by: Agustina Luu MD 07/30/2018 12:26 PM EST
--- NOTE | 2018-07-30 13:07 | XR ---
EXAM DATE: 07/30/2018 1:02 PM EST AGE/SEX: 87 years / Male INDICATIONS: Central line placement. CLINICAL DATA: This is the patient's initial encounter. Patient reports that signs and symptoms have been present for 1 day and indicates a pain score of Nonresponsive. MEDICAL/SURGICAL HISTORY: . Hypertension. Carcinoma, colon. Cardiovascular disease. Chronic kid ben disease. Myocardial infarction. DVT. . Cardiac cath. . COMPARISON: [facility] [place], CHEST 1V SINGLE AP, 07/30/2018. . FINDINGS: Single portable supine view of the chest demonstrates placement of a central line with the tip overly ing the distal SVC/right atrial region. There is again noted Scarring/bronchiectasis within the right upper lobe. The lungs are hypoinflated with left lower lobe atelectasis.. CONCLUSION: Interval placement of a central line. No evidence of pneumothorax. The lungs are hypoinflated and the re is new left lower lobe atelectasis.. Electronically signed by: Agustina Luu MD 07/30/2018 1:05 PM EST
[2018-07-30] MEDS: Sod Chloride 0.9% Inj 1,000 ML IV.CONT SCH (13:32)
[2018-07-30] MEDS: Piperacil/Tazo 3.375 GM Premix 50 ML IV.SIG SCH ×2 (13:32→18:47)
[2018-07-30] MEDS ORDERED: Vancomycin Inj 1,000 MG in Sodium Chlor 0.9% Inj 250 ML IV.SIG ONE (14:00)
[2018-07-30] MEDS: Insulin NovoLOG Aspart Correctional Sugar Inj SQ SCH ×2 (14:10→18:47)
--- NOTE | 2018-07-30 16:11 | ECG ---
Date Performed: 07/30/2018 Time Performed: 08:12:23 PTAGE: 87 years EKG: SINUS TACHYCARDIA PATTERN CONSISTENT WITH PULMONARY DISEASE INFERIOR MYOCARDIAL INFARCTION Left [place] deviation ABNORMAL ECG PREVIOUS TRACING : 06/05/2016 06.47 Since the previous tracing, no significant change noted DOCTOR: Kenneth Garza Interpretating Date/Time 07/30/2018 16:10:22
[2018-07-30 17:39] LABS: Sodium,Urine Random 34 meq/L
[2018-07-30 17:48] LABS: Creatinine,Urine Random 41 mg/dL (27-300)
[2018-07-30] MEDS ORDERED: levETIRAcetam 500 MG Tablet PO SCH (21:00)
[2018-07-30] MEDS: Senna/Docusate Sodium 8.6/50 MG Tablet PO SCH (21:45)
[2018-07-30 22:33] LABS: Troponin I 1.16 ng/mL (0.02-0.05)
[2018-07-31] MEDS: Insulin NovoLOG Aspart Correctional Sugar Inj SQ SCH ×4 (00:29→17:46)
[2018-07-31] MEDS: Piperacil/Tazo 3.375 GM Premix 50 ML IV.SIG SCH ×4 (00:44→17:46)
[2018-07-31] MEDS: Sod Chloride 0.9% Inj 1,000 ML IV.CONT SCH ×2 (00:45→12:29)
--- NOTE | 2018-07-31 03:44 | XR ---
EXAM DATE: 07/31/2018 3:41 AM EST AGE/SEX: 87 years / Male INDICATIONS: Shortness of breath, possible pulmonary disease. CLINICAL DATA: This is the patient's subsequent encounter. Patient reports that signs and symptoms h ave been present for 2 days and indicates a pain score of 0/10. MEDICAL/SURGICAL HISTORY: Hypertension. Carcinoma, colon. Cardiovascular disease. Chronic ki dney disease. [place]. DVT. None. COMPARISON: [facility] [place] 1[place] SINGLE AP, 07/30/2018. . FINDINGS: Single view chest some trachea left IJ central line remains in good position with its tip overlying t he SVC. There is some fullness in the superior mediastinum stable from the previous study. The heart and mediastinum unremarkable otherwise. Right hemidiaphragm remains elevated. There is no visible pne umothorax. CONCLUSION: Lungs remain grossly clear with elevated right hemidiaphragm. Central line in good position. Electronically signed by: Rodney Drummond MD 07/31/2018 3:43 AM EST
[2018-07-31] MEDS ORDERED: Chlorhexidine Gluconate 2% 1 Pack (2 Cloths) TOPICAL PRN (04:00)
[2018-07-31 05:40] LABS: Baso % (Auto) 0.1 % (0.0-2.0); Eos % (Auto) 0.1 % (0.0-4.0); Hematocrit 32.2 % (39.0-51.0); Hemoglobin 10.9 gm/dL (13.0-17.0); Lymph # (Auto) 1.4 th/mm3 (1.0-4.8); Lymph % (Auto) 4.1 % (9.0-44.0); Mean Corpuscular HGB Conc 33.9 % (32.0-36.0); Mean Corpuscular Hemoglobin 33.9 pg (27.0-34.0); Mean Corpuscular Volume 100.1 fL (80.0-100.0); Mean Platelet Volume 6.9 fL (7.0-11.0); Mono # (Auto) 1.5 th/mm3 (0.0-0.9); Mono % (Auto) 4.2 % (0.0-8.0); Neut # (Auto) 32.4 th/mm3 (1.8-7.7); Neut % (Auto) 91.5 % (16.0-70.0); Platelet Count 307 th/mm3 (150-450); Red Blood Count 3.22 mil/mm3 (4.50-5.90); Red Cell Distribution Width 14.2 % (11.6-17.2); White Blood Count 35.4 th/mm3 (4.0-11.0)
[2018-07-31 05:52] LABS: Activated Partial Thrombo Time 44.6 sec (23.4-31.7); INR 1.4 Ratio; Prothrombin Time 14.5 sec (9.8-11.6)
[2018-07-31 06:21] LABS: Alanine Aminotransferase 115 U/L (12-78); Albumin 1.9 g/dL (3.4-5.0); Alkaline Phosphatase 100 U/L (45-117); Anion Gap 12 meq/L (5-15); Aspartate Aminotransferase 72 U/L (15-37); Blood Urea Nitrogen 49 mg/dL (7-18); Carbon Dioxide 20.6 meq/L (21.0-32.0); Chloride 109 meq/L (98-107); Creatine Kinase 118 U/L (39-308); Glomerular Filtration Rate 32 mL/min (>89); Glucose,Random 150 mg/dL (74-106); Magnesium 1.9 mg/dL (1.5-2.5); Phosphorus 3.9 mg/dL (2.5-4.9); Potassium 4.1 meq/L (3.5-5.1); Sodium 142 meq/L (136-145); Total Protein 5.3 g/dL (6.4-8.2)
[2018-07-31 06:35] LABS: Troponin I 1.28 ng/mL (0.02-0.05)
[2018-07-31] MEDS: Chlorhexidine Gluconate 2% 1 Pack (2 Cloths) TOPICAL SCH (06:40)
[2018-07-31 09:09] LABS: Lymphocytes 7 % (9-44); Monocytes 6 % (0-8); Ovalocytes 1+
[2018-07-31 09:10] LABS: Burr Cells 1+; Hypersegmented Neutrophils 1+; Platelet Estimate Normal (Normal); Platelet Morphology Normal (Normal)
[2018-07-31] MEDS: Senna/Docusate Sodium 8.6/50 MG Tablet PO SCH ×2 (10:12→21:22)
[2018-07-31] MEDS: Pantoprazole Inj 40 MG Vial IV.PUSH SCH (10:16)
[2018-07-31] MEDS: Azithromycin Inj 250 MG in Sodium Chlor 0.9% Inj 250 ML IV.SIG SCH (11:48)
--- NOTE | 2018-07-31 12:12 | P.PNCC ---
Subjective Subjective Remarks/Hospital Course: 87-year-old male. Full code. Date of admission 07/30/2018. Past medical history includes actinic keratosis, basal carcinoma of the face, coronary disease status post stent to the RCA and left circumflex. Untreated coronary disease to the LAD. Chronic kidney disease stage IIIb, essential hypertension, hyperlipidemia and essential tremor. Patient was originally admitted to [place] of 09/12 status post fall with associated traumatic right subdural hematoma/left subarachnoid hemorrhage. He is evaluated at that time by Dr. Rodriguez. During his hospitalization, patient developed right below the knee deep venous thrombosis involving the posterior tibial vein/peroneal vein and a left cephalic superficial thrombosis. Patient was advised by hematology. Recommended no IVC filter. Patient was on enoxaparin 30 mg subcu twice daily without progression of the thrombus. He was discharged to rehabilitation on this medication. Also during his hospitalization,, patient also with urinary retention, renal stone involving the right kidney 18 mm non-obstructing and urethral stone. Was evaluated by urology who recommended continuous Calixto placement and outpatient follow-up with Dr. Valerio. Today, patient was at [facility]. Was noted to be altered with a fever of 103.4. Hypotensive. Transported to [facility] for further evaluation treatment. UA revealed positive leukocyte esterase likely infectious etiology. Chest x- ray revealed bronchiectasis bilaterally. Patient received cefepime, azithromycin and tobramycin. 3 L normal saline wide open. Creatinine was 2.27. Baseline appears to be around 1.2-1.5. Patient leukocytosis of 20,000. Altered. Brain CT revealed stable right subdural hematoma/left subarachnoid hemorrhage. CT abdomen/pelvis revealed right renal stone non obstructing and urethral stone. Subjective 07/31: More interactive today. Arousable and follows commands. On 2 L nasal cannula. Off pressors since 8 AM. Objective Vital Signs / I&O: Vital Signs 07/30/18 12:41 07/30/18 15:00 07/30/18 16:00 Temperature 97.9 F Pulse Rate 110 H 102 H 98 H Respiratory Rate 24 24 29 H Blood Pressure 119/56 L Pulse Oximetry 95 07/30/18 19:00 07/30/18 20:00 07/30/18 20:10 Temperature 98.7 F Pulse Rate 92 H 83 Respiratory Rate 22 20 Blood Pressure 139/59 L Pulse Oximetry 99 95 11/17/18 20:15 07/30/18 21:00 07/30/18 22:00 Temperature Pulse Rate 86 95 H Respiratory Rate 22 22 Blood Pressure 97/53 L 91/66 L Pulse Oximetry 96 07/30/18 23:00 07/30/18 23:08 07/30/18 23:17 Temperature Pulse Rate 87 96 H 100 H Respiratory Rate 22 32 H 20 Blood Pressure 118/55 L Pulse Oximetry 92 L 07/30/18 23:31 07/31/18 00:00 07/31/18 00:47 Temperature 98.8 F Pulse Rate 94 H 97 H 102 H Respiratory Rate 33 H 25 H 25 H Blood Pressure 113/57 L 127/58 L 158/56 H Pulse Oximetry 95 93 L 98 07/31/18 01:00 07/31/18 01:02 07/31/18 01:31 Temperature Pulse Rate 105 H 109 H 99 H Respiratory Rate 34 H 29 H 24 Blood Pressure 149/65 H 94/48 L Pulse Oximetry 97 99 96 07/31/18 02:00 07/31/18 02:01 07/31/18 02:31 Temperature Pulse Rate 103 H 101 H 104 H Respiratory Rate 45 H 45 H 32 H Blood Pressure 134/63 151/78 H Pulse Oximetry 84 L 94 L 95 07/31/18 03:00 07/31/18 04:00 07/31/18 04:10 Temperature 98.8 F Pulse Rate 103 H 101 H 97 H Respiratory Rate 33 H 27 H 20 Blood Pressure Pulse Oximetry 07/31/18 05:00 07/31/18 06:00 07/31/18 06:30 Temperature Pulse Rate 107 H 109 H 109 H Respiratory Rate 38 H 26 H 29 H Blood Pressure Pulse Oximetry 07/31/18 06:45 07/31/18 07:00 07/31/18 07:01 Temperature Pulse Rate 108 H 100 H 117 H Respiratory Rate 35 H 20 31 H Blood Pressure 139/67 165/70 H Pulse Oximetry 94 L 07/31/18 07:15 07/31/18 07:30 07/31/18 07:31 Temperature Pulse Rate 109 H 113 H 117 H Respiratory Rate 33 H 33 H 40 H Blood Pressure 165/70 H 152/75 H 152/75 H Pulse Oximetry 07/31/18 07:45 07/31/18 08:00 11/18/18 08:15 Temperature 98.1 F Pulse Rate 115 H 105 H 104 H Respiratory Rate 36 H 28 H 28 H Blood Pressure 149/75 H 149/75 H 126/61 Pulse Oximetry 94 L 07/31/18 08:30 07/31/18 08:45 07/31/18 09:00 Temperature Pulse Rate 106 H 90 99 H Respiratory Rate 25 H 23 26 H Blood Pressure 127/64 106/50 L 121/71 Pulse Oximetry 100 96 07/31/18 09:15 07/31/18 09:30 07/31/18 10:00 Temperature Pulse Rate 96 H 88 102 H Respiratory Rate 21 20 23 Blood Pressure 110/53 L 100/53 L 103/55 L Pulse Oximetry 98 99 100 07/31/18 12:04 Temperature Pulse Rate 83 Respiratory Rate 16 Blood Pressure Pulse Oximetry Intake & Output 07/30/18 07/31/18 07/31/18 18:59 06:59 18:59 Intake Total 762.25 / 762.25 1205 / 1205 50 / 50 Output Total 1500 / 1500 20 / 20 Balance -737.75 / -737.75 1185 / 1185 50 / 50 Weight 70.307 kg 73.5 kg Intake: IV 762.25 / 762.25 1205 / 1205 50 / 50 NS Inj 1,000 ML @ 84 mls/hr IV. 1000 / 1000 CONT .[id number] [facility] Rx#:[id number] Azithromycin Inj 500 MG In NS 250 / 250 Inj 250 ML @ 250 mls/hr IV.SIG STAT STA Rx#:[id number] Maxipime Inj 2,000 MG In NS Inj 100 / 100 100 ML @ 200 mls/hr IV.SIG STAT STA Rx#:[id number] Zosyn 3.375 GM Premix 50 ML @ 50 / 50 100 / 100 50 / 50 100 mls/hr IV.SIG Q6H [facility] Rx#: [id number] Nebcin Inj 490 MG In NS Inj 100 112.25 / 112.25 ML @ 100 mls/hr IV.SIG STAT STA Rx#:[id number] Vancomycin Inj 1,000 MG In NS 250 / 250 Inj 250 ML @ 250 mls/hr IV.SIG ONCE ONE Rx#:[id number] Keppra Inj 500 MG In NS Inj 100 105 / 105 ML @ 400 mls/hr IV.SIG Q12H [facility] Rx#:[id number] Oral 0 / 0 Output: Urine Amount (Catheter) 1500 / 1500 20 / Indwelling Urethral Catheter 1500 / 1500 Other: Date of Last Bowel Movement 07/31/18 # Bowel Movements 1 Result Diagrams: 07/31/18 05:20 07/31/18 05:20 Other Results: Microbiology 07/30/18 08:06 Blood - Peripheral Aerobic Blood Culture - Preliminary No growth in 1 day 07/30/18 08:06 Blood - Peripheral Anaerobic Blood Culture - Preliminary gram negative rods 07/30/18 08:13 Blood - Peripheral Aerobic Blood Culture - Preliminary No growth in 1 day 07/30/18 08:13 Blood - Peripheral Anaerobic Blood Culture - Preliminary gram negative rods Imaging: Chest X-Ray 07/30/18 08:07 CONCLUSION: Bronchiectasis and hypoinflation. No evidence of airspace consolidation. Head CT 07/30/18 08:15 CONCLUSION: 1. Stable size of a right-sided subdural hematoma involving the right superior convexity. This is stable as compared to the exam of July 26 but decreased in size as compared to the exam of July 22. No new area of hemorrhage is seen. . Abdomen/Pelvis CT 07/30/18 09:50 CONCLUSION: 1. The Calixto catheter is identified within the body of the prostate and the bladder is greatly distended. This should be advanced appropriately into the lumen of the bladder. There is a large bladder stone present. 2. There is abnormal dilation of the right ureter with a concerning area of soft tissue attenuation identified within the mid right ureter concerning for a transitional cell carcinoma. 3. There are multiple stones identified within the lower pole of the right kidney with the largest stone measuring just over 2 cm in size. There are small stones identified within the lumen of the proximal one third and distal two thirds of the right ureter. Multiple well-circumscribed benign appearing renal cysts. 4. The left kidney demonstrates multiple well-circumscribed benign appearing renal cyst and no evidence of obstructing left-sided renal stone. The distal left ureter is mildly dilated which may reflect reflux from the distended bladder. Chest X-Ray 07/30/18 12:18 CONCLUSION: Interval placement of a central line. No evidence of pneumothorax. The lungs are hypoinflated and there is new left lower lobe atelectasis.. Chest X-Ray 07/31/18 10:23 CONCLUSION: Lungs remain grossly clear with elevated right hemidiaphragm. Central line in good position. Objective Remarks: GENERAL: 87-year-old male resting in bed in no acute distress on nasal cannula SKIN: Warm and dry. Multiple ecchymoses bilateral upper and lower extremities HEAD: Atraumatic. Normocephalic. EYES: Pupils equal and round. About 2 mm bilaterally and reactive no scleral icterus. No injection or drainage. ENT: No nasal bleeding or discharge. Mucous membranes pink and moist. NECK: Trachea midline. No JVD. CARDIOVASCULAR: Regular rate and rhythm. S1, S2 predose 4. RESPIRATORY: No accessory muscle use. Clear to auscultation. Breath sounds equal bilaterally. GASTROINTESTINAL: Abdomen soft, non-tender, nondistended. Hepatic and splenic margins not palpable. MUSCULOSKELETAL: Extremities without significant peripheral edema. No obvious deformities. NEUROLOGICAL: Awake and alert. No obvious cranial nerve deficits. Motor grossly within normal limits. Five out of 5 muscle strength in the arms and legs. Normal speech. PSYCHIATRIC: Appropriate mood and affect; insight and judgment normal. 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 every 6 hours as needed fever/pain 1 through 10 Avoid sedatives CV: Severe sepsis likely secondary to urinary tract infection/healthcare associated pneumonia Coronary artery disease status post stent to the LAD/RCA 2016 History of inferior myocardial infarction Essential hypertension Hyperlipidemia Lactic acidosis EKG admission old inferior Q waves. Tachycardia. Normal TX/QRS and QT intervals. Troponin pending Her lactates until cleared. Currently 1.4 Holding atorvastatin 40 mg a day for dyslipidemia. Resume when clinically indicated Holding carvedilol 3.125 mg twice daily hydralazine 25 mg 3 times daily and losartan 50 mg daily for hypertension while on vasopressors. Resp: Acute respiratory insufficiency Nasal cannula to maintain saturations greater than equal to 92% Incentive spirometry while awake Albuterol/ipratropium aerosols every 4 hours with albuterol every 2 as needed dyspnea. Follow-up chest x-ray in 07/31 Chest x-ray admission revealed bronchiectasis bilaterally. CT emesis revealed tiny bilateral pleural effusions GI: Hypoalbuminemia/moderate protein calorie malnutrition Patient with currently n.p.o. Speech therapy to evaluate swallow and advance diet as tolerated Pantoprazole for GI prophylaxis Docusate/senna 1 tablet twice daily for bowel regimen CT abdomen/pelvis complete. Results revealed a balloon of Calixto foot and prostate. Adjusted. : Urethral stone Patient was been followed by Dr. Valerio for outpatient removal of Calixto. Endo: Sliding scale insulin Accu-Cheks with aspart insulin every 6 hours to maintain euglycemia Check TSH -1.21 Renal: Acute kidney injury in the setting of chronic kidney disease stage IIIb No hydronephrosis on CT M/pelvis. Check urine eosinophils, sodium and creatinine Avoid nephrotoxic medication Monitor urine output Accurate I's and O's Heme: Basal cell carcinoma of the face Actinic keratosis Leukocytosis Microcytic anemia Monitor CBC daily. Follow trends. No indication for transfusion of blood products at this time. ID: Severe sepsis secondary to UTI present on admission/healthcare associated pneumonia Received cefepime, tobramycin and azithromycin ED. We will start on vancomycin/piperacillin/tazobactam azithromycin day #2 Blood cultures are negative candy bacteremia. UA pending Influenza AB/B/Legionella pneumococcal urine antigens pending. Sputum pending Msk: Left lower extremity weakness secondary to traumatic brain injury PT evaluate and treat FEN: Status post 3 L normal saline in ED. Replace electrolytes as clinically indicated Speech therapy evaluate and treat. Currently normal saline 84 cc an hour. Access -Left IJ CVL day 2 placed 07/30 Prophylaxis -GI - pantoprazole -DVT -SCDs to left lower extremity only. Enoxaparin. Level 3 follow-up
[2018-08-01] MEDS: Insulin NovoLOG Aspart Correctional Sugar Inj SQ SCH ×4 (00:14→18:00)
[2018-08-01] MEDS: Sod Chloride 0.9% Inj 1,000 ML IV.CONT SCH (00:14)
[2018-08-01] MEDS: Piperacil/Tazo 3.375 GM Premix 50 ML IV.SIG SCH ×4 (00:15→17:44)
--- NOTE | 2018-08-01 01:55 | XR ---
EXAM DATE: 08/01/2018 1:51 AM EST AGE/SEX: 87 years / Male INDICATIONS: Shortness of breath, possible pulmonary disease. CLINICAL DATA: This is the patient's subsequent encounter. Patient reports that signs and symptoms h ave been present for 3 days and indicates a pain score of Nonresponsive. MEDICAL/SURGICAL HISTORY: Carcinoma, colon. Cardiovascular disease. Renal failure, chronic. [place]. DVT. None. COMPARISON: [facility] [place] 1V SINGLE AP, 07/31/2018. . FINDINGS: Single AP view the chest. Right IJ central venous catheter remains in place. Persistent elevation of the right hemidiaphragm. There is mild medial left lung base opacity. No evidence of pleural effusion or pneumo thorax. Cardiomediastinal silhouette within normal limits. CONCLUSION: Mild medial left lung base opacity indicating atelectasis versus mild consolidation. Electronically signed by: Wolf Mendez MD 08/01/2018 1:53 AM EST
[2018-08-01] MEDS: Acetaminophen 325 MG Tablet PO PRN ×2 (02:34→18:01)
[2018-08-01 04:24] LABS: Baso % (Auto) 0.2 % (0.0-2.0); Eos # (Auto) 0.1 th/mm3 (0.0-0.4); Eos % (Auto) 0.7 % (0.0-4.0); Hematocrit 30.8 % (39.0-51.0); Hemoglobin 10.1 gm/dL (13.0-17.0); Lymph # (Auto) 1.1 th/mm3 (1.0-4.8); Lymph % (Auto) 5.2 % (9.0-44.0); Mean Corpuscular HGB Conc 32.8 % (32.0-36.0); Mean Corpuscular Hemoglobin 33.1 pg (27.0-34.0); Mean Corpuscular Volume 100.9 fL (80.0-100.0); Mean Platelet Volume 7.1 fL (7.0-11.0); Mono # (Auto) 0.7 th/mm3 (0.0-0.9); Mono % (Auto) 3.6 % (0.0-8.0); Neut # (Auto) 18.5 th/mm3 (1.8-7.7); Neut % (Auto) 90.3 % (16.0-70.0); Platelet Count 285 th/mm3 (150-450); Red Blood Count 3.05 mil/mm3 (4.50-5.90); Red Cell Distribution Width 14.6 % (11.6-17.2); White Blood Count 20.5 th/mm3 (4.0-11.0)
[2018-08-01] MEDS: Chlorhexidine Gluconate 2% 1 Pack (2 Cloths) TOPICAL SCH (04:36)
[2018-08-01 04:39] LABS: Alanine Aminotransferase 93 U/L (12-78); Albumin 1.7 g/dL (3.4-5.0); Anion Gap 11 meq/L (5-15); Aspartate Aminotransferase 38 U/L (15-37); Blood Urea Nitrogen 46 mg/dL (7-18); Calcium 7.6 mg/dL (8.5-10.1); Carbon Dioxide 19.8 meq/L (21.0-32.0); Chloride 113 meq/L (98-107); Glomerular Filtration Rate 34 mL/min (>89); Glucose,Random 142 mg/dL (74-106); Magnesium 1.9 mg/dL (1.5-2.5); Potassium 3.8 meq/L (3.5-5.1); Sodium 144 meq/L (136-145)
[2018-08-01 04:43] LABS: Alkaline Phosphatase 80 U/L (45-117); Total Protein 5.1 g/dL (6.4-8.2); Vancomycin,Random 5.1 Comment
[2018-08-01 04:46] LABS: Creatine Kinase 56 U/L (39-308)
[2018-08-01 04:53] LABS: Troponin I 0.65 ng/mL (0.02-0.05)
--- NOTE | 2018-08-01 08:27 | P.PNCC ---
Subjective Subjective Remarks/Hospital Course: 87-year-old male. Full code. Date of admission 07/30/2018. Past medical history includes actinic keratosis, basal carcinoma of the face, coronary disease status post stent to the RCA and left circumflex. Untreated coronary disease to the LAD. Chronic kidney disease stage IIIb, essential hypertension, hyperlipidemia and essential tremor. Patient was originally admitted to [facility] of 09/12 status post fall with associated traumatic right subdural hematoma/left subarachnoid hemorrhage. He is evaluated at that time by Dr. Rodriguez. During his hospitalization, patient developed right below the knee deep venous thrombosis involving the posterior tibial vein/peroneal vein and a left cephalic superficial thrombosis. Patient was advised by hematology. Recommended no IVC filter. Patient was on enoxaparin 30 mg subcu twice daily without progression of the thrombus. He was discharged to rehabilitation on this medication. Also during his hospitalization,, patient also with urinary retention, renal stone involving the right kidney 18 mm non-obstructing and urethral stone. Was evaluated by urology who recommended continuous Calixto placement and outpatient follow-up with Dr. Valerio. Today, patient was at [facility]. Was noted to be altered with a fever of 103.4. Hypotensive. Transported to [facility] for further evaluation treatment. UA revealed positive leukocyte esterase likely infectious etiology. Chest x- ray revealed bronchiectasis bilaterally. Patient received cefepime, azithromycin and tobramycin. 3 L normal saline wide open. Creatinine was 2.27. Baseline appears to be around 1.2-1.5. Patient leukocytosis of 20,000. Altered. Brain CT revealed stable right subdural hematoma/left subarachnoid hemorrhage. CT abdomen/pelvis revealed right renal stone non obstructing and urethral stone. 07/31: More interactive today. Arousable and follows commands. On 2 L nasal cannula. Off pressors since 8 AM. Subjective 08/01: Afebrile. On 2 L nasal cannula saturations 99%. Off vasopressors times 24 hours. Troponin downtrending. Creatinine slowly improving. Mentation much improved. Objective Vital Signs / I&O: Vital Signs 07/31/18 08:30 07/31/18 08:45 07/31/18 09:00 Temperature Pulse Rate 106 H 90 99 H Respiratory Rate 25 H 23 26 H Blood Pressure 127/64 106/50 L 121/71 Pulse Oximetry 100 96 07/31/18 09:15 07/31/18 09:30 07/31/18 10:00 Temperature Pulse Rate 96 H 88 102 H Respiratory Rate 21 20 23 Blood Pressure 110/53 L 100/53 L 103/55 L Pulse Oximetry 98 99 100 07/31/18 11:00 07/31/18 12:00 07/31/18 12:04 Temperature 98.5 F Pulse Rate 93 H 96 H 83 Respiratory Rate 25 H 21 16 Blood Pressure 101/52 L 92/49 L Pulse Oximetry 97 95 07/31/18 13:00 07/31/18 14:00 07/31/18 15:00 Temperature Pulse Rate 100 H 89 82 Respiratory Rate 26 H 25 H 23 Blood Pressure 116/58 L 112/60 122/77 Pulse Oximetry 99 97 98 07/31/18 16:00 07/31/18 17:00 07/31/18 17:30 Temperature 98.2 F Pulse Rate 97 H 86 87 Respiratory Rate 19 24 28 H Blood Pressure 97/51 L 108/59 L 110/59 L Pulse Oximetry 95 100 95 07/31/18 19:00 07/31/18 19:30 07/31/18 20:00 Temperature 97.7 F Pulse Rate 97 H 98 H 91 H Respiratory Rate 26 H 27 H 26 H Blood Pressure 111/56 L 125/61 126/59 L Pulse Oximetry 99 99 99 07/31/18 20:09 07/31/18 20:30 07/31/18 21:00 Temperature Pulse Rate 81 80 102 H Respiratory Rate 20 22 28 H Blood Pressure 111/55 L 108/56 L Pulse Oximetry 98 100 98 07/31/18 21:30 07/31/18 22:00 07/31/18 22:30 Temperature Pulse Rate 101 H 101 H 103 H Respiratory Rate 23 25 H 27 H Blood Pressure 117/56 L 111/53 L 115/59 L Pulse Oximetry 98 98 98 07/31/18 23:00 07/31/18 23:31 07/31/18 23:38 Temperature Pulse Rate 102 H 85 82 Respiratory Rate 27 H 23 20 Blood Pressure 129/71 97/49 L Pulse Oximetry 99 96 08/01/18 00:00 08/01/18 00:01 08/01/18 00:30 Temperature 97.7 F Pulse Rate 100 H 97 H 101 H Respiratory Rate 28 H 26 H 28 H Blood Pressure 156/66 H 113/57 L Pulse Oximetry 99 98 98 08/01/18 01:00 08/01/18 01:01 08/01/18 01:31 Temperature Pulse Rate 98 H 98 H 97 H Respiratory Rate 28 H 31 H 28 H Blood Pressure 136/63 120/66 Pulse Oximetry 97 97 97 08/01/18 02:00 08/01/18 02:01 08/01/18 02:30 Temperature Pulse Rate 84 84 84 Respiratory Rate 23 23 25 H Blood Pressure 94/51 L 100/50 L Pulse Oximetry 95 96 96 08/01/18 03:00 08/01/18 03:01 08/01/18 03:11 Temperature Pulse Rate 82 81 Respiratory Rate 23 23 22 Blood Pressure 126/58 L Pulse Oximetry 96 99 08/01/18 03:30 08/01/18 03:49 08/01/18 04:00 Temperature 98.5 F Pulse Rate 85 82 79 Respiratory Rate 25 H 20 20 Blood Pressure 119/60 128/60 Pulse Oximetry 99 100 08/01/18 04:30 08/01/18 07:43 Temperature Pulse Rate 84 88 Respiratory Rate 21 20 Blood Pressure 102/52 L Pulse Oximetry 97 98 Intake & Output 07/31/18 08/01/18 08/01/18 18:59 06:59 18:59 Intake Total 2235 / 2235 1685 / 1685 50 / 50 Output Total 1550 / 1550 800 / 800 Balance 685 / 685 885 / 885 50 / 50 Weight 73 kg Intake: IV 1455 / 1455 1205 / 1205 50 / 50 NS Inj 1,000 ML @ 84 mls/hr IV. 1000 / 1000 1000 / 1000 CONT .[id number] SRIDHAR Rx#:[id number] Azithromycin Inj 250 MG In NS 250 / 250 Inj 250 ML @ 250 mls/hr IV.SIG Q24H SRIDHAR Rx#:[id number] Zosyn 3.375 GM Premix 50 ML @ 100 / 100 100 / 100 50 / 50 100 mls/hr IV.SIG Q6H SRIDHAR Rx#: [id number] Keppra Inj 500 MG In NS Inj 100 105 / 105 105 / 105 ML @ 400 mls/hr IV.SIG Q12H SRIDHAR Rx#:[id number] Oral 780 / 780 480 / 480 Output: Urine Amount (Catheter) 1550 / 1550 800 / 800 Indwelling Temp Sensing 1550 / 1550 800 / 800 Catheter Other: Date of Last Bowel Movement 07/31/18 07/31/18 # Bowel Movements 0 Result Diagrams: 08/01/18 01:50 08/01/18 01:50 Other Results: Microbiology 07/30/18 08:06 Blood - Peripheral Aerobic Blood Culture - Preliminary gram negative rods 07/30/18 08:06 Blood - Peripheral Anaerobic Blood Culture - Preliminary gram negative rods 07/30/18 10:25 Catheterized Urine Urine Culture - Preliminary gram negative rods 07/30/18 08:13 Blood - Peripheral Aerobic Blood Culture - Preliminary No growth in 1 day 07/30/18 08:13 Blood - Peripheral Anaerobic Blood Culture - Preliminary gram negative rods Imaging: Chest X-Ray 07/30/18 08:07 CONCLUSION: Bronchiectasis and hypoinflation. No evidence of airspace consolidation. Head CT 07/30/18 08:15 CONCLUSION: 1. Stable size of a right-sided subdural hematoma involving the right superior convexity. This is stable as compared to the exam of July 26 but decreased in size as compared to the exam of July 22. No new area of hemorrhage is seen. . Abdomen/Pelvis CT 07/30/18 09:50 CONCLUSION: 1. The Calixto catheter is identified within the body of the prostate and the bladder is greatly distended. This should be advanced appropriately into the lumen of the bladder. There is a large bladder stone present. 2. There is abnormal dilation of the right ureter with a concerning area of soft tissue attenuation identified within the mid right ureter concerning for a transitional cell carcinoma. 3. There are multiple stones identified within the lower pole of the right kidney with the largest stone measuring just over 2 cm in size. There are small stones identified within the lumen of the proximal one third and distal two thirds of the right ureter. Multiple well-circumscribed benign appearing renal cysts. 4. The left kidney demonstrates multiple well-circumscribed benign appearing renal cyst and no evidence of obstructing left-sided renal stone. The distal left ureter is mildly dilated which may reflect reflux from the distended bladder. Chest X-Ray 07/30/18 12:18 CONCLUSION: Interval placement of a central line. No evidence of pneumothorax. The lungs are hypoinflated and there is new left lower lobe atelectasis.. Chest X-Ray 07/31/18 10:23 CONCLUSION: Lungs remain grossly clear with elevated right hemidiaphragm. Central line in good position. Chest X-Ray 08/01/18 06:00 CONCLUSION: Mild medial left lung base opacity indicating atelectasis versus mild consolidation. Objective Remarks: GENERAL: 87-year-old male resting in bed in no acute distress on nasal cannula SKIN: Warm and dry. Multiple ecchymoses bilateral upper and lower extremities HEAD: Atraumatic. Normocephalic. EYES: Pupils equal and round. About 2 mm bilaterally and reactive no scleral icterus. No injection or drainage. ENT: No nasal bleeding or discharge. Mucous membranes pink and moist. NECK: Trachea midline. No JVD. CARDIOVASCULAR: Regular rate and rhythm. S1, S2 predose 4. RESPIRATORY: No accessory muscle use. Clear to auscultation. Breath sounds equal bilaterally. GASTROINTESTINAL: Abdomen soft, non-tender, nondistended. Hepatic and splenic margins not palpable. MUSCULOSKELETAL: Extremities without significant peripheral edema. No obvious deformities. NEUROLOGICAL: Awake and alert. No obvious cranial nerve deficits. Motor grossly within normal limits. Five out of 5 muscle strength in the arms and legs except left lower extremity with minimal movement. Normal speech. PSYCHIATRIC: Appropriate mood and affect; insight and judgment normal. 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 every 6 hours as needed fever/pain 1 through 10 Avoid sedatives CV: Severe sepsis likely secondary to urinary tract infection/healthcare associated pneumonia Coronary artery disease status post stent to the LAD/RCA 2015 History of inferior myocardial infarction Essential hypertension Hyperlipidemia Lactic acidosis Elevated troponin EKG admission old inferior Q waves. Tachycardia. Normal CT/QRS and QT intervals. Troponin likely type II non-STEMI due to sepsis. Will check echocardiogram. EKG unchanged from previous with left axis deviation/old Q waves inferior leads. Serial lactates until cleared. Currently 1.4 Holding atorvastatin 40 mg a day for dyslipidemia. Resume when clinically indicated Holding carvedilol 3.125 mg twice daily hydralazine 25 mg 3 times daily and losartan 50 mg daily for hypertension while on vasopressors/acute kidney injury. Resp: Acute respiratory insufficiency Nasal cannula to maintain saturations greater than equal to 92% Incentive spirometry while awake Albuterol/ipratropium aerosols every 4 hours with albuterol every 2 as needed dyspnea. Follow-up chest x-ray in 07/31 Chest x-ray admission revealed bronchiectasis bilaterally. CT emesis revealed tiny bilateral pleural effusions GI: Hypoalbuminemia/moderate protein calorie malnutrition Patient with currently on regular diet nectar thickened/chemical soft Speech therapy to evaluate swallow and advance diet as tolerated Pantoprazole for GI prophylaxis Docusate/senna 1 tablet twice daily for bowel regimen CT abdomen/pelvis complete. Results revealed a balloon of Calixto f prostate. Adjusted. : Urethral stone Patient was been followed by Dr. Valerio for outpatient removal of Calixto. Maintain Calixto for now and set up appointment for outpatient removal. Continue Flomax Endo: Sliding scale insulin Accu-Cheks with aspart insulin every 6 hours to maintain euglycemia Check TSH -1.21 Renal: Acute kidney injury in the setting of chronic kidney disease stage IIIb No hydronephrosis on CT abdomen/pelvis. Negative urine eosinophils Avoid nephrotoxic medication Monitor urine output Accurate I's and O's Heme: Basal cell carcinoma of the face Actinic keratosis Leukocytosis Microcytic anemia Right peroneal/posterior tibial DVT, left cephalic superficial thrombus Monitor CBC daily. Follow trends. No indication for transfusion of blood products at this time. Cleared for subcu Lovenox per neurosurgery prior to admission. At current dosage enoxaparin 30 mg twice daily ID: Severe sepsis secondary to UTI present on admission/healthcare associated pneumonia Received cefepime, tobramycin and azithromycin ED. We will start on vancomycin/piperacillin/tazobactam azithromycin day #3 Blood cultures are negative candy bacteremia. UA pending Influenza AB/B/Legionella pneumococcal urine antigens pending. Sputum pending Msk: Left lower extremity weakness secondary to traumatic brain injury PT evaluate and treat FEN: Status post 3 L normal saline in ED. Replace electrolytes as clinically indicated Speech therapy evaluate and treat. Currently normal saline 84 cc an hour.. Discontinue 08/01 Access -Left IJ CVL day 3 placed 07/30 Prophylaxis -GI - pantoprazole -DVT -SCDs to left lower extremity only. Enoxaparin. 30 mg subcu twice daily okayed by neurosurgery prior to admission Level 2 follow-up. Stable from critical care medicine standpoint. Assign care to hospitalist team 08/02.
[2018-08-01] MEDS: levETIRAcetam 500 MG Tablet PO SCH ×2 (09:36→20:40)
[2018-08-01] MEDS: Enoxaparin Inj 30 MG/0.3 ML Syringe SQ SCH ×2 (09:37→20:40)
[2018-08-01] MEDS: Pantoprazole Inj 40 MG Vial IV.PUSH SCH (09:37)
[2018-08-01] MEDS: Senna/Docusate Sodium 8.6/50 MG Tablet PO SCH ×2 (09:37→20:41)
[2018-08-01 10:12] LABS: INR 1.3 Ratio; Prothrombin Time 12.7 sec (9.8-11.6)
[2018-08-01] MEDS ORDERED: Vancomycin Inj 1,250 MG in Sodium Chlor 0.9% Inj 250 ML IV.SIG ONE (11:00)
[2018-08-01] MEDS: Azithromycin Inj 250 MG in Sodium Chlor 0.9% Inj 250 ML IV.SIG SCH (11:27)
--- NOTE | 2018-08-01 13:54 | MB ---
cc: Jad Bell MD,Philip Sterling MD DATE: 08/01/2018 REQUESTING PHYSICIAN: Philip Garvey MD REASON FOR CONSULTATION: Gram-negative sepsis. HISTORY OF PRESENT ILLNESS: This is an 87-year-old white male who was brought to the emergency department from a rehab facility. The patient developed altered mental status at the rehab facility and he was noted to have a fever, tachycardia and low oxygen saturation. The patient was recently admitted to the hospital and was found to have a subdural hematoma. He was admitted on 07/13/2018 and was discharged to a rehab facility on 07/27/2018. The patient had tripped and fell and hit his head and sustained the acute interhemispheric subdural hemorrhage. Currently, he is awake, alert and responsive. He voices no complaints. He had a temperature of 102.6 degrees on 07/30/2018. His heart rate was also elevated at 116 and blood pressure was 102/51. His white count was 20.5. Urine culture is showing Klebsiella and blood culture is also showing Klebsiella. He currently has a Calixto catheter in place which has clear yellow urine. He denies back pain, nausea, vomiting, shortness of breath, chills. PAST MEDICAL HISTORY: 1. Coronary artery disease. 2. History of coronary stents 3. Hypertension. 4. Hyperlipidemia. 5. Insomnia. 6. Myocardial infarction. 7. History of chronic kidney disease, stage III. 8. Carcinoma of the colon. 9. Benign prostatic hypertrophy. 10. Basal cell carcinoma of the face. ALLERGIES: NO KNOWN DRUG ALLERGIES. MEDICATIONS: 1. Azithromycin IV. 2. Coreg. 3. Lactulose. 4. Keppra. 5. Protonix. 6. Vancomycin. 7. Piperacillin/tazobactam. 8. Janett-Colace. 9. Flomax. 10. Hytrin. SOCIAL HISTORY: No tobacco. Positive alcohol use. No illicit drugs. The patient is a retired dentist. FAMILY HISTORY: Noncontributory. REVIEW OF SYSTEMS: All other systems have been reviewed and are negative. PHYSICAL EXAMINATION: GENERAL: This is a well-developed, elderly male who is in no acute distress. He is awake and alert. VITAL SIGNS: Temperature 98.2, BP 116/57, heart rate 106, respirations 20. HEENT: Head is atraumatic. Extraocular muscles intact. Pupils reactive to light. No icterus. Oropharynx with moist mucosa without visible lesions. NECK: Supple. No adenopathy. LUNGS: Clear breath sounds bilaterally. HEART: Regular S1 and S2. ABDOMEN: Bowel sounds present. Soft. No tenderness appreciated. RECTAL: Not performed. EXTREMITIES: No clubbing or cyanosis. 2+ edema of the feet. SKIN: No diffuse rash. NEUROLOGIC: No gross focal finding. PSYCHIATRIC: The patient is calm and cooperative. LABORATORY DATA: WBC 20.5, platelets 285, hemoglobin 10.1, neutrophils 90%. BUN 46, creatinine 1.89, estimated GFR 34, sodium 144. Chest x-ray showed a medial left lung base opacity indicating atelectasis versus mild consolidation. IMPRESSION: 1. Sepsis due to gram-negative bacteria, likely arising from a urinary tract infection with the patient showing bacteria in the urine. 2. Urinary tract infection due to Klebsiella. 3. Acute kidney disease in a patient with a history of chronic kidney disease. 4. Abnormal chest x-ray, likely representing atelectasis. The patient is without symptoms suggesting pneumonia. 5. Leukocytosis secondary to infection. RECOMMENDATIONS: 1. Continue piperacillin/tazobactam. 2. Continue azithromycin. 3. Discontinue vancomycin. 4. Monitor clinical status. 5. Monitor renal function while on antibiotics. 6. Monitor response. Thank you for this consultation. The patient's progress will be monitored and further recommendations will be given upon followup if necessary. MD KO Cabrera/aroldo , 11:39 AM , 11:53 AM JADA
--- NOTE | 2018-08-01 22:52 | ECHRPT ---
Indication: Heart Failure CONCLUSIONS Normal left ventricular size. Wall thickness is measured at the upper limits of normal. The left ventricular systolic function is low normal with an estimated ejection fraction in the rang e of 50- 55%. The left atrial size is upper limits of normal. Normal atrial septal thickness. Aortic valve sclerosis is present. BP: / HR: Rhythm: MEASUREMENTS (Male / Female) Normal Values Technical Quality:Fair 2D ECHO LV Diastolic Diameter PLAX 4.8 cm 4.2 - 5.9 / 3.9 - 5.3 cm LV Systolic Diameter PLAX 3.2 cm IVS Diastolic Thickness 1.0 cm 0.6 - 1.0 / 0.6 - 0.9 cm LVPW Diastolic Thickness 1.1 cm 0.6 - 1.0 / 0.6 - 0.9 cm LV Relative Wall Thickness 0.4 RV Internal Dim ED PLAX 2.8 cm LVOT Diameter 2.1 cm Aortic Root Diameter 3.2 cm LA Systolic Diameter LX 4.0 cm 3.0 - 4.0 / 2.7 - 3.8 cm FINDINGS LEFT VENTRICLE Normal left ventricular size. Wall thickness is measured at the upper limits of normal. The left ventricular systolic function is low normal with an estimated ejection fraction in the rang e of 50- 55%. RIGHT VENTRICLE Normal right ventricular size and systolic function. LEFT ATRIUM The left atrial size is upper limits of normal. RIGHT ATRIUM The right atrial size is normal. ATRIAL SEPTUM Normal atrial septal thickness. AORTA The aortic root and proximal ascending aorta are normal in size on limited imaging. MITRAL VALVE Structurally normal mitral valve. AORTIC VALVE Trileaflet aortic valve. Aortic valve sclerosis is present. TRICUSPID VALVE Structurally normal tricuspid valve. PULMONARY VALVE The pulmonary valve is not well visualized. VESSELS The inferior vena cava was not well visualized. PERICARDIUM No pericardial effusion. Keshawn Butcher MD, FACC (Electronically Signed) Final Date:01 August 2018 22:51
[2018-08-02] MEDS: Insulin NovoLOG Aspart Correctional Sugar Inj SQ SCH ×6 (01:17→23:54)
[2018-08-02] MEDS: Acetaminophen 325 MG Tablet PO PRN (01:17)
[2018-08-02] MEDS: Piperacil/Tazo 3.375 GM Premix 50 ML IV.SIG SCH ×5 (01:18→23:53)
[2018-08-02] MEDS: Chlorhexidine Gluconate 2% 1 Pack (2 Cloths) TOPICAL SCH (05:11)
[2018-08-02 08:20] LABS: Baso # (Auto) 0.1 th/mm3 (0.0-0.2); Baso % (Auto) 0.5 % (0.0-2.0); Eos # (Auto) 0.3 th/mm3 (0.0-0.4); Eos % (Auto) 2.2 % (0.0-4.0); Hematocrit 31.9 % (39.0-51.0); Hemoglobin 10.9 gm/dL (13.0-17.0); Lymph # (Auto) 1.3 th/mm3 (1.0-4.8); Mean Corpuscular HGB Conc 34.2 % (32.0-36.0); Mean Corpuscular Volume 99.4 fL (80.0-100.0); Mean Platelet Volume 7.2 fL (7.0-11.0); Mono # (Auto) 0.9 th/mm3 (0.0-0.9); Mono % (Auto) 6.2 % (0.0-8.0); Neut # (Auto) 11.4 th/mm3 (1.8-7.7); Neut % (Auto) 82.1 % (16.0-70.0); Platelet Count 286 th/mm3 (150-450); Red Cell Distribution Width 14.5 % (11.6-17.2); White Blood Count 13.9 th/mm3 (4.0-11.0)
[2018-08-02] MEDS: Enoxaparin Inj 30 MG/0.3 ML Syringe SQ SCH ×2 (09:01→21:32)
[2018-08-02] MEDS: Senna/Docusate Sodium 8.6/50 MG Tablet PO SCH ×2 (09:01→21:31)
[2018-08-02] MEDS: Pantoprazole Inj 40 MG Vial IV.PUSH SCH (09:02)
[2018-08-02] MEDS: levETIRAcetam 500 MG Tablet PO SCH ×2 (09:02→21:32)
[2018-08-02 09:17] LABS: Alanine Aminotransferase 67 U/L (12-78); Albumin 2.1 g/dL (3.4-5.0); Alkaline Phosphatase 86 U/L (45-117); Anion Gap 9 meq/L (5-15); Aspartate Aminotransferase 24 U/L (15-37); Blood Urea Nitrogen 33 mg/dL (7-18); Calcium 8.2 mg/dL (8.5-10.1); Chloride 111 meq/L (98-107); Glomerular Filtration Rate 42 mL/min (>89); Glucose,Random 75 mg/dL (74-106); Magnesium 1.9 mg/dL (1.5-2.5); Phosphorus 2.8 mg/dL (2.5-4.9); Sodium 143 meq/L (136-145); Total Protein 5.4 g/dL (6.4-8.2); Vancomycin,Random 13.3 Comment
[2018-08-02] MEDS: Azithromycin Inj 250 MG in Sodium Chlor 0.9% Inj 250 ML IV.SIG SCH (11:18)
--- NOTE | 2018-08-02 14:04 | P.PN ---
Subjective Interval history: The patient is in bed he appears chronically ill. However he is more awake and alert. Says he has oxygen at the assisted. He is coughing but not much. Feels tired. No fever or chills overnight. Has not been out of bed. Physical therapy will come and evaluate the patient. No much appetite not eating much. No abdominal pain no nausea vomiting no diarrhea constipation. Physical Exam Vital signs: Vital Signs 08/01/18 15:51 08/01/18 16:00 08/01/18 20:00 Temperature 97.6 F 97.1 F L Pulse Rate 91 H 91 H Respiratory Rate 17 18 Blood Pressure 159/80 H 154/74 H Pulse Oximetry 96 97 94 L 08/01/18 21:44 08/02/18 00:00 08/02/18 07:51 Temperature 97.6 F Pulse Rate 86 89 83 Respiratory Rate 16 18 16 Blood Pressure 168/80 H Pulse Oximetry 93 L 96 08/02/18 08:00 08/02/18 11:33 08/02/18 12:00 Temperature 97.8 F 97.1 F L Pulse Rate 88 87 86 Respiratory Rate 20 16 18 Blood Pressure 163/73 H 168/77 H Pulse Oximetry 92 L 95 Intake & Output 08/01/18 08/02/18 08/02/18 18:59 06:59 18:59 Intake Total 1902.50 / 1902.50 50 / 50 350 / 350 Output Total 550 / 550 650 / 650 900 / 900 Balance 1352.50 / 1352.50 -600 / -600 -550 / -550 Weight 77 kg Intake: IV 1662.50 / 1662.50 50 / 50 350 / 350 NS Inj 1,000 ML @ 84 mls/hr IV. 1000 / 1000 CONT .[id number] SRID[facility]AR Rx#:[id number] Azithromycin Inj 250 MG In NS 250 / 250 250 / 250 Inj 250 ML @ 250 mls/hr IV.SIG Q24H [facility] Rx#:[id number] Zosyn 3.375 GM Premix 50 ML @ 150 / 150 50 / 50 100 / 100 100 mls/hr IV.SIG Q6H SR[facility] Rx#: [id number] Vancomycin Inj 1,250 MG In NS 262.50 / 262.50 Inj 250 ML @ 250 mls/hr IV.SIG ONCE ONE Rx#:[id number] Oral 240 / 240 Output: Urine 550 / 550 650 / 650 Urine Amount (Catheter) 900 / 900 Indwelling Temp Sensing 900 / 900 Catheter Other: Date of Last Bowel Movement 07/31/18 07/31/18 Narrative: GENERAL: pleasant 87-year-old male resting in bed in no acute distress on nasal cannula SKIN: Warm and dry. Multiple ecchymoses bilateral upper and lower extremities CARDIOVASCULAR: Regular rate and rhythm. S1, S2 predose 4. RESPIRATORY: No accessory muscle use. Clear to auscultation. Breath sounds equal bilaterally. GASTROINTESTINAL: Abdomen soft, non-tender, nondistended. Hepatic and splenic margins not palpable. MUSCULOSKELETAL: Extremities without significant peripheral edema. No obvious deformities. NEUROLOGICAL: Awake and alert. No obvious cranial nerve deficits. Motor grossly within normal limits. Five out of 5 muscle strength in the arms and legs except left lower extremity with minimal movement. Normal speech. PSYCHIATRIC: Appropriate mood and affect; insight and judgment normal. - Urinary Catheter Management Indwelling Urethral Catheter Cath placed during this visit: yes, but has since been removed by the nurse Reason for continuing: Chronic Urinary Retention Insertion date: 07/30/18 Insertion time: 13:00 Removal date: 07/31/18 Removal time: 02:00 Indwelling Temp Sensing Catheter Cath placed during this visit: yes, but has since been removed by the nurse Reason for continuing: Chronic Urinary Retention Insertion date: 08/02/18 Insertion time: 05:00 Removal date: 08/02/18 Removal time: 01:00 Results - Labs CBC & Chem 7: 08/02/18 07:11 08/02/18 07:11 Laboratory Results - last 24 hr 08/01/18 08/02/18 08/02/18 17:55 01:10 05:13 WBC RBC Hgb Hct MCV MCH MCHC RDW Plt Count MPV Neut % (Auto) Lymph % (Auto) [place] % (Auto) Eos % (Auto) Baso % (Auto) Neut # (Auto) Lymph # (Auto) [place] # (Auto) Eos # (Auto) Baso # (Auto) WBC Differential Differential Comment Sodium Potassium Chloride Carbon Dioxide Anion Gap BUN Creatinine Estimated GFR POC Glucose 166 H 240 H 106 Random Glucose Calcium Phosphorus Magnesium Total Bilirubin AST ALT Alkaline Phosphatase Total Protein Albumin Random Vancomycin 11/20/18 11/20/18 11/20/18 07:11 07:11 11:45 WBC 13.9 H RBC 3.20 L Hgb 10.9 L Hct 31.9 L MCV 99.4 MCH 34.0 MCHC 34.2 RDW 14.5 Plt Count 286 MPV 7.2 Neut % (Auto) 82.1 H Lymph % (Auto) 9.0 [place] % (Auto) 6.2 Eos % (Auto) 2.2 Baso % (Auto) 0.5 Neut # (Auto) 11.4 H Lymph # (Auto) 1.3 [place] # (Auto) 0.9 Eos # (Auto) 0.3 Baso # (Auto) 0.1 WBC Differential . Differential Comment Auto diff final Sodium 143 Potassium 4.0 Chloride 111 H Carbon Dioxide 23.0 Anion Gap 9 BUN 33 H Creatinine 1.58 H Estimated GFR 42 L POC Glucose 145 H Random Glucose 75 Calcium 8.2 L Phosphorus 2.8 Magnesium 1.9 Total Bilirubin 0.7 AST 24 ALT 67 Alkaline Phosphatase 86 Total Protein 5.4 L Albumin 2.1 L Random Vancomycin 13.3 Microbiology 07/30/18 08:13 Blood - Peripheral Aerobic Blood Culture - Preliminary No growth in 3 days 07/30/18 08:13 Blood - Peripheral Anaerobic Blood Culture - Final Klebsiella pneumoniae 07/30/18 08:06 Blood - Peripheral Aerobic Blood Culture - Final Klebsiella pneumoniae 07/30/18 08:06 Blood - Peripheral Anaerobic Blood Culture - Final Klebsiella pneumoniae 07/30/18 10:25 Catheterized Urine Urine Culture - Final Klebsiella pneumoniae Assessment and Plan - Plan Traumatic brain injury with right subdural hematoma/left subarachnoid hemorrhage previous on prior admission History of essential tremor CT brain 07/30 revealed stable right subdural hematoma Holding baclofen 10 mg twice daily Acetaminophen 650 p.o. every 6 hours as needed fever/pain 1 through 10 Avoid sedatives CV: Severe sepsis likely secondary to urinary tract infection/healthcare associated pneumonia Coronary artery disease status post stent to the LAD/RCA 2016 History of inferior myocardial infarction Essential hypertension Hyperlipidemia Lactic acidosis Elevated troponin EKG admission old inferior Q waves. Tachycardia. Normal MD/QRS and QT intervals. Troponin likely type II non-STEMI due to sepsis. Will check echocardiogram. EKG unchanged from previous with left axis deviation/old Q waves inferior leads. Serial lactates until cleared. Currently 1.4 Holding atorvastatin 40 mg a day for dyslipidemia. Resume when clinically indicated Holding carvedilol 3.125 mg twice daily hydralazine 25 mg 3 times daily and losartan 50 mg daily for hypertension while on vasopressors/acute kidney injury. Resp: Acute respiratory insufficiency Nasal cannula to maintain saturations greater than equal to 92% Incentive spirometry while awake Albuterol/ipratropium aerosols every 4 hours with albuterol every 2 as needed dyspnea. Follow-up chest x-ray in 07/31 Chest x-ray admission revealed bronchiectasis bilaterally. CT emesis revealed tiny bilateral pleural effusions GI: Hypoalbuminemia/moderate protein calorie malnutrition Patient with currently on regular diet nectar thickened/chemical soft Speech therapy to evaluate swallow and advance diet as tolerated Pantoprazole for GI prophylaxis Docusate/senna 1 tablet twice daily for bowel regimen CT abdomen/pelvis complete. Results revealed a balloon of Calixto f prostate. Adjusted. : Urethral stone Patient was been followed by Dr. Valerio for outpatient removal of Calixto. Maintain Calixto for now and set up appointment for outpatient removal. Continue Flomax Endo: Sliding scale insulin Accu-Cheks with aspart insulin every 6 hours to maintain euglycemia Check TSH -1.21 Renal: Acute kidney injury in the setting of chronic kidney disease stage IIIb No hydronephrosis on CT abdomen/pelvis. Negative urine eosinophils Avoid nephrotoxic medication Monitor urine output Accurate I's and O's Heme: Basal cell carcinoma of the face Actinic keratosis Leukocytosis Microcytic anemia Right peroneal/posterior tibial DVT, left cephalic superficial thrombus Monitor CBC daily. Follow trends. No indication for transfusion of blood products at this time. Cleared for subcu Lovenox per neurosurgery prior to admission. At current dosage enoxaparin 30 mg twice daily ID: Severe sepsis secondary to UTI present on admission/healthcare associated pneumonia Received cefepime, tobramycin and azithromycin ED. We will start on vancomycin/piperacillin/tazobactam azithromycin day #3 Blood cultures are negative candy bacteremia. UA pending Influenza AB/B/Legionella pneumococcal urine antigens pending. Sputum pending Msk: Left lower extremity weakness secondary to traumatic brain injury PT evaluate and treat FEN: Status post 3 L normal saline in ED. Replace electrolytes as clinically indicated Speech therapy evaluate and treat. Currently normal saline 84 cc an hour.. Discontinue 08/01 Prophylaxis -GI - pantoprazole -DVT -SCDs to left lower extremity only. Enoxaparin. 30 mg subcu twice daily okayed by neurosurgery prior to admission Consult PT for evaluation change status to out of bed with physical therapy. Possible discharge in 1 to days when improves. Patient will need nursing home facility going back to his SNF
[2018-08-03] MEDS: Chlorhexidine Gluconate 2% 1 Pack (2 Cloths) TOPICAL SCH (03:37)
[2018-08-03] MEDS: Insulin NovoLOG Aspart Correctional Sugar Inj SQ SCH ×3 (04:59→18:10)
[2018-08-03] MEDS: Piperacil/Tazo 3.375 GM Premix 50 ML IV.SIG SCH ×3 (04:59→18:10)
[2018-08-03 05:29] LABS: Baso # (Auto) 0.1 th/mm3 (0.0-0.2); Baso % (Auto) 0.5 % (0.0-2.0); Eos # (Auto) 0.2 th/mm3 (0.0-0.4); Eos % (Auto) 2.1 % (0.0-4.0); Hematocrit 30.4 % (39.0-51.0); Hemoglobin 10.5 gm/dL (13.0-17.0); Lymph # (Auto) 1.2 th/mm3 (1.0-4.8); Lymph % (Auto) 10.4 % (9.0-44.0); Mean Corpuscular HGB Conc 34.4 % (32.0-36.0); Mean Corpuscular Hemoglobin 34.1 pg (27.0-34.0); Mean Corpuscular Volume 99.1 fL (80.0-100.0); Mono # (Auto) 0.9 th/mm3 (0.0-0.9); Mono % (Auto) 7.7 % (0.0-8.0); Neut # (Auto) 9.2 th/mm3 (1.8-7.7); Neut % (Auto) 79.3 % (16.0-70.0); Platelet Count 278 th/mm3 (150-450); Red Blood Count 3.06 mil/mm3 (4.50-5.90); Red Cell Distribution Width 14.2 % (11.6-17.2); White Blood Count 11.7 th/mm3 (4.0-11.0)
[2018-08-03 06:03] LABS: Calcium 8.1 mg/dL (8.5-10.1); Carbon Dioxide 23.3 meq/L (21.0-32.0); Potassium 4.1 meq/L (3.5-5.1)
[2018-08-03] MEDS: Senna/Docusate Sodium 8.6/50 MG Tablet PO SCH ×2 (09:40→21:30)
[2018-08-03] MEDS: levETIRAcetam 500 MG Tablet PO SCH ×2 (09:40→21:30)
[2018-08-03] MEDS: Pantoprazole Inj 40 MG Vial IV.PUSH SCH (09:40)
[2018-08-03] MEDS: Enoxaparin Inj 30 MG/0.3 ML Syringe SQ SCH ×2 (09:43→21:30)
--- NOTE | 2018-08-03 10:38 | P.PN ---
Subjective Interval history: Very tired and sleepy today. Says he is short of breath at times however he is oxygen continuously. No nausea or vomiting. Some cough nonproductive. Feels congested. No abdominal pain at this time. Did not have a bowel movement. Physical Exam Vital signs: Vital Signs 08/02/18 11:33 08/02/18 12:00 08/02/18 16:00 Temperature 97.1 F L 98.2 F Pulse Rate 87 86 96 H Respiratory Rate 16 18 18 Blood Pressure 168/77 H 148/70 H Pulse Oximetry 95 95 08/02/18 16:05 08/02/18 20:00 08/02/18 20:20 Temperature 98.5 F Pulse Rate 96 H 93 H 87 Respiratory Rate 16 14 17 Blood Pressure 149/67 H Pulse Oximetry 95 08/03/18 00:00 08/03/18 07:58 08/03/18 08:00 Temperature 97.6 F 99.7 F H Pulse Rate 90 86 95 H Respiratory Rate 16 16 18 Blood Pressure 154/72 H 161/75 H Pulse Oximetry 95 94 L 93 L Intake & Output 08/02/18 08/03/18 08/03/18 18:59 06:59 18:59 Intake Total 350 / 350 150 / 150 Output Total 900 / 900 1250 / 1250 Balance -550 / -550 -1100 / -1100 Weight 75.8 kg Intake: IV 350 / 350 150 / 150 Azithromycin Inj 250 MG In NS 250 / 250 Inj 250 ML @ 250 mls/hr IV.SIG Q24H [facility] Rx#:[id number] Zosyn 3.375 GM Premix 50 ML @ 100 / 100 150 / 150 100 mls/hr IV.SIG Q6H [facility] Rx#: [id number] Output: Urine 1250 / 1250 Urine Amount (Catheter) 900 / 900 Indwelling Temp Sensing 900 / 900 Catheter Other: Date of Last Bowel Movement 07/31/18 07/31/18 Narrative: GENERAL: pleasant 87-year-old male resting in bed in no acute distress on nasal cannula SKIN: Warm and dry. Multiple ecchymoses bilateral upper and lower extremities CARDIOVASCULAR: Regular rate and rhythm. S1, S2 predose 4. RESPIRATORY: No accessory muscle use. Clear to auscultation. Breath sounds equal bilaterally. GASTROINTESTINAL: Abdomen soft, non-tender, nondistended. Hepatic and splenic margins not palpable. MUSCULOSKELETAL: Extremities without significant peripheral edema. No obvious deformities. NEUROLOGICAL: Awake and alert. No obvious cranial nerve deficits. Motor grossly within normal limits. Five out of 5 muscle strength in the arms and legs except left lower extremity with minimal movement. Normal speech. PSYCHIATRIC: Appropriate mood and affect; insight and judgment normal. - Urinary Catheter Management Indwelling Urethral Catheter Cath placed during this visit: yes, but has since been removed by the nurse Reason for continuing: Chronic Urinary Retention Insertion date: 07/30/18 Insertion time: 13:00 Removal date: 07/31/18 Removal time: 02:00 Indwelling Temp Sensing Catheter Cath placed during this visit: yes, but has since been removed by the nurse Reason for continuing: Chronic Urinary Retention Insertion date: 08/02/18 Insertion time: 05:00 Removal date: 08/02/18 Removal time: 01:00 Results - Labs CBC & Chem 7: 08/03/18 05:06 08/03/18 05:06 Laboratory Results - last 24 hr 08/02/18 08/02/18 08/03/18 11:45 23:52 04:59 WBC RBC Hgb Hct MCV MCH MCHC RDW Plt Count MPV Neut % (Auto) Lymph % (Auto) [place] % (Auto) Eos % (Auto) Baso % (Auto) Neut # (Auto) Lymph # (Auto) [place] # (Auto) Eos # (Auto) Baso # (Auto) WBC Differential Differential Comment Sodium Potassium Chloride Carbon Dioxide Anion Gap BUN Creatinine Estimated GFR POC Glucose 145 H 157 H 173 H Random Glucose Calcium 08/03/18 08/03/18 05:06 05:06 WBC 11.7 H RBC 3.06 L Hgb 10.5 L Hct 30.4 L MCV 99.1 MCH 34.1 H MCHC 34.4 RDW 14.2 Plt Count 278 MPV 7.0 Neut % (Auto) 79.3 H Lymph % (Auto) 10.4 [place] % (Auto) 7.7 Eos % (Auto) 2.1 Baso % (Auto) 0.5 Neut # (Auto) 9.2 H Lymph # (Auto) 1.2 [place] # (Auto) 0.9 Eos # (Auto) 0.2 Baso # (Auto) 0.1 WBC Differential . 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 every 6 hours as needed fever/pain 1 through 10 Avoid sedatives CV: Severe sepsis likely secondary to urinary tract infection/healthcare associated pneumonia Coronary artery disease status post stent to the LAD/RCA 2016 History of inferior myocardial infarction Essential hypertension Hyperlipidemia Lactic acidosis Elevated troponin EKG admission old inferior Q waves. Tachycardia. Normal SC/QRS and QT intervals. Troponin likely type II non-STEMI due to sepsis. Will check echocardiogram. EKG unchanged from previous with left axis deviation/old Q waves inferior leads. Serial lactates until cleared. Currently 1.4 Holding atorvastatin 40 mg a day for dyslipidemia. Resume when clinically indicated Holding carvedilol 3.125 mg twice daily hydralazine 25 mg 3 times daily and losartan 50 mg daily for hypertension while on vasopressors/acute kidney injury. Resp: Acute respiratory insufficiency Nasal cannula to maintain saturations greater than equal to 92% Incentive spirometry while awake Albuterol/ipratropium aerosols every 4 hours with albuterol every 2 as needed dyspnea. Follow-up chest x-ray in 07/31 Chest x-ray admission revealed bronchiectasis bilaterally. CT emesis revealed tiny bilateral pleural effusions GI: Hypoalbuminemia/moderate protein calorie malnutrition Patient with currently on regular diet nectar thickened/chemical soft Speech therapy to evaluate swallow and advance diet as tolerated Pantoprazole for GI prophylaxis Docusate/senna 1 tablet twice daily for bowel regimen CT abdomen/pelvis complete. Results revealed a balloon of Calixto f prostate. Adjusted. : Urethral stone Patient was been followed by Dr. Valerio for outpatient removal of Calixto. Maintain Calixto for now and set up appointment for outpatient removal. Continue Flomax Endo: Sliding scale insulin Accu-Cheks with aspart insulin every 6 hours to maintain euglycemia Check TSH -1.21 Renal: Acute kidney injury in the setting of chronic kidney disease stage IIIb No hydronephrosis on CT abdomen/pelvis. Negative urine eosinophils Avoid nephrotoxic medication Monitor urine output Accurate I's and O's Heme: Basal cell carcinoma of the face Actinic keratosis Leukocytosis Microcytic anemia Right peroneal/posterior tibial DVT, left cephalic superficial thrombus Monitor CBC daily. Follow trends. No indication for transfusion of blood products at this time. Cleared for subcu Lovenox per neurosurgery prior to admission. At current dosage enoxaparin 30 mg twice daily ID: Severe sepsis secondary to UTI present on admission/healthcare associated pneumonia Received cefepime, tobramycin and azithromycin ED. We will start on vancomycin/piperacillin/tazobactam azithromycin day #3 Blood cultures are negative candy bacteremia. UA pending Influenza AB/B/Legionella pneumococcal urine antigens pending. Sputum pending Msk: Left lower extremity weakness secondary to traumatic brain injury PT evaluate and treat FEN: Status post 3 L normal saline in ED. Replace electrolytes as clinically indicated Speech therapy evaluate and treat. Currently normal saline 84 cc an hour.. Discontinue 08/01 Prophylaxis -GI - pantoprazole -DVT -SCDs to left lower extremity only. Enoxaparin. 30 mg subcu twice daily okayed by neurosurgery prior to admission Consult PT for evaluation change status to out of bed with physical therapy. Possible discharge in 1-2 days when improves. Patient will need [facility] going back to his [facility]
[2018-08-03] MEDS: Azithromycin Inj 250 MG in Sodium Chlor 0.9% Inj 250 ML IV.SIG SCH (11:54)
[2018-08-03] MEDS: Acetaminophen 325 MG Tablet PO PRN (14:18)
--- NOTE | 2018-08-03 15:10 | P.PNID ---
Subjective Remarks: Patient is complaining of neck pain. He denies chills. He is sitting upright with his back arched forward and his food tray in front of him. No fever. Urine in Calixto has white sediment. This is an 87-year-old white male who was brought to the emergency department from a rehab facility. The patient developed altered mental status at the rehab facility and he was noted to have a fever, tachycardia and low oxygen saturation. Past Medical History: PAST MEDICAL HISTORY: 1. Coronary artery disease. 2. History of coronary stents 3. Hypertension. 4. Hyperlipidemia. 5. Insomnia. 6. Myocardial infarction. 7. History of chronic kidney disease, stage III. 8. Carcinoma of the colon. 9. Benign prostatic hypertrophy. 10. Basal cell carcinoma of the face. Allergies/Adverse Reactions: Allergies No Known Allergies Allergy (Verified 07/13/18 13:26) Objective Vital Signs 08/02/18 16:00 08/02/18 16:05 08/02/18 20:00 Temperature 98.2 F 98.5 F Pulse Rate 96 H 96 H 93 H Respiratory Rate 18 16 14 Blood Pressure 148/70 H 149/67 H Pulse Oximetry 95 95 08/02/18 20:20 08/03/18 00:00 08/03/18 07:58 Temperature 97.6 F Pulse Rate 87 90 86 Respiratory Rate 17 16 16 Blood Pressure 154/72 H Pulse Oximetry 95 94 L 08/03/18 08:00 08/03/18 11:39 08/03/18 12:00 Temperature 99.7 F H 98.3 F Pulse Rate 95 H 81 78 Respiratory Rate 18 16 20 Blood Pressure 161/75 H 163/79 H Pulse Oximetry 93 L 95 Intake & Output 08/02/18 08/03/18 08/03/18 18:59 06:59 18:59 Intake Total 350 / 350 150 / 150 Output Total 900 / 900 1250 / 1250 Balance -550 / -550 -1100 / -1100 Weight 75.8 kg Intake: IV 350 / 350 150 / 150 Azithromycin Inj 250 MG In NS 250 / 250 Inj 250 ML @ 250 mls/hr IV.SIG Q24H SRIDH[facility] Rx#:[id number] Zosyn 3.375 GM Premix 50 ML @ 100 / 100 150 / 150 100 mls/hr IV.SIG Q6H SRIDHAR Rx#: [id number] Output: Urine 1250 / 1250 Urine Amount (Catheter) 900 / 900 Indwelling Temp Sensing 900 / 900 Catheter Other: Date of Last Bowel Movement 07/31/18 07/31/18 07/30/18 08:13 Blood - Peripheral Aerobic Blood Culture - Preliminary No growth in 4 days 07/30/18 08:13 Blood - Peripheral Anaerobic Blood Culture - Final Klebsiella pneumoniae 07/30/18 08:06 Blood - Peripheral Aerobic Blood Culture - Final Klebsiella pneumoniae 07/30/18 08:06 Blood - Peripheral Anaerobic Blood Culture - Final Klebsiella pneumoniae 07/30/18 10:25 Catheterized Urine Urine Culture - Final Klebsiella pneumoniae Lab - Hematology Results 08/02/18 08/03/18 07:11 05:06 WBC 13.9 H 11.7 H RBC 3.20 L 3.06 L Hgb 10.9 L 10.5 L Hct 31.9 L 30.4 L MCV 99.4 99.1 MCH 34.0 34.1 H MCHC 34.2 34.4 RDW 14.5 14.2 Plt Count 286 278 MPV 7.2 7.0 Neut % (Auto) 82.1 H 79.3 H Lymph % (Auto) 9.0 10.4 [place] % (Auto) 6.2 7.7 Eos % (Auto) 2.2 2.1 Baso % (Auto) 0.5 0.5 Neut # (Auto) 11.4 H 9.2 H Lymph # (Auto) 1.3 1.2 [place] # (Auto) 0.9 0.9 Eos # (Auto) 0.3 0.2 Baso # (Auto) 0.1 0.1 WBC Differential . . Differential Comment Auto diff final Auto diff final Lab - Chemistry Results 08/01/18 08/02/18 08/02/18 17:55 01:10 05:13 Sodium Potassium Chloride Carbon Dioxide Anion Gap BUN Creatinine Estimated GFR POC Glucose 166 H 240 H 106 Random Glucose Calcium Phosphorus Magnesium Total Bilirubin AST ALT Alkaline Phosphatase Total Protein Albumin 08/02/18 08/02/18 08/02/18 07:11 11:45 23:52 Sodium 143 Potassium 4.0 Chloride 111 H Carbon Dioxide 23.0 Anion Gap 9 BUN 33 H Creatinine 1.58 H Estimated GFR 42 L POC Glucose 145 H 157 H Random Glucose 75 Calcium 8.2 L Phosphorus 2.8 Magnesium 1.9 Total Bilirubin 0.7 AST 24 ALT 67 Alkaline Phosphatase 86 Total Protein 5.4 L Albumin 2.1 L 08/03/18 08/03/18 04:59 05:06 Sodium 144 Potassium 4.1 Chloride 112 H Carbon Dioxide 23.3 Anion Gap 9 BUN 26 H Creatinine 1.54 H Estimated GFR 43 L POC Glucose 173 H Random Glucose 191 H D Calcium 8.1 L Phosphorus Magnesium Total Bilirubin AST ALT Alkaline Phosphatase Total Protein Albumin Imaging: ITS Impressions Head CT 07/30/18 08:15 CONCLUSION: 1. Stable size of a right-sided subdural hematoma involving the right superior convexity. This is stable as compared to the exam of July 26 but decreased in size as compared to the exam of July 22. No new area of hemorrhage is seen. . Abdomen/Pelvis CT 07/30/18 09:50 CONCLUSION: 1. The Calixto catheter is identified within the body of the prostate and the bladder is greatly distended. This should be advanced appropriately into the lumen of the bladder. There is a large bladder stone present. 2. There is abnormal dilation of the right ureter with a concerning area of soft tissue attenuation identified within the mid right ureter concerning for a transitional cell carcinoma. 3. There are multiple stones identified within the lower pole of the right kidney with the largest stone measuring just over 2 cm in size. There are small stones identified within the lumen of the proximal one third and distal two thirds of the right ureter. Multiple well-circumscribed benign appearing renal cysts. 4. The left kidney demonstrates multiple well-circumscribed benign appearing renal cyst and no evidence of obstructing left-sided renal stone. The distal left ureter is mildly dilated which may reflect reflux from the distended bladder. Chest X-Ray 08/01/18 06:00 CONCLUSION: Mild medial left lung base opacity indicating atelectasis versus mild consolidation. Physical Exam: PHYSICAL EXAMINATION: GENERAL: No acute distress. Awake and alert. HEENT: Head is atraumatic. Extraocular muscles intact. Pupils reactive to light. No icterus. Oropharynx with moist mucosa without visible lesions. NECK: Supple. No adenopathy. LUNGS: Breath sounds are clear. HEART: Regular S1 and S2. No audible murmur. ABDOMEN: Bowel sounds present. Soft. No tenderness appreciated. EXTREMITIES: No clubbing or cyanosis. Trace edema of the feet. SKIN: No diffuse rash. NEUROLOGIC: No gross focal finding. PSYCHIATRIC: Calm and cooperative. Assessment and Plan - Plan IMPRESSION: 1. Sepsis due to Klebsiella pneumoniae. Urinary source. 2. Urinary tract infection due to Klebsiella pneumoniae. 3. Acute kidney disease in a patient with a history of chronic kidney disease. 4. Abnormal chest x-ray, likely representing atelectasis. The patient is without symptoms suggesting pneumonia. 5. Leukocytosis secondary to infection. Improving RECOMMENDATIONS: 1. Continue piperacillin/tazobactam. 2. Continue azithromycin. 3. Repeat blood and urine culture. 4. Monitor clinical status. Plan on antibiotic to complete treatment depending on the repeat blood and urine culture.
--- NOTE | 2018-08-03 18:33 | P.DIET ---
Nutritional Evaluation Type of nutrition evaluation: initial Nutrition screening: Weight Loss > 10 lbs Subjective Subjective Comments: Pt sleeping soundly when visited. Lunch tray in room w/approx. 75% po intake and 100% po intake for breakfast earlier today. Objective - Diagnosis Sepsis, Pneumonia, Hematuria - Objective % IBW: 110 Body Weight Used for Calculations: Actual (77 kg) Energy Needs - Lower Range (kCal/kg): 22 Energy Needs - Upper Range (kCal/kg): 28 Lower Limit kCal/kg (kCals): 1,694 Upper Limit kCal/kg (kCals): 2,156 Lower Limit Protein Factor (Grams per Kg): 1.0 Upper Limit Protein Factor (Grams per Kg): 1.3 Lower Protein Needs (Protein): 77 Upper Protein Needs (Protein): 100 Dietitian Reviewed in Medical Record: Current diet, Curent medications, Intake & Output, Labs, Medical history Diet Order: Mech Soft Liquids thickened to [place] consistency Oral Diet Intake Amount: Fair 50-75% Speech Therapy Recommendations: Yes (Mech soft NTL) Objective Comments: PMH includes: Actinic Keratosis, Basal Cell Carcinoma of the face, BPH, CAD, Carcinoma of the colon, CKD-III, HLD, HTN, Insomnia, [place], old, Tremor Labs include: BUN 33, Creatinine 1.54, estGFR 43, Random Glucose 191, POC Glucose 165 LBM 07/31 Assessment Assessment: Pt is at nutritional risk r/t diagnosis and recent unintentional wt loss. Variable po intake 0% to 75% for meals. Send Ensure BID(+ 250 kcal and 9g protein per serving); monitor renal labs and glucose closely. Dietitian will follow. Recommendations: 1. Send Ensure BID 2. Dietitian will follow Dietitian to Monitor: Lab values, Electrolytes, Renal labs, Glucose level, Supplement acceptance, Intake & Output, Weight change, PO Intake, Medical course
[2018-08-04] MEDS: Insulin NovoLOG Aspart Correctional Sugar Inj SQ SCH ×5 (00:05→23:48)
[2018-08-04] MEDS: Acetaminophen 325 MG Tablet PO PRN ×2 (00:05→06:52)
[2018-08-04] MEDS: Piperacil/Tazo 3.375 GM Premix 50 ML IV.SIG SCH ×5 (00:05→23:48)
[2018-08-04 04:54] LABS: Baso # (Auto) 0.1 th/mm3 (0.0-0.2); Baso % (Auto) 0.7 % (0.0-2.0); Eos # (Auto) 0.5 th/mm3 (0.0-0.4); Hematocrit 32.1 % (39.0-51.0); Lymph # (Auto) 1.5 th/mm3 (1.0-4.8); Lymph % (Auto) 11.8 % (9.0-44.0); Mean Corpuscular HGB Conc 34.2 % (32.0-36.0); Mean Corpuscular Hemoglobin 34.5 pg (27.0-34.0); Mean Corpuscular Volume 100.9 fL (80.0-100.0); Mono # (Auto) 0.9 th/mm3 (0.0-0.9); Mono % (Auto) 6.9 % (0.0-8.0); Neut # (Auto) 9.6 th/mm3 (1.8-7.7); Neut % (Auto) 76.6 % (16.0-70.0); Platelet Count 269 th/mm3 (150-450); Red Blood Count 3.18 mil/mm3 (4.50-5.90); Red Cell Distribution Width 14.4 % (11.6-17.2); White Blood Count 12.6 th/mm3 (4.0-11.0)
[2018-08-04 05:15] LABS: Carbon Dioxide 24.7 meq/L (21.0-32.0); Potassium 3.9 meq/L (3.5-5.1)
[2018-08-04] MEDS: Chlorhexidine Gluconate 2% 1 Pack (2 Cloths) TOPICAL SCH (06:22)
[2018-08-04] MEDS: Senna/Docusate Sodium 8.6/50 MG Tablet PO SCH ×3 (09:59→23:00)
[2018-08-04] MEDS: Enoxaparin Inj 30 MG/0.3 ML Syringe SQ SCH ×3 (09:59→23:00)
[2018-08-04] MEDS: levETIRAcetam 500 MG Tablet PO SCH ×3 (09:59→23:00)
[2018-08-04] MEDS: Pantoprazole Inj 40 MG Vial IV.PUSH SCH (10:00)
--- NOTE | 2018-08-04 10:13 | P.PN ---
Subjective Interval history: In bed sleepy. Does not appear in acute distress. No events overnight. Physical Exam Vital signs: Vital Signs 08/03/18 11:39 08/03/18 12:00 08/03/18 16:14 Temperature 98.3 F Pulse Rate 81 78 77 Respiratory Rate 16 20 16 Blood Pressure 163/79 H Pulse Oximetry 95 08/03/18 20:00 08/03/18 20:24 08/04/18 00:00 Temperature 97.1 F L 97.9 F Pulse Rate 88 89 80 Respiratory Rate 14 16 16 Blood Pressure 153/65 H 166/80 H Pulse Oximetry 94 L 95 93 L 08/04/18 04:48 08/04/18 08:00 08/04/18 08:23 Temperature 97.4 F L Pulse Rate 86 76 Respiratory Rate 18 17 19 Blood Pressure 175/81 H Pulse Oximetry 93 L Intake & Output 08/03/18 08/04/18 08/04/18 18:59 06:59 18:59 Intake Total 300 / 300 630 / 630 Output Total 800 / 800 575 / 575 Balance -500 / -500 55 / 55 Weight 91.1 kg Intake: IV 300 / 300 150 / 150 Azithromycin Inj 250 MG In NS 250 / 250 Inj 250 ML @ 250 mls/hr IV.SIG Q24H SRIDHAR Rx#:[id number] Zosyn 3.375 GM Premix 50 ML @ 50 / 50 150 / 150 100 mls/hr IV.SIG Q6H SRIDHAR Rx#: [id number] Oral 480 / 480 Output: Urine 575 / 575 Urine Amount (Catheter) 800 / 800 Indwelling Temp Sensing 800 / 800 Catheter Other: Date of Last Bowel Movement 08/03/18 # Incontinent Bowel Movements 2 Narrative: GENERAL: pleasant 87-year-old male resting in bed in no acute distress on nasal cannula SKIN: Warm and dry. Multiple ecchymoses bilateral upper and lower extremities CARDIOVASCULAR: Regular rate and rhythm. S1, S2 predose 4. RESPIRATORY: No accessory muscle use. Clear to auscultation. Breath sounds equal bilaterally. GASTROINTESTINAL: Abdomen soft, non-tender, nondistended. Hepatic and splenic margins not palpable. MUSCULOSKELETAL: Extremities without significant peripheral edema. No obvious deformities. NEUROLOGICAL: Awake and alert. No obvious cranial nerve deficits. Motor grossly within normal limits. Five out of 5 muscle strength in the arms and legs except left lower extremity with minimal movement. Normal speech. PSYCHIATRIC: Appropriate mood and affect; insight and judgment normal. - Urinary Catheter Management Indwelling Urethral Catheter Cath placed during this visit: yes, but has since been removed by the nurse Reason for continuing: Chronic Urinary Retention Insertion date: 07/30/18 Insertion time: 13:00 Removal date: 07/31/18 Removal time: 02:00 Indwelling Temp Sensing Catheter Cath placed during this visit: yes, but has since been removed by the nurse Reason for continuing: Chronic Urinary Retention Insertion date: 08/02/18 Insertion time: 05:00 Removal date: 08/02/18 Removal time: 01:00 Results - Labs CBC & Chem 7: 08/04/18 04:14 08/04/18 04:14 Laboratory Results - last 24 hr 08/02/18 08/03/18 08/04/18 18:28 17:54 00:01 WBC RBC Hgb Hct MCV MCH MCHC RDW Plt Count MPV Neut % (Auto) Lymph % (Auto) [place] % (Auto) Eos % (Auto) Baso % (Auto) Neut # (Auto) Lymph # (Auto) [place] # (Auto) Eos # (Auto) Baso # (Auto) WBC Differential Differential Comment Sodium Potassium Chloride Carbon Dioxide Anion Gap BUN Creatinine Estimated GFR POC Glucose 170 H 165 H 190 H Random Glucose Calcium 08/04/18 08/04/18 08/04/18 04:14 04:14 05:57 WBC 12.6 H RBC 3.18 L Hgb 11.0 L Hct 32.1 L MCV 100.9 H MCH 34.5 H MCHC 34.2 RDW 14.4 Plt Count 269 MPV 7.0 Neut % (Auto) 76.6 H Lymph % (Auto) 11.8 [place] % (Auto) 6.9 Eos % (Auto) 4.0 Baso % (Auto) 0.7 Neut # (Auto) 9.6 H Lymph # (Auto) 1.5 [place] # (Auto) 0.9 Eos # (Auto) 0.5 H Baso # (Auto) 0.1 WBC Differential . 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 every 6 hours as needed fever/pain 1 through 10 Avoid sedatives CV: Severe sepsis likely secondary to urinary tract infection/healthcare associated pneumonia Coronary artery disease status post stent to the LAD/RCA 2016 History of inferior myocardial infarction Essential hypertension Hyperlipidemia Lactic acidosis Elevated troponin EKG admission old inferior Q waves. Tachycardia. Normal [place]/QRS and QT intervals. Troponin likely type II non-STEMI due to sepsis. Will check echocardiogram. EKG unchanged from previous with left axis deviation/old Q waves inferior leads. Serial lactates until cleared. Currently 1.4 Holding atorvastatin 40 mg a day for dyslipidemia. Resume when clinically indicated Holding carvedilol 3.125 mg twice daily hydralazine 25 mg 3 times daily and losartan 50 mg daily for hypertension while on vasopressors/acute kidney injury. Resp: Acute respiratory insufficiency Nasal cannula to maintain saturations greater than equal to 92% Incentive spirometry while awake Albuterol/ipratropium aerosols every 4 hours with albuterol every 2 as needed dyspnea. Follow-up chest x-ray in 07/31 Chest x-ray admission revealed bronchiectasis bilaterally. CT emesis revealed tiny bilateral pleural effusions GI: Hypoalbuminemia/moderate protein calorie malnutrition Patient with currently on regular diet nectar thickened/chemical soft Speech therapy to evaluate swallow and advance diet as tolerated Pantoprazole for GI prophylaxis Docusate/senna 1 tablet twice daily for bowel regimen CT abdomen/pelvis complete. Results revealed a balloon of Calixto f prostate. Adjusted. : Urethral stone Patient was been followed by Dr. Valerio for outpatient removal of Calixto. Maintain Calixto for now and set up appointment for outpatient removal. Continue Flomax Endo: Sliding scale insulin Accu-Cheks with aspart insulin every 6 hours to maintain euglycemia Check TSH -1.21 Renal: Acute kidney injury in the setting of chronic kidney disease stage IIIb No hydronephrosis on CT abdomen/pelvis. Negative urine eosinophils Avoid nephrotoxic medication Monitor urine output Accurate I's and O's Heme: Basal cell carcinoma of the face Actinic keratosis Leukocytosis Microcytic anemia Right peroneal/posterior tibial DVT, left cephalic superficial thrombus Monitor CBC daily. Follow trends. No indication for transfusion of blood products at this time. Cleared for subcu Lovenox per neurosurgery prior to admission. At current dosage enoxaparin 30 mg twice daily ID: Severe sepsis secondary to UTI present on admission/healthcare associated pneumonia Received cefepime, tobramycin and azithromycin ED. We will start on vancomycin/piperacillin/tazobactam azithromycin day #3 Blood cultures are negative candy bacteremia. UA pending Influenza AB/B/Legionella pneumococcal urine antigens pending. Sputum pending Msk: Left lower extremity weakness secondary to traumatic brain injury PT evaluate and treat FEN: Status post 3 L normal saline in ED. Replace electrolytes as clinically indicated Speech therapy evaluate and treat. Currently normal saline 84 cc an hour.. Discontinue 08/01 Prophylaxis -GI - pantoprazole -DVT -SCDs to left lower extremity only. Enoxaparin. 30 mg subcu twice daily okayed by neurosurgery prior to admission Consult PT for evaluation change status to out of bed with physical therapy. Possible discharge in 1-2 days when improves. Patient will need correction facility going back to his SNF
[2018-08-04] MEDS: Azithromycin Inj 250 MG in Sodium Chlor 0.9% Inj 250 ML IV.SIG SCH (12:38)
[2018-08-05 05:48] LABS: Baso # (Auto) 0.1 th/mm3 (0.0-0.2); Baso % (Auto) 0.6 % (0.0-2.0); Eos # (Auto) 0.6 th/mm3 (0.0-0.4); Eos % (Auto) 4.6 % (0.0-4.0); Hematocrit 31.9 % (39.0-51.0); Hemoglobin 11.1 gm/dL (13.0-17.0); Lymph # (Auto) 1.6 th/mm3 (1.0-4.8); Mean Corpuscular HGB Conc 34.9 % (32.0-36.0); Mean Corpuscular Hemoglobin 34.8 pg (27.0-34.0); Mean Corpuscular Volume 99.7 fL (80.0-100.0); Mean Platelet Volume 7.1 fL (7.0-11.0); Mono # (Auto) 0.8 th/mm3 (0.0-0.9); Mono % (Auto) 6.1 % (0.0-8.0); Neut # (Auto) 10.2 th/mm3 (1.8-7.7); Neut % (Auto) 76.7 % (16.0-70.0); Platelet Count 275 th/mm3 (150-450); Red Cell Distribution Width 14.4 % (11.6-17.2); White Blood Count 13.3 th/mm3 (4.0-11.0)
[2018-08-05 06:18] LABS: Calcium 8.3 mg/dL (8.5-10.1); Carbon Dioxide 25.1 meq/L (21.0-32.0); Potassium 3.9 meq/L (3.5-5.1)
[2018-08-05] MEDS: Acetaminophen 325 MG Tablet PO PRN ×3 (06:43→23:59)
[2018-08-05] MEDS: Insulin NovoLOG Aspart Correctional Sugar Inj SQ SCH ×3 (07:50→17:51)
[2018-08-05] MEDS: Piperacil/Tazo 3.375 GM Premix 50 ML IV.SIG SCH ×3 (07:52→17:51)
[2018-08-05] MEDS: Senna/Docusate Sodium 8.6/50 MG Tablet PO SCH ×2 (09:33→22:33)
[2018-08-05] MEDS: levETIRAcetam 500 MG Tablet PO SCH ×2 (09:33→22:28)
[2018-08-05] MEDS: Pantoprazole Inj 40 MG Vial IV.PUSH SCH (09:33)
[2018-08-05] MEDS: Enoxaparin Inj 30 MG/0.3 ML Syringe SQ SCH ×2 (09:34→22:29)
[2018-08-05] MEDS: Sodium Chloride 0.45 % Inj 1,000 ML IV.CONT SCH (09:37)
--- NOTE | 2018-08-05 16:03 | P.PN ---
Subjective Interval history: More awake and alert. Complaining of neck pain today. Says he has chronic neck pain however is worse today. No fever or chills No n/v/d/c. Not coughing. Physical Exam Vital signs: Vital Signs 08/04/18 16:08 08/04/18 19:46 08/04/18 20:00 Temperature 97.8 F Pulse Rate 83 89 88 Respiratory Rate 18 16 18 Blood Pressure 156/76 H Pulse Oximetry 98 94 L 08/05/18 00:00 08/05/18 07:40 08/05/18 08:00 Temperature 97.6 F 97.8 F Pulse Rate 84 79 91 H Respiratory Rate 18 20 18 Blood Pressure 168/75 H 156/79 H Pulse Oximetry 94 L 91 L 92 L 08/05/18 12:00 Temperature 97.3 F L Pulse Rate 72 Respiratory Rate 17 Blood Pressure 151/74 H Pulse Oximetry 97 Intake & Output 08/04/18 08/05/18 08/05/18 18:59 06:59 18:59 Intake Total 350 / 350 60 / 60 150 / 150 Output Total 875 / 875 Balance 350 / 350 -815 / -815 150 / 150 Weight 73.8 kg Intake: IV 350 / 350 150 / 150 Azithromycin Inj 250 MG In NS 250 / 250 Inj 250 ML @ 250 mls/hr IV.SIG Q24H [facility] Rx#:[id number] Zosyn 3.375 GM Premix 50 ML @ 100 / 100 150 / 150 100 mls/hr IV.SIG Q6H SR[facility] Rx#: [id number] Oral 60 / 60 Output: Urine Amount (Catheter) 875 / 875 Indwelling Temp Sensing 875 / 875 Catheter Other: Date of Last Bowel Movement 08/04/18 08/04/18 Narrative: GENERAL: pleasant 87-year-old male resting in bed. Patient with mal posture in bed, complaining of neck pain. SKIN: Warm and dry. Multiple ecchymoses bilateral upper and lower extremities CARDIOVASCULAR: Regular rate and rhythm. S1, S2 predose 4. RESPIRATORY: No accessory muscle use. Clear to auscultation. Breath sounds equal bilaterally. GASTROINTESTINAL: Abdomen soft, non-tender, nondistended. Hepatic and splenic margins not palpable. MUSCULOSKELETAL: Extremities without significant peripheral edema. No obvious deformities. NEUROLOGICAL: Awake and alert. No obvious cranial nerve deficits. Motor grossly within normal limits. Five out of 5 muscle strength in the arms and legs except left lower extremity with minimal movement. Normal speech. PSYCHIATRIC: Appropriate mood and affect; insight and judgment normal. - Urinary Catheter Management Indwelling Urethral Catheter Cath placed during this visit: yes, but has since been removed by the nurse Reason for continuing: Chronic Urinary Retention Insertion date: 07/30/18 Insertion time: 13:00 Removal date: 07/31/18 Removal time: 02:00 Indwelling Temp Sensing Catheter Cath placed during this visit: yes, but has since been removed by the nurse Reason for continuing: Chronic Urinary Retention Insertion date: 08/02/18 Insertion time: 05:00 Removal date: 08/02/18 Removal time: 01:00 Results - Labs CBC & Chem 7: 08/05/18 04:41 08/05/18 04:41 Laboratory Results - last 24 hr 08/04/18 08/04/18 08/05/18 17:18 23:47 04:41 WBC 13.3 H RBC 3.20 L Hgb 11.1 L Hct 31.9 L MCV 99.7 MCH 34.8 H MCHC 34.9 RDW 14.4 Plt Count 275 MPV 7.1 Neut % (Auto) 76.7 H Lymph % (Auto) 12.0 [place] % (Auto) 6.1 Eos % (Auto) 4.6 H Baso % (Auto) 0.6 Neut # (Auto) 10.2 H Lymph # (Auto) 1.6 [place] # (Auto) 0.8 Eos # (Auto) 0.6 H Baso # (Auto) 0.1 WBC Differential . Differential Comment Auto diff final Sodium Potassium Chloride Carbon Dioxide Anion Gap BUN Creatinine Estimated GFR POC Glucose 190 H 198 H Random Glucose Calcium 08/05/18 08/05/18 04:41 12:56 WBC RBC Hgb Hct MCV MCH MCHC RDW Plt Count MPV Neut % (Auto) Lymph % (Auto) [place] % (Auto) Eos % (Auto) Baso % (Auto) Neut # (Auto) Lymph # (Auto) [place] # (Auto) Eos # (Auto) Baso # (Auto) WBC Differential Differential Comment Sodium 144 Potassium 3.9 Chloride 112 H Carbon Dioxide 25.1 Anion Gap 7 BUN 22 H Creatinine 1.43 H Estimated GFR 47 L POC Glucose 161 H Random Glucose 92 Calcium 8.3 L Microbiology 08/03/18 21:50 Blood - Peripheral Aerobic Blood Culture - Preliminary No growth in 2 days 08/03/18 21:50 Blood - Peripheral Anaerobic Blood Culture - Preliminary No growth in 2 days 08/03/18 21:45 Blood - Peripheral Aerobic Blood Culture - Preliminary No growth in 2 days 08/03/18 21:45 Blood - Peripheral Anaerobic Blood Culture - Preliminary No growth in 2 days 08/03/18 19:11 Catheterized Urine Urine Culture - Final No growth in 48 hours 07/30/18 08:13 Blood - Peripheral Aerobic Blood Culture - Final No growth in 5 days 07/30/18 08:13 Blood - Peripheral Anaerobic Blood Culture - Final Klebsiella pneumoniae Assessment and Plan - Plan 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 every 6 hours as needed fever/pain 1 through 10 Avoid sedatives CV: Severe sepsis likely secondary to urinary tract infection/healthcare associated pneumonia Coronary artery disease status post stent to the LAD/RCA 2015 History of inferior myocardial infarction Essential hypertension Hyperlipidemia Lactic acidosis Elevated troponin EKG admission old inferior Q waves. Tachycardia. Normal [place]/QRS and QT intervals. Troponin likely type II non-STEMI due to sepsis. Will check echocardiogram. EKG unchanged from previous with left axis deviation/old Q waves inferior leads. Serial lactates until cleared. Currently 1.4 Holding atorvastatin 40 mg a day for dyslipidemia. Resume when clinically indicated Holding carvedilol 3.125 mg twice daily hydralazine 25 mg 3 times daily and losartan 50 mg daily for hypertension while on vasopressors/acute kidney injury. Resp: Acute respiratory insufficiency Nasal cannula to maintain saturations greater than equal to 92% Incentive spirometry while awake Albuterol/ipratropium aerosols every 4 hours with albuterol every 2 as needed dyspnea. Follow-up chest x-ray in 07/31 Chest x-ray admission revealed bronchiectasis bilaterally. CT emesis revealed tiny bilateral pleural effusions GI: Hypoalbuminemia/moderate protein calorie malnutrition Patient with currently on regular diet nectar thickened/chemical soft Speech therapy to evaluate swallow and advance diet as tolerated Pantoprazole for GI prophylaxis Docusate/senna 1 tablet twice daily for bowel regimen CT abdomen/pelvis complete. Results revealed a balloon of Calixto f prostate. Adjusted. : Urethral stone Patient was been followed by Dr. Valerio for outpatient removal of Calixto. Maintain Calixto for now and set up appointment for outpatient removal. Continue Flomax Endo: Sliding scale insulin Accu-Cheks with aspart insulin every 6 hours to maintain euglycemia Check TSH -1.21 Renal: Acute kidney injury in the setting of chronic kidney disease stage IIIb No hydronephrosis on CT abdomen/pelvis. Negative urine eosinophils Avoid nephrotoxic medication Monitor urine output Accurate I's and O's Heme: Basal cell carcinoma of the face Actinic keratosis Leukocytosis Microcytic anemia Right peroneal/posterior tibial DVT, left cephalic superficial thrombus Monitor CBC daily. Follow trends. No indication for transfusion of blood products at this time. Cleared for subcu Lovenox per neurosurgery prior to admission. At current dosage enoxaparin 30 mg twice daily ID: Severe sepsis secondary to UTI present on admission/healthcare associated pneumonia Received cefepime, tobramycin and azithromycin ED. We will start on vancomycin/piperacillin/tazobactam azithromycin Blood cultures are negative candy bacteremia. UA klebsiela pneu. Also with blood cultures positive for klebsiell pneumoniae. Repeat Blood cx NTD. Repeat Urine cultures negative so far. Influenza AB/B/Legionella pneumococcal urine antigens pending. Sputum cx not obtained Msk: Left lower extremity weakness secondary to traumatic brain injury PT evaluate and treat Add OT eval Mal- posture in bed Neck pain will do X ray. Add flexeryl patient with muscle spasm. FEN: Status post 3 L normal saline in ED. Replace electrolytes as clinically indicated Speech therapy evaluate and treat. Currently normal saline 84 cc an hour.. Discontinue 08/01 Prophylaxis -GI - pantoprazole -DVT -SCDs to left lower extremity only. Enoxaparin. 30 mg subcu twice daily okayed by neurosurgery prior to admission Consult PT for evaluation change status to out of bed with physical therapy. Discharge when improves and cleared by ID, currently on IV abx, repeat blood cx pending . Patient will need assisted facility going back to his SNF.
--- NOTE | 2018-08-05 16:48 | XR ---
EXAM DATE: 08/05/2018 4:43 PM EST AGE/SEX: 87 years / Male INDICATIONS: Neck pain. CLINICAL DATA: This is the patient's initial encounter. Patient reports that signs and symptoms have been present for 1 week and indicates a pain score of 4/10. MEDICAL/SURGICAL HISTORY: None. None. COMPARISON: No prior exams available for comparison. FINDINGS: Two-view examination of the soft tissues of the neck demonstrates the hypopharyngeal airway to have a grossly normal configuration. The trachea is midline. No radiopaque foreign bodies are seen. CONCLUSION: No evidence of airway obstruction. Electronically signed by: Janes Peters MD 08/05/2018 4:47 PM EST
[2018-08-06] MEDS: Piperacil/Tazo 3.375 GM Premix 50 ML IV.SIG SCH ×4 (00:10→17:29)
[2018-08-06] MEDS: Insulin NovoLOG Aspart Correctional Sugar Inj SQ SCH ×4 (00:15→17:22)
[2018-08-06] MEDS: Sodium Chloride 0.45 % Inj 1,000 ML IV.CONT SCH ×2 (03:30→20:03)
[2018-08-06 05:55] LABS: Baso # (Auto) 0.1 th/mm3 (0.0-0.2); Baso % (Auto) 0.8 % (0.0-2.0); Eos # (Auto) 0.6 th/mm3 (0.0-0.4); Eos % (Auto) 5.6 % (0.0-4.0); Hemoglobin 10.7 gm/dL (13.0-17.0); Lymph # (Auto) 1.4 th/mm3 (1.0-4.8); Lymph % (Auto) 13.8 % (9.0-44.0); Mean Corpuscular HGB Conc 34.4 % (32.0-36.0); Mean Corpuscular Hemoglobin 34.8 pg (27.0-34.0); Mean Corpuscular Volume 101.1 fL (80.0-100.0); Mean Platelet Volume 7.1 fL (7.0-11.0); Mono # (Auto) 0.5 th/mm3 (0.0-0.9); Neut # (Auto) 7.7 th/mm3 (1.8-7.7); Neut % (Auto) 74.8 % (16.0-70.0); Platelet Count 257 th/mm3 (150-450); Red Blood Count 3.07 mil/mm3 (4.50-5.90); Red Cell Distribution Width 14.2 % (11.6-17.2); White Blood Count 10.3 th/mm3 (4.0-11.0)
[2018-08-06 05:58] LABS: Calcium 8.3 mg/dL (8.5-10.1); Carbon Dioxide 26.2 meq/L (21.0-32.0); Potassium 3.8 meq/L (3.5-5.1)
[2018-08-06] MEDS: Acetaminophen 325 MG Tablet PO PRN (09:22)
[2018-08-06] MEDS: levETIRAcetam 500 MG Tablet PO SCH ×2 (09:25→21:08)
[2018-08-06] MEDS: Senna/Docusate Sodium 8.6/50 MG Tablet PO SCH ×2 (09:26→21:08)
--- NOTE | 2018-08-06 09:29 | P.PN ---
Subjective Interval history: With neck pain, did not use Flexeril but would like to try now. No narcotic as doesn't want to become confused. No fever or chills .Some cough nonproductive , feels tired. Eating better. Physical Exam Vital signs: Vital Signs 08/05/18 12:00 08/05/18 16:00 08/05/18 20:00 Temperature 97.3 F L 97.7 F 97.9 F Pulse Rate 72 80 78 Respiratory Rate 17 18 22 Blood Pressure 151/74 H 182/88 H 156/74 H Pulse Oximetry 97 95 94 L 08/06/18 00:00 08/06/18 08:00 Temperature 97.8 F 97.4 F L Pulse Rate 92 H 90 Respiratory Rate 22 18 Blood Pressure 117/59 L 142/63 H Pulse Oximetry 94 L 93 L Intake & Output 08/05/18 08/06/18 08/06/18 18:59 06:59 18:59 Intake Total 630 / 630 1100 / 1100 Output Total 750 / 750 1000 / 1000 Balance -120 / -120 1100 / 1100 -1000 / -1000 Weight 72.4 kg Intake: IV 150 / 150 1100 / 1100 1/2 Normal Saline Inj 1,000 ML 1000 / 1000 @ 70 mls/hr IV.CONT .[id number] [facility] Rx#:[id number] Zosyn 3.375 GM Premix 50 ML @ 150 / 150 100 / 100 100 mls/hr IV.SIG Q6H [facility] Rx#: [id number] Oral 480 / 480 Output: Urine 1000 / 1000 Urine Amount (Catheter) 750 / 750 Indwelling Temp Sensing 750 / 750 Catheter Other: Date of Last Bowel Movement 08/04/18 08/05/18 # Bowel Movements 1 # Incontinent Bowel Movements 1 Narrative: GENERAL: pleasant 87-year-old male resting in bed. Patient with mal posture in bed, complaining of neck pain. SKIN: Warm and dry. Multiple ecchymoses bilateral upper and lower extremities CARDIOVASCULAR: Regular rate and rhythm. S1, S2 predose 4. RESPIRATORY: No accessory muscle use. Clear to auscultation. Breath sounds equal bilaterally. GASTROINTESTINAL: Abdomen soft, non-tender, nondistended. Hepatic and splenic margins not palpable. MUSCULOSKELETAL: Extremities without significant peripheral edema. No obvious deformities. NEUROLOGICAL: Awake and alert. No obvious cranial nerve deficits. Motor grossly within normal limits. Five out of 5 muscle strength in the arms and legs except left lower extremity with minimal movement. Normal speech. PSYCHIATRIC: Appropriate mood and affect; insight and judgment normal. - Urinary Catheter Management Indwelling Urethral Catheter Cath placed during this visit: yes, but has since been removed by the nurse Reason for continuing: Chronic Urinary Retention Insertion date: 07/30/18 Insertion time: 13:00 Removal date: 07/31/18 Removal time: 02:00 Indwelling Temp Sensing Catheter Cath placed during this visit: yes, but has since been removed by the nurse Reason for continuing: Chronic Urinary Retention Insertion date: 08/02/18 Insertion time: 05:00 Removal date: 08/02/18 Removal time: 01:00 Straight Cath placed during this visit: yes Reason for continuing: Not indwelling catheter Insertion date: 08/06/18 Insertion time: 04:15 Results - Labs CBC & Chem 7: 08/06/18 04:40 08/06/18 04:40 Laboratory Results - last 24 hr 08/05/18 08/05/18 08/06/18 12:56 17:26 00:13 WBC RBC Hgb Hct MCV MCH MCHC RDW Plt Count MPV Neut % (Auto) Lymph % (Auto) [place] % (Auto) Eos % (Auto) Baso % (Auto) Neut # (Auto) Lymph # (Auto) [place] # (Auto) Eos # (Auto) Baso # (Auto) WBC Differential Differential Comment Sodium Potassium Chloride Carbon Dioxide Anion Gap BUN Creatinine Estimated GFR POC Glucose 161 H 205 H 111 H Random Glucose Calcium 08/06/18 08/06/18 08/06/18 04:40 04:40 08:04 WBC 10.3 RBC 3.07 L Hgb 10.7 L Hct 31.0 L MCV 101.1 H MCH 34.8 H MCHC 34.4 RDW 14.2 Plt Count 257 MPV 7.1 Neut % (Auto) 74.8 H Lymph % (Auto) 13.8 [place] % (Auto) 5.0 Eos % (Auto) 5.6 H Baso % (Auto) 0.8 Neut # (Auto) 7.7 Lymph # (Auto) 1.4 [place] # (Auto) 0.5 Eos # (Auto) 0.6 H Baso # (Auto) 0.1 WBC Differential . Differential Comment Auto diff final Sodium 143 Potassium 3.8 Chloride 110 H Carbon Dioxide 26.2 Anion Gap 7 BUN 19 H Creatinine 1.43 H Estimated GFR 47 L POC Glucose 83 Random Glucose 88 Calcium 8.3 L Microbiology 08/03/18 21:50 Blood - Peripheral Aerobic Blood Culture - Preliminary No growth in 2 days 08/03/18 21:50 Blood - Peripheral Anaerobic Blood Culture - Preliminary No growth in 2 days 08/03/18 21:45 Blood - Peripheral Aerobic Blood Culture - Preliminary No growth in 2 days 08/03/18 21:45 Blood - Peripheral Anaerobic Blood Culture - Preliminary No growth in 2 days 08/03/18 19:11 Catheterized Urine Urine Culture - Final No growth in 48 hours - Imaging Impressions Soft Tissue Neck X-Ray 08/05/18 00:00 CONCLUSION: No evidence of airway obstruction. Assessment and Plan - Plan Traumatic brain injury with right subdural hematoma/left subarachnoid hemorrhage previous on prior admission History of essential tremor CT brain 07/30 revealed stable right subdural hematoma Holding baclofen 10 mg twice daily Acetaminophen 650 p.o. every 6 hours as needed fever/pain 1 through 10 Avoid sedatives CV: Severe sepsis likely secondary to urinary tract infection/healthcare associated pneumonia Coronary artery disease status post stent to the LAD/RCA 2016 History of inferior myocardial infarction Essential hypertension Hyperlipidemia Lactic acidosis Elevated troponin EKG admission old inferior Q waves. Tachycardia. Normal VT/QRS and QT intervals. Troponin likely type II non-STEMI due to sepsis. Will check echocardiogram. EKG unchanged from previous with left axis deviation/old Q waves inferior leads. Serial lactates until cleared. Currently 1.4 Holding atorvastatin 40 mg a day for dyslipidemia. Resume when clinically indicated Holding carvedilol 3.125 mg twice daily hydralazine 25 mg 3 times daily and losartan 50 mg daily for hypertension while on vasopressors/acute kidney injury. Resp: Acute respiratory insufficiency Nasal cannula to maintain saturations greater than equal to 92% Incentive spirometry while awake Albuterol/ipratropium aerosols every 4 hours with albuterol every 2 as needed dyspnea. Follow-up chest x-ray in 07/31 Chest x-ray admission revealed bronchiectasis bilaterally. CT emesis revealed tiny bilateral pleural effusions GI: Hypoalbuminemia/moderate protein calorie malnutrition Patient with currently on regular diet nectar thickened/chemical soft Speech therapy to evaluate swallow and advance diet as tolerated Pantoprazole for GI prophylaxis Docusate/senna 1 tablet twice daily for bowel regimen CT abdomen/pelvis complete. Results revealed a balloon of Calixto f prostate. Adjusted. : Urethral stone Patient was been followed by Dr. Valerio for outpatient removal of Calixto. Maintain Calixto for now and set up appointment for outpatient removal. Continue Flomax Endo: Sliding scale insulin Accu-Cheks with aspart insulin every 6 hours to maintain euglycemia Check TSH -1.21 Renal: Acute kidney injury in the setting of chronic kidney disease stage IIIb No hydronephrosis on CT abdomen/pelvis. Negative urine eosinophils Avoid nephrotoxic medication Monitor urine output Accurate I's and O's Heme: Basal cell carcinoma of the face Actinic keratosis Leukocytosis Microcytic anemia Right peroneal/posterior tibial DVT, left cephalic superficial thrombus Monitor CBC daily. Follow trends. No indication for transfusion of blood products at this time. Cleared for subcu Lovenox per neurosurgery prior to admission. At current dosage enoxaparin 30 mg twice daily ID: Severe sepsis secondary to UTI present on admission/healthcare associated pneumonia Received cefepime, tobramycin and azithromycin ED. We will start on vancomycin/piperacillin/tazobactam azithromycin Blood cultures are negative candy bacteremia. UA klebsiela pneu. Also with blood cultures positive for klebsiell pneumoniae. Repeat Blood cx NTD. Repeat Urine cultures negative so far. Influenza AB/B/Legionella pneumococcal urine antigens pending. Sputum cx not obtained Msk: Left lower extremity weakness secondary to traumatic brain injury PT evaluate and treat Add OT eval Mal- posture in bed Neck pain X ray neck reviewed normal. Add Flexeril patient with muscle spasm. FEN: Status post 3 L normal saline in ED. Replace electrolytes as clinically indicated Speech therapy evaluate and treat. Currently normal saline 84 cc an hour.. Discontinue 08/01 Prophylaxis -GI - pantoprazole -DVT -SCDs to left lower extremity only. Enoxaparin. 30 mg subcu twice daily okayed by neurosurgery prior to admission Consult PT for evaluation change status to out of bed with physical therapy. Discharge when improves and cleared by ID, currently on IV abx, repeat blood cx pending . Patient will need long-term facility going back to his SNF.
[2018-08-06] MEDS: Enoxaparin Inj 30 MG/0.3 ML Syringe SQ SCH ×2 (09:41→21:09)
[2018-08-06] MEDS: Pantoprazole Inj 40 MG Vial IV.PUSH SCH (09:41)
[2018-08-07] MEDS: Piperacil/Tazo 3.375 GM Premix 50 ML IV.SIG SCH ×4 (00:35→17:31)
[2018-08-07] MEDS: Insulin NovoLOG Aspart Correctional Sugar Inj SQ SCH ×4 (00:38→17:51)
[2018-08-07] MEDS: Acetaminophen 325 MG Tablet PO PRN ×3 (01:34→22:22)
[2018-08-07] MEDS: Sodium Chloride 0.45 % Inj 1,000 ML IV.CONT SCH ×2 (03:24→15:43)
[2018-08-07] MEDS: Senna/Docusate Sodium 8.6/50 MG Tablet PO SCH ×2 (09:07→22:07)
[2018-08-07] MEDS: Enoxaparin Inj 30 MG/0.3 ML Syringe SQ SCH ×2 (09:08→22:06)
[2018-08-07] MEDS: levETIRAcetam 500 MG Tablet PO SCH ×2 (09:08→22:06)
[2018-08-07] MEDS: Pantoprazole Inj 40 MG Vial IV.PUSH SCH (09:15)
--- NOTE | 2018-08-07 11:37 | MB ---
cc: JrLjn Terry DO DATE: 08/07/2018 HISTORY OF PRESENT ILLNESS: This is an 87-year-old male who was admitted on 07/30/2018 with sepsis. He was noted to have a fever of 103.4 and was hypotensive. He was at a rehab center at that time. His blood cultures grew out Klebsiella and the patient is noted to have a large bladder stone and also a right lower pole stone. He states he gets up 1-2 times at night to urinate and states his stream is moderate. He is somewhat of a poor historian and most of this information will be obtained from the chart. PAST MEDICAL HISTORY: Includes actinic keratosis, BPH, basal cell carcinoma of the face, carcinoma of the colon, chronic kidney disease, stage III, hyperlipidemia, hypertension, insomnia, coronary artery disease with prior ME, tremor. PAST SURGICAL HISTORY: Cardiac catheterization. FAMILY HISTORY: No family history of prostate cancer is noted. SOCIAL HISTORY: Denies smoking, drinking or using drugs. MEDICATIONS: Please refer to the chart. ALLERGIES: HE HAS NO KNOWN DRUG ALLERGIES. REVIEW OF SYSTEMS: Denies chest pain, shortness of breath, abdominal pain, diarrhea or constipation. He does note left lower leg swelling. Remaining review of systems were reviewed and were negative. PHYSICAL EXAMINATION: VITAL SIGNS: Today, temperature 98.1, heart rate 83, respiratory rate 17, blood pressure 145/67. GENERAL: He is a thin 87-year-old male in no acute distress. HEENT: Normocephalic, atraumatic. Pupils equal, round, regular and reactive to light. Extraocular movements intact. NECK: Supple. HEART: Regular rate and rhythm. LUNGS: Clear. ABDOMEN: Soft, nontender, nondistended. GENITOURINARY: Calixto is draining, in good position, clear urine. EXTREMITIES: Left lower extremity is swollen. NEUROLOGIC: Cranial nerves 2-12 are intact. LABORATORY DATA: White count 10.3, hemoglobin 10.7, hematocrit 31.0, platelet count 257. Sodium 143, potassium 3.8, chloride 110, CO2 of 26.2, BUN 19, creatinine 1.4, glucose 88. Urinalysis, large leukocyte esterase. Urine culture from 07/30/2018 grew out Klebsiella pneumoniae, as well as did his blood cultures. IMAGING STUDIES: A CT scan of the abdomen and pelvis demonstrated a large bladder stone and small stones noted in the right lower pole of the kidney. No hydronephrosis was noted. A large right renal cyst was identified. ASSESSMENT AND PLAN: This is an 87-year-old male with sepsis secondary to a urinary tract infection due to Klebsiella pneumoniae. Would recommend maintaining the Calixto catheter for now. The patient will need a cystolitholapaxy to treat his bladder stone and will require lithotripsy in the future on the right kidney to treat his right lower pole stone. Klebsiella is usually due to stone formation and these will need to be treated to prevent further sepsis in the future. This can be done as an outpatient and he can either follow up in our clinic or follow up with his local urologist, but would maintain the Calixto catheter until further treatment can be performed. Thank you for the consult and allowing me to participate in the care of this patient. DO Hernán Cornejo , 08:56 AM , 09:04 AM
--- NOTE | 2018-08-07 13:06 | P.PN ---
Subjective Interval history: The patient is seen bed says he is neck pain is improving some after he received the muscle relaxer. No fever or chills overnight. He is not able to urinate after denney was removed. Patient with urinary retention, denney was placed back. Urology was consulted, discussed with Dr Norris urology. Physical Exam Vital signs: Vital Signs 08/06/18 16:00 08/06/18 20:00 08/07/18 00:00 Temperature 97.5 F L 98 F 97.4 F L Pulse Rate 75 85 81 Respiratory Rate 19 20 20 Blood Pressure 155/79 H 166/79 H 150/74 H Pulse Oximetry 93 L 95 94 L 08/07/18 08:00 08/07/18 12:00 Temperature 98.1 F 97.6 F Pulse Rate 83 79 Respiratory Rate 17 17 Blood Pressure 145/67 H 117/61 Pulse Oximetry 93 L 94 L Intake & Output 08/06/18 08/07/18 08/07/18 18:59 06:59 18:59 Intake Total 1250 / 1250 400 / 400 Output Total 2150 / 2150 1400 / 1400 Balance -900 / -900 -1000 / -1000 Weight 72.6 kg Intake: IV 850 / 850 400 / 400 1/2 Normal Saline Inj 1,000 ML 750 / 750 250 / 250 @ 70 mls/hr IV.CONT .[id number] [facility] Rx#:[id number] Zosyn 3.375 GM Premix 50 ML @ 100 / 100 150 / 150 100 mls/hr IV.SIG Q6H [facility] Rx#: [id number] Oral 400 / 400 Output: Urine 1400 / 1400 Urine Amount (Catheter) 750 / 750 1400 / 1400 Coude 750 / 750 Straight 1400 / 1400 Other: Date of Last Bowel Movement 08/06/18 08/06/18 # Bowel Movements 3 Narrative: GENERAL: pleasant 87-year-old male resting in bed. Patient with mal posture in bed, complaining of neck pain. SKIN: Warm and dry. Multiple ecchymoses bilateral upper and lower extremities CARDIOVASCULAR: Regular rate and rhythm. S1, S2 predose 4. RESPIRATORY: No accessory muscle use. Clear to auscultation. Breath sounds equal bilaterally. GASTROINTESTINAL: Abdomen soft, non-tender, nondistended. Hepatic and splenic margins not palpable. MUSCULOSKELETAL: Extremities without significant peripheral edema. No obvious deformities. NEUROLOGICAL: Awake and alert. No obvious cranial nerve deficits. Motor grossly within normal limits. Five out of 5 muscle strength in the arms and legs except left lower extremity with minimal movement. Normal speech. PSYCHIATRIC: Appropriate mood and affect; insight and judgment normal. - Urinary Catheter Management Indwelling Urethral Catheter Cath placed during this visit: yes, but has since been removed by the nurse Reason for continuing: Chronic Urinary Retention Insertion date: 07/30/18 Insertion time: 13:00 Removal date: 07/31/18 Removal time: 02:00 Indwelling Temp Sensing Catheter Cath placed during this visit: yes, but has since been removed by the nurse Reason for continuing: Chronic Urinary Retention Insertion date: 08/02/18 Insertion time: 05:00 Removal date: 08/02/18 Removal time: 01:00 Straight Cath placed during this visit: yes Reason for continuing: Acute urinary retention Insertion date: 08/06/18 Insertion time: 15:25 Coude Cath placed during this visit: no Results - Labs CBC & Chem 7: 08/06/18 04:40 08/06/18 04:40 Laboratory Results - last 24 hr 08/06/18 08/07/18 08/07/18 16:45 00:38 06:07 POC Glucose 150 H 108 86 08/07/18 11:58 POC Glucose 177 H Microbiology 08/03/18 21:50 Blood - Peripheral Aerobic Blood Culture - Preliminary No growth in 4 days 08/03/18 21:50 Blood - Peripheral Anaerobic Blood Culture - Preliminary No growth in 4 days 08/03/18 21:45 Blood - Peripheral Aerobic Blood Culture - Preliminary No growth in 4 days 08/03/18 21:45 Blood - Peripheral Anaerobic Blood Culture - Preliminary No growth in 4 days Assessment and Plan - Plan 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 every 6 hours as needed fever/pain 1 through 10 Avoid sedatives CV: Severe sepsis likely secondary to urinary tract infection/healthcare associated pneumonia Coronary artery disease status post stent to the LAD/RCA 2015 History of inferior myocardial infarction Essential hypertension Hyperlipidemia Lactic acidosis Elevated troponin EKG admission old inferior Q waves. Tachycardia. Normal NV/QRS and QT intervals. Troponin likely type II non-STEMI due to sepsis. Will check echocardiogram. EKG unchanged from previous with left axis deviation/old Q waves inferior leads. Serial lactates until cleared. Currently 1.4 Holding atorvastatin 40 mg a day for dyslipidemia. Resume when clinically indicated Holding carvedilol 3.125 mg twice daily hydralazine 25 mg 3 times daily and losartan 50 mg daily for hypertension while on vasopressors/acute kidney injury. Resp: Acute respiratory insufficiency Nasal cannula to maintain saturations greater than equal to 92% Incentive spirometry while awake Albuterol/ipratropium aerosols every 4 hours with albuterol every 2 as needed dyspnea. Follow-up chest x-ray in 07/31 Chest x-ray admission revealed bronchiectasis bilaterally. CT emesis revealed tiny bilateral pleural effusions GI: Hypoalbuminemia/moderate protein calorie malnutrition Patient with currently on regular diet nectar thickened/chemical soft Speech therapy to evaluate swallow and advance diet as tolerated Pantoprazole for GI prophylaxis Docusate/senna 1 tablet twice daily for bowel regimen CT abdomen/pelvis complete. Results revealed a balloon of Denney f prostate. Adjusted. : Urethral stone Patient was been followed by Dr. Valerio for outpatient removal of Denney. Maintain Denney for now and set up appointment for outpatient removal. Continue Flomax Needs to keep denney in and to follow up with urology, discussed with Dr Norris , no intervention indicated at this time. Patient to have treated the infection prior to procedure, poss in 2 weeks of DC. Endo: Sliding scale insulin Accu-Cheks with aspart insulin every 6 hours to maintain euglycemia Check TSH -1.21 Renal: Acute kidney injury in the setting of chronic kidney disease stage IIIb No hydronephrosis on CT abdomen/pelvis. Negative urine eosinophils Avoid nephrotoxic medication Monitor urine output Accurate I's and O's Heme: Basal cell carcinoma of the face Actinic keratosis Leukocytosis Microcytic anemia Right peroneal/posterior tibial DVT, left cephalic superficial thrombus Monitor CBC daily. Follow trends. No indication for transfusion of blood products at this time. Cleared for subcu Lovenox per neurosurgery prior to admission. At current dosage enoxaparin 30 mg twice daily ID: Severe sepsis secondary to UTI present on admission/healthcare associated pneumonia Received cefepime, tobramycin and azithromycin ED. We will start on vancomycin/piperacillin/tazobactam azithromycin Blood cultures are negative candy bacteremia. UA klebsiela pneu. Also with blood cultures positive for klebsiell pneumoniae. Repeat Blood cx NTD. Repeat Urine cultures negative so far. Influenza AB/B/Legionella pneumococcal urine antigens pending. Sputum cx not obtained Msk: Left lower extremity weakness secondary to traumatic brain injury PT evaluate and treat Add OT eval Mal- posture in bed Neck pain X ray neck reviewed normal. Add Flexeril patient with muscle spasm. FEN: Status post 3 L normal saline in ED. Replace electrolytes as clinically indicated Speech therapy evaluate and treat. Currently normal saline 84 cc an hour.. Discontinue 08/01 Prophylaxis -GI - pantoprazole -DVT -SCDs to left lower extremity only. Enoxaparin. 30 mg subcu twice daily okayed by neurosurgery prior to admission Consult PT for evaluation change status to out of bed with physical therapy. Discharge when improves and cleared by ID, currently on IV abx, repeat blood cx pending . Patient will need nursing home facility going back to his SNF. Needs to keep denney in and to follow up with urology as OP, discussed with Dr Norris urology, no intervention indicated at this time. Patient to have treated the infection prior to procedure, poss in 2 weeks of DC. Discussed with the patient, nurse, family, Dr Norris urology
[2018-08-08] MEDS: Piperacil/Tazo 3.375 GM Premix 50 ML IV.SIG SCH ×3 (00:48→12:04)
[2018-08-08] MEDS: Sodium Chloride 0.45 % Inj 1,000 ML IV.CONT SCH ×3 (00:48→23:05)
[2018-08-08] MEDS: Insulin NovoLOG Aspart Correctional Sugar Inj SQ SCH ×5 (00:54→23:07)
[2018-08-08] MEDS: Acetaminophen 325 MG Tablet PO PRN ×2 (08:50→17:18)
[2018-08-08] MEDS: levETIRAcetam 500 MG Tablet PO SCH ×2 (08:50→23:05)
[2018-08-08] MEDS: Senna/Docusate Sodium 8.6/50 MG Tablet PO SCH ×2 (08:52→23:05)
[2018-08-08] MEDS: Pantoprazole Inj 40 MG Vial IV.PUSH SCH (08:52)
[2018-08-08] MEDS: Enoxaparin Inj 30 MG/0.3 ML Syringe SQ SCH ×2 (10:26→23:04)
--- NOTE | 2018-08-08 15:41 | P.PNID ---
Subjective Remarks: Patient says he feels okay. He denies chills. No fever. Calixto had to be put back on place because of urine retention. Repeat blood culture is negative. This is an 87-year-old white male who was brought to the emergency department from a rehab facility. The patient developed altered mental status at the rehab facility and he was noted to have a fever, tachycardia and low oxygen saturation. Past Medical History: PAST MEDICAL HISTORY: 1. Coronary artery disease. 2. History of coronary stents 3. Hypertension. 4. Hyperlipidemia. 5. Insomnia. 6. Myocardial infarction. 7. History of chronic kidney disease, stage III. 8. Carcinoma of the colon. 9. Benign prostatic hypertrophy. 10. Basal cell carcinoma of the face. Allergies/Adverse Reactions: Allergies No Known Allergies Allergy (Verified 07/13/18 13:26) Objective Vital Signs 08/07/18 16:00 08/07/18 20:00 08/08/18 00:00 Temperature 98.0 F 98.1 F 98.1 F Pulse Rate 75 81 88 Respiratory Rate 17 22 22 Blood Pressure 127/65 147/73 H 151/69 H Pulse Oximetry 95 96 95 08/08/18 08:00 08/08/18 12:00 Temperature 97.7 F 98.1 F Pulse Rate 86 83 Respiratory Rate 20 20 Blood Pressure 138/70 128/55 L Pulse Oximetry 96 95 Intake & Output 08/07/18 08/08/18 08/08/18 18:59 06:59 18:59 Intake Total 1000 / 1000 1020 / 1020 1100 / 1100 Output Total 1300 / 1300 1400 / 1400 Balance -300 / -300 -380 / -380 1100 / 1100 Weight 71.5 kg Intake: IV 100 / 100 900 / 900 1100 / 1100 1/2 Normal Saline Inj 1,000 ML 850 / 850 1000 / 1000 @ 70 mls/hr IV.CONT .[id number] SRIDHAR Rx#:[id number] Zosyn 3.375 GM Premix 50 ML @ 100 / 100 50 / 50 100 / 100 100 mls/hr IV.SIG Q6H SRIDHAR Rx#: [id number] Oral 900 / 900 120 / 120 Output: Urine 1300 / 1300 1400 / 1400 Other: Date of Last Bowel Movement 08/07/18 08/07/18 08/07/18 # Incontinent Bowel Movements 1 08/03/18 21:50 Blood - Peripheral Aerobic Blood Culture - Final No growth in 5 days 08/03/18 21:50 Blood - Peripheral Anaerobic Blood Culture - Final No growth in 5 days 08/03/18 21:45 Blood - Peripheral Aerobic Blood Culture - Final No growth in 5 days 08/03/18 21:45 Blood - Peripheral Anaerobic Blood Culture - Final No growth in 5 days Lab - Chemistry Results 08/06/18 08/07/18 08/07/18 16:45 00:38 06:07 POC Glucose 150 H 108 86 08/07/18 08/07/18 08/07/18 11:58 16:33 23:57 POC Glucose 177 H 148 H 126 H 08/08/18 08/08/18 08/08/18 05:05 08:36 12:02 POC Glucose 80 88 167 H Imaging: ITS Impressions Head CT 07/30/18 08:15 CONCLUSION: 1. Stable size of a right-sided subdural hematoma involving the right superior convexity. This is stable as compared to the exam of July 26 but decreased in size as compared to the exam of July 22. No new area of hemorrhage is seen. . Abdomen/Pelvis CT 07/30/18 09:50 CONCLUSION: 1. The Calixto catheter is identified within the body of the prostate and the bladder is greatly distended. This should be advanced appropriately into the lumen of the bladder. There is a large bladder stone present. 2. There is abnormal dilation of the right ureter with a concerning area of soft tissue attenuation identified within the mid right ureter concerning for a transitional cell carcinoma. 3. There are multiple stones identified within the lower pole of the right kidney with the largest stone measuring just over 2 cm in size. There are small stones identified within the lumen of the proximal one third and distal two thirds of the right ureter. Multiple well-circumscribed benign appearing renal cysts. 4. The left kidney demonstrates multiple well-circumscribed benign appearing renal cyst and no evidence of obstructing left-sided renal stone. The distal left ureter is mildly dilated which may reflect reflux from the distended bladder. Chest X-Ray 08/01/18 06:00 CONCLUSION: Mild medial left lung base opacity indicating atelectasis versus mild consolidation. Soft Tissue Neck X-Ray 08/05/18 00:00 CONCLUSION: No evidence of airway obstruction. Physical Exam: PHYSICAL EXAMINATION: GENERAL: No acute distress. Awake and alert. HEENT: Head is atraumatic. Extraocular muscles intact. Pupils reactive to light. No icterus. Oropharynx with moist mucosa without visible lesions. NECK: Supple. No adenopathy. LUNGS: Clear breath sounds. HEART: Regular S1 and S2. No audible murmur. ABDOMEN: Bowel sounds present. Soft. No tenderness appreciated. EXTREMITIES: No clubbing or cyanosis. Trace edema of the feet. SKIN: No diffuse rash. NEUROLOGIC: No gross focal finding. PSYCHIATRIC: Calm and cooperative. Assessment and Plan - Plan IMPRESSION: 1. Sepsis due to Klebsiella pneumoniae. Urinary source. Repeat blood cultures negative. 2. Urinary tract infection due to Klebsiella pneumoniae. 3. Acute kidney disease in a patient with a history of chronic kidney disease. 4. Abnormal chest x-ray, likely representing atelectasis. The patient is without symptoms suggesting pneumonia. 5. Leukocytosis secondary to infection. White blood cell count normal. RECOMMENDATIONS: 1. Discontinue piperacillin/tazobactam. 2. Begin cefuroxime p.o. and treat for another 5 days. I will sign off now.
--- NOTE | 2018-08-08 18:19 | P.PN ---
Subjective Interval history: He is very sleepy. Says he received Flexeril. Less pain in his neck. No nausea or vomiting. No shortness of breath he is saturating well on room air at this time. No fever or chills. Good urine output. Physical Exam Vital signs: Vital Signs 08/07/18 20:00 08/08/18 00:00 08/08/18 08:00 Temperature 98.1 F 98.1 F 97.7 F Pulse Rate 81 88 86 Respiratory Rate 22 22 20 Blood Pressure 147/73 H 151/69 H 138/70 Pulse Oximetry 96 95 96 08/08/18 12:00 08/08/18 16:00 Temperature 98.1 F 97.4 F L Pulse Rate 83 76 Respiratory Rate 20 20 Blood Pressure 128/55 L 150/68 H Pulse Oximetry 95 95 Intake & Output 08/07/18 08/08/18 08/08/18 18:59 06:59 18:59 Intake Total 1000 / 1000 1020 / 1020 1100 / 1100 Output Total 1300 / 1300 1400 / 1400 Balance -300 / -300 -380 / -380 1100 / 1100 Weight 71.5 kg Intake: IV 100 / 100 900 / 900 1100 / 1100 1/2 Normal Saline Inj 1,000 ML 850 / 850 1000 / 1000 @ 70 mls/hr IV.CONT .[id number] SRIDHAR Rx#:[id number] Zosyn 3.375 GM Premix 50 ML @ 100 / 100 50 / 50 100 / 100 100 mls/hr IV.SIG Q6H SRIDHAR Rx#: [id number] Oral 900 / 900 120 / 120 Output: Urine 1300 / 1300 1400 / 1400 Other: Date of Last Bowel Movement 08/07/18 08/07/18 08/07/18 # Incontinent Bowel Movements 1 Narrative: GENERAL: pleasant 87-year-old male resting in bed. Appears sleepy SKIN: Warm and dry. Multiple ecchymoses bilateral upper and lower extremities CARDIOVASCULAR: Regular rate and rhythm. S1, S2 predose 4. RESPIRATORY: No accessory muscle use. Clear to auscultation. Breath sounds equal bilaterally. GASTROINTESTINAL: Abdomen soft, non-tender, nondistended. Hepatic and splenic margins not palpable. MUSCULOSKELETAL: Extremities without significant peripheral edema. No obvious deformities. NEUROLOGICAL: Awake and alert. Sleepy. No obvious cranial nerve deficits. Motor grossly within normal limits. Normal speech. PSYCHIATRIC: Appropriate mood and affect; insight and judgment normal. - Urinary Catheter Management Indwelling Urethral Catheter Cath placed during this visit: yes, but has since been removed by the nurse Reason for continuing: Chronic Urinary Retention Insertion date: 07/30/18 Insertion time: 13:00 Removal date: 07/31/18 Removal time: 02:00 Indwelling Temp Sensing Catheter Cath placed during this visit: yes, but has since been removed by the nurse Reason for continuing: Chronic Urinary Retention Insertion date: 08/02/18 Insertion time: 05:00 Removal date: 08/02/18 Removal time: 01:00 Straight Cath placed during this visit: yes Reason for continuing: Acute urinary retention Insertion date: 08/06/18 Insertion time: 15:25 Coude Cath placed during this visit: yes Reason for continuing: Chronic Urinary Retention Insertion date: 08/06/18 Insertion time: 15:24 Results - Labs CBC & Chem 7: 08/06/18 04:40 08/06/18 04:40 Laboratory Results - last 24 hr 08/07/18 08/08/18 08/08/18 23:57 05:05 08:36 POC Glucose 126 H 80 88 08/08/18 08/08/18 12:02 17:14 POC Glucose 167 H 169 H Microbiology 08/03/18 21:50 Blood - Peripheral Aerobic Blood Culture - Final No growth in 5 days 08/03/18 21:50 Blood - Peripheral Anaerobic Blood Culture - Final No growth in 5 days 08/03/18 21:45 Blood - Peripheral Aerobic Blood Culture - Final No growth in 5 days 08/03/18 21:45 Blood - Peripheral Anaerobic Blood Culture - Final No growth in 5 days Assessment and Plan - Plan 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 every 6 hours as needed fever/pain 1 through 10 Avoid sedatives CV: Severe sepsis likely secondary to urinary tract infection/healthcare associated pneumonia Coronary artery disease status post stent to the LAD/RCA 2015 History of inferior myocardial infarction Essential hypertension Hyperlipidemia Lactic acidosis Elevated troponin EKG admission old inferior Q waves. Tachycardia. Normal RI/QRS and QT intervals. Troponin likely type II non-STEMI due to sepsis. Will check echocardiogram. EKG unchanged from previous with left axis deviation/old Q waves inferior leads. Serial lactates until cleared. Currently 1.4 Holding atorvastatin 40 mg a day for dyslipidemia. Resume when clinically indicated Holding carvedilol 3.125 mg twice daily hydralazine 25 mg 3 times daily and losartan 50 mg daily for hypertension while on vasopressors/acute kidney injury. Resp: Acute respiratory insufficiency Nasal cannula to maintain saturations greater than equal to 92% Incentive spirometry while awake Albuterol/ipratropium aerosols every 4 hours with albuterol every 2 as needed dyspnea. Follow-up chest x-ray in 07/31 Chest x-ray admission revealed bronchiectasis bilaterally. CT emesis revealed tiny bilateral pleural effusions GI: Hypoalbuminemia/moderate protein calorie malnutrition Patient with currently on regular diet nectar thickened/chemical soft Speech therapy to evaluate swallow and advance diet as tolerated Pantoprazole for GI prophylaxis Docusate/senna 1 tablet twice daily for bowel regimen CT abdomen/pelvis complete. Results revealed a balloon of Denney f prostate. Adjusted. : Urethral stone Patient was been followed by Dr. Valerio for outpatient removal of Denney. Maintain Denney for now and set up appointment for outpatient removal. Continue Flomax Needs to keep denney in and to follow up with urology, discussed with Dr Norris , no intervention indicated at this time. Patient to have treated the infection prior to procedure, poss in 2 weeks of DC. Endo: Sliding scale insulin Accu-Cheks with aspart insulin every 6 hours to maintain euglycemia Check TSH -1.21 Renal: Acute kidney injury in the setting of chronic kidney disease stage IIIb No hydronephrosis on CT abdomen/pelvis. Negative urine eosinophils Avoid nephrotoxic medication Monitor urine output Accurate I's and O's Heme: Basal cell carcinoma of the face Actinic keratosis Leukocytosis Microcytic anemia Right peroneal/posterior tibial DVT, left cephalic superficial thrombus Monitor CBC daily. Follow trends. No indication for transfusion of blood products at this time. Cleared for subcu Lovenox per neurosurgery prior to admission. At current dosage enoxaparin 30 mg twice daily ID: Severe sepsis secondary to UTI present on admission/healthcare associated pneumonia Received cefepime, tobramycin and azithromycin ED. We will start on vancomycin/piperacillin/tazobactam azithromycin Blood cultures are negative candy bacteremia. UA klebsiela pneu. Also with blood cultures positive for klebsiell pneumoniae. Repeat Blood cx NTD. Repeat Urine cultures negative so far. Influenza AB/B/Legionella pneumococcal urine antigens pending. Sputum cx not obtained Msk: Left lower extremity weakness secondary to traumatic brain injury PT evaluate and treat Add OT eval Mal- posture in bed Neck pain X ray neck reviewed normal. Add Flexeril patient with muscle spasm. FEN: Status post 3 L normal saline in ED. Replace electrolytes as clinically indicated Speech therapy evaluate and treat. Currently normal saline 84 cc an hour.. Discontinue 08/01 Prophylaxis -GI - pantoprazole -DVT -SCDs to left lower extremity only. Enoxaparin. 30 mg subcu twice daily okayed by neurosurgery prior to admission Consult PT for evaluation change status to out of bed with physical therapy. Discharge when improves and cleared by ID, currently on IV abx, repeat blood cx pending . Patient will need residential facility going back to his SNF. Needs to keep denney in and to follow up with urology as OP, discussed with Dr Norris urology, no intervention indicated at this time. Patient to have treated the infection prior to procedure, poss in 2 weeks of DC. Discussed with the patient, nurse
--- NOTE | 2018-08-08 18:26 | P.DS ---
Date of admission: 07/30/18 09:42 Primary care physician: Jose Beckett MD Brief History from admission: 87-year-old male. Full code. Date of admission 07/30/2018. Past medical history includes actinic keratosis, basal carcinoma of the face, coronary disease status post stent to the RCA and left circumflex. Untreated coronary disease to the LAD. Chronic kidney disease stage IIIb, essential hypertension, hyperlipidemia and essential tremor. Patient was originally admitted to [facility] of 09/12 status post fall with associated traumatic right subdural hematoma/left subarachnoid hemorrhage. He is evaluated at that time by Dr. Rodriguez. During his hospitalization, patient developed right below the knee deep venous thrombosis involving the posterior tibial vein/peroneal vein and a left cephalic superficial thrombosis. Patient was advised by hematology. Recommended no IVC filter. Patient was on enoxaparin 30 mg subcu twice daily without progression of the thrombus. He was discharged to rehabilitation on this medication. Also during his hospitalization,, patient also with urinary retention, renal stone involving the right kidney 18 mm non-obstructing and urethral stone. Was evaluated by urology who recommended continuous Denney placement and outpatient follow-up with Dr. Valerio. Today, patient was at [facility]. Was noted to be altered with a fever of 103.4. Hypotensive. Transported to [facility] for further evaluation treatment. UA revealed positive leukocyte esterase likely infectious etiology. Chest x- ray revealed bronchiectasis bilaterally. Patient received cefepime, azithromycin and tobramycin. 3 L normal saline wide open. Creatinine was 2.27. Baseline appears to be around 1.2-1.5. Patient leukocytosis of 20,000. Altered. Brain CT revealed stable right subdural hematoma/left subarachnoid hemorrhage. CT abdomen/pelvis revealed right renal stone non obstructing and urethral stone. DS: Diagnosis - Discharge Diagnosis (1) Contusion of knee, right Status: Acute (2) Contusion of finger, right Status: Acute (3) Acute subdural hematoma Status: Acute (4) Contusion of face Status: Acute (5) Hypertension Status: Chronic (6) Major neurocognitive disorder as late effect of traumatic brain injury with behavioral disturbance Status: Acute DS: Medications - Discharge Medications Prescriptions: cefuroxime axetil 500 mg PO Q12HR #9 tab cyclobenzaprine 5 mg PO BID PRN #30 tab PRN Reason: muscle spasm/ neck DS: Summary Hospital Course: 87-year-old male. Full code. Date of admission 07/30/2018. Past medical history includes actinic keratosis, basal carcinoma of the face, coronary disease status post stent to the RCA and left circumflex. Untreated coronary disease to the LAD. Chronic kidney disease stage IIIb, essential hypertension, hyperlipidemia and essential tremor. Patient was originally admitted to [facility] of 09/12 status post fall with associated traumatic right subdural hematoma/left subarachnoid hemorrhage. He was evaluated at that time by Dr. Rodriguez. During his hospitalization, patient developed right below the knee deep venous thrombosis involving the posterior tibial vein/peroneal vein and a left cephalic superficial thrombosis. Patient was advised by hematology. Recommended no IVC filter. Patient was on enoxaparin 30 mg subcu twice daily without progression of the thrombus. He was discharged to rehabilitation on this medication. Also during his hospitalization, patient also with urinary retention, renal stone involving the right kidney 18 mm non-obstructing and urethral stone. Was evaluated by urology who recommended continuous Denney placement and outpatient follow-up with Dr. Valerio. Patient was at [facility]. Was noted to be altered with a fever of 103.4. Hypotensive. Transported to [facility] for further evaluation/ treatment. UA revealed positive leukocyte esterase likely infectious etiology. Chest x- ray revealed bronchiectasis bilaterally. Patient received cefepime, azithromycin and tobramycin. 3 L normal saline wide open. Creatinine was 2.27. Baseline appears to be around 1.2-1.5. Patient leukocytosis of 20,000. Altered. Brain CT revealed stable right subdural hematoma/left subarachnoid hemorrhage. CT abdomen/pelvis revealed right renal stone non obstructing and urethral stone. Patient was treated with IV antibiotics. Blood cultures were noted positive , pt with bacteremia Klebsiella Pneumoniae, ID was also consulted , patient received IV ab and switched to PO. With urinary retention, Wendie consulted recommends DC patient with denney , to f/up as oP with urology, comtinue abx and when more stable considers surgery. With more swelling of his left leg, no DVT noted per US LE. Patient has a hairline fracture per records, patient needs to be NWB on left side until cleared by ortho, to follow up as OP with ortho. Patient improved, DC to SNF in stable condition to follow up as OP with pCP and consultants. 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 every 6 hours as needed fever/pain 1 through 10 Avoid sedatives CV: Severe sepsis likely secondary to urinary tract infection/healthcare associated pneumonia Coronary artery disease status post stent to the LAD/RCA 2015 History of inferior myocardial infarction Essential hypertension Hyperlipidemia Lactic acidosis Elevated troponin EKG admission old inferior Q waves. Tachycardia. Normal NH/QRS and QT intervals. Troponin likely type II non-STEMI due to sepsis. Will check echocardiogram. EKG unchanged from previous with left axis deviation/old Q waves inferior leads. Serial lactates until cleared. Currently 1.4 Holding atorvastatin 40 mg a day for dyslipidemia. Resume when clinically indicated Holding carvedilol 3.125 mg twice daily hydralazine 25 mg 3 times daily and losartan 50 mg daily for hypertension while on vasopressors/acute kidney injury. Resp: Acute respiratory insufficiency Nasal cannula to maintain saturations greater than equal to 92% Incentive spirometry while awake Albuterol/ipratropium aerosols every 4 hours with albuterol every 2 as needed dyspnea. Follow-up chest x-ray in 07/31 Chest x-ray admission revealed bronchiectasis bilaterally. CT emesis revealed tiny bilateral pleural effusions GI: Hypoalbuminemia/moderate protein calorie malnutrition Patient with currently on regular diet nectar thickened/chemical soft Speech therapy to evaluate swallow and advance diet as tolerated Pantoprazole for GI prophylaxis Docusate/senna 1 tablet twice daily for bowel regimen CT abdomen/pelvis complete. Results revealed a balloon of Denney f prostate. Adjusted. : Urethral stone Patient was been followed by Dr. Valerio for outpatient removal of Denney. Maintain Denney for now and set up appointment for outpatient removal. Continue Flomax Needs to keep denney in and to follow up with urology, discussed with Dr Norris , no intervention indicated at this time. Patient to have treated the infection prior to procedure, poss in 2 weeks of DC. Endo: Sliding scale insulin Accu-Cheks with aspart insulin every 6 hours to maintain euglycemia Check TSH -1.21 Renal: Acute kidney injury in the setting of chronic kidney disease stage IIIb No hydronephrosis on CT abdomen/pelvis. Negative urine eosinophils Avoid nephrotoxic medication Monitor urine output Accurate I's and O's Heme: Basal cell carcinoma of the face Actinic keratosis Leukocytosis Microcytic anemia Right peroneal/posterior tibial DVT, left cephalic superficial thrombus Monitor CBC daily. Follow trends. No indication for transfusion of blood products at this time. Cleared for subcu Lovenox per neurosurgery prior to admission. At current dosage enoxaparin 30 mg twice daily ID: Severe sepsis secondary to UTI present on admission/healthcare associated pneumonia Received cefepime, tobramycin and azithromycin ED. We will start on vancomycin/piperacillin/tazobactam azithromycin Blood cultures are negative candy bacteremia. UA klebsiela pneu. Also with blood cultures positive for klebsiell pneumoniae. Repeat Blood cx NTD. Repeat Urine cultures negative so far. Influenza AB/B/Legionella pneumococcal urine antigens pending. Sputum cx not obtained Msk: Left lower extremity weakness secondary to traumatic brain injury PT evaluate and treat Add OT eval Mal- posture in bed Neck pain X ray neck reviewed normal. Add Flexeril patient with muscle spasm. LE edema left leg, , he also has a hairline fracture, non weight bearing on the left until cleared by ortho to followup as OP with ortho also will do US of LE to r/o DVT Note patient was with hematuria and traumatic brain injury and not on anticoagulation so he is shital risk FEN: Status post 3 L normal saline in ED. Replace electrolytes as clinically indicated Speech therapy evaluate and treat. Currently normal saline 84 cc an hour.. Discontinue 08/01 Prophylaxis -GI - pantoprazole -DVT -SCDs to left lower extremity only. Enoxaparin. 30 mg subcu twice daily okayed by neurosurgery prior to admission Consult PT for evaluation change status to out of bed with physical therapy. Non weight bearing of the left leg until cleared by ortho Discharge when improves and cleared by ID, currently on IV abx, repeat blood cx pending . Patient will need jail facility going back to his SNF. Needs to keep denney in and to follow up with urology as OP, discussed with Dr Norris urology, no intervention indicated at this time. Patient to have treated the infection prior to procedure, poss in 2 weeks of DC. Patient with tiarra hairline fracture , advice non weight bearing on the left leg until cleared by ortho, to follow up as OP with ortho US of LE as noted with more edema on the left leg is negative for DVT. Patient says usually his left leg swelling on /off after his stroke. no DVT oer US. Patient improving DC to SNF in stable condition to follow up as OP with PCP and consultants. - Time Spent with Patient Total time spent providing and/or coordinating discharge services: Greater than 30 minutes - Quality: VTE Deep Vein Thrombosis/Pulmonary Embolism Present on Admission: No Exam Vital signs: Vital Signs 08/07/18 20:00 08/08/18 00:00 08/08/18 08:00 Temperature 98.1 F 98.1 F 97.7 F Pulse Rate 81 88 86 Respiratory Rate 22 22 20 Blood Pressure 147/73 H 151/69 H 138/70 Pulse Oximetry 96 95 96 08/08/18 12:00 08/08/18 16:00 Temperature 98.1 F 97.4 F L Pulse Rate 83 76 Respiratory Rate 20 20 Blood Pressure 128/55 L 150/68 H Pulse Oximetry 95 95 Intake & Output 08/07/18 08/08/18 08/08/18 18:59 06:59 18:59 Intake Total 1000 / 1000 1020 / 1020 1100 / 1100 Output Total 1300 / 1300 1400 / 1400 Balance -300 / -300 -380 / -380 1100 / 1100 Weight 71.5 kg Intake: IV 100 / 100 900 / 900 1100 / 1100 1/2 Normal Saline Inj 1,000 ML 850 / 850 1000 / 1000 @ 70 mls/hr IV.CONT .[id number] [facility] Rx#:[id number] Zosyn 3.375 GM Premix 50 ML @ 100 / 100 50 / 50 100 / 100 100 mls/hr IV.SIG Q6H [facility] Rx#: [id number] Oral 900 / 900 120 / 120 Output: Urine 1300 / 1300 1400 / 1400 Other: Date of Last Bowel Movement 08/07/18 08/07/18 08/07/18 # Incontinent Bowel Movements 1 Narrative: GENERAL: pleasant 87-year-old male resting in bed. Appears in not acute distress. SKIN: Warm and dry. Multiple ecchymoses bilateral upper and lower extremities CARDIOVASCULAR: Regular rate and rhythm. S1, S2 predose 4. RESPIRATORY: No accessory muscle use. Clear to auscultation. Breath sounds equal bilaterally. GASTROINTESTINAL: Abdomen soft, non-tender, nondistended. Hepatic and splenic margins not palpable. MUSCULOSKELETAL: Left lower leg with 1+ edema. NEUROLOGICAL: Awake and alert. No obvious cranial nerve deficits. Motor at his baseline. Normal speech. PSYCHIATRIC: Appropriate mood and affect; insight and judgment normal. Results Procedures completed during hospitalization: none Labs on day of discharge: Labs from last 24 hours 08/08/18 08/08/18 08/08/18 17:14 12:02 08:36 POC Glucose 169 H 167 H 88 08/08/18 08/07/18 05:05 23:57 POC Glucose 80 126 H - Impressions ITS Impressions Head CT 07/30/18 08:15 CONCLUSION: 1. Stable size of a right-sided subdural hematoma involving the right superior convexity. This is stable as compared to the exam of July 26 but decreased in size as compared to the exam of July 22. No new area of hemorrhage is seen. . Abdomen/Pelvis CT 07/30/18 09:50 CONCLUSION: 1. The Denney catheter is identified within the body of the prostate and the bladder is greatly distended. This should be advanced appropriately into the lumen of the bladder. There is a large bladder stone present. 2. There is abnormal dilation of the right ureter with a concerning area of soft tissue attenuation identified within the mid right ureter concerning for a transitional cell carcinoma. 3. There are multiple stones identified within the lower pole of the right kidney with the largest stone measuring just over 2 cm in size. There are small stones identified within the lumen of the proximal one third and distal two thirds of the right ureter. Multiple well-circumscribed benign appearing renal cysts. 4. The left kidney demonstrates multiple well-circumscribed benign appearing renal cyst and no evidence of obstructing left-sided renal stone. The distal left ureter is mildly dilated which may reflect reflux from the distended bladder. Chest X-Ray 08/01/18 06:00 CONCLUSION: Mild medial left lung base opacity indicating atelectasis versus mild consolidation. Soft Tissue Neck X-Ray 08/05/18 00:00 CONCLUSION: No evidence of airway obstruction. Discharge Plan - Discharge Disposition Patient Disposition: Discharge to SNF - Discharge Condition Condition: Stable - Discharge Order Discharge Orders: Discharge Order (Routine); Ordered 08/10/18 Ordered By: Eleonora Rose - Discharge Details Anticipated Discharge Date: 08/09/18 - Physicians Team Primary Care Provider: Jose Beckett Attending Provider: Eleonora Rose Other Providers: Jad Bell MD ; [facility] ; [employer] ; Delgado Norris, DO
[2018-08-09] MEDS: Insulin NovoLOG Aspart Correctional Sugar Inj SQ SCH ×4 (06:36→23:36)
[2018-08-09] MEDS: Senna/Docusate Sodium 8.6/50 MG Tablet PO SCH ×2 (09:43→21:48)
[2018-08-09] MEDS: levETIRAcetam 500 MG Tablet PO SCH ×2 (09:44→21:48)
[2018-08-09] MEDS: Pantoprazole Inj 40 MG Vial IV.PUSH SCH (09:44)
[2018-08-09] MEDS: Enoxaparin Inj 30 MG/0.3 ML Syringe SQ SCH ×2 (09:55→21:49)
[2018-08-09] MEDS: Sodium Chloride 0.45 % Inj 1,000 ML IV.CONT SCH (11:23)
[2018-08-09] MEDS: Acetaminophen 325 MG Tablet PO PRN (11:33)
--- NOTE | 2018-08-09 19:12 | P.PN ---
Subjective Interval history: Patient in nad. Says he is still has some neck pain however improved some with muscle relaxer. No fever or chills. No cough. Some lower extremity edema on the left side. Patient says he usually has more edema in in the left leg after the stroke. Patient is advised for nonweightbearing on left side as noted with previous hair line fracture. Patient to follow-up with orthopedics as outpatient. Noted that patient presented with hematuria and not on anticoagulation. However we will do ultrasound of the lower extremity to rule out DVT. Physical Exam Vital signs: Vital Signs 08/08/18 20:00 08/09/18 00:00 08/09/18 08:00 Temperature 97.4 F L 97.5 F L 97.8 F Pulse Rate 80 71 91 H Respiratory Rate 18 18 20 Blood Pressure 143/71 H 149/84 H 155/70 H Pulse Oximetry 93 L 100 96 08/09/18 12:00 08/09/18 16:00 Temperature 97.3 F L 97.2 F L Pulse Rate 81 84 Respiratory Rate 20 18 Blood Pressure 143/64 H 162/75 H Pulse Oximetry 94 L 95 Intake & Output 08/09/18 08/09/18 08/10/18 06:59 18:59 06:59 Intake Total 1000 / 1000 980 / 980 Output Total 1999 Balance 1000 / 1000 -1020 / -1020 Intake: IV 1000 / 1000 980 / 980 1/2 Normal Saline Inj 1,000 ML 1000 / 1000 980 / 980 @ 70 mls/hr IV.CONT .[id number] [facility] Rx#:[id number] Output: Urine Amount (Catheter) 1999 Straight 1999 Other: Date of Last Bowel Movement 08/07/18 08/07/18 # Bowel Movements 2 Narrative: GENERAL: pleasant 87-year-old male resting in bed. Appears in not acute distress. SKIN: Warm and dry. Multiple ecchymoses bilateral upper and lower extremities CARDIOVASCULAR: Regular rate and rhythm. S1, S2 predose 4. RESPIRATORY: No accessory muscle use. Clear to auscultation. Breath sounds equal bilaterally. GASTROINTESTINAL: Abdomen soft, non-tender, nondistended. Hepatic and splenic margins not palpable. MUSCULOSKELETAL: Left lower leg with 1+ edema. NEUROLOGICAL: Awake and alert. No obvious cranial nerve deficits. Motor at his baseline. Normal speech. PSYCHIATRIC: Appropriate mood and affect; insight and judgment normal. - Urinary Catheter Management Indwelling Urethral Catheter Cath placed during this visit: yes, but has since been removed by the nurse Reason for continuing: Chronic Urinary Retention Insertion date: 07/30/18 Insertion time: 13:00 Removal date: 07/31/18 Removal time: 02:00 Indwelling Temp Sensing Catheter Cath placed during this visit: yes, but has since been removed by the nurse Reason for continuing: Chronic Urinary Retention Insertion date: 08/02/18 Insertion time: 05:00 Removal date: 08/02/18 Removal time: 01:00 Straight Cath placed during this visit: yes Reason for continuing: Acute urinary retention Insertion date: 08/06/18 Insertion time: 15:25 Coude Cath placed during this visit: yes Reason for continuing: Chronic Urinary Retention Insertion date: 08/06/18 Insertion time: 15:24 Results - Labs CBC & Chem 7: 08/06/18 04:40 08/06/18 04:40 Laboratory Results - last 24 hr 08/08/18 08/09/18 08/09/18 23:07 06:36 11:25 POC Glucose 133 H 91 142 H Assessment and Plan - Plan Traumatic brain injury with right subdural hematoma/left subarachnoid hemorrhage previous on prior admission History of essential tremor CT brain 07/30 revealed stable right subdural hematoma Holding baclofen 10 mg twice daily Acetaminophen 650 p.o. every 6 hours as needed fever/pain 1 through 10 Avoid sedatives CV: Severe sepsis likely secondary to urinary tract infection/healthcare associated pneumonia Coronary artery disease status post stent to the LAD/RCA 2015 History of inferior myocardial infarction Essential hypertension Hyperlipidemia Lactic acidosis Elevated troponin EKG admission old inferior Q waves. Tachycardia. Normal NE/QRS and QT intervals. Troponin likely type II non-STEMI due to sepsis. Will check echocardiogram. EKG unchanged from previous with left axis deviation/old Q waves inferior leads. Serial lactates until cleared. Currently 1.4 Holding atorvastatin 40 mg a day for dyslipidemia. Resume when clinically indicated Holding carvedilol 3.125 mg twice daily hydralazine 25 mg 3 times daily and losartan 50 mg daily for hypertension while on vasopressors/acute kidney injury. Resp: Acute respiratory insufficiency Nasal cannula to maintain saturations greater than equal to 92% Incentive spirometry while awake Albuterol/ipratropium aerosols every 4 hours with albuterol every 2 as needed dyspnea. Follow-up chest x-ray in 07/31 Chest x-ray admission revealed bronchiectasis bilaterally. CT emesis revealed tiny bilateral pleural effusions GI: Hypoalbuminemia/moderate protein calorie malnutrition Patient with currently on regular diet nectar thickened/chemical soft Speech therapy to evaluate swallow and advance diet as tolerated Pantoprazole for GI prophylaxis Docusate/senna 1 tablet twice daily for bowel regimen CT abdomen/pelvis complete. Results revealed a balloon of Denney f prostate. Adjusted. : Urethral stone Patient was been followed by Dr. Valerio for outpatient removal of Denney. Maintain Denney for now and set up appointment for outpatient removal. Continue Flomax Needs to keep denney in and to follow up with urology, discussed with Dr Norris , no intervention indicated at this time. Patient to have treated the infection prior to procedure, poss in 2 weeks of DC. Endo: Sliding scale insulin Accu-Cheks with aspart insulin every 6 hours to maintain euglycemia Check TSH -1.21 Renal: Acute kidney injury in the setting of chronic kidney disease stage IIIb No hydronephrosis on CT abdomen/pelvis. Negative urine eosinophils Avoid nephrotoxic medication Monitor urine output Accurate I's and O's Heme: Basal cell carcinoma of the face Actinic keratosis Leukocytosis Microcytic anemia Right peroneal/posterior tibial DVT, left cephalic superficial thrombus Monitor CBC daily. Follow trends. No indication for transfusion of blood products at this time. Cleared for subcu Lovenox per neurosurgery prior to admission. At current dosage enoxaparin 30 mg twice daily ID: Severe sepsis secondary to UTI present on admission/healthcare associated pneumonia Received cefepime, tobramycin and azithromycin ED. We will start on vancomycin/piperacillin/tazobactam azithromycin Blood cultures are negative candy bacteremia. UA klebsiela pneu. Also with blood cultures positive for klebsiell pneumoniae. Repeat Blood cx NTD. Repeat Urine cultures negative so far. Influenza AB/B/Legionella pneumococcal urine antigens pending. Sputum cx not obtained Msk: Left lower extremity weakness secondary to traumatic brain injury PT evaluate and treat Add OT eval Mal- posture in bed Neck pain X ray neck reviewed normal. Add Flexeril patient with muscle spasm. LE edema left leg, , he also has a hairline fracture, non weight bearing on the left until cleared by ortho to followup as OP with ortho also will do US of LE to r/o DVT Note patient was with hematuria and traumatic brain injury and not on anticoagulation so he is shital risk FEN: Status post 3 L normal saline in ED. Replace electrolytes as clinically indicated Speech therapy evaluate and treat. Currently normal saline 84 cc an hour.. Discontinue 08/01 Prophylaxis -GI - pantoprazole -DVT -SCDs to left lower extremity only. Enoxaparin. 30 mg subcu twice daily okayed by neurosurgery prior to admission Consult PT for evaluation change status to out of bed with physical therapy. Non weight bearing of the left leg until cleared by ortho Discharge when improves and cleared by ID, currently on IV abx, repeat blood cx pending . Patient will need senior living facility going back to his SNF. Needs to keep denney in and to follow up with urology as OP, discussed with Dr Norris urology, no intervention indicated at this time. Patient to have treated the infection prior to procedure, poss in 2 weeks of DC. Patient with tiarra hairline fracture , advice non weight bearing on the left leg until cleared by ortho, to follow up as OP with ortho Will do UD of LE as noted with more edema on the left leg. Patient says usually his left leg swelling on /off after his stroke. Discussed with the patient, nurse, case management
--- NOTE | 2018-08-09 20:39 | US ---
EXAM DATE: 08/09/2018 8:36 PM EST AGE/SEX: 87 years / Male INDICATIONS: Bilateral leg swelling. CLINICAL DATA: This is the patient's sequela encounter. Patient reports that signs and symptoms have been present for 3 weeks and indicates a pain score of 0/10. MEDICAL/SURGICAL HISTORY: . Actinic Keratosis. Basal cell carcinoma of face. BPH. CAD. Carcinom a of colon. Chronic kidney disease, stage 3. Hyperlipemia. Insomnia. Myocardial infarct, old. tremor. . Cardiac Cath. COMPARISON: [facility] [place] VENOUS DOPPLER LEG RIGHT, 07/27/2018. . TECHNIQUE: Venous ultrasound of both lower extremities was performed from the inguinal ligament to t he proximal calf. Real-time, color Doppler and spectral tracing, compression and augmentation techni ques were used. FINDINGS: Right Leg: Normal compression of the deep venous system from the inguinal region to the proximal demetrio f. No echogenic clot is seen. Normal response of the venous system to augmentation and respiration. Left Leg: Normal compression of the deep venous system from the inguinal region to the proximal calf . No echogenic clot is seen. Normal response of the venous system to augmentation and respiration. Other: None. CONCLUSION: 1. The study is negative for bilateral lower extremity deep venous thrombosis. Electronically signed by: Rodney Drummond MD 08/09/2018 8:38 PM EST
[2018-08-10] MEDS: Sodium Chloride 0.45 % Inj 1,000 ML IV.CONT SCH ×2 (01:49→16:03)
[2018-08-10] MEDS: Insulin NovoLOG Aspart Correctional Sugar Inj SQ SCH ×3 (06:16→17:33)
[2018-08-10] MEDS: Acetaminophen 325 MG Tablet PO PRN ×2 (06:27→16:15)
[2018-08-10] MEDS: Pantoprazole Inj 40 MG Vial IV.PUSH SCH (09:15)
[2018-08-10] MEDS: Enoxaparin Inj 30 MG/0.3 ML Syringe SQ SCH ×2 (09:15→21:47)
[2018-08-10] MEDS: Senna/Docusate Sodium 8.6/50 MG Tablet PO SCH ×2 (09:16→21:48)
[2018-08-10] MEDS: levETIRAcetam 500 MG Tablet PO SCH ×2 (09:16→21:48)
--- NOTE | 2018-08-10 13:56 | P.PNIM ---
Subjective Interval history: Patient says he does not enjoy the hospital's food. He has some complaints of neck pain and stiffness otherwise no other complaints. Physical Exam Vital signs: Vital Signs 08/09/18 16:00 08/09/18 20:00 08/10/18 00:00 Temperature 97.2 F L 97.7 F 98.2 F Pulse Rate 84 88 91 H Respiratory Rate 18 18 19 Blood Pressure 162/75 H 159/80 H 154/67 H Pulse Oximetry 95 95 92 L 08/10/18 08:00 Temperature 97.4 F L Pulse Rate 89 Respiratory Rate 18 Blood Pressure 143/68 H Pulse Oximetry 94 L Intake & Output 08/09/18 08/10/18 08/10/18 18:59 06:59 18:59 Intake Total 980 / 980 1480 / 1480 Output Total 1999 1800 / 1800 Balance -1020 / -1020 -320 / -320 Weight 70.4 kg Intake: IV 980 / 980 1000 / 1000 1/2 Normal Saline Inj 1,000 ML 980 / 980 1000 / 1000 @ 70 mls/hr IV.CONT .[id number] [facility] Rx#:[id number] Oral 480 / 480 Output: Urine 1800 / 1800 Urine Amount (Catheter) 1999 Straight 1999 Other: Date of Last Bowel Movement 08/07/18 # Bowel Movements 2 Narrative: General patient complains of some neck pain. Otherwise no other complaints HEENT extraocular movements are intact, clear oropharyngeal mucosa, no JVD Cardiovascular S1-S2 audible, RRR, no murmurs rubs or gallops Respiratory clear to auscultation bilaterally Abdomen soft, nontender, nondistended, normal bowel sounds Genitourinary patient currently has a Denney catheter in place. Extremities no edema 2+ distal pulses in bilateral upper and lower extremities Neuro patient can move all 4 extremities. Sensation is intact bilaterally. - Urinary Catheter Management Indwelling Urethral Catheter Cath placed during this visit: yes, but has since been removed by the nurse Reason for continuing: Chronic Urinary Retention Insertion date: 07/30/18 Insertion time: 13:00 Removal date: 07/31/18 Removal time: 02:00 Indwelling Temp Sensing Catheter Cath placed during this visit: yes, but has since been removed by the nurse Reason for continuing: Chronic Urinary Retention Insertion date: 08/02/18 Insertion time: 05:00 Removal date: 08/02/18 Removal time: 01:00 Straight Cath placed during this visit: yes Reason for continuing: Acute urinary retention Insertion date: 08/06/18 Insertion time: 15:25 Coude Cath placed during this visit: yes Reason for continuing: Acute urinary retention Insertion date: 08/06/18 Insertion time: 15:24 Results - Labs CBC & Chem 7: 08/06/18 04:40 08/06/18 04:40 Laboratory Results - last 24 hr 08/09/18 08/09/18 08/10/18 17:13 23:15 06:16 POC Glucose 107 162 H 78 08/10/18 11:29 POC Glucose 161 H - Imaging Impressions Venous Doppler Study 08/09/18 19:16 CONCLUSION: 1. The study is negative for bilateral lower extremity deep venous thrombosis. - Procedures none Assessment and Plan - Assessment (1) Contusion of knee, right Code(s): S80.01XA - Contusion of right knee, initial encounter Status: Acute (2) Contusion of finger, right Code(s): S60.00XA - Contusion of unspecified finger without damage to nail, initial encounter Status: Acute (3) Acute subdural hematoma Code(s): S06.5X9A - Traumatic subdural hemorrhage with loss of consciousness of unspecified duration, initial encounter Status: Acute (4) Contusion of face Code(s): S00.83XA - Contusion of other part of head, initial encounter Status : Acute (5) Hypertension Code(s): I10 - Essential (primary) hypertension Status: Chronic (6) Major neurocognitive disorder as late effect of traumatic brain injury with behavioral disturbance Code(s): S06.9X9S - Unspecified intracranial injury with loss of consciousness of unspecified duration, sequela; F02.81 - Dementia in other diseases classified elsewhere with behavioral disturbance Status: Acute - Plan This patient is an 87-year-old male with a diagnosis of actinic keratosis, basal cell carcinoma of the face, coronary artery disease status post stent to the RCA and left circumflex. Patient also has chronic kidney disease stage IIIb , hypertension, dyslipidemia, essential tremor. The patient has a history of traumatic right subdural hematoma and left subarachnoid hemorrhage after suffering a ground-level fall. The patient had bleed is stable. He is now being treated for Klebsiella UTI and was also found to have positive blood cultures that also grew Klebsiella. He also had a bladder stone and left kidney stone and was being followed by urology. 08/10/18 Patient was evaluated today. Patient has had a long hospital stay. The case was discussed in detail with the patient's nurse at bedside and the patient's chart was reviewed in detail. The patient has a bladder stone which will need cystolitholapaxy and will need lithotripsy in the future on the right kidney to treat his right lower pole stone as per urology recommendations. They recommend keeping his Denney catheter in place and he can follow-up with urology after he is discharged. During auscultation the patient had Klebsiella in his blood as well as in his urine. Infectious disease was following the patient and recommends another 3 days of p.o. antibiotics. He has been on IV antibiotics throughout his hospitalization. The patient also had acute kidney injury on CKD which is likely secondary to dehydration and severe sepsis. Serum creatinine has down trended to 1.43 and had peaked at 2.2 during the hospitalization. We will follow-up a.m. labs. Case will be discussed today with case management regarding the patient's discharge planning and where he will go once he is ready to be discharged. Lovenox for DVT prophylaxis. 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 every 6 hours as needed fever/pain 1 through 10 Avoid sedatives CV: Severe sepsis likely secondary to urinary tract infection/healthcare associated pneumonia Coronary artery disease status post stent to the LAD/RCA 2015 History of inferior myocardial infarction Essential hypertension Hyperlipidemia Lactic acidosis Elevated troponin EKG admission old inferior Q waves. Tachycardia. Normal [place]/QRS and QT intervals. Troponin likely type II non-STEMI due to sepsis. Will check echocardiogram. EKG unchanged from previous with left axis deviation/old Q waves inferior leads. Serial lactates until cleared. Currently 1.4 Holding atorvastatin 40 mg a day for dyslipidemia. Resume when clinically indicated Holding carvedilol 3.125 mg twice daily hydralazine 25 mg 3 times daily and losartan 50 mg daily for hypertension while on vasopressors/acute kidney injury. Resp: Acute respiratory insufficiency Nasal cannula to maintain saturations greater than equal to 92% Incentive spirometry while awake Albuterol/ipratropium aerosols every 4 hours with albuterol every 2 as needed dyspnea. Follow-up chest x-ray in 07/31 Chest x-ray admission revealed bronchiectasis bilaterally. CT emesis revealed tiny bilateral pleural effusions GI: Hypoalbuminemia/moderate protein calorie malnutrition Patient with currently on regular diet nectar thickened/chemical soft Speech therapy to evaluate swallow and advance diet as tolerated Pantoprazole for GI prophylaxis Docusate/senna 1 tablet twice daily for bowel regimen CT abdomen/pelvis complete. Results revealed a balloon of Denney f prostate. Adjusted. : Urethral stone Patient was been followed by Dr. Valerio for outpatient removal of Denney. Maintain Denney for now and set up appointment for outpatient removal. Continue Flomax Needs to keep denney in and to follow up with urology, discussed with Dr Norris , no intervention indicated at this time. Patient to have treated the infection prior to procedure, poss in 2 weeks of DC. Endo: Sliding scale insulin Accu-Cheks with aspart insulin every 6 hours to maintain euglycemia Check TSH -1.21 Renal: Acute kidney injury in the setting of chronic kidney disease stage IIIb No hydronephrosis on CT abdomen/pelvis. Negative urine eosinophils Avoid nephrotoxic medication Monitor urine output Accurate I's and O's Heme: Basal cell carcinoma of the face Actinic keratosis Leukocytosis Microcytic anemia Right peroneal/posterior tibial DVT, left cephalic superficial thrombus Monitor CBC daily. Follow trends. No indication for transfusion of blood products at this time. Cleared for subcu Lovenox per neurosurgery prior to admission. At current dosage enoxaparin 30 mg twice daily ID: Severe sepsis secondary to UTI present on admission/healthcare associated pneumonia Received cefepime, tobramycin and azithromycin ED. We will start on vancomycin/piperacillin/tazobactam azithromycin Blood cultures are negative candy bacteremia. UA klebsiela pneu. Also with blood cultures positive for klebsiell pneumoniae. Repeat Blood cx NTD. Repeat Urine cultures negative so far. Influenza AB/B/Legionella pneumococcal urine antigens pending. Sputum cx not obtained Msk: Left lower extremity weakness secondary to traumatic brain injury PT evaluate and treat Add OT eval Mal- posture in bed Neck pain X ray neck reviewed normal. Add Flexeril patient with muscle spasm. LE edema left leg, , he also has a hairline fracture, non weight bearing on the left until cleared by ortho to followup as OP with ortho also will do US of LE to r/o DVT Note patient was with hematuria and traumatic brain injury and not on anticoagulation so he is shital risk FEN: Status post 3 L normal saline in ED. Replace electrolytes as clinically indicated Speech therapy evaluate and treat. Currently normal saline 84 cc an hour.. Discontinue 08/01 Prophylaxis -GI - pantoprazole -DVT -SCDs to left lower extremity only. Enoxaparin. 30 mg subcu twice daily okayed by neurosurgery prior to admission (1) Contusion of knee, right Qualifiers: Encounter type: initial encounter Qualified Code(s): S80.01XA - Contusion of right knee, initial encounter (2) Contusion of finger, right Qualifiers: Encounter type: initial encounter Finger: little finger Damage to nail status: without damage Qualified Code(s): S60.051A - Contusion of right little finger without damage to nail, initial encounter (4) Contusion of face Qualifiers: Encounter type: initial encounter Qualified Code(s): S00.83XA - Contusion of other part of head, initial encounter (5) Hypertension Qualifiers: Hypertension type: essential hypertension Qualified Code(s): I10 - Essential (primary) hypertension
--- NOTE | 2018-08-10 14:36 | P.DIET ---
Nutritional Evaluation Type of nutrition evaluation: follow-up Nutrition screening: Weight Loss > 10 lbs Subjective Subjective Comments: Only ate 25% yesterday but ate 75% of lunch today. assists. Objective - Diagnosis Sepsis, Pneumonia, Hematuria - Objective Body Mass Index: 23.6 % IBW: 100 (IBW = 154#) Body Weight Used for Calculations: Actual (70.3 kg) Energy Needs - Lower Range (kCal/kg): 28 Energy Needs - Upper Range (kCal/kg): 32 Lower Limit kCal/kg (kCals): 1,968 Upper Limit kCal/kg (kCals): 2,250 Lower Limit Protein Factor (Grams per Kg): 1.0 Upper Limit Protein Factor (Grams per Kg): 1.5 Lower Protein Needs (Protein): 70 Upper Protein Needs (Protein): 106 Dietitian Reviewed in Medical Record: Current diet, Curent medications, Intake & Output, Labs, Medical history Diet Order: Mech Soft, [place] thickened liquids Speech Therapy Recommendations: Yes (Mech soft NTL) Objective Comments: PMH includes: Actinic Keratosis, Basal Cell Carcinoma of the face, BPH, CAD, Carcinoma of the colon, CKD-III, HLD, HTN, Insomnia, SD, old, Tremor Assessment Assessment: Pt remains at nutritional risk r/t diagnosis and recent unintentional wt loss. Variable po intake noted and does best with assistance. Will continue to send Ensure BID (250 kcal and 9 gms protein per serving). Labs, wts and clinical course reviewed. Admission BW = 70.3 kg, CBW = 70.4 kg. Recommendations: Diet per ST Ensure bid RD following Dietitian to Monitor: Lab values, Supplement acceptance, Intake & Output, Diet tolerance, Weight change, PO Intake, Diet advancement, Swallow recommendations, Medical course
[2018-08-11] MEDS: Insulin NovoLOG Aspart Correctional Sugar Inj SQ SCH ×4 (01:45→17:39)
[2018-08-11] MEDS: Acetaminophen 325 MG Tablet PO PRN (05:21)
[2018-08-11 06:34] LABS: Calcium 8.3 mg/dL (8.5-10.1); Carbon Dioxide 26.1 meq/L (21.0-32.0); Magnesium 1.8 mg/dL (1.5-2.5); Potassium 3.9 meq/L (3.5-5.1)
[2018-08-11] MEDS: Sodium Chloride 0.45 % Inj 1,000 ML IV.CONT SCH (07:04)
[2018-08-11 09:11] VITALS: RESP 17
[2018-08-11] MEDS: Pantoprazole Inj 40 MG Vial IV.PUSH SCH (09:53)
[2018-08-11] MEDS: Enoxaparin Inj 30 MG/0.3 ML Syringe SQ SCH (09:53)
[2018-08-11] MEDS: levETIRAcetam 500 MG Tablet PO SCH (09:54)
[2018-08-11] MEDS: Senna/Docusate Sodium 8.6/50 MG Tablet PO SCH (09:54)
--- NOTE | 2018-08-11 15:15 | P.PNIM ---
Subjective Interval history: Patient complains of the hospital food which does not taste good. Otherwise he does not have any specific complaints today. Physical Exam Vital signs: Vital Signs 08/10/18 16:00 08/10/18 20:00 08/11/18 00:00 Temperature 97.2 F L 97.2 F L 98.2 F Pulse Rate 85 85 86 Respiratory Rate 18 20 20 Blood Pressure 156/79 H 163/84 H 138/70 Pulse Oximetry 96 96 94 L 08/11/18 08:00 08/11/18 12:00 Temperature 97.8 F 98.1 F Pulse Rate 87 83 Respiratory Rate 17 17 Blood Pressure 128/61 126/60 Pulse Oximetry 94 L 95 Intake & Output 08/10/18 08/11/18 08/11/18 18:59 06:59 18:59 Intake Total 2600 / 2600 480 / 480 Output Total 950 / 950 Balance 1650 / 1650 480 / 480 Weight 70.4 kg Intake: IV 1999 / 1999 1/2 Normal Saline Inj 1,000 ML 1999 / 1999 @ 70 mls/hr IV.CONT .[id number] [facility] Rx#:[id number] Oral 600 / 600 480 / 480 Output: Urine Amount (Catheter) 950 / 950 Coude 950 / 950 Other: # Voids 2,100 # Bowel Movements 1 Narrative: General patient complains of some neck pain which she says is a chronic issue. HEENT extraocular movements are intact, clear oropharyngeal mucosa, no JVD Cardiovascular S1-S2 audible, RRR, no murmurs rubs or gallops Respiratory clear to auscultation bilaterally Abdomen soft, nontender, nondistended, normal bowel sounds Genitourinary patient currently has a Denney catheter in place. Extremities no edema 2+ distal pulses in bilateral upper and lower extremities Neuro patient can move all 4 extremities. Sensation is intact bilaterally. - Urinary Catheter Management Indwelling Urethral Catheter Cath placed during this visit: yes, but has since been removed by the nurse Reason for continuing: Chronic Urinary Retention Insertion date: 07/30/18 Insertion time: 13:00 Removal date: 07/31/18 Removal time: 02:00 Indwelling Temp Sensing Catheter Cath placed during this visit: yes, but has since been removed by the nurse Reason for continuing: Chronic Urinary Retention Insertion date: 08/02/18 Insertion time: 05:00 Removal date: 08/02/18 Removal time: 01:00 Straight Cath placed during this visit: yes Reason for continuing: Acute urinary retention Insertion date: 08/06/18 Insertion time: 15:25 Coude Cath placed during this visit: yes Reason for continuing: Acute urinary retention Insertion date: 08/06/18 Insertion time: 15:24 Results - Labs CBC & Chem 7: 08/06/18 04:40 08/11/18 05:23 Laboratory Results - last 24 hr 08/10/18 08/11/18 08/11/18 16:17 01:44 05:23 Sodium 142 Potassium 3.9 Chloride 111 H Carbon Dioxide 26.1 Anion Gap 5 BUN 11 Creatinine 1.20 Estimated GFR 57 L POC Glucose 158 H 98 Random Glucose 85 Calcium 8.3 L Magnesium 1.8 08/11/18 08/11/18 05:29 11:47 Sodium Potassium Chloride Carbon Dioxide Anion Gap BUN Creatinine Estimated GFR POC Glucose 85 152 H Random Glucose Calcium Magnesium - Procedures none Assessment and Plan - Assessment (1) Contusion of knee, right Code(s): S80.01XA - Contusion of right knee, initial encounter Status: Acute (2) Contusion of finger, right Code(s): S60.00XA - Contusion of unspecified finger without damage to nail, initial encounter Status: Acute (3) Acute subdural hematoma Code(s): S06.5X9A - Traumatic subdural hemorrhage with loss of consciousness of unspecified duration, initial encounter Status: Acute (4) Contusion of face Code(s): S00.83XA - Contusion of other part of head, initial encounter Status : Acute (5) Hypertension Code(s): I10 - Essential (primary) hypertension Status: Chronic (6) Major neurocognitive disorder as late effect of traumatic brain injury with behavioral disturbance Code(s): S06.9X9S - Unspecified intracranial injury with loss of consciousness of unspecified duration, sequela; F02.81 - Dementia in other diseases classified elsewhere with behavioral disturbance Status: Acute - Plan This patient is an 87-year-old male with a diagnosis of actinic keratosis, basal cell carcinoma of the face, coronary artery disease status post stent to the RCA and left circumflex. Patient also has chronic kidney disease stage IIIb , hypertension, dyslipidemia, essential tremor. The patient has a history of traumatic right subdural hematoma and left subarachnoid hemorrhage after suffering a ground-level fall. The patient had bleed is stable. He is now being treated for Klebsiella UTI and was also found to have positive blood cultures that also grew Klebsiella. He also had a bladder stone and left kidney stone and was being followed by urology. 08/11/18 Patient was evaluated today. He complains about the food in the hospital. No other acute complaints. Patient has had a long hospital stay. The patient has a bladder stone which will need cystolitholapaxy and will need lithotripsy in the future on the right kidney to treat his right lower pole stone as per urology recommendations. They recommend keeping his Denney catheter in place and he can follow-up with urology after he is discharged outpatient. During hospitalization the patient had Klebsiella in his blood as well as in his urine. Infectious disease is following the patient and recommends another 3 days of p.o. antibiotics. He has been on IV antibiotics throughout his hospitalization. The patient also had acute kidney injury on CKD which is likely secondary to dehydration and severe sepsis. Serum creatinine has down trended to 1.43 and had peaked at 2.2 during the hospitalization. We will follow-up a.m. labs. Case will be discussed today with case management regarding the patient's discharge planning and where he will go once he is ready to be discharged. Continue Flomax, continue terazosin. Case was discussed with case management today. We are awaiting authorization from the patient's insurance for possible discharge. From a medical standpoint the patient is ready to be discharged. Lovenox for DVT prophylaxis. 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 every 6 hours as needed fever/pain 1 through 10 Avoid sedatives CV: Severe sepsis likely secondary to urinary tract infection/healthcare associated pneumonia Coronary artery disease status post stent to the LAD/RCA 2015 History of inferior myocardial infarction Essential hypertension Hyperlipidemia Lactic acidosis Elevated troponin EKG admission old inferior Q waves. Tachycardia. Normal [place]/QRS and QT intervals. Troponin likely type II non-STEMI due to sepsis. Will check echocardiogram. EKG unchanged from previous with left axis deviation/old Q waves inferior leads. Serial lactates until cleared. Currently 1.4 Holding atorvastatin 40 mg a day for dyslipidemia. Resume when clinically indicated Holding carvedilol 3.125 mg twice daily hydralazine 25 mg 3 times daily and losartan 50 mg daily for hypertension while on vasopressors/acute kidney injury. Resp: Acute respiratory insufficiency Nasal cannula to maintain saturations greater than equal to 92% Incentive spirometry while awake Albuterol/ipratropium aerosols every 4 hours with albuterol every 2 as needed dyspnea. Follow-up chest x-ray in 07/31 Chest x-ray admission revealed bronchiectasis bilaterally. CT emesis revealed tiny bilateral pleural effusions GI: Hypoalbuminemia/moderate protein calorie malnutrition Patient with currently on regular diet nectar thickened/chemical soft Speech therapy to evaluate swallow and advance diet as tolerated Pantoprazole for GI prophylaxis Docusate/senna 1 tablet twice daily for bowel regimen CT abdomen/pelvis complete. Results revealed a balloon of Denney f prostate. Adjusted. : Urethral stone Patient was been followed by Dr. Valerio for outpatient removal of Denney. Maintain Denney for now and set up appointment for outpatient removal. Continue Flomax Needs to keep denney in and to follow up with urology, discussed with Dr Norris , no intervention indicated at this time. Patient to have treated the infection prior to procedure, poss in 2 weeks of DC. Endo: Sliding scale insulin Accu-Cheks with aspart insulin every 6 hours to maintain euglycemia Check TSH -1.21 Renal: Acute kidney injury in the setting of chronic kidney disease stage IIIb No hydronephrosis on CT abdomen/pelvis. Negative urine eosinophils Avoid nephrotoxic medication Monitor urine output Accurate I's and O's Heme: Basal cell carcinoma of the face Actinic keratosis Leukocytosis Microcytic anemia Right peroneal/posterior tibial DVT, left cephalic superficial thrombus Monitor CBC daily. Follow trends. No indication for transfusion of blood products at this time. Cleared for subcu Lovenox per neurosurgery prior to admission. At current dosage enoxaparin 30 mg twice daily ID: Severe sepsis secondary to UTI present on admission/healthcare associated pneumonia Received cefepime, tobramycin and azithromycin ED. We will start on vancomycin/piperacillin/tazobactam azithromycin Blood cultures are negative candy bacteremia. UA klebsiela pneu. Also with blood cultures positive for klebsiell pneumoniae. Repeat Blood cx NTD. Repeat Urine cultures negative so far. Influenza AB/B/Legionella pneumococcal urine antigens pending. Sputum cx not obtained Msk: Left lower extremity weakness secondary to traumatic brain injury PT evaluate and treat Add OT eval Mal- posture in bed Neck pain X ray neck reviewed normal. Add Flexeril patient with muscle spasm. LE edema left leg, , he also has a hairline fracture, non weight bearing on the left until cleared by ortho to followup as OP with ortho also will do US of LE to r/o DVT Note patient was with hematuria and traumatic brain injury and not on anticoagulation so he is shital risk FEN: Status post 3 L normal saline in ED. Replace electrolytes as clinically indicated Speech therapy evaluate and treat. Currently normal saline 84 cc an hour.. Discontinue 08/01 Prophylaxis -GI - pantoprazole -DVT -SCDs to left lower extremity only. Enoxaparin. 30 mg subcu twice daily okayed by neurosurgery prior to admission (1) Contusion of knee, right Qualifiers: Encounter type: initial encounter Qualified Code(s): S80.01XA - Contusion of right knee, initial encounter (2) Contusion of finger, right Qualifiers: Encounter type: initial encounter Finger: little finger Damage to nail status: without damage Qualified Code(s): S60.051A - Contusion of right little finger without damage to nail, initial encounter (4) Contusion of face Qualifiers: Encounter type: initial encounter Qualified Code(s): S00.83XA - Contusion of other part of head, initial encounter (5) Hypertension Qualifiers: Hypertension type: essential hypertension Qualified Code(s): I10 - Essential (primary) hypertension
[2018-08-11 16:23] VITALS: BP 124/60; PULSE 94; TEMP 97.2; O2SAT 96
== END 2018-08-11 18:07 ==
LOC: NEPC 08:03 → NEDA 09:42 → HIMC 11:05 → N07 08-01 13:05
PROVIDERS: ADMIT Hospitalist; ATTEND Hospitalist